=== PATIENT | female | born 1950 | race Caucasian/White ===

== ENCOUNTER 2023-05-10 21:22 | Emergency (ER) | payer MEDICARE, OTHER, SELFPAY ==
[2023-05-10 21:34] VITALS: BP 192/86; PULSE 61; RESP 18; TEMP 36.7; O2SAT 97; BMI 39.1
[2023-05-10 21:42] VITALS: BP 170/86; PULSE 61; RESP 16; TEMP 36.8; O2SAT 97; BMI 39.1
--- NOTE | 2023-05-10 21:54 | ED.WOUNDLAC1 ---
HPI - Wound/Laceration General Chief Complaint: Wound/Laceration Stated Complaint: Upper extremity injury Time Seen by Provider: 05/10/23 21:51 Source: patient Mode of arrival: walk-in History of Present Illness HPI narrative: trying to open a wine bottle and cut the web space of the right hand. Injury Just [employer]. No hand or finger weakness or numbness. States she was using a knife and it slipped and cut her hand. Onset (ago): minute(s) Related Data Allergies Allergy/AdvReac Type Severity Reaction Status Date / Time No Known Drug Allergies Allergy Verified 05/10/23 21:52 Review of Systems ROS Status of ROS 10 or more systems reviewed and unremarkable except as noted in history and below [facility] Social History Smoking status: Never smoker Exam Constitutional Vital Signs, click to edit/add: Last Vital Signs Temp 98.2 F 05/10/23 21:42 Pulse 61 05/10/23 21:42 Resp 16 05/10/23 21:42 BP 170/86 H 05/10/23 21:42 Pulse Ox 97 05/10/23 21:42 O2 Del Method Room Air 05/10/23 21:42 Common normals: no apparent distress, average body habitus, oriented x3, no limitations, healthy appearing and alert Eye Common normals: EOMs intact bilaterally and conjunctivae normal Respiratory Common normals: normal respiratory effort, no retractions and no use of accessory muscles Cardio Common normals: regular rate, regular rhythm, S1 normal heart sound and S2 normal heart sound Extremity Other: laceration dorsal web space right hand btw thumb and index FROM of her fingers Neuro Common normals: oriented x3, CN's II-XII intact bilaterally, moves all extremities, no focal motor deficits and no sensory deficits noted Psych Appearance: grossly normal Course Vital Signs Vital signs: Vital Signs Temperature 98.0 F 05/10/23 21:34 Pulse Rate 61 05/10/23 21:34 Respiratory Rate 18 05/10/23 21:34 Blood Pressure 192/86 H 05/10/23 21:34 Pulse Oximetry 97 05/10/23 21:34 Oxygen Delivery Method Room Air 05/10/23 21:34 Temperature 98.2 F 05/10/23 21:42 Pulse Rate 61 05/10/23 21:42 Respiratory Rate 16 05/10/23 21:42 Blood Pressure 170/86 H 05/10/23 21:42 Pulse Oximetry 97 05/10/23 21:42 Oxygen Delivery Method Room Air 05/10/23 21:42 MDM - Wound/Laceration Medical Records Medical records narrative: patient presents after accidental cut with knife right hand. Repaired without incident. Patient also given a tetanus. Discharged home to follow up with her doctor Discharge Plan Discharge Chief Complaint: Wound/Laceration Clinical Impression: Laceration Patient Disposition: Home, Self-Care Instructions: Laceration (ED) Additional Instructions: have wound rechecked in 3 days and stitches removed in 10 Stand Alone Forms: Portal Instructions Referrals: YVONNE QUINTANA [Primary Care Provider] - 1 week Procedures ED Procedure Instructions Procedures Procedures: right hand lac. 2cm lac . lac into SQ space. No FB seen. 1% lido without epi. betadine and saline. closed with # 33.0 nylon stitches. Tolerated well. no complication
--- NOTE | 2023-05-10 21:57 | PC.NURSE ---
PATIENT WITH LACERATION TO LEFT HAND BETWEEN THUMB AND FIRST FINGER. CUT WITH KITCHEN KNIFE WHILE ATTEMPTING TO CUT THE FOIL OFF OF A WINE BOTTLE NECK. SHE INITIALLY CUT HERSELF AROUND 3PM THIS AFTERNOON, SAYS SHE WAS ABLE TO GET THE BLEEDING CONTROLLED AT THAT TIME. SHE WENT TO CHANGE THE BANDAGE THIS EVENING AND IT STARTED BLEEDING AGAIN AND SHE WAS NOT ABLE TO GET IT TO STOP THIS TIME. IT WAS WRAPPED WITH COTTON BALLS AND TAPE AND A KITCHEN TOWEL WHEN SHE ARRIVED.
[2023-05-10] MEDS: ADACEL DIPH,PERTUSS(ACELL),TET VAC/PF 0.5 ML ADULT SYRINGE IM (22:13)
[2023-05-10] MEDS: LIDOCAINE HCL 1% 100 MG/10 ML MDV INJ (22:15)
[2023-05-10] MEDS: BACITRACIN OINTMENT 28.4 GM TUBE 1 APPLIC TOPICAL (23:11)
== END 2023-05-10 23:13 | disposition home or self-care (01) ==
PROVIDERS: Emergency Provider Internal Medicine; PCP Internal Medicine
DX: S61.411A Laceration without foreign body of right hand, initial encounter (principal); W26.0XXA Contact with knife, initial encounter; Z23 Encounter for immunization
CPT/HCPCS: 12001; 90471; 90715; 99283

== ENCOUNTER 2023-10-29 09:11 | Outpatient (OUT) | payer MEDICARE, OTHER, SELFPAY ==
[2023-10-29 09:30] LABS: Basophils Absolute Auto 0.1 10^3/uL (0.0-0.1); Basophils Percent Auto 0.8 % (0.2-2.0); Eosinophils Absolute Auto 0.1 10^3/uL (0.0-0.7); Eosinophils Percent Auto 1.6 % (0.9-7.0); Hematocrit 40.1 % (36.0-48.0); Hemoglobin 12.8 g/dL (12.0-16.0); Immature Granulocytes Abs Auto 0.04 10^3/uL (0.00-0.03); Immature Granulocytes Pct Auto 0.6 % (0.0-0.5); Lymphocytes Absolute Auto 1.7 10^3/uL (1.2-3.8); Lymphocytes Percent Auto 26.4 % (20.5-60.0); Mean Corpuscular HGB Conc 31.9 g/dL (29.9-35.2); Mean Corpuscular Volume 87.7 fL (81.0-99.0); Monocytes Absolute Auto 0.5 10^3/uL (0.3-0.8); Monocytes Percent Auto 7.8 % (1.7-12.0); Neutrophils Percent Auto 62.8 % (43.0-75.0); Platelet Count 183 10^3/uL (150-450); Red Blood Count 4.57 10^6/uL (4.20-5.40); Red Cell Distribution Width 12.8 % (11.0-15.0); White Blood Count 6.3 10^3/uL (4.0-11.0)
--- NOTE | 2023-10-29 10:00 | CA_ITS ---
Patient Name: JASIEL BLAKE MR#: [id number] : 1950 Exam Date: 10/29/2023 Ordering Doctor: MANJINDER SEHFFIELD ECHOCARDIOGRAM REPORT PROCEDURE: CA ECHO DOPPLER COMPLETE INDICATIONS: Paroxysmal atrial fibrillation, Mitral valve disease, hypertension COMPARISON: None. DESCRIPTION: COMPLETE ECHOCARDIOGRAM Real-time transthoracic echocardiography with 2D, M-mode, spectral and color flow Doppler performed. QUALITY: Technical quality was good. LEFT VENTRICLE: Normal chamber size. Borderline left ventricular hypertrophy. Systolic function is normal. LV EF: Normal left ventricular ejection fraction, (55%). DIASTOLIC: Grade II diastolic dysfunction. ATRIAL SEPTUM: Visually appears intact. LEFT ATRIUM: Severe dilatation. RIGHT ATRIUM: Mild chamber dilatation. RIGHT VENTRICLE: Normal chamber size. Normal right ventricular systolic function. TRICUSPID VALVE: Normal mobility and thickness. No stenosis with trivial regurgitation. Doppler studies reveal moderately (45-60) elevated right sided pressures. RSVP 49 mmHg MITRAL VALVE: Mildly thickened with normal mobility. No evidence of mitral valve stenosis. Mild mitral regurgitation. AORTIC VALVE: Normal trileaflet appearance. No visible sclerosis. Normal leaflet mobility. No evidence of aortic valve stenosis. No aortic regurgitation. AORTIC ROOT: Normal diameter and appearance. PULMONIC VALVE: Normal thickness and mobility. No stenosis. Trivial regurgitation. PERICARDIUM: Moderate circumferential pericardial effusion. No echocardiographic evidence of tamponade physiology. IVC: Collapses with inspirations. IVC is normal in size. PLEURA: CONCLUSION: 1. Left ventricle is normal in size and exhibits normal systolic function. LVEF is estimated at 55%. 2. Normal right ventricular size and systolic function. 3. Severe left atrial dilatation. 4. Grade 2, moderate diastolic dysfunction. 5. Mild mitral regurgitation. 6. Moderately elevated right-sided pressures. RVSP is 49 mmHg. 7. Moderate circumferential pericardial effusion with no echocardiographic evidence of tamponade physiology. Adult Echocardiography Procedure Report Left Ventricle LVEDD (3.7 - 5.6 cm): 5.05 cm LVESD (2.2 - 4.0 cm): 2.96 cm LVIVS thickness (0.6 - 1.2 cm): 1.07 cm LVPW thickness (0.5 - 1.0 cm): 1.00 cm e': 0.07 m/s E - e': 12.22 LVOT Max Gradient: 4.29 mm[Hg] LVOT Area (cm2): 1.04 m/s Peak Velocity (LVOT): 1.04 m/s Mean Velocity (LVOT): 0.62 m/s LVOT Diameter 1.99 cm Left Atrium LA Volume Index (2D A2C): 56.41 ml/m2 Left Atrium Systolic Dimension: 4.84 cm Mitral Valve MV E to A Ratio: 1.82 Mitral Valve A-Wave Peak Velocity: 0.45 m/s Mitral Valve E-Wave Peak Velocity: 0.82 m/s Right Ventricle Aorta AO Root Diam: 2.50 cm Ascending Ao Diam: 2.94 cm Aortic Valve AoV Area (Peak Teo): 2.78 cm2, 2.78 cm2 AoV Area (VTI): 2.79 cm2, 2.79 cm2 Peak Velocity(Antegrade Flow): 1.15 m/s Peak Gradient(Antegrade Flow): 5.30 mm[Hg] Mean Velocity(Antegrade Flow): 0.72 m/s Mean Gradient(Antegrade Flow): 2.50 mm[Hg] Velocity Time Integral: 28.75 cm Tricuspid Valve Peak Velocity (Regurgitant Flow): 3.37 m/s Pulmonic Valve Peak Velocity: 0.77 m/s Peak Gradient: 1.82 mm[Hg], 3.06 mm[Hg] Right Atrium Right Atrium Systolic Pressure: 34.84 ml, 34.84 ml Dictated by: Kin Curry M.D. on 10/29/2023 at 15:52 Approved by: Kin Curry M.D. on 10/29/2023 at 15:55
[2023-10-29 10:35] LABS: Estimated Average Glucose 126 mg/dL
[2023-10-29 18:31] LABS: Sodium 140 mmol/L (136-145)
[2023-10-29 18:32] LABS: Alanine Aminotransferase 14 U/L (14-59); Albumin Globulin Ratio 1.1; Albumin Level 3.7 g/dL (3.4-5.0); Alkaline Phosphatase 88 U/L (46-116); Anion Gap 13.9; Aspartate Amino Transferase 15 U/L (15-37); BUN Creatinine Ratio 22.7; Bilirubin Total 0.4 mg/dL (0.2-1.0); Calcium 9.3 mg/dL (8.5-10.1); Carbon Dioxide 26.6 mmol/L (21.0-32.0); Chloride 104 mmol/L (98-107); Estimated GFR (African America 59 (>=60); Estimated GFR (Non-African Ame 49 (>=60); Globulin 3.4 g/dL; Glucose 125 mg/dL (74-106); Potassium 4.5 mmol/L (3.5-5.1); Total Protein 7.1 g/dL (6.4-8.2); Triglycerides 90 mg/dL (<=150)
[2023-10-29 18:33] LABS: Cholesterol 179 mg/dL (<=200); HDL Cholesterol 48 mg/dL (40-60); TSH W/ REFLEX FT4 3.718 uIU/mL (0.358-3.740)
== END 2023-10-29 09:12 | disposition home or self-care (01) ==
LOC: CARD 09:12
PROVIDERS: PCP Internal Medicine; Visit Provider Nurse Practitioner
DX: I48.0 Paroxysmal atrial fibrillation (principal); I05.9 Rheumatic mitral valve disease, unspecified; E78.2 Mixed hyperlipidemia; E11.9 Type 2 diabetes mellitus without complications; I10 Essential (primary) hypertension; E03.9 Hypothyroidism, unspecified
CPT/HCPCS: 36415; 80053; 80061; 83036; 84443; 85025; 93306

== ENCOUNTER 2024-01-14 10:49 | Outpatient (OUT) | payer MEDICARE, OTHER, SELFPAY ==
--- NOTE | 2024-01-14 10:52 | MM_ITS ---
Patient Name: JASIEL BLAKE MR#: [id number] : 1950 Exam Date: 01/14/2024 Ordering Doctor: DR YVONNE QUINTANA M.D. RADIOLOGY REPORT PROCEDURE: MM TOMOSYNTHESIS SCREENING BI COMPARISON: MG MAMM SCREEN 3D RONY CAD, 12/30/2021. MG MAMM SCREEN 3D RONY CAD, 01/02/2023. INDICATIONS: Screening Calculator Name NCI Breast Cancer Risk Assessment Tool 5 Year Breast Cancer Risk 1.30% Lifetime Breast Cancer Risk 3.30% Personal Breast Cancer No Personal Ovarian Cancer No Treatments None Family Cancers Aunt-maternal with breast cancer at age 50; Grandfather-paternal with oral cancer cancer at age ~60. LOCATION: [facility] BREAST COMPOSITION: There are scattered areas of fibroglandular density. FINDINGS: DIAGNOSTIC CATEGORY 2--BENIGN FINDING. NO CHANGE FROM COMPARISON. Scattered benign-appearing calcifications are present. Scattered benign-appearing lymph nodes are present. RIGHT BREAST: No significant suspicious finding. LEFT BREAST: No significant suspicious finding. RECOMMENDATIONS: ROUTINE MAMMOGRAM AND CLINICAL EVALUATION IN 12 MONTHS. PLEASE NOTE: A NORMAL MAMMOGRAM DOES NOT EXCLUDE THE POSSIBILITY OF BREAST CANCER. A CLINICALLY SUSPICIOUS PALPABLE LUMP SHOULD BE BIOPSIED. Dictated by: Raul Bernard MD on 01/14/2024 at 13:17 Approved by: Raul Bernard MD on 01/14/2024 at 13:34
== END 2024-01-14 10:50 | disposition home or self-care (01) ==
LOC: MAMMO 10:50
PROVIDERS: PCP Internal Medicine; Visit Provider Internal Medicine
DX: Z12.31 Encounter for screening mammogram for malignant neoplasm of breast (principal); Z80.3 Family history of malignant neoplasm of breast; Z80.8 Family history of malignant neoplasm of other organs or systems
CPT/HCPCS: 77063; 77067

== ENCOUNTER 2024-02-28 09:51 | Outpatient (OUT) | payer MEDICARE, OTHER, SELFPAY ==
--- OUTSIDE RECORDS SUMMARY | 2024-02-28 09:54 | XMS_ITS | CCD ---
Author Organization [facility] Care Team Providers Care Dish Machine Operator Name Role Phone DR YVONNE QUINTANA Admitting Unavailable MARIANO, DR RUSSELL Primary Care Unavailable MARIANO, DR RUSSELL Consulting Unavailable MARIANO, DR RUSSELL Attending Unavailable WEST, DR GREGORIO Cabral Consulting Unavailable MARIANO, DR RUSSELL Primary Care Unavailable ALGHOTHANI, MOHAMAFrancesco Admitting Unavailable ALGHOTHANI, MOHAMAD Consulting Unavailable ALGHOTHANI, MOHAMAD Attending Unavailable YOHANNES, MANJINDER Attending Unavailable YOHANNES, MANJINDER Attending Unavailable YOHANNES, MANJINDER Attending Unavailable JERICHO, ANA Attending Unavailable Problems Active Problems Problem Classification Problem Date Documented Da te Episodic/Chronic Cardiac dysrhythmias (2 sources) Paroxysmal atrial fibrillation; Translations: [Paroxysmal atrial fibrillation] Onset: 07-25-2022 Chronic Diabetes mellitus without complication (2 sources) Type 2 diabetes mellitus without complications; Translations: [Type 2 diabetes mellitus without complications] Onset: 10-17-2023 Chronic Disorders of lipid metabolism (3 sources) Hyperlipidemia, unspecified; Translations: [Mixed hyperlipidemia] Onset: 07-25-2022 Chronic Essential hypertension (6 sources) Essential (primary) hypertension; Translations: [ESSENTIAL PRIMARY HYPERTENSION] Onset: 07-25-2022 Chronic Heart valve disorders (2 sources) Rheumatic mitral valve disease, unspecified; Translations: [Rheumatic mitral valve disease, unspecified] Onset: 07-25-2022 Chronic Menopausal disorders (1 source) Other primary ovarian failure; Translations: [OTHER PRIMARY OVARIAN FAILURE] Onset: 01-03-2023 Chronic Other and ill-defined heart disease (2 sources) Other ill-defined heart diseases; Translations: [Other ill-defined heart diseases] Onset: 07-25-2022 Chronic Other and ill-defined heart disease (2 sources) Cardiomegaly; Translations: [Cardiomegaly] Onset: 07-25-2022 Chronic Other and ill-defined heart disease (2 sources) Heart disease, unspecified; Translations: [Heart disease, unspecified] Onset: 02-02-2023 Chronic Other screening for suspected conditions (not mental disorders or infectious disease) (4 sources) Encounter for screening mammogram for malignant neoplasm of breast; Translations: [ENC SCR MAMMO MALIG NEOPLASM BREAST] Onset: 01-02-2023 Episodic Residual codes; unclassified (1 source) Family history of malignant neoplasm of breast; Translations: [FAMILY HX MALIG NEOPLASM OF BREAST] Onset: 01-03-2023 Episodic Residual codes; unclassified (1 source) Family history of malignant neoplasm of other organs or systems; Translations: [FAM HX MALIG NEOPLASM OTH ORGN/SYS] Onset: 01-03-2023 Episodic Thyroid disorders (2 sources) Hypothyroidism, unspecified; Translations: [Hypothyroidism, unspecified] Onset: 07-25-2022 Chronic Unclassified (1 source) Other pericardial effusion (noninflammatory); Translations: [Other pericardial effusion (noninflammatory)] Onset: 11-16-2023 Past or Other Problems Problem Classification Problem Date Documented Da te Episodic/Chronic Unclassified (1 source) Other pericardial effusion (noninflammatory); Translations: [Other pericardial effusion (noninflammatory)] Onset: 11-16-2023 Results Test Name Value Interpretation Reference Range Facil ity Office Visiton 11-16-2023 Follow-up visit [id number] Frances Macdonald 1950 F Date Provider Department Center 11/16/2023 MANJINDER ARAUJO CARD [facility] Family History Problem Relation Age of Onset Heart failure Father Family Status - Relation Status Age at Father Level of Service:23360 [place] OFFICE/OUTPATIENT ESTABLISHED MOD MDM 30 MIN Normal [facility] 36on 10-31-2023 36 Regarding labs and echo performed on 10/29/2023: ANAI Marcelino MA Sarah- see if her leg swelling is better after starting aldactone. Did she have repeat BMP done? Has she needed lasix more often? Hows her B/P at home Overall echo is ok, normal LVSF 55%, still grade 2 DD, rigth sided pressures elevated- hoping aldactone helped dry her out a bit. Make sure she has a f/U to check B/P- and labs please ANAI Marcelino MA Kidney function normal, Potassium level normal, liver function normal, lA1c- good at 6.0 Cholesterol is a touch higher- with LDL 110- ask her to watch diet a little better or we can increase her statin Spoke with patient. BP has been running very good. She has not needed lasix. Scheduled her follow up with Gabriela (per patient's request) on 11/16/2023. Normal [facility] Office Visiton 10-17-2023 Follow-up visit [id number] Frances Macdonald 1950 F Date Provider Department Center 10/17/2023 MANJINDER ARAUJO Family History Problem Relation Age of Onset Heart failure Father Family Status - Relation Status Age at Father Level of Service:89983 [place] OFFICE/OUTPATIENT ESTABLISHED MOD MDM [address] [facility] Office Visiton 02-02-2023 Follow-up visit [id number] Frances Macdonald 1950 F Date Provider Department Center 02/02/2023 MANJINDER ARAUJO Family History Problem Relation Age of Onset Heart failure Father Family Status - Relation Status Age at Father Level of Service:38165 [place] OFFICE/OUTPATIENT ESTABLISHED MOD MDM 30-[address] [facility] MG MAMM SCREEN 3D RONY CADon 01-02-2023 MG MAMM SCREEN 3D RONY CAD Patient: FRANCES MACDONALD Exam Date: 01/02/2023 : 1950 Gender:F Ordering : DR YVONNE QUINTANA M.D. Admission #: [id number] Family : Order #: [id number] CLICK HERE TO VIEW EXAM RADIOLOGY REPORT PROCEDURE: MAMMOGRAM SCREENING 3D BILATERAL CAD COMPARISON: MG MAMM SCREEN 3D RONY CAD, 12/28/2020. MG MAMM SCREEN 3D RONY CAD, 12/30/2021. INDICATIONS: Screening mammography Calculator Name NCI Breast Cancer Risk Assessment Tool 5 Year Breast Cancer Risk 1.30% Lifetime Breast Cancer Risk 3.50% Personal Breast Cancer No Personal Ovarian Cancer No Treatments None Family Cancers Aunt-maternal with breast cancer at age 50; Grandfather-paternal with oral cancer cancer at age 60. LOCATION: [facility] BREAST COMPOSITION: Scattered areas fibroglandular density. FINDINGS: DIAGNOSTIC CATEGORY 2--BENIGN FINDING. NO CHANGE FROM COMPARISON. Scattered benign-appearing calcifications are present. Scattered benign-appearing lymph nodes are present. RIGHT BREAST: No significant suspicious finding. LEFT BREAST: No significant suspicious finding. RECOMMENDATIONS: ROUTINE MAMMOGRAM AND CLINICAL EVALUATION IN 12 MONTHS. PLEASE NOTE: A NORMAL MAMMOGRAM DOES NOT EXCLUDE THE POSSIBILITY OF BREAST CANCER. A CLINICALLY SUSPICIOUS PALPABLE LUMP SHOULD BE BIOPSIED. Dictated by: Gregorio Dominique MD on 01/02/2023 at 11:04 Approved by: Gregorio Dominique MD on 01/02/2023 at 11:05 Normal [facility] XR DEXA BONE DENSITYon 01-02 XR DEXA BONE DENSITY EXAMINATION: XR DEXA BONE DENSITY, 01/02/2023 9:29 AM EDT HISTORY: Primary ovarian failure COMPARISON: 2013. TECHNIQUE: Dual-energy X-ray absorptiometry (DEXA) bone density study performed for the axial skeleton. HISTORY: Primary ovarian failure FINDINGS: Bone mineral density AP spine L1-L4 measures 1.301 g/sq cm. T score 1.0. WHO classification: Normal. Lowest bone mineral density right femoral neck measures 1.074 g/sq cm. T score 0.3. WHO classification: Normal IMPRESSION: Normal bone mineral density. Low fracture risk Electronically authenticated by: GREGORIO DOMINIQUE Date: 2023-01-02 12:02 Normal [facility] LIPID PROFILEon 08-01-2022 CHOL-HDL RATIO NORM SEE BELOW Normal [facility] Comment on above: Result Comment: 3.3 - 4.4 LOW RISK 4.4 - 7.1 AVERAGE RISK 7.1 - 11.0 MODERATE RISK >11.0 HIGH RISK Performed By: #### L KAROL BMP #### [facility] [address] [address] [address] Elias Le Cholesterol [Mass/Vol] 175 mg/dL Normal <=200 [facility] Comment on above: Performed By: #### L KAROL BMP #### [facility] [address] [address] [address] Elias Le Cholesterol in HDL [Mass/Vol] 52 mg/dL Normal 40-60 [facility] Comment on above: Performed By: #### L KAMILAH ROBERSON #### [facility] [address] [place] [address] Dr. Elias Le Cholesterol in LDL [Mass/Vol] 101.0 mg/dL Normal [facility] Comment on above: Performed By: #### L IPID, BMP #### [facility] [address] [place] [address] Dr. Elias Le Cholesterol.total/ Cholesterol in HDL [Mass ratio] 3.4 {ratio} Normal [facility] Comment on above: Performed By: #### L IPID, BMP #### [facility] [address] [place] [address] Dr. Elias Le HDL NORMAL > or = 60 mg/dl - LOW CARDIOVASCULAR RISK <40 mg/dl - HIGH CARDIOVASCULAR RISK Normal [facility] Comment on above: Performed By: #### L IPID, BMP #### [facility] [address] [place] [address] Dr. Elias Le LDL CALC NORMAL SEE BELOW Normal [facility] Comment on above: Result Comment: <100 mg/dl OPTIMAL 100 - 129 mg/dl NEAR OR ABOVE OPTIMAL 130 - 159 mg/dl BORDERLINE HIGH 160 - 189 mg/dl HIGH >190 mg/dl VERY HIGH Performed By: #### L IPID, BMP #### [facility] [address] [place] [address] Dr. Elias Le Triglyceride [Mass/Vol] 110 mg/dL Normal <=150 [facility] Comment on above: Performed By: #### L IPID, BMP #### [facility] [address] [place] [address] Dr. Elias Le VLDL CALC 22.0 mg/dL Normal [facility] Comment on above: Performed By: #### L IPID, BMP #### [facility] [address] [place] [address] Dr. Elias Le PROF CHEM 8 (BAS METB)on Anion gap [Moles/Vol] 10.1 mmol/L Normal [facility] Comment on above: Performed By: #### L IPID, BMP #### [facility] [address] [place] [address] Dr. Elias Le Calcium [Mass/Vol] 8.8 mg/dL Normal 8.5-10.1 [facility] Comment on above: Performed By: #### L IPID, BMP #### [facility] [address] [address] [address] Elias Le Chloride [Moles/Vol] 102 mmol/L Normal 98-107 [facility] Comment on above: Performed By: #### L IPID, BMP #### [facility] [address] [address] [address] Elias Le CO2 [Moles/Vol] 29.0 mmol/L Normal 21.0-32.0 [facility] Comment on above: Performed By: #### L IPID, BMP #### [facility] [address] [place] [address] Dr. Elias Le Creatinine [Mass/Vol] 0.99 mg/dL Normal 0.55-1.02 [facility] Comment on above: Performed By: #### L IPID, BMP #### [facility] [address] [place] [address] Dr. Elias Le EGFR-AF LEBANESE >60 Normal >=60 [facility] Comment on above: Performed By: #### L IPID, BMP #### [facility] [address] [address] [address] Elias Le EGFR-NON AF LEBANESE 55 mL/min/1.73m2 Critically low >=60 [facility] Comment on above: Performed By: #### L IPID, BMP #### [facility] [address] [place] [address] Dr. Elias Le Glucose [Mass/Vol] 117 mg/dL Critically high 74-106 [facility] Comment on above: Performed By: #### L IPID, BMP #### [facility] [address] [address] [address] Elias Le Potassium [Moles/Vol] 4.1 mmol/L Normal 3.5-5.1 [facility] Comment on above: Performed By: #### L IPID, BMP #### [facility] [address] [address] [address] Elias Le Sodium [Moles/Vol] 137 mmol/L Normal 136-145 [facility] Comment on above: Performed By: #### L IPID, BMP #### [facility] [address] [address] [address] Elias Le Urea nitrogen [Mass/Vol] 25.0 mg/dL Critically high 7.0-18.0 [facility] Comment on above: Performed By: #### L IPID, BMP #### [facility] [address] [address] [address] Elias Le Urea nitrogen/Creatinin e [Mass ratio] 25.3 mg/mg Normal [facility] Comment on above: Performed By: #### L IPID, BMP #### [facility] [address] [address] [address] Elias Le Encounters Encounter Date Encounter Type Care Provider Facility Start: 01-01-2024 End: 01-01-2024 ambulatory ANA ECHAVARRIA Not Available Start: 11-16-2023 End: 11-16-2023 ambulatory [facility] Start: 10-17-2023 End: 10-17-2023 ambulatory [facility] Start: 02-02-2023 End: 02-02-2023 ambulatory [facility] Start: 01-02-2023 End: 01-03-[address] YVONNE QUINTANA Facility:[facility] Start: 08-01-2022 End: 08-02-[address] YVONNE QUINTANA Facility:[facility] Payers Date Payer Category Payer Medicare [id number] 1958 Private Health Insurance [id number] 1950 Unknown [id number] 1950 Unknown [id number] 1950 Unknown [id number] Clinical Notes 02-02-2023 to 11-16-2023 Note Date & Type Note Facility 11-16-2023 Note Hypertension is stab le, well controlled 130/80 Continue all meds [facility] 11-16-2023 Note Will monitor with bennie gonzalez echocardiogram [facility] 11-16-2023 Note Lipid abnormalities are stable continue simvastatin- she does not want to increase dose of statin- she will continue heart healthy diet [facility] 11-16-2023 Note [facility] CARDIOLOGY PROGR ESS NOTE HPI: Frances Macdonald is a 73 y.o. female here for f/U and review of Echocardiogram and labs HPI Known PMH: HTN, paroxysmal atrial fibrillation, and heart failure with preserved EF. Patient here for follow up labs and echo. She was started on spironolactone at visit last month, renal function stable and K+ stable. Denies chest pain and bleeding on Eliquis. Says her SOB is no different, and she's taking lasix about 3 times a week. Denied chest pain, SOB, Orthopnea, syncope Review of Systems Cardiovascular: Positive for dyspnea on exertion and leg swelling. Respiratory: Positive for shortness of breath (asthma). Gastrointestinal: Positive for heartburn. All other systems reviewed and are negative. Visit Vitals BP 130/80 (BP Location: Left arm, Patient Position: Sitting) Pulse (!) 47 Ht 1.651 m (5' 5 ) Wt 110 kg (243 lb) SpO2 96% BMI 40.44 kg/m??? Smoking Status Never BSA 2.25 m??? No Known Allergies Medications: Current Outpatient Medications on File Prior to Visit Medication Sig Dispense Refill albuterol 90 mcg/actuation inhaler albuterol sulfate HFA 90 mcg/actuation aerosol inhaler INHALE 2 PUFFS BY MOUTH EVERY 4 HOURS NEEDED FOR WHEEZING WITH SPACER apixaban (Eliquis) 5 mg tablet Take 5 mg by mouth in the morning and at bedtime. fluticasone propion-salmeteroL (Advair Diskus) 250-50 mcg/dose diskus inhaler Advair Diskus 250 mcg-50 mcg/dose powder for inhalation furosemide (Lasix) 20 mg tablet Take 20 mg by mouth 3 (three) times a week. levothyroxine (Synthroid, Levoxyl) 25 mcg tablet levothyroxine 25 mcg tablet losartan (Cozaar) 50 mg tablet Take 1 tablet (50 mg) by mouth in the morning. 90 tablet 3 metFORMIN (Glucophage) 500 mg tablet Take 500 mg by mouth with breakfast and with evening meal. metoprolol succinate XL (Toprol-XL) 50 mg 24 hr tablet Take 50 mg by mouth in the morning. montelukast (Singulair) 10 mg tablet montelukast 10 mg tablet simvastatin (Zocor) 20 mg tablet Take 20 mg by mouth at bedtime. spironolactone (Aldactone) 25 mg tablet Take 1 tablet (25 mg) by mouth in the morning. 30 tablet 5 No current facility-administered medications on file prior to visit. Physical Exam: Constitutional: Appearance: Normal appearance. Without apparent distress HENT: Head: Normocephalic and atraumatic. Nose: Nose normal. Mouth/Throat: Mouth: Mucous membranes are moist. Eyes: Extraocular Movements: Extraocular movements intact. Conjunctiva/sclera: Conjunctivae normal. Neck: Vascular: No JVD. Cardiovascular: Rate and Rhythm: Normal rate and regular rhythm. Pulses: Dorsalis pedis pulses are 3 on the right side and 3on the left side. Posterior tibial pulses are 3 on the right side and 3 on the left side. Heart sounds: Normal heart sounds, S1 normal and S2 normal. Pulmonary: Effort: Pulmonary effort is normal. Breath sounds: Normal breath sounds. Abdominal: General: Bowel sounds are normal. Palpations: Abdomen is soft. Musculoskeletal: General: Normal range of motion. Cervical back: Normal range of motion. Right lower leg: Non pitting edema. Left lower leg: Non pitting edema. Skin: General: Skin is warm and dry. Capillary Refill: Capillary refill takes less than 2 seconds. Neurological: General: No focal deficit present. Mental Status: She is alert and oriented to person, place, and time. Psychiatric: Mood and Affect: Mood normal. Behavior: Behavior normal. Thought Content: Thought content normal. Judgment: Judgment normal. Labs: 10/29/23 CBC normal Renal function stable BUN 25, CR 1.10, GFR 49 K+ 4.5 normal NA 140- normal LFT normal Chol 179, Trig 90, HDL 48, LDL 113 A1c 6.0- stable Last lab values have been reviewed CV Testin10/29/23 TTE 05/2019 Echo- reviewed with pt- diastolic dysfunction and Mitral regurg Global left ventricular systolic function is normal (Visually estimated EF 65-70%). No regional wall motion abnormality. Grade 2, moderate diastolic dysfunction (pseudonormalized LV filling pattern). Normal right ventricular systolic function. The left atrium is severely enlarged. The right atrium is moderately enlarged. Mild mitral regurgitation. Trivial tricuspid regurgitation. Doppler studies suggest mildly elevated right sided pressures. There is a minimal pericardial effusion. Assessment/Plan: Pericardial effusion Will monitor with repeat Limitied echo in 3 months, she is currently asymptomatic Continue all medications Paroxysmal atrial fibrillation (CMS/HCC) [id number]= 5- Age, Female, CHF, DM Remains on anticoagulation- eliquis Rate control with toprol 50 mg Mixed hyperlipidemia Lipid abnormalities are stable continue simvastatin- she does not want to increase dose of statin- she will continue heart healthy diet Mitral valve disorder Will monitor with routine echocardiogram Hypertensive disorder Hypertension is stab (more content not included)... [facility] 11-16-2023 Note Patient here for fol low up labs and echo. She was started on spironolactone at visit last month. Denies chest pain and bleeding on Eliquis. Says her SOB is no different, and she's taking lasix about 3 times a week. Review of Systems Cardiovascular: Positive for dyspnea on exertion and leg swelling. Respiratory: Positive for shortness of breath (asthma). Gastrointestinal: Positive for heartburn. All other systems reviewed and are negative. [facility] 11-16-2023 Note [id number]= 5- Age , Female, CHF, DM Remains on anticoagulation- eliquis Rate control with toprol 50 mg [facility] 11-16-2023 Note Will monitor with re peat Limitied echo in 3 months, she is currently asymptomatic Continue all medications [facility] 10-17-2023 Note [id number]=6- age, female, HTN, DM Continue toprol and eliquis anticoagulation Denied any bleeding tendencies ECG today Sinus bradycardia [facility] 10-17-2023 Note Lipid abnormalities are stable continue simvastatin and heart healthy diet Script to pt for annual labs [facility] 03-13-2024 Note MV regurg- repeat ec ho to assess degree of MR [facility] 10-17-2023 Note Hypertension is unco ntrolled, add aldactone to regime, continue losartan and toprol Repeat CMP in 1-2 weeks after starting aldactone to assess renal function and electrolytes. Pt voiced understanding [facility] 10-17-2023 Note Repeat echo [facility] 10-17-2023 Note F/U with PCP [facility] 10-17-2023 Note Continue lasix and s tart aldactone for HTN and fluid management [facility] 10-17-2023 Note Repeat echocardiogra m to assess cardiac function, DD, valvular function Continue lasix 2 times/week and start aldactone [facility] 10-17-2023 Note F/U with PCP and michelle hutchins check routine annual labs, A1C [facility] 10-17-2023 Note [facility] CARDIOLOGY PROGR ESS NOTE HPI: 73 yo female presents today for routine F/U for HTN, paroxysmal atrial fibrillation, and heart failure with preserved EF. She presents to cardiology clinic for routine follow-up. HPI Pleasant 72-year-old female presents to clinic for routine follow-up of diastolic dysfunction/Chronic diastolic heart failure, Paroxysmal A-fib on Eliquis anticoagulation denies any bleeding tendencies, and hypertension Chest pain, orthopnea, palpitations. States at home b/p is typically about 150/80's. Denied any lightheadedness/dizziness, syncope. Does admit occasional fatigue. She has just returned from being in [place] over the winter. Patient here for 9 mo follow up diastolic dysfunction, hypertension, PAF, and mitral valve disorder. No recent labs or imaging. Says her SOB is very intermittent and no more than usual for her. Says she doesn't think she has chest pain. She believes it's heartburn, and is relieved with Tums and a glass of water. Denies palpitations, lightheadedness/syncope, and bleeding on Eliquis. Says her BP at home averages about the same as it is in the office today (150/78). Review of Systems Cardiovascular: Positive for dyspnea on exertion and leg swelling. Respiratory: Positive for shortness of breath (asthma). Gastrointestinal: Positive for heartburn. All other systems reviewed and are negative Visit Vitals BP 150/78 (BP Location: Left arm, Patient Position: Sitting) Pulse 50 Ht 1.651 m (5' 5 ) Wt 109 kg (241 lb) SpO2 97% BMI 40.10 kg/m??? Smoking Status Never BSA 2.24 m??? No Known Allergies Medications: Current Outpatient Medications on File Prior to Visit Medication Sig Dispense Refill albuterol 90 mcg/actuation inhaler albuterol sulfate HFA 90 mcg/actuation aerosol inhaler INHALE 2 PUFFS BY MOUTH EVERY 4 HOURS NEEDED FOR WHEEZING WITH SPACER apixaban (Eliquis) 5 mg tablet Take 5 mg by mouth in the morning and at bedtime. fluticasone propion-salmeteroL (Advair Diskus) 250-50 mcg/dose diskus inhaler Advair Diskus 250 mcg-50 mcg/dose powder for inhalation furosemide (Lasix) 20 mg tablet Take 20 mg by mouth 2 (two) times a week. levothyroxine (Synthroid, Levoxyl) 25 mcg tablet levothyroxine 25 mcg tablet losartan (Cozaar) 50 mg tablet Take 1 tablet (50 mg) by mouth in the morning. 90 tablet 3 metFORMIN (Glucophage) 500 mg tablet Take 500 mg by mouth with breakfast and with evening meal. metoprolol succinate XL (Toprol-XL) 50 mg 24 hr tablet Take 50 mg by mouth in the morning. montelukast (Singulair) 10 mg tablet montelukast 10 mg tablet simvastatin (Zocor) 20 mg tablet Take 20 mg by mouth at bedtime. No current facility-administered medications on file prior to visit. Physical Exam: Constitutional: Appearance: Normal appearance. Without apparent distress, obese HENT: Head: Normocephalic and atraumatic. Nose: Nose normal. Mouth/Throat: Mouth: Mucous membranes are moist. Eyes: Extraocular Movements: Extraocular movements intact. Conjunctiva/sclera: Conjunctivae normal. Neck: Vascular: No JVD. Cardiovascular: Rate and Rhythm: Bradycardia and regular rhythm. Pulses: Dorsalis pedis pulses are 3 on the right side and 3on the left side. Posterior tibial pulses are 3 on the right side and 3 on the left side. Heart sounds: Normal heart sounds, S1 normal and S2 normal. Pulmonary: Effort: Pulmonary effort is normal. Breath sounds: Normal breath sounds. Abdominal: General: Bowel sounds are normal. Palpations: Abdomen is soft. Musculoskeletal: General: Normal range of motion. Cervical back: Normal range of motion. Right lower le+ pitting edema. Left lower le+ pitting edema. Skin: General: Skin is warm and dry. Capillary Refill: Capillary refill takes less than 2 seconds. Neurological: General: No focal deficit present. Mental Status: She is alert and oriented to person, place, and time. Psychiatric: Mood and Affect: Mood normal. Behavior: Behavior normal. Thought Content: Thought content normal. Judgment: Judgment normal. Labs: Renal function normal, Chol stable 08/01/22 Last lab values have been reviewed CV Testin05/2019 Echo- reviewed with pt- diastolic dysfunction and Mitral regurg Global left ventricular systolic function is normal (Visually estimated EF 65-70%). No regional wall motion abnormality. Grade 2, moderate diastolic dysfunction (pseudonormalized LV filling pattern). Normal right ventricular systolic function. The left atrium is severely enlarged. The right atrium is moderately enlarged. Mild mitral regurgitation. Trivial tricuspid regurgitation. Doppler studies suggest mildly elevated right sided pressures. There is a minimal pericardial effusion. Assessment/Plan: Type 2 diabetes mellitus without complication, without long-term current use of insulin ([facility]) F/U with PCP and will check routine annual labs, A1C Diastolic dysf (more content not included)... [facility] 10-17-2023 Note Patient here for 9 m o follow up diastolic dysfunction, hypertension, PAF, and mitral valve disorder. No recent labs or imaging. Says her SOB is very intermittent and no more than usual for her. Says she doesn't think she has chest pain. She believes it's heartburn, and is relieved with Tums and a glass of water. Denies palpitations, lightheadedness/syncope, and bleeding on Eliquis. Says her BP at home averages about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
--- NOTE | 2024-02-28 10:00 | CA_ITS ---
Patient Name: JASIEL BLAEK MR#: [id number] : 1950 Exam Date: 02/28/2024 Ordering Doctor: MANJINDER SHFEFIELD ECHOCARDIOGRAM REPORT PROCEDURE: CA ECHO LIMITED INDICATIONS: Pericardial effusion COMPARISON: None. DESCRIPTION: Limited ECHOCARDIOGRAM Real-time transthoracic echocardiography with 2D and M-mode performed. QUALITY: Technical quality was good. Limited echocardiogram per physician order. LEFT VENTRICLE: Normal chamber size. left ventricular hypertrophy. LV EF: Global left ventricular systolic function is normal; visually estimated ejection fraction is 60%. No significant wall motion abnormalities. LEFT ATRIUM: Moderate dilatation. RIGHT ATRIUM: Mild dilatation. RIGHT VENTRICLE: Normal chamber size. Normal systolic function TRICUSPID VALVE: Normal mobility and thickness. MITRAL VALVE: Normal mobility and thickness. There is no mitral annular calcification. AORTIC VALVE: Normal trileaflet appearance. Normal leaflet mobility. AORTIC ROOT: Normal diameter and appearance. PULMONIC VALVE: Normal thickness and mobility. PERICARDIUM: There is a trivial anterior and moderate posterior pericardial effusion. No convincing signs of tamponade physiology are seen. IVC: Collapses with inspirations. IVC is dilated (2.4 cm) CONCLUSION: Global left ventricular systolic function is normal; visually estimated ejection fraction is 60%. Mild left ventricular hypertrophy. Biatrial enlargement. There is a trivial anterior and moderate posterior pericardial effusion. A limited echocardiogram was performed. Adult Echocardiography Procedure Report Left Ventricle LVEDD (3.7 - 5.6 cm): 4.47 cm LVESD (2.2 - 4.0 cm): 3.38 cm LVIVS thickness (0.6 - 1.2 cm): 1.30 cm LVPW thickness (0.5 - 1.0 cm): 1.27 cm LVOT Diameter 1.82 cm Left Atrium LA Volume Index (2D A2C): 40.25 ml/m2 Left Atrium Systolic Dimension: 4.20 cm Mitral Valve Right Atrium Right Atrium Systolic Pressure: 40.05 ml, 40.05 ml Dictated by: Corry Smalls M.D. on 02/28/2024 at 13:30 Approved by: Corry Smalls M.D. on 02/28/2024 at 13:34
== END 2024-02-28 09:52 | disposition home or self-care (01) ==
LOC: CARD 09:51
PROVIDERS: PCP Internal Medicine; Visit Provider Nurse Practitioner
DX: I31.39 Other pericardial effusion (noninflammatory) (principal)
CPT/HCPCS: 93308

== ENCOUNTER 2024-05-09 10:07 | Outpatient (OUT) | payer MEDICARE, OTHER, SELFPAY ==
--- NOTE | 2024-05-09 10:00 | CA_ITS ---
Patient Name: JASIEL BLAKE MR#: [id number] : 1950 Exam Date: 05/09/2024 Ordering Doctor: MANJINDER SHEFFIELD ECHOCARDIOGRAM REPORT PROCEDURE: CA ECHO LIMITED INDICATIONS: Pericardial effusion COMPARISON: None. DESCRIPTION: Limited ECHOCARDIOGRAM Real-time transthoracic echocardiography with 2D and M-mode performed. QUALITY: Technical quality was good. LEFT VENTRICLE: Normal chamber size. Normal left ventricular wall thickness. Systolic function is normal. LV EF: Normal left ventricular ejection fraction, (55%). DIASTOLIC: ATRIAL SEPTUM: LEFT ATRIUM: Moderate dilatation. RIGHT ATRIUM: Moderate dilatation. RIGHT VENTRICLE: Normal chamber size. Normal systolic function. TRICUSPID VALVE: Normal mobility and thickness. MITRAL VALVE: Normal mobility and thickness. There is no mitral annular calcification. AORTIC VALVE: Normal trileaflet appearance. No visible sclerosis. Normal leaflet mobility. AORTIC ROOT: Normal diameter and appearance. Ascending aorta is normal in size. PULMONIC VALVE: Normal thickness and mobility. PERICARDIUM: Small anterior pericardial effusion. Moderate posterior effusion. IVC: IVC is dilated (2.6 cm) with partial collapse. PLEURA: CONCLUSION: 1. Normal ventricular size and systolic function. 2. Moderate biatrial dilatation. 3. Small anterior and moderate posterior pericardial effusion. No echocardiographic evidence of tamponade physiology. Adult Echocardiography Procedure Report Left Ventricle LVEDD (3.7 - 5.6 cm): 4.74 cm LVESD (2.2 - 4.0 cm): 3.41 cm LVIVS thickness (0.6 - 1.2 cm): 0.94 cm LVPW thickness (0.5 - 1.0 cm): 0.97 cm LVOT Diameter 1.86 cm Left Atrium LA Volume Index (2D A2C): 55.23 ml/m2 Left Atrium Systolic Dimension: 4.11 cm Mitral Valve Right Ventricle Aorta AO Root Diam: 3.02 cm Ascending Ao Diam: 2.92 cm Aortic Valve Tricuspid Valve Pulmonic Valve Right Atrium Right Atrium Systolic Pressure: 61.42 ml, 61.42 ml Dictated by: Kin Curry M.D. on 05/09/2024 at 16:16 Approved by: Kin Curry M.D. on 05/09/2024 at 16:19
--- OUTSIDE RECORDS SUMMARY | 2024-05-09 10:12 | XMS_ITS | CCD ---
Author Organization [facility] Care Team Providers Care [employer] Instrument Repairer Name Role Phone DR YVONNE QUINTANA Admitting [...] Facil ity Office Visiton 11-16-2023 Follow-up visit [id number] Frances Macdonald 1950 F Date Provider Department Center 11/16/2023 MANJINDER ARAUJO CARD [facility] Family History Problem Relation Age of Onset Heart failure Father Family Status - Relation Status Age at Father Level of Service:43399 MO OFFICE/OUTPATIENT ESTABLISHED MOD MDM 30 MIN Normal [facility] 36on 10-31-2023 36 Regarding labs and [...] Gabriela (per patient's request) on 11/16/2023. Normal [facility] Office Visiton 10-17-2023 Follow-up visit [id number] Frances Macdonald 1950 F Date Provider Department Center 10/17/2023 MANJINDER ARAUJO Family History Problem Relation Age of Onset Heart failure Father Family Status - Relation Status Age at Father Level of Service:64958 MO OFFICE/OUTPATIENT ESTABLISHED MOD MDM 30 MIN [facility] Office Visiton 02-02-2023 Follow-up visit [id number] Frances Macdonald 1950 F Date Provider Department Center 02/02/2023 MANJINDER ARAUJO Family History Problem Relation Age of Onset Heart failure Father Family Status - Relation Status Age at Father Level of Service:28329 MO OFFICE/OUTPATIENT ESTABLISHED MOD MDM 30-39 MIN [facility] MG MAMM SCREEN 3D RONY CADon 01-02-2023 MG MAMM SCREEN 3D RONY CAD Patient: FRANCES MACDONALD Exam Date: 01/02/2023 : 1950 Gender:F Ordering : DR YVONNE QUINTANA M.D. Admission #: [id number] Family : Order #: [id number] CLICK HERE TO VIEW EXAM RADIOLOGY REPORT [...] cancer cancer at age 61. LOCATION: [facility] BREAST COMPOSITION: Scattered areas fibroglandular density. FINDINGS: [...] on 01/02/2023 at 11:05 Normal [facility] XR DEXA BONE DENSITYon 01-02 [...] DOMINIQUE Date: 2023-01-02 12:02 Normal [facility] LIPID PROFILEon 08-01-2022 CHOL-HDL RATIO NORM SEE BELOW Normal [facility] Comment on above: Result Comment: 3.3 - 4.4 LOW RISK 4.4 - 7.1 AVERAGE RISK 7.1 - 11.0 MODERATE RISK >11.0 HIGH RISK Performed By: #### L KAROL BMP #### [facility] [address] [address] [address] Elias Le Cholesterol [Mass/Vol] 175 mg/dL Normal <=200 [facility] Comment on above: Performed By: #### L KAROL BMP #### [facility] [address] [address] [address] Elias Le Cholesterol in HDL [Mass/Vol] 52 mg/dL Normal 40-60 [facility] Comment on above: Performed By: #### L KAMILAH ROBERSON #### [facility] [address] [place] [address] Dr. Elias Le Cholesterol in LDL [Mass/Vol] 101.0 mg/dL Normal [facility] Comment on above: Performed By: #### L IPID, BMP #### [facility] [address] [place] [address] Dr. Elias Le Cholesterol.total/ Cholesterol in HDL [Mass ratio] 3.4 {ratio} Normal [facility] Comment on above: Performed By: #### L IPID, BMP #### [facility] [address] [place] [address] Dr. Elias Le HDL NORMAL > or = 60 mg/dl - LOW CARDIOVASCULAR RISK <40 mg/dl - HIGH CARDIOVASCULAR RISK Normal [facility] Comment on above: Performed By: #### L IPID, BMP #### [facility] [address] [place] [address] Dr. Elias Le LDL CALC NORMAL SEE BELOW Normal [facility] Comment on above: Result Comment: <100 mg/dl OPTIMAL 100 - 129 mg/dl NEAR OR ABOVE OPTIMAL 130 - 159 mg/dl BORDERLINE HIGH 160 - 189 mg/dl HIGH >190 mg/dl VERY HIGH Performed By: #### L IPID, BMP #### [facility] [address] [place] [address] Dr. Elias Le Triglyceride [Mass/Vol] 110 mg/dL Normal <=150 [facility] Comment on above: Performed By: #### L IPID, BMP #### [facility] [address] [place] [address] Dr. Elias Le VLDL CALC 22.0 mg/dL Normal [facility] Comment on above: Performed By: #### L IPID, BMP #### [facility] [address] [place] [address] Dr. Elias Le PROF CHEM 8 (BAS METB)on Anion gap [Moles/Vol] 10.1 mmol/L Normal [facility] Comment on above: Performed By: #### L IPID, BMP #### [facility] [address] [place] [address] Dr. Elias Le Calcium [Mass/Vol] 8.8 mg/dL Normal 8.5-10.1 [facility] Comment on above: Performed By: #### L IPID, BMP #### [facility] [address] [address] [address] Elias Le Chloride [Moles/Vol] 102 mmol/L Normal 98-107 [facility] Comment on above: Performed By: #### L IPID, BMP #### [facility] [address] [address] [address] Elias Le CO2 [Moles/Vol] 29.0 mmol/L Normal 21.0-32.0 [facility] Comment on above: Performed By: #### L IPID, BMP #### [facility] [address] [place] [address] Dr. Elias Le Creatinine [Mass/Vol] 0.99 mg/dL Normal 0.55-1.02 [facility] Comment on above: Performed By: #### L IPID, BMP #### [facility] [address] [place] [address] Dr. Elias Le EGFR-AF NEW ZEALANDER >60 Normal >=60 [facility] Comment on above: Performed By: #### L IPID, BMP #### [facility] [address] [address] [address] Elias Le EGFR-NON AF [place]EALANDER 55 mL/min/1.73m2 Critically low >=60 [facility] Comment on above: Performed By: #### L IPID, BMP #### [facility] [address] [place] [address] Dr. Elias Le Glucose [Mass/Vol] 117 mg/dL Critically high 74-106 T [facility] Comment on above: Performed By: #### L IPID, BMP #### [facility] [address] [address] [address] Elias Le Potassium [Moles/Vol] 4.1 mmol/L Normal 3.5-5.1 [facility] Comment on above: Performed By: #### L IPID, BMP #### [facility] [address] [address] [address] Elias Le Sodium [Moles/Vol] 137 mmol/L Normal 136-145 [facility] Comment on above: Performed By: #### L IPID, BMP #### [facility] [address] [address] [address] Elias Le Urea nitrogen [Mass/Vol] 25.0 mg/dL Critically high 7.0-18.0 [facility] Comment on above: Performed By: #### L IPID, BMP #### [facility] [address] [address] [address] Elias Le Urea nitrogen/Creatinin e [Mass ratio] 25.3 mg/mg Normal [facility] Comment on above: Performed By: #### L IPID, BMP #### [facility] [address] [address] [address] Elias Le Encounters Encounter Date Encounter Type Care Provider Facility Start: 01-01-2024 End: 01-01-2024 ambulatory [facility] ECHAVARRIA Not Available Start: 11-16-2023 End: 11-16-2023 ambulatory [facility] Start: 10-17-2023 End: 10-17-2023 ambulatory [facility] Start: 02-02-2023 End: 02-02-2023 ambulatory [facility] Start: 01-02-2023 End: 01-03-[address] YVONNE QUINTANA Facility:[facility] Start: 08-01-2022 End: 08-02-[address] YVONNE QUINTANA Facility:[facility] Payers Date Payer Category Payer Medicare [id number] 1958 Private Health Insurance [id number] 1950 Unknown [id number] 1950 Unknown [id number] 1950 Unknown [id number] Clinical Notes 02-02-2023 to 11-16-2023 Note Date & Type Note Facility 11-16-2023 Note Hypertension is stab le, well controlled 130/80 Continue all meds [facility] 11-16-2023 Note Will monitor with bennie gonzalez echocardiogram [facility] 11-16-2023 Note Lipid abnormalities are stable continue simvastatin- she does not want to increase dose of statin- she will continue heart healthy diet [facility] 11-16-2023 Note UTP CARDIOLOGY PROGR ESS [...] Continue all medications Paroxysmal atrial fibrillation (CMS/HCC) [id number]= 5- Age, Female, CHF, DM Remains on anticoagulation- eliquis Rate control with toprol 50 mg Mixed hyperlipidemia Lipid abnormalities are stable continue simvastatin- she does not want to increase dose of statin- she will continue heart healthy diet Mitral valve disorder Will monitor with routine echocardiogram Hypertensive disorder Hypertension is stab (more content not included)... [facility] 11-16-2023 Note Patient here for fol [...] All other systems reviewed and are negative. [facility] 11-16-2023 Note [id number]= 5- Age , Female, CHF, DM Remains on anticoagulation- eliquis Rate control with toprol 50 mg [facility] 11-16-2023 Note Will monitor with re peat Limitied echo in 3 months, she is currently asymptomatic Continue all medications [facility] 10-17-2023 Note [id number]=2- age, female, HTN, DM Continue toprol and eliquis anticoagulation Denied any bleeding tendencies ECG today Sinus bradycardia [facility] 10-17-2023 Note Lipid abnormalities are stable continue simvastatin and heart healthy diet Script to pt for annual labs [facility] 03-13-2024 Note MV regurg- repeat ec ho to assess degree of MR [facility] 10-17-2023 Note Hypertension is unco ntrolled, add aldactone to regime, continue losartan and toprol Repeat CMP in 1-2 weeks after starting aldactone to assess renal function and electrolytes. Pt voiced understanding [facility] 10-17-2023 Note Repeat echo [facility] 10-17-2023 Note F/U with PCP [facility] 10-17-2023 Note Continue lasix and s tart aldactone for HTN and fluid management [facility] 10-17-2023 Note Repeat echocardiogra m to assess cardiac function, DD, valvular function Continue lasix 2 times/week and start aldactone [facility] 10-17-2023 Note F/U with PCP and michelle hutchins check routine annual labs, A1C [facility] 10-17-2023 Note UTP CARDIOLOGY PROGR ESS [...] She has just returned from being in [place] over the winter. Patient here for 9 [...] complication, without long-term current use of insulin ([facility]) F/U with PCP and will check routine annual labs, A1C Diastolic dysf (more content not included)... [facility] 10-17-2023 Note Patient here for 9 [...] All other systems reviewed and are negative. [facility] 02-02-2023 Note Lipid abnormalities are Well-controlled with simvastatin 20 mg daily [facility] 02-02-2023 Note Currently stable audrey wolf concerning symptom [facility] 02-02-2023 Note UTP CARDIOLOGY PROGR ESS [...] Continue meds-Continue all (more content not included)... [facility] 02-02-2023 Note Patient here for 6 [...] All other systems reviewed and are negative. [facility] 02-02-2023 Note [id number]= Continue eliquis anticoagulation Metoprolol for rate control [facility] 02-02-2023 Note Mild MR 2019 No worsening symptoms or concerns Yara with patient if she has increased water retention or shortness of breath she is to call office and we will repeat echocardiogram to assess diastolic function and mitral valve [facility] 02-02-2023 Note Hypertension is Cont rolled 136/60 Continue meds-Continue all medications [facility] 02-02-2023 Note Stable- Overall fair ly [...] she needs to let notify the office [facility] Summary Purpose Family History No Family History Records FoundNo Family History Records FoundNo Family History Records Found Advance Directives No Advanced Directives Records FoundNo Advanced Directives Records FoundNo Advanced Directives Records Found Additional Source Comments INFORMATION SOURCE (unrecogn ized section and content) DATE CREATED AUTHOR 01/12/2023 [facility] DATE CREATED AUTHOR AUTHOR'S ORGANIZ ATION 11/17/2023 [facility] DATE CREATED AUTHOR AUTHOR'S ORGANIZ ATION 01/02/2024 [facility] EPIC FOR RECORDS PERTAINING [...] BE BASED ON THE PRIMARY CLINICAL RECORDS. [employer] provides no warranty or guarantee of the accuracy or completeness of information in this document.
== END 2024-05-09 10:08 | disposition home or self-care (01) ==
LOC: CARD 10:08
PROVIDERS: PCP Internal Medicine; Visit Provider Nurse Practitioner
DX: I31.39 Other pericardial effusion (noninflammatory) (principal)
CPT/HCPCS: 93308

== ENCOUNTER 2024-06-06 08:13 | Outpatient (OUT) | payer MEDICARE, OTHER, SELFPAY ==
--- OUTSIDE RECORDS SUMMARY | 2024-06-06 08:18 | XMS_ITS | CCD ---
Author Organization [facility] Care Team Providers Care Forming Department Supervisor Name Role Phone DR YVONNE QUINTANA Admitting Unavailable MARIANO, DR RUSSELL Primary Care Unavailable MARIANO, DR RUSSELL Consulting Unavailable MARIANO, DR RUSSELL Attending Unavailable WEST, DR GREGORIO Cabral Consulting Unavailable MARIANO, DR RUSSELL Primary Care Unavailable ALGHOTHISAI MOHAMAFrancesco Admitting Unavailable ALGHOTHANI, MOHAMAD Consulting Unavailable ALGHOTHANI, MOHAMAD Attending Unavailable ANA ECHAVARRIA Attending Unavailable YOHANNES, MANJINDER Attending Unavailable ALGHOTHANI, MOHAMAD Attending Unavailable YOHANNES, MANJINDER Attending Unavailable Problems Active Problems Problem Classification [...] mitral valve disease, unspecified] Onset: 07-25-2022 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 Hopefully she is still feeling well. Patient was informed about this message. [facility] Office Visiton 11-16-2023 Follow-up visit [id number] Frances Macdonald 1950 F Date Provider Department Center 11/16/2023 Ania-MANJINDER LARSON Family History Problem Relation Age of Onset Heart failure Father Family Status - Relation Status Age at Father Level of Service:28793 MT OFFICE/OUTPATIENT ESTABLISHED MOD MDM 30 MIN [facility] 36on 10-31-2023 36 Regarding labs and [...] Gabriela (per patient's request) on 11/16/2023. Normal [facility] Office Visiton 10-17-2023 Follow-up visit [id number] Frances Macdonald 1950 F Date Provider Department Center 10/17/2023 Ania-MANJINDER LARSON [facility] Family History Problem Relation Age of Onset Heart failure Father Family Status - Relation Status Age at Father Level of Service:88483 MT OFFICE/OUTPATIENT ESTABLISHED MOD MDM 30 MIN Normal [facility] MG MAMM SCREEN 3D RONY CADon 01-02-2023 MG MAMM SCREEN 3D RONY CAD Patient: FRANCES MACDONALD Exam Date: 01/02/2023 : 1950 Gender:F Ordering : DR YVONNE QUINTANA M.D. Admission #: [id number] Family : Order #: [id number] CLICK HERE TO VIEW EXAM RADIOLOGY REPORT [...] cancer cancer at age 61. LOCATION: [facility] BREAST COMPOSITION: Scattered areas fibroglandular density. FINDINGS: [...] Dominique MD on 01/02/2023 at 11:05 Normal [facility] XR DEXA BONE DENSITYon 01-02 XR DEXA [...] by: GREGORIO DOMINIQUE Date: 2023-01-02 12:02 Normal [facility] LIPID PROFILEon 08-01-2022 CHOL-HDL RATIO NORM SEE BELOW Normal [facility] Comment on above: Result Comment: 3.3 - 4.4 LOW RISK 4.4 - 7.1 AVERAGE RISK 7.1 - 11.0 MODERATE RISK >11.0 HIGH RISK Performed By: #### L IPID, BMP #### [facility] [address] [address] [address] Elias Le Cholesterol [Mass/Vol] 175 mg/dL Normal <=200 [facility] Comment on above: Performed By: #### L KAROL BMP #### [facility] [address] [address] [address] Elias Le Cholesterol in HDL [Mass/Vol] 52 mg/dL Normal 40-60 [facility] Comment on above: Performed By: #### L KAROL BMP #### [facility] [address] [address] [address] Elias Le Cholesterol in LDL [Mass/Vol] 101.0 mg/dL Normal [facility] Comment on above: Performed By: #### L IPID, BMP #### [facility] [address] [address] [address] Elias Le Cholesterol.total/ Cholesterol in HDL [Mass ratio] 3.4 {ratio} Normal [facility] Comment on above: Performed By: #### L IPID, BMP #### [facility] [address] [address] [address] Elias Le HDL NORMAL > or = 60 mg/dl - LOW CARDIOVASCULAR RISK <40 mg/dl - HIGH CARDIOVASCULAR RISK Normal [facility] Comment on above: Performed By: #### L IPID, BMP #### [facility] [address] [place] [address] Dr. Elias Le LDL CALC NORMAL SEE BELOW Normal [facility] Comment on above: Result Comment: <100 mg/dl OPTIMAL 100 - 129 mg/dl NEAR OR ABOVE OPTIMAL 130 - 159 mg/dl BORDERLINE HIGH 160 - 189 mg/dl HIGH >190 mg/dl VERY HIGH Performed By: #### L IPID, BMP #### [facility] [address] [place] [address] Dr. Elias Le Triglyceride [Mass/Vol] 110 mg/dL Normal <=150 [facility] Comment on above: Performed By: #### L IPID, BMP #### [facility] [address] [address] [address] Elias Le VLDL CALC 22.0 mg/dL Normal [facility] Comment on above: Performed By: #### L IPID, BMP #### [facility] [address] [address] [address] Elias Le PROF CHEM 8 (BAS METB)on Anion gap [Moles/Vol] 10.1 mmol/L Normal [facility] Comment on above: Performed By: #### L IPID, BMP #### [facility] [address] [place] [address] Dr. Elias Le Calcium [Mass/Vol] 8.8 mg/dL Normal 8.5-10.1 [facility] Comment on above: Performed By: #### L IPID, BMP #### [facility] [address] [address] [address] Elias Le Chloride [Moles/Vol] 102 mmol/L Normal 98-107 [facility] Comment on above: Performed By: #### L IPID, BMP #### [facility] [address] [place] [address] Dr. Elias Le CO2 [Moles/Vol] 29.0 mmol/L Normal 21.0-32.0 [facility] Comment on above: Performed By: #### L IPID, BMP #### [facility] [address] [place] [address] Dr. Elias Le Creatinine [Mass/Vol] 0.99 mg/dL Normal 0.55-1.02 [facility] Comment on above: Performed By: #### L IPID, BMP #### [facility] [address] [place] [address] Dr. Elias Le EGFR-AF TUVALUAN >60 Normal >=60 [facility] Comment on above: Performed By: #### L IPID, BMP #### [facility] [address] [place] [address] Dr. Elias Le EGFR-NON AF TUVALUAN 55 mL/min/1.73m2 Critically low >=60 [facility] Comment on above: Performed By: #### L IPID, BMP #### [facility] [address] [place] [address] Dr. Elias Le Glucose [Mass/Vol] 117 mg/dL Critically high 74-106 [facility] Comment on above: Performed By: #### L IPID, BMP #### [facility] [address] [place] [address] Dr. Elias Le Potassium [Moles/Vol] 4.1 mmol/L Normal 3.5-5.1 [facility] Comment on above: Performed By: #### L IPID, BMP #### [facility] [address] [address] [address] Elias Le Sodium [Moles/Vol] 137 mmol/L Normal 136-145 [facility] Comment on above: Performed By: #### L IPID, BMP #### [facility] [address] [address] [address] Elias Le Urea nitrogen [Mass/Vol] 25.0 mg/dL Critically high 7.0-18.0 [facility] Comment on above: Performed By: #### L IPID, BMP #### [facility] [address] [address] [address] Elias Le Urea nitrogen/Creatinin e [Mass ratio] 25.3 mg/mg Normal [facility] Comment on above: Performed By: #### L IPID, BMP #### [facility] [address] [address] [address] Elias Le Encounters Encounter Date Encounter Type Care Provider Facility Start: 05-30-2024 End: 05-30-2024 ambulatory [facility] Start: 01-01-2024 End: 01-01-2024 ambulatory ANA ECHAVARRIA Not Available Start: 11-16-2023 End: 11-16-2023 ambulatory [facility] Start: 10-17-2023 End: 10-17-2023 ambulatory [facility] Start: 01-02-2023 End: 01-03-[address] YVONNE QUINTANA Facility:[facility] Start: 08-01-2022 End: 08-02-[address] YVONNE QUINTANA Facility:[facility] Payers Date Payer Category Payer Medicare [id number] 1958 Private Health Insurance [id number] 1950 Unknown [id number] 1950 Unknown [id number] 1950 Unknown [id number] Clinical Notes 10-17-2023 to 11-16-2023 Note Date & Type Note Facility 11-16-2023 Note Hypertension is stab le, well controlled 130/80 Continue all meds [facility] 11-16-2023 Note Will monitor with bennie gonzalez echocardiogram [facility] 11-16-2023 Note Lipid abnormalities are stable continue simvastatin- she does not want to increase dose of statin- she will continue heart healthy diet [facility] 11-16-2023 Note Patient here for [...] All other systems reviewed and are negative. [facility] 11-16-2023 Note [facility] CARDIOLOGY PROGR [...] Continue all medications Paroxysmal atrial fibrillation (CMS/HCC) [id number]= 5- Age, Female, CHF, DM Remains on anticoagulation- eliquis Rate control with toprol 50 mg Mixed hyperlipidemia Lipid abnormalities are stable continue simvastatin- she does not want to increase dose of statin- she will continue heart healthy diet Mitral valve disorder Will monitor with routine echocardiogram Hypertensive disorder Hypertension is stab (more content not included)... [facility] 11-16-2023 Note [id number]= 5- Age , Female, CHF, DM Remains on anticoagulation- eliquis Rate control with toprol 50 mg [facility] 11-16-2023 Note Will monitor with re peat Limitied echo in 3 months, she is currently asymptomatic Continue all medications [facility] 10-17-2023 Note [id number]=6- age, female, HTN, DM Continue toprol and eliquis anticoagulation Denied any bleeding tendencies ECG today Sinus bradycardia [facility] 10-17-2023 Note Lipid abnormalities are stable continue simvastatin and heart healthy diet Script to pt for annual labs [facility] 10-17-2023 Note MV regurg- repeat ec ho to assess degree of MR [facility] 10-17-2023 Note Hypertension is unco ntrolled, add aldactone to regime, continue losartan and toprol Repeat CMP in 1-2 weeks after starting aldactone to assess renal function and electrolytes. Pt voiced understanding [facility] 10-17-2023 Note Repeat echo [facility] 10-17-2023 Note F/U with PCP [facility] 10-17-2023 Note Continue lasix and s tart aldactone for HTN and fluid management [facility] 10-17-2023 Note Repeat echocardiogra m to assess cardiac function, DD, valvular function Continue lasix 2 times/week and start aldactone [facility] 10-17-2023 Note F/U with PCP and michelle hutchins check routine annual labs, A1C [facility] 10-17-2023 Note [facility]TP CARDIOLOGY PROGR [...] She has just returned from being in [place] over the winter. Patient here for 9 [...] complication, without long-term current use of insulin ([facility] [address]) F/U with PCP and will check routine annual labs, A1C Diastolic dysf (more content not included)... [facility] 10-17-2023 Note Patient here for [...] All other systems reviewed and are negative. [facility] Summary Purpose Family History No Family History Records FoundNo Family History Records FoundNo Family History Records Found Advance Directives No Advanced Directives Records FoundNo Advanced Directives Records FoundNo Advanced Directives Records Found Additional Source Comments INFORMATION SOURCE (unrecogn ized section and content) DATE CREATED AUTHOR 01/12/2023 [facility] DATE CREATED AUTHOR AUTHOR'S ORGANIZ ATION 01/02/2024 [facility] EPIC DATE CREATED AUTHOR AUTHOR'S ORGANIZ ATION 06/01/2024 [facility] FOR RECORDS PERTAINING TO PATIENTS WHO ARE [...] BE BASED ON THE PRIMARY CLINICAL RECORDS. [facility] [employer] [facility]. provides no warranty or guarantee of the accuracy or completeness of information in this document.
[2024-06-06 09:01] LABS: Anion Gap 12.8; BUN Creatinine Ratio 14.7; Calcium 9.3 mg/dL (8.5-10.1); Carbon Dioxide 28.8 mmol/L (21.0-32.0); Chloride 103 mmol/L (98-107); Estimated GFR (African America 34 (>=60 mL/min/1.73m^2); Estimated GFR (Non-African Ame 28 (>=60 mL/min/1.73m^2); Glucose 126 mg/dL (74-106); Potassium 4.6 mmol/L (3.5-5.1); Sodium 140 mmol/L (136-145)
== END 2024-06-06 08:14 | disposition home or self-care (01) ==
LOC: LAB 08:15
PROVIDERS: PCP Internal Medicine; Visit Provider Internal Medicine Cardiovascular Disease
DX: I11.0 Hypertensive heart disease with heart failure (principal)
CPT/HCPCS: 36415; 80048

== ENCOUNTER 2024-10-14 12:35 | Outpatient (OUT) | payer MEDICARE, OTHER, SELFPAY ==
--- OUTSIDE RECORDS SUMMARY | 2024-10-14 12:55 | XMS_ITS | CCD ---
Author Organization [facility] Care Team Providers Care Service Loss Control Consultant Name Role Phone DR ISRRAEL BROWN Admitting Unavailable MARIANO, DR RUSSELL Primary Care Unavailable MARIANO, DR RUSSELL Consulting Unavailable MARIANO, DR RUSSELL Attending Unavailable TRIP, DR GREGORIO Cabral Consulting Unavailable DR ISRRAEL BROWN Primary Care Unavailable AWILDA MONREAL Admitting Unavailable AWILDA MONREAL Consulting Unavailable AWILDA MONREAL Attending Unavailable Isrrael Brown MD Primary Care Provider [phone] Susan DIRECTOR OF GUIDANCE, Aaron Wright Unavailable ANA ECHAVARRIA Attending Unavailable AARON DAVIS Attending Unavailable MANJINDER SHEFFIELD Attending Unavailable MANJINDER SHEFFIELD Attending Unavailable AWILDA MONREAL Attending Unavailable Medications Current Medications Medication Drug Class(es) Dates Sig (Normalized) Sig (Original) [id number] 200 actuat albuterol 0.09 mg/actuat metered dose inhaler (4 sources) beta2-Adrenergic Agonist take 2 puff(s) by inhalation every four hours for wheezing albuterol HFA 90 mcg/act inhaler Inhale 2 puffs every 4 (four) hours if needed for wheezing or shortness of breath. Active apixaban 5 mg oral tablet (4 sources) Factor Xa Inhibitor Start: 05-22-2024 apixaban (Eliquis) 5 MG tablet Indications: Paroxysmal atrial fibrillation (CMS/HCC) TAKE 1 TABLET TWICE A DAY 180 tablet 05/22/2024 Active dexamethasone 0.1 mg/ml oral solution (4 sources) Corticosteroid Start: 04-02-2023 dexAMETHasone 0.5 MG/5ML elixir Indications: Pharyngitis, unspecified etiology Take 10 mL (1 mg) by mouth every 12 (twelve) hours for 10 days. 200 mL 04/02/2023 Active diphenhydrAMINE 12.5 MG/5ML elixir 50 mg, aluminum-magnesium hydroxide-simethicon e 400-400-40 MG/5ML suspension 20 mL, lidocaine 2 % solution 20 mL (4 sources) Start: 04-02-2023 diphenhydrAMINE 12.5 MG/5ML elixir 50 mg, aluminum-magnesium hydroxide-simethico ne 400-400-40 MG/5ML suspension 20 mL, lidocaine 2 % solution 20 mL Indications: Pharyngitis, unspecified etiology Swish and spit 15 mL every 4 (four) hours if needed for mucositis. Disp 300ml 300 each 2 04/02/2023 Active 60 actuat fluticasone propionate 0.25 mg/actuat / salmeterol 0.05 mg/actuat dry powder inhaler (4 sources) Corticosteroid, beta2-Adrenergic Agonist Start: 05-02-2024 End: 07-31-2024 take 1 dose by inhalation in the morning Fluticasone-Salmete rol (Wixela Inhub) 250-50 MCG/ACT aerosol powder Indications: Mild intermittent asthma without complication (CMS/HCC) Inhale 1 each in the morning and 1 each before bedtime. 3 each 3 05/02/2024 07/31/2024 Active furosemide 20 mg oral tablet (2 sources) Loop Diuretic Start: 11-14-2023 furosemide (Lasix) 20 MG tablet 11/14/2023 Active levothyroxine sodium 0.025 mg oral tablet (4 sources) l-Thyroxine Start: 05-22-2024 levothyroxine (Synthroid, Levoxyl) 25 MCG tablet Indications: Abnormal TSH TAKE 1 TABLET DAILY 90 tablet 05/22/2024 Active losartan potassium 50 mg oral tablet (8 sources) Angiotensin 2 Receptor Christian Start: 06-11-2024 End: 06-11-2025 take 1 tablet by mouth once daily losartan (Cozaar) 50 MG tablet Indications: Secondary hypertension (CMS/HCC) Take 1 tablet (50 mg) by mouth Daily 100 tablet 3 06/11/2024 06/11/2025 Active Start: 05-30-2024 End: 06-11-2024 take 1 tablet by mouth in the morning losartan (Cozaar) 100 MG tablet Take 100 mg by mouth in the morning. 05/30/2024 06/11/2024 Discontinued metFORMIN hydrochloride 500 mg oral tablet (4 sources) Biguanide Start: 03-10-2024 metFORMIN (Glucophage) 500 MG tablet Indications: Impaired fasting glucose TAKE 1 TABLET TWICE A DAY WITH MEALS 180 tablet 2 03/10/2024 Active 24 hr metoprolol succinate 50 mg extended release oral tablet (4 sources) beta-Adrenergic Christian Start: 05-22-2024 metoprolol succinate XL (Toprol-XL) 50 MG 24 hr tablet Indications: Paroxysmal atrial fibrillation (CMS/HCC) TAKE 1 TABLET ONCE DAILY 90 tablet 05/22/2024 Active montelukast 10 mg oral tablet (4 sources) Leukotriene Receptor Antagonist Start: 05-02-2024 montelukast (Singulair) 10 MG tablet Indications: Allergy, sequela TAKE 1 TABLET ONCE DAILY 90 tablet 05/02/2024 Active simvastatin 20 mg oral tablet (4 sources) HMG-CoA Reductase Inhibitor Start: 05-02-2024 simvastatin (Zocor) 20 MG tablet Indications: Mixed hyperlipidemia (CMS/HCC) TAKE 1 TABLET DAILY 90 tablet 05/02/2024 Active spironolactone 25 mg oral tablet (2 sources) Aldosterone Antagonist Start: 05-09-2024 End: 05-09-2025 take 1 tablet by mouth in the morning spironolactone (Aldactone) 25 MG tablet Take 25 mg by mouth in the morning. 05/09/2024 05/09/2025 Active Problems Active Problems Problem Classification Problem Date Documented Date Episodic/Chronic Asthma (6 sources) Mild intermittent asthma; Translations: [Mild intermittent asthma, uncomplicated] Onset: 04-02-2023 04-02-2023 Chronic Cardiac dysrhythmias (8 sources) Paroxysmal atrial fibrillation; Translations: [Paroxysmal atrial fibrillation] Onset: 07-25-2022 04-02-2023 Chronic Diabetes mellitus without complication (6 sources) Type 2 diabetes mellitus without complication; Translations: [Type 2 diabetes mellitus without complications] Onset: 10-17-2023 06-11-2024 Chronic Disorders of lipid metabolism (9 sources) Hyperlipidemia, unspecified; Translations: [Mixed hyperlipidemia] Onset: 07-25-2022 04-02-2023 Chronic Essential hypertension (8 sources) Essential (primary) hypertension; Translations: [Hypertensive disorder] Onset: 11-28-2019 Chronic Genitourinary congenital anomalies (4 sources) Congenital anomaly of ovary; 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] Onset: 04-02-2023 04-02-2023 Chronic Heart valve disorders (14 sources) Mitral valve regurgitation; Translations: [Nonrheumatic mitral (valve) insufficiency] Onset: 07-25-2022 04-02-2023 Chronic Hypertension with complications and secondary hypertension (4 sources) Secondary hypertension; Translations: [Secondary hypertension, unspecified] Onset: 05-30-2024 06-11-2024 Chronic Menopausal disorders (7 sources) Other primary ovarian failure; Translations: [Decreased estrogen level] Onset: 01-03-2023 04-02-2023 Chronic Other and ill-defined heart disease (6 sources) Diastolic dysfunction; Translations: [Other ill-defined heart diseases] Onset: 04-02-2023 04-02-2023 Chronic Other and ill-defined heart disease (6 sources) Atrial hypertrophy; Translations: [Cardiomegaly] Onset: 04-02-2023 04-02-2023 Chronic Other and ill-defined heart disease (4 sources) Left ventricular diastolic dysfunction ; Translations: [Heart disease, unspecified] Onset: 02-02-2023 06-11-2024 Chronic Other and ill-defined heart disease (2 sources) Other ill-defined heart diseases; Translations: [Other ill-defined heart diseases] Onset: 07-25-2022 Chronic Other and ill-defined heart disease (2 sources) Heart disease, unspecified; Translations: [Heart disease, unspecified] Onset: 02-02-2023 Chronic Other nutritional; endocrine; and metabolic disorders (2 sources) Obesity caused by energy imbalance; Translations: [Morbid (severe) obesity due to excess calories] 06-11-2024 Chronic Other nutritional; endocrine; and metabolic disorders (2 sources) Body mass index 40+ - severely obese; Translations: [Body mass index (BMI) 40.0-44.9, adult] 06-11-2024 Chronic Other screening for suspected conditions (not mental disorders or infectious disease) (10 sources) Encounter for screening mammogram for malignant neoplasm of breast; Translations: [Thyroid hormone tests abnormal] Onset: 01-02-2023 Episodic Residual codes; unclassified (6 sources) Obstructive sleep apnea syndrome; Translations: [Obstructive sleep apnea (adult) (pediatric)] Onset: 04-02-2023 04-02-2023 Chronic Residual codes; unclassified (1 source) Family history of malignant neoplasm of breast; Translations: [FAMILY HX MALLIZETH NEOPLASM OF BREAST] Onset: 01-03-2023 Episodic Residual codes; unclassified (1 source) Family history of malignant neoplasm of other organs or systems; Translations: [FAM HX MALIG NEOPLASM OTH ORGN/SYS] Onset: 01-03-2023 Episodic Spondylosis; intervertebral disc disorders; other back problems (6 sources) Displacement of lumbar intervertebral disc without myelopathy; Translations: [Other intervertebral disc displacement, lumbar region] Onset: 04-02-2023 04-02-2023 Chronic Thyroid disorders (6 sources) Hypothyroidism; Translations: [Hypothyroidism, unspecified] Onset: 11-27-2019 06-11-2024 Chronic Unclassified (1 source) Other pericardial effusion (noninflammatory); Translations: [Other pericardial effusion (noninflammatory)] Onset: 11-16-2023 Past or Other Problems Problem Classification Problem Date Documented Da te Episodic/Chronic Jaqueline-; endo-; and myocarditis; cardiomyopathy (except that caused by tuberculosis or sexually transmitted disease) (2 sources) Pericardial effusion; Translations: [Pericardial effusion] Onset: 11-16-2023 06-11-2024 Episodic Residual codes; unclassified (2 sources) Edema of lower extremity; Translations: [Localized edema] Onset: 11-28-2019 06-11-2024 Episodic Unclassified (1 source) Other pericardial effusion (noninflammatory); Translations: [Other pericardial effusion (noninflammatory)] Onset: 11-16-2023 Results Test Name Value Interpretation Reference Range Facility ALBUMIN, RANDOM URINE W/CREA [place] 06-12-2024 ALBUMIN, URINE 2.2 mg/dL Normal See Note: [facility] Comment on above: Result Comment: Refe rence Range: Reference Range Not established Performed By: #### 6 772, [id number] #### [facility] [address], [address] [place] [id number] Design Assistant: Wil Fraga MD ALBUMIN/CREATININE RATIO, RANDOM URINE 58 mg/g creat High <30 [facility] Comment on above: Result Comment: The ADA defines abnormalities in albumin excretion as follows: Albuminuria Category Result (mg/g creatinine) Normal to Mildly increased <30 Moderately increased 30-299 Severely increased > OR = 300 The ADA recommends that at least two of three specimens collected within a 3-6 month period be abnormal before considering a patient to be within a diagnostic category. Performed By: #### 6 517, 61189 #### [facility] [place] [address] Design Assistant: Wil Fraga MD Creatinine (U) [Mass/Vol] 38 mg/dL Normal 20-275 [facility] Comment on above: Performed By: #### 6 517, 52832 #### [facility] [place] [address] Design Assistant: Wil Fraga MD [facility] 06-12-2024 Albumin [Mass/Vol] 4.4 g/dL Normal 3.6-5.1 [facility] Comment on above: Performed By: #### 6 517, 34965 #### [facility] [place] [address] Design Assistant: Wil Fraga MD Albumin/Globulin [Mass ratio] 1.7 {ratio} Normal 1.0-2.5 [facility] Comment on above: Performed By: #### 6 517, 27406 #### [facility] [place] [address] Design Assistant: Wil Fraga MD ALP [Catalytic activity/Vol] 77 U/L Normal 37-153 [facility] Comment on above: Performed By: #### 6 517, 42005 #### [facility] [place] [address] Design Assistant: Wil Fraga MD ALT [Catalytic activity/Vol] 6 U/L Normal 6-29 [facility] Comment on above: Performed By: #### 6 517, 69141 #### [facility] [place] [address] Design Assistant: Wil Fraga MD AST [Catalytic activity/Vol] 16 U/L Normal 10-35 [facility] Comment on above: Performed By: #### 6 517, 53068 #### [facility] of [address], [address] [place] [address] Design Assistant: Wil Fraga MD Bilirubin [Mass/Vol] 0.4 mg/dL Normal 0.2-1.2 [facility] Comment on above: Performed By: #### 6 517, 38103 #### [facility] of [address], [address] [place] [address] Design Assistant: Wil Fraga MD Calcium [Mass/Vol] 9.6 mg/dL Normal 8.6-10.4 [facility] Comment on above: Performed By: #### 6 517, 19205 #### [facility] of [place] [address] Design Assistant: Wil Fraga MD Chloride [Moles/Vol] 103 mmol/L Normal 98-110 [facility] Comment on above: Performed By: #### 6 517, 76221 #### [facility] of [place] [address] Design Assistant: Wil Fraga MD CO2 [Moles/Vol] 26 mmol/L Normal 20-32 [facility] Comment on above: Performed By: #### 6 517, 93061 #### [facility] of [place] [address] Design Assistant: Wil Fraga MD Creatinine [Mass/Vol] 1.44 mg/dL High 0.60-1.00 [facility] Comment on above: Performed By: #### 6 517, 79669 #### [facility] of [place] [address] Design Assistant: Wil Fraga MD GFR/1.73 sq M.predicted among non-blacks MDRD (S/P/Bld) [Vol rate/Area] 38 mL/min/{1.73_m2} Low > OR = 60 [facility] Comment on above: Performed By: #### 6 517, 90390 #### [facility] of [place] [address] Design Assistant: Wil Fraga MD Globulin (S) [Mass/Vol] 2.6 g/dL Normal 1.9-3.7 [facility] Comment on above: Performed By: #### 6 517, 11320 #### [facility] [place] [address] Design Assistant: Wil Fraga MD Glucose [Mass/Vol] 108 mg/dL High 65-99 [facility] Comment on above: Result Comment: Fasting reference interval For someone without known diabetes, a glucose value between 100 and 125 mg/dL is consistent with prediabetes and should be confirmed with a follow-up test. Performed By: #### 6 517, 50750 #### [facility] [place] [address] Design Assistant: Wil Fraga MD Potassium [Moles/Vol] 4.5 mmol/L Normal 3.5-5.3 [facility] Comment on above: Performed By: #### 6 517, 51358 #### [facility] [place] [address] Design Assistant: Wil Fraga MD Protein [Mass/Vol] 7.0 g/dL Normal 6.1-8.1 [facility] Comment on above: Performed By: #### 6 517, 65792 #### [facility] [place] [address] Design Assistant: Wil Fraga MD Sodium [Moles/Vol] 138 mmol/L Normal 135-146 [facility] Comment on above: Performed By: #### 6 517, 79481 #### [facility] [place] [address] Design Assistant: Wil Fraga MD Urea nitrogen [Mass/Vol] 28 mg/dL High 7-25 [facility] Comment on above: Performed By: #### 6 517, 16811 #### [facility] [place] [address] Design Assistant: Wil Fraga MD Urea nitrogen/Creatinine [Mass ratio] 19 mg/mg Normal 6-22 [facility] Comment on above: Performed By: #### 6 517, 87751 #### [facility] [address], [address] [place] [address] Design Assistant: Wil Fraga MD Laboratory - Hematology and Cell countson 06-11-2024 HbA1c (Bld) [Mass fraction] 6 % [facility] No Panel Informationon 06-11 Interpretation and review of laboratory results Normal [facility] ALL BASIC METABOLIC PANELon 06-06-2024 Anion gap [Moles/Vol] 12.8 mmol/L [facility] Calcium [Mass/Vol] 9.3 mg/dL 8.5 - 10. 1 mg/dL [facility] Chloride [Moles/Vol] 103 mmol/L 98 - 10 7 mmol/L [facility] CO2 [Moles/Vol] 28.8 mmol/L 21.0 - 32.0 mmol/L [facility] Creatinine [Mass/Vol] 1.77 mg/dL High 0.55 - 1.02 mg/dL [facility] GFR/1.73 sq M.predicted CKD-EPI (S/P/Bld) [Vol rate/Area] 34 Low >=60 mL/min/1.73m 2 [facility] Glucose [Mass/Vol] 126 mg/dL High 74 - 106 mg/dL NO [facility] Interpretation and review of laboratory results Abnormal [facility] Potassium [Moles/Vol] 4.6 mmol/L 3.5 - 5.1 mmol/L [facility] Sodium [Moles/Vol] 140 mmol/L 136 - 145 mmol/L [facility]H EGFR-NON AF [place] ZEALANDER 28 Low >=60 mL/min/1.73m 2 [facility] Urea nitrogen [Mass/Vol] 26 mg/dL High 7.0 - 18.0 mg/dL [facility] Urea nitrogen/Creatinine [Mass ratio] 14.7 mg/mg [facility] Orders Onlyon 06-06-2024 Orders Only [id number] Frances Macdonald 1950 F Date Provider Department Center 06/06/2024 [facility] Family History Problem Relation Age of Onset Heart failure Father Family Status - Relation Status Age at Father Normal [facility] Office Visiton 05-30-2024 Follow-up visit [id number] Frances Macdonald 1950 Date Provider Department Center 05/30/2024 [id number]-AWILDA MONREAL [facility] Family History Problem Relation Age of Onset Heart failure Father Family Status - Relation Status Age at Father Level of Service:21335 NM OFFICE/OUTPATIENT ESTABLISHED MOD [facility] 30 MIN [place] 36on 05-12-2024 36 From: Manjinder Sheffield NP Sent: 05/12/2024 10:43 AM EDT To: Marisela Arellano MA Subject: RE: Scan Well there is still a pericardial effusion- no worse than before, maybe slightly better on the anterior side. Hopefully she is still feeling well. Patient was informed about this message. [place] Telephoneon 05-12-2024 Telephone [id number] Frances Macdonald 1950 Provider Department Center 05/12/2024 [id number], TANA [facility] Family History Problem Relation Age of Onset Heart failure Father Family Status - Relation Status Age at Father [place] Office Visiton 11-16-2023 Follow-up visit [id number] Frances Macdonald 1950 [facility] Department Center 11/16/2023 120-MANJINDER SHEFFIELD [facility] Family History Problem Relation Age of Onset Heart failure Father Family Status - Relation Status Age at Father Level of Service:66812 NM OFFICE/OUTPATIENT ESTABLISHED MOD [facility] 30 MIN [place] 36on 10-31-2023 36 Regarding labs and echo [...] to check B/P- and labs please ANAI Marcelino, MA Kidney function normal, Potassium level normal, liver function normal, lA1c- good at 6.0 Cholesterol is a touch higher- with LDL 110- ask her to watch diet a little better or we can increase her statin Spoke with patient. BP has been running very good. She has not needed lasix. Scheduled her follow up with Gabriela (per patient's request) on 11/16/2023. Normal [facility] Office Visiton 10-17-2023 Follow-up visit [id number] Frances Macdonald 1950 F Date Provider Department Center 10/17/2023 Ania-MANJINDER SHEFFIELD [facility] Family History Problem Relation Age of Onset Heart failure Father Family Status - Relation Status Age at Father Level of Service:78438 NM OFFICE/OUTPATIENT ESTABLISHED MOD MDM 30 MIN Normal [facility] MG MAMM SCREEN 3D RONY CADon 01-02-2023 MG MAMM SCREEN 3D RONY CAD Patient: FRANCES MACDONALD. Exam Date: 01/02/2023 : 1950 Gender:F Ordering : DR ISRRAEL BROWN M.D. Admission #: [id number] Family : Order #: [id number] CLICK HERE TO VIEW EXAM RADIOLOGY REPORT [...] Aunt-maternal with breast cancer at age 50; Grandfather-paterna l with oral cancer cancer at age 60. LOCATION: [facility] BREAST COMPOSITION: Scattered areas fibroglandular density. [...] Dominique MD on 01/02/2023 at 11:05 Normal [facility] XR DEXA BONE DENSITYon 01-02 XR DEXA [...] by: GREGORIO DOMINIQUE Date: 2023-01-02 12:02 Normal [facility] LIPID PROFILEon 08-01-2022 CHOL-HDL RATIO NORM SEE BELOW Normal [facility] Comment on above: Result Comment: 3.3 - 4.4 LOW RISK 4.4 - 7.1 AVERAGE RISK 7.1 - 11.0 MODERATE RISK >11.0 HIGH RISK Performed By: #### L IPID, BMP #### [facility] [address] [place] [address] Dr. Elias Le Cholesterol [Mass/Vol] 175 mg/dL Normal <=200 [facility] Comment on above: Performed By: #### L IPID, BMP #### [facility] [address] [place] [address] Dr. Elias Le Cholesterol in HDL [Mass/Vol] 52 mg/dL Normal 40-60 [facility] Comment on above: Performed By: #### L IPID, BMP #### [facility] [address] [place] [address] [address] Elias Le Cholesterol in LDL [Mass/Vol] 101.0 mg/dL Normal [facility] Comment on above: Performed By: #### L IPID, BMP #### [facility] [address] [place] [address] Dr. Elias Le Cholesterol.total/Ch olesterol in HDL [Mass ratio] 3.4 {ratio} Normal [facility] Comment on above: Performed By: #### L IPID, BMP #### [facility] [address] [place] [address] [address] Elias Le HDL NORMAL > or = 60 mg/dl - LOW CARDIOVASCULAR RISK <40 mg/dl - HIGH CARDIOVASCULAR RISK Normal [facility] Comment on above: Performed By: #### L IPID, BMP #### [facility] [address] [place] [address] [address] Elias Le LDL CALC NORMAL SEE BELOW Normal [facility] Comment on above: Result Comment: <100 mg/dl OPTIMAL 100 - 129 mg/dl NEAR OR ABOVE OPTIMAL 130 - 159 mg/dl BORDERLINE HIGH 160 - 189 mg/dl HIGH >190 mg/dl VERY HIGH Performed By: #### L IPID, BMP #### [facility] [address] [place] [address] Dr. Elias Le Triglyceride [Mass/Vol] 110 mg/dL Normal <=150 [facility] Comment on above: Performed By: #### L IPID, BMP #### [facility] [address] [place] [address] [address] Elias Le VLDL CALC 22.0 mg/dL Normal [facility] Comment on above: Performed By: #### L IPID, BMP #### [facility] [address] [place] [address] Dr. Elias Le PROF CHEM 8 (BAS METB)on Anion gap [Moles/Vol] 10.1 mmol/L Normal [facility] Comment on above: Performed By: #### L IPID, BMP #### [facility] [address] [place] [address] [address] Elias Le Calcium [Mass/Vol] 8.8 mg/dL Normal 8.5-10.1 [facility] Comment on above: Performed By: #### L IPID, BMP #### [facility] [address] [place] [address] [address] Elias Le Chloride [Moles/Vol] 102 mmol/L Normal 98-107 [facility] Comment on above: Performed By: #### L IPID, BMP #### [facility] [address] [place] [address] [address] Elias Le CO2 [Moles/Vol] 29.0 mmol/L Normal 21.0-32.0 [facility] Comment on above: Performed By: #### L IPID, BMP #### [facility] [address] [place] [address] [address] Elias Le Creatinine [Mass/Vol] 0.99 mg/dL Normal 0.55-1.02 [facility] Comment on above: Performed By: #### L IPID, BMP #### [facility] [address] [place] [address] [address] Elias Le EGFR-AF NEW ZEALANDER >60 Normal >=60 [facility] Comment on above: Performed By: #### L IPID, BMP #### [facility] [address] [place] [address] [address] Elias Le EGFR-NON AF NEW ZEALANDER 55 mL/min/1.73m2 Critically low >=60 [facility] Comment on above: Performed By: #### L IPID, BMP #### [facility] [address] [place] [address] [address] Elias Le Glucose [Mass/Vol] 117 mg/dL Critically high 74-106 [facility] Comment on above: Performed By: #### L IPID, BMP #### [facility] [address] [place] [address] [address] Elias Le Potassium [Moles/Vol] 4.1 mmol/L Normal 3.5-5.1 [facility] Comment on above: Performed By: #### L IPID, BMP #### [facility] [address] [place] [address] [address] Elias Le Sodium [Moles/Vol] 137 mmol/L Normal 136-145 [facility] Comment on above: Performed By: #### L IPID, BMP #### [facility] [address] [place] [address] [address] Elias Le Urea nitrogen [Mass/Vol] 25.0 mg/dL Critically high 7.0-18.0 [facility] Comment on above: Performed By: #### L IPID, BMP #### [facility] [address] [place] [address] [address] Elias Le Urea nitrogen/Creatinine [Mass ratio] 25.3 mg/mg Normal [facility] Comment on above: Performed By: #### L IPID, BMP #### [facility] [address] [place] [address] [address] Elias Le Vital Signs Date Time Vital Sign Value Performing Clinician Faci lity 06-11-2024 10:41-0500 Body height 165.1 cm Aaron Davis DIRECTOR OF GUIDANCE Work Phone: [facility] 06-11-2024 10:41-0500 Body mass index (BMI) [Ratio] 40.27 kg/m2 Aaron Davis DIRECTOR OF GUIDANCE Work Phone: [facility] 06-11-2024 10:41-0500 Body weight 109.77 kg Aaron Davis DIRECTOR OF GUIDANCE Work Phone: [facility] 06-11-2024 10:41-0500 Diastolic blood pressure 88 mm[Hg] Aaron Davis DIRECTOR OF GUIDANCE Work Phone: [facility] 06-11-2024 10:41-0500 Heart rate 58 /min Aaron Davis DIRECTOR OF GUIDANCE Work Phone: [facility] 06-11-2024 10:41-0500 SaO2% (BldA) [Mass fraction] 97 % Aaron Davis DIRECTOR OF GUIDANCE Work Phone: [facility] 06-11-2024 10:41-0500 Systolic blood pressure 138 mm[Hg] Aaron Davis DIRECTOR OF GUIDANCE Work Phone: [facility] Encounters Encounter Date Encounter Type Care Provider Facility Start: 06-11-2024 End: 06-11-2024 Bamboo flowsheet Aaron Davis DIRECTOR OF GUIDANCE Work Phone: [facility] Start: 06-11-2024 End: 06-11-2024 Bamboo flowsheet Aaron Davis DIRECTOR OF GUIDANCE Work Phone: [facility] Start: 06-11-2024 End: 06-11-2024 Assay of hemosiderin, quant Aaron Davis DIRECTOR OF GUIDANCE Work Phone: [facility] Start: 06-11-2024 End: 06-11-2024 Patient encounter procedure Aaron Davis DIRECTOR OF GUIDANCE Work Phone: [facility] Comment on above: Obstructive sleep ap anupama syndrome (Primary Dx); Mild intermittent asthma without complication (CMS/HCC); Diastolic dysfunction; Diastolic dysfunction, left ventricle; Enlarged atria; Secondary hypertension (CMS/HCC); Mitral valve insufficiency, unspecified etiology; Paroxysmal atrial fibrillation (CMS/HCC); Tricuspid valve insufficiency, unspecified etiology; Displacement of lumbar intervertebral disc without myelopathy; Hypothyroidism, unspecified type ([facility]/HCC); Type 2 diabetes mellitus without complication, without long-term current use of insulin ([facility]/HCC); Abnormal TSH; Estrogen deficiency; Mixed hyperlipidemia ([facility]/HCC); Morbid (severe) obesity due to excess calories ([facility]); Body mass index (BMI) 40.0-44.9, adult ([facility]); Routine general medical examination at health care facility Start: 06-11-2024 End: 06-11-2024 ambulatory AARON DAVIS Not Available Start: 06-06-2024 End: 06-06-2024 Clinisync Result Encounter Generic External Data Provider [facility] Unsolicited Start: 06-06-2024 End: 06-06-2024 Clinisync Result Encounter Generic External Data Provider [facility] Unsolicited Start: 05-30-2024 End: 05-30-[address] [facility] Start: 01-01-2024 End: 01-01-2024 ambulatory ANA ECHAVARRIA Not Available Start: 11-16-2023 End: 11-16-2023 ambulatory [facility] Start: 10-17-2023 End: 10-17-2023 ambulatory [facility] Start: 01-02-2023 End: 01-03-[address] ISRRAEL BROWN Facility:[facility] Start: 08-01-2022 End: 08-02-[address] ISRRAEL BROWN Facility:[facility] Procedures Date Procedure Procedure Detail Performing Clinician Start: 06-11-2024 Hemoglobin glycosyla mikey a1c Aaron Davis DIRECTOR OF GUIDANCE Work Phone: Start: 06-06-2024 ALL BASIC METABOLIC PANEL Generic External Data Provider Start: 01-14-2024 Mammography Generic Pr ovider Start: 01-10-2021 Colonoscopy Generic Pr ovider Plan of Treatment Date Care Activity Detail Author Start: 01-10-2031 Screening for malign ant neoplasm of colon [facility] Start: 01-13-2025 Screening for malign ant neoplasm of breast Mammogram [facility] Start: 12-30-2024 End: 12-30-2024 Patient encounter procedure 12/30/2024 10:45 AM EDT Office Visit [facility] [address] [place] [id number] Ana Echavarria [address] [place] [address] [facility] Start: 09-11-2024 Hemoglobin A1c measurement Diabetes: Hemoglobin A1C [facility] Start: 06-11-2024 End: 06-11-2025 Comprehensive metabolic 2000 panel - Serum or Plasma Comprehensive metabolic panel Lab Routine Diastolic dysfunction Diastolic dysfunction, left ventricle Secondary hypertension (CMS/HCC) Mitral valve insufficiency, unspecified etiology Tricuspid valve insufficiency, unspecified etiology Expected: 06/11/2024 (Approximate), Expires: 06/11/2025 [facility] Comment on above: Expected: 06/11/2024 (Approximate), Expires: 06/11/2025 Start: 06-11-2024 End: 06-11-2025 Microalbumin/Creatinine panel in random Urine Microalbumin / creatinine, urine ratio Lab Routine Type 2 diabetes mellitus without complication, without long-term current use of insulin (CMS/HCC) Expected: 06/11/2024 (Approximate), Expires: 06/11/2025 [facility] Work Phone: Comment on above: Expected: 06/11/2024 (Approximate), Expires: 06/11/2025 Start: 06-11-2024 End: 06-11-2024 Patient encounter procedure [facility] Comment on above: Arrived Start: 04-06-2024 Influenza vaccination Influenza Vacc ine (#1) [facility] Start: 08-01-2023 Urine screening for protein Diabetes: Urine Protein Screening [facility] Start: 06-30-2022 Screening for malign ant neoplasm of colon FIT-DNA [facility] Start: 1960 Glaucoma screening Diabetes: R etinopathy Screening [facility] Start: 1950 Screening for malign ant neoplasm of colon [facility] Immunizations Immunization Date Immunization Notes Care Provider Fa jaysonty 11-17-2020 pneumococcal polysac charide vaccine, 23 valent Generic Provider [facility] 06-13-2017 influenza, high dose seasonal, preservative-free Generic Provider [facility] 06-13-2017 influenza virus vacc ine, unspecified formulation Generic Provider [facility] 08-30-2016 pneumococcal conjuga te vaccine, 13 valent Generic Provider [facility] 05-30-2010 seasonal influenza, intradermal, preservative free Generic Provider [facility] Payers Date Payer Category Payer Private Health Insurance BHUMI Wright ember [id number] 2016 Medicare MEDICARE [id number] 1959 Medicare [id number] 1958 Private Health Insurance [id number] 1950 Unknown [id number] 1950 Unknown [id number] 1950 Unknown [id number] 1950 Unknown [id number] Social History Date Type Detail Facility Start: 04-02-2023 Tobacco smoking stat [facility] Never smoked tobacco [facility] Start: 04-02-2023 Tobacco use and exposure Smoke less tobacco non-user [facility] Start: 01-01-2024 End: 06-11-2024 Alcoholic beverage intake Current drinker of alcohol (finding) [facility] Start: 01-01-2024 End: 06-11-2024 Alcoholic beverage intake [facility] Start: 01-01-2024 End: 06-11-2024 Tobacco use panel [facility] Start: 12-28-2022 Alcohol Comment 1-2 drinks per occas roscoe [facility] Start: 1950 Sex assigned at Not on file N [facility] Clinical Notes 10-17-2023 to 06-11-2024 aAron Davis, ANAI - 06/11/2024 10:30 AM EST Note Date & Type Note Facility 06-11-2024 History of Present illness Narrative Subjective : Chief Complaint: Frances Macdonald is an 74 y.o. female here for an annual wellness visit. I have reviewed and reconciled the history and medication list with the patient today. Current Outpatient Medications Medication Sig Dispense Refill furosemide (Lasix) 20 MG tablet spironolactone (Aldactone) 25 MG tablet Take 25 mg by mouth in the morning. albuterol HFA 90 mcg/act inhaler Inhale 2 puffs every 4 (four) hours if needed for wheezing or shortness of breath. apixaban (Eliquis) 5 MG tablet TAKE 1 TABLET TWICE A DAY 180 tablet 0 dexAMETHasone 0.5 MG/5ML elixir Take 10 mL (1 mg) by mouth every 12 (twelve) hours for 10 days. 200 mL 0 diphenhydrAMINE 12.5 MG/5ML elixir 50 mg, aluminum-magnesium hydroxide-simethicone 400-400-40 MG/5ML suspension 20 mL, lidocaine 2 % solution 20 mL Swish and spit 15 mL every 4 (four) hours if needed for mucositis. Disp 300ml 300 each 2 Fluticasone-Salmeterol (Wixela Inhub) 250-50 MCG/ACT aerosol powder Inhale 1 each in the morning and 1 each before bedtime. 3 each 3 levothyroxine (Synthroid, Levoxyl) 25 MCG tablet TAKE 1 TABLET DAILY 90 tablet 0 losartan (Cozaar) 50 MG tablet Take 1 tablet (50 mg) by mouth Daily 100 tablet 3 metFORMIN (Glucophage) 500 MG tablet TAKE 1 TABLET TWICE A DAY WITH MEALS 180 tablet 2 metoprolol succinate XL (Toprol-XL) 50 MG 24 hr tablet TAKE 1 TABLET ONCE DAILY 90 tablet 0 montelukast (Singulair) 10 MG tablet TAKE 1 TABLET ONCE DAILY 90 tablet 0 simvastatin (Zocor) 20 MG tablet TAKE 1 TABLET DAILY 90 tablet 0 No current facility-administered medications for this visit. Review of Systems Constitutional: Negative. HENT: Positive for congestion. Respiratory: Positive for cough. Cardiovascular: Negative. Gastrointestinal: Negative. Genitourinary: Negative. Musculoskeletal: Positive for arthralgias, back pain, myalgias and neck pain. Skin: Negative. Neurological: Negative. Psychiatric/Behavioral: Negative. List of current healthcare providers: Patient Care Team: Isrrael Brown MD as PCP - General (Internal Medicine) Aaron Davis NP as PCP - ACO [employer] Medicare Annual Visit Over the past 2 weeks, how often have you been bothered by any of the following problems? Little interest or pleasure in doing things: Not at all Feeling down, depressed, or hopeless: Not at all Patient Health Questionnaire-2 Score: 0 Concepcion Fall Risk History of Falling, Immediate or Within 3 Months: No Health Risk Assessment Form Do you need help eating, bathing, using the toilet, dressing, or getting around your home?: No Can you prepare your own meals?: Yes Can you do your own housework without help?: Yes Can you shop for groceries or clothes without help?: Yes Do you exercise for about 20 minutes 3 or more days a week?: Yes How confident are you that you can control and manage most of your health problems?: Very confident Can you mange your money, credit cards and accounts, pay bills and taxes?: Yes Vision Screening: Yes, no gross abnormalities Hearing Screening: Yes, no gross abnormalities Cognitive Screening Self Assessment: No overt cognitive deficiency is apparent by direct observation Three Word Registration: Apple, Watch, Janie Clock Drawing: Normal Clock - 2 Three Word Recall: 1/3 words correct - 1 Total Score (0-5 Points): 3 Pain Assessment Pain Score: 0 - No pain Advance Care Planning Do you have a living will?: Yes Do you have a medical power of prosecuting attorney?: Yes Objective : BP 138/88 Pulse 58 Ht 5' 5 Wt 242 lb SpO2 97% BMI 40.27 kg/m No results found. Physical Exam Vitals reviewed. Constitutional: Appearance: Normal appearance. HENT: Head: Normocephalic. Nose: Nose normal. Mouth/Throat: Mouth: Mucous membranes are moist. Pharynx: Oropharynx is clear. Eyes: Conjunctiva/sclera: Conjunctivae normal. Pupils: Pupils are equal, round, and reactive to light. Cardiovascular: Rate and Rhythm: Normal rate and regular rhythm. Pulmonary: Effort: Pulmonary effort is normal. Breath sounds: Normal breath sounds. Abdominal: General: Bowel sounds are normal. Palpations: Abdomen is soft. Skin: General: Skin is warm and dry. Neurological: General: No focal deficit present. Mental Status: She is alert and oriented to person, place, and time. Psychiatric: Mood and Affect: Mood normal. Behavior: Behavior normal. Thought Content: Thought content normal. Judgment: Judgment normal. Assessment/Plan : The following health maintenance schedule was reviewed with the patient and provided in printed form in the after visit summary: Health Maintenance Topic Date Due Influenza Vaccine (1) 04/06/2024 Mammogram 01/13/2025 Colorectal Cancer Screening 01/10/2031 Pneumococcal Vaccine: 65+ Years Completed Advance Care Planning Has DPOA and living will Orders Placed This Encounter Procedures Microalbumin / creatinine, urine ratio Standing Status: Future Number of Occurrences: 1 Standing Expiration Date: 06/11/2025 Order Specific Question: Print requisition? Answer: No Comprehensive metabolic panel Standing Status: Future Number of Occurrences: 1 Standing Expiration Date: 06/11/2025 Order Specific Question: Print requisition? Answer: No 1. Obstructive sleep apnea syndrome (Primary) This is a chronic medical condition that is stable since last assessment. No changes in treatment are suggested at this time. 2. Mild intermittent asthma without complication (CMS/HCC) This is a chronic medical condition that is stable since last assessment. No changes in treatment are suggested at this time. 3. Diastolic dysfunction This is a chronic medical condition that is stable since last assessment. No changes in treatment are suggested at this time. - Comprehensive metabolic panel; Future - Comprehensive metabolic panel 4. Diastolic dysfunction, left ventricle This is a chronic medical condition that is stable since last assessment. No changes in treatment are suggested at this time. - Comprehensive metabolic panel; Future - Comprehensive metabolic panel 5. Enlarged atria Managed by cardiology 6. Secondary hypertension (CMS/HCC) Managed by cardiology - Comprehensive metabolic panel; Future - Comprehensive metabolic panel - losartan (Cozaar) 50 MG tablet; Take 1 tablet (50 mg) by mouth Daily Dispense: 100 tablet; Refill: 3 7. Mitral valve insufficiency, unspecified etiology Managed by cardiology - Comprehensive metabolic panel; Future - Comprehensive metabolic panel 8. Paroxysmal atrial fibrillation (CMS/HCC) Managed by cardiology 9. Tricuspid valve insufficiency, unspecified etiology Managed by cardiology - Comprehensive metabolic panel; Future - Comprehensive metabolic panel 10. Displacement of lumbar intervertebral disc without myelopathy This is a chronic medical condition that is stable since last assessment. No changes in treatment are suggested at this time. 11. Hypothyroidism, unspecified type (CMS/HCC) This is a chronic medical condition that is stable since last assessment. No changes in treatment are suggested at this time. 12. Type 2 diabetes mellitus without complication, without long-term current use of insulin (CMS/HCC) We discussed today, the importance of proper diabetic control. We discussed possible complications of diabetes, including loss of vision, renal failure, increased risk of heart attacks and strokes, blood vessel and/or nerve damage. We discussed the recommended changes to reduce your blood sugars and minimize the risk of these complications. We discussed diabetic goals, including keeping A1C <7.0% and blood pressure < 130/70. The plan for achieving these goals is adherence to medications, diet, and regular activity as discussed during today's visit. We discussed current barriers to achieving these goals. We discussed dietary goals. We discussed calorie counting, as well as decreasing carbohydrate and simple sugar intake. Reviewed portion control with the patient. If the patient still has questions on this, a referral to a Dietitian can be arranged. I reviewed medications that aid in diabetic control. We discussed proper dosing and educated the patient on possible side effects and complications. The patient verbalized understanding of these instructions. - Microalbumin / creatinine, urine ratio; Future - Microalbumin / creatinine, urine ratio 13. Abnormal TSH Stable at this time 14. Estrogen deficiency Stable at this time 15. Mixed hyperlipidemia (CMS/HCC) Stable 16. Morbid (severe) obesity due to excess calories (CMS/[facility]) Discussed goal of BMI < 30. Advised on weight loss options. Encouraged diet and exercise. Discussed with patient appropriate lifestyle modification changes necessary for weight management, heart healthy eating and overall health promotion. Discussed minimizing high carb, high sugar, high sodium, portion control, and processed foods while making healthy choice replacements. Additionally discussed recommendations of 30 minutes of aerobic exercise at least 5 days per week, that includes, walking, and chair exercises. . Instructed importance of drinking adequate water consumption (if not on fluid restriction) with minimal sugar and caffiene. 17. Body mass index (BMI) 40.0-44.9, adult (CMS/[facility]) Discussed goal of BMI < 30. Advised on weight loss options. Encouraged diet and exercise. Discussed with patient appropriate lifestyle modification changes necessary for weight management, heart healthy eating and overall health promotion. Discussed minimizing high carb, high sugar, high sodium, portion control, and processed foods while making healthy choice replacements. Additionally discussed recommendations of 30 minutes of aerobic exercise at least 5 days per week, that includes, walking, and chair exercises. . Instructed importance of drinking adequate water consumption (if not on fluid restriction) with minimal sugar and caffiene. 18. Routine general medical examination at [facility] care facility Reviewed all relevant preventative screenings with the patient in detail. Medicare Wellness form completed and will be scanned into patient's chart. All needed testing was ordered. Will continue with yearly Medicare Wellness exams. Electronically signed by Aaron Davis NP on June 11, 2024 documented in this encounter [facility] 05-30-2024 Note Cardiology Follow Up Progress Note HPI: Frances Macdonald is a 74 y.o. female with a past medical history including HTN, paroxysmal atrial fibrillation, and heart failure with preserved EF. She presents to cardiology clinic for routine follow-up. Had echo a few weeks ago. She denies chest pain and palpitations. Denies lightheadedness/syncope and bleeding on Eliquis. Doing well. Bp has been elevated at home in the 150's-160's systolic range. Patient adamantly denies any cardiac complaints or concerns. Patient denies any chest pain or shortness of breath. Patient denies any lower extremity edema, orthopnea, or proximal nocturnal dyspnea. No near-syncope or syncope. No dizziness or lightheadedness. Echo was performed. Normal LVEF. She has small anterior and moderate posterior pericardial effusion. Cardiology ROS: 10 point ROS is performed and is negative unless otherwise specified in HPI. Medications Current Outpatient Medications on File Prior to [...] mcg tablet losartan (Cozaar) 50 mg tablet TAKE 1 TABLET EVERY MORNING 90 tablet 3 metFORMIN (Glucophage) 500 mg [...] (25 mg) by mouth in the morning. 90 tablet 3 No current facility-administered medications on file prior to visit. Allergies Patient has no known allergies. Physical Exam VITAL SIGNS: Ht 1.651 m (5' 5 ) Wt 110 kg (243 lb) BMI 40.44 kg/m??? Constitutional: Well developed, Well nourished, No acute distress, Non-toxic appearance. HENT: Normocephalic, Atraumatic, Bilateral external ears have normal appearance, Bilateral TMs clear, Oropharynx moist, No oral or pharyngeal exudates, Nose appears normal, nares are patent. Eyes: PERRLA, EOMI, Conjunctiva normal, No discharge. Neck: Normal range of motion, No tenderness, Supple, No stridor. No cervical lymphadenopathy noted. Cardiovascular: Normal heart rate, Normal rhythm, No murmurs, No rubs, No gallops. Thorax & Lungs: Normal breath sounds, No respiratory distress, No wheezing, No chest tenderness to palpation. Abdomen: Bowel sounds normal, Soft, Nontender, No masses, No pulsatile masses. Skin: Warm, Dry, No erythema, No rash. Back: No tenderness, No CVA tenderness. Extremities: Intact distal pulses, No edema, No tenderness, No cyanosis, No clubbing. Musculoskeletal: Good range of motion in all major joints with 5/5 muscle strength in all muscle groups, No tenderness to palpation or major deformities noted. Neurologic: Alert & oriented x 3, Normal motor function in all major muscle groups, Normal sensory function to all major dermatomes, No focal deficits noted. Psychiatric: Affect normal, Judgment normal, Mood normal. Impression: -Paroxysmal atrial fibrillation, on Eliquis and metoprolol -Hypertension, poorly controlled -Heart failure with preserved ejection fraction: Patient is euvolemic, no signs of decompensation on exam -Pericardial effusion on echo Plan: -Continue Eliquis and metoprolol for atrial fibrillation -We will increase losartan from 50 to 100 mg daily for better blood pressure control. Patient instructed to maintain daily blood pressure log. She will contact cardiology if she has any issues with her blood pressure -Repeat echo in 1 month to ensure that pericardial effusion is not getting larger -Optimize medical management -Aggressive risk factor modification -Plan of care discussed with patient. All questions were answered. Patient voices understanding and is agreeable with current plan. -Patient was educated on red flag symptoms. Strict return precautions were provided. Patient verbalizes understanding -Follow-up in cardiology clinic in 6 months, or sooner if needed Awilda Monreal MD Interventional Cardiology [facility] 11-16-2023 Note Hypertension is stab le, well controlled 130/80 Continue all meds [facility] 11-16-2023 Note Will monitor with bennie gonzalez echocardiogram [facility] 11-16-2023 Note Lipid abnormalities are stable continue simvastatin- she does not want to increase dose of statin- she will continue heart healthy diet [facility] 11-16-2023 Note [facility] CARDIOLOGY PROGR ESS NOTE [...] Continue all medications Paroxysmal atrial fibrillation (CMS/HCC) [id number]= 5- Age, Female, CHF, DM Remains on anticoagulation- eliquis Rate control with toprol 50 mg Mixed hyperlipidemia Lipid abnormalities are stable continue simvastatin- she does not want to increase dose of statin- she will continue heart healthy diet Mitral valve disorder Will monitor with routine echocardiogram Hypertensive disorder Hypertension is stab (more content not included)... [facility] 11-16-2023 Note Patient here for fol low [...] All other systems reviewed and are negative. [facility] 11-16-2023 Note [id number]= 5- Age , Female, CHF, DM Remains on anticoagulation- eliquis Rate control with toprol [address] [facility] 11-16-2023 Note Will monitor with re peat Limitied echo in 3 months, she is currently asymptomatic Continue all medications [facility] 10-17-2023 Note [id number]=7- age, female, HTN, DM Continue toprol and eliquis anticoagulation Denied any bleeding tendencies ECG today Sinus bradycardia [facility] 10-17-2023 Note Lipid abnormalities are stable continue simvastatin and heart healthy diet Script to pt for annual labs [facility] 10-17-2023 Note MV regurg- repeat ec ho to assess degree of MR [facility] 10-17-2023 Note Hypertension is unco ntrolled, add aldactone to regime, continue losartan and toprol Repeat CMP in 1-2 weeks after starting aldactone to assess renal function and electrolytes. Pt voiced understanding [facility] 10-17-2023 Note Repeat echo [facility] 10-17-2023 Note F/U with PCP [facility] 10-17-2023 Note Continue lasix and s tart aldactone for HTN and fluid management [facility] 10-17-2023 Note Repeat echocardiogra m to assess cardiac function, DD, valvular function Continue lasix 2 times/week and start aldactone [facility] 10-17-2023 Note F/U with PCP and michelle hutchins check routine annual labs, A1C [facility] 10-17-2023 Note [facility] CARDIOLOGY PROGR ESS NOTE [...] She has just returned from being in [place] over the winter. Patient here for 9 [...] complication, without long-term current use of insulin (CMS/HCC) F/U with PCP and will check routine annual labs, A1C Diastolic dysf (more content not included)... [facility] 10-17-2023 Note Patient here for 9 m [...] All other systems reviewed and are negative. [facility] Evaluation note Diagnosis Obstructive sleep apnea syndrome- Primary Obstructive sleep apnea (adult) (pediatric) Mild intermittent asthma without complication (CMS/HCC) Diastolic dysfunction Unspecified heart disease Diastolic dysfunction, left ventricle Enlarged atria Secondary hypertension (CMS/HCC) Other secondary hypertension, unspecified Mitral valve insufficiency, unspecified etiology Paroxysmal atrial fibrillation ([facility]/HCC) Atrial fibrillation Tricuspid valve insufficiency, unspecified etiology Displacement of lumbar intervertebral disc without myelopathy Hypothyroidism, unspecified type ([facility]) Type 2 diabetes mellitus without complication, without long-term current use of insulin ([facility]/HCC) Abnormal TSH Estrogen deficiency Other ovarian failure Mixed hyperlipidemia ([facility]/HCC) Mixed hyperlipidemia Morbid (severe) obesity due to excess calories ([facility]) Body mass index (BMI) 40.0-44.9, adult ([facility]) Routine general medical examination at health care facility Routine general medical examination at a health care facility documented in this encounter [facility] Summary Purpose Family History No Family History [...] pital DATE CREATED AUTHOR AUTHOR'S ORGANIZ ATION 06/13/2024 [facility] EPIC DATE CREATED AUTHOR AUTHOR'S ORGANIZ ATION 06/14/2024 [facility] DATE CREATED AUTHOR AUTHOR'S ORGANIZ ATION 06/24/2024 [facility] Care Teams (unrecognized sec tion and content) Service Loss Control Consultant Relationship Specialty Start Date End Date Isrrael Brown MD [address] [facility] [address] [place] [address] PCP - General Internal Medicine 12/12/22 Aaron Davis, DIRECTOR OF GUIDANCE [address] [facility] [address] [place] [address] PCP - [facility] Reach 12/05/23 Service Loss Control Consultant Relationship Specialty Start Date End Date Isrrael Brown MD [address] [facility] [address] [place] [address] PCP - General Internal Medicine 12/12/22 Aaron Davis, DIRECTOR OF GUIDANCE [address] [facility] [address] [place] [address] PCP - [facility] 12/05/23 Reason for Visit (unrecogniz ed section and content) Reason Comments Medicare Annual Wellness Visit Subsequen t Losartan was changed to 25mg due to recent labs pt was on 50mgPt Bp today is 184/90 pt has had a cough for couple of weeks FOR RECORDS PERTAINING TO PATIENTS WHO ARE [...] BE BASED ON THE PRIMARY CLINICAL RECORDS. [employer] provides no warranty or guarantee of the accuracy or completeness of information in this document.
--- NOTE | 2024-10-14 13:00 | CA_ITS ---
Patient Name: JASIEL BLAKE MR#: [id number] : 1950 Exam Date: 10/14/2024 Ordering Doctor: AWILDA MARTINEZ M.D. ECHOCARDIOGRAM REPORT PROCEDURE: CA ECHO LIMITED INDICATIONS: Pericardial effusion COMPARISON: None. DESCRIPTION: Limited ECHOCARDIOGRAM Real-time transthoracic echocardiography with 2D and M-mode performed. QUALITY: Technical quality was good. Limited echocardiogram per physician order. LEFT VENTRICLE: Normal chamber size. Normal left ventricular wall thickness. Normal systolic function. LV EF: Normal left ventricular ejection fraction, (>55%). DIASTOLIC: ATRIAL SEPTUM: LEFT ATRIUM: Severe dilatation. RIGHT ATRIUM: Moderate dilatation. RIGHT VENTRICLE: Normal chamber size. Normal systolic function. TRICUSPID VALVE: Normal mobility and thickness. MITRAL VALVE: Normal mobility and thickness. There is no mitral annular calcification. AORTIC VALVE: Normal trileaflet appearance. Normal leaflet mobility. AORTIC ROOT: Normal diameter and appearance. PULMONIC VALVE: Normal thickness and mobility. PERICARDIUM: Small anterior effusion. Moderate posterior effusion, increased in size (2.2 cm) compared to previous echocardiogram (1.4 cm) done 05/09/2024. IVC: IVC is normal in size, does not collapse. PLEURA: CONCLUSION: 1. Normal ventricular size and systolic function. Estimated LVEF is 55 to 60%. 2. Moderate severe biatrial dilatation. 3. Small anterior and moderate posterior pericardial effusion, with no echocardiographic signs of tamponade physiology. Adult Echocardiography Procedure Report Left Ventricle LVEDD (3.7 - 5.6 cm): 4.74 cm LVESD (2.2 - 4.0 cm): 3.57 cm LVIVS thickness (0.6 - 1.2 cm): 0.94 cm LVPW thickness (0.5 - 1.0 cm): 1.09 cm LVOT Diameter 1.94 cm Left Atrium LA Volume Index (2D A2C): 32.35 ml/m2 Left Atrium Systolic Dimension: 4.66 cm Mitral Valve Right Ventricle Aorta AO Root Diam: 2.79 cm Aortic Valve Tricuspid Valve Pulmonic Valve Right Atrium Right Atrium Systolic Pressure: 48.37 ml, 48.37 ml Dictated by: Kin Curry M.D. on 10/14/2024 at 20:28 Approved by: Kin Curry M.D. on 10/14/2024 at 20:31
== END 2024-10-14 12:36 | disposition home or self-care (01) ==
LOC: CARD 12:36
PROVIDERS: PCP Internal Medicine; Visit Provider Internal Medicine Cardiovascular Disease
DX: I31.39 Other pericardial effusion (noninflammatory) (principal)
CPT/HCPCS: 93308

== ENCOUNTER 2024-11-11 10:37 | Outpatient (OUT) | payer MEDICARE, OTHER, SELFPAY ==
--- NOTE | 2024-11-11 10:00 | CA_ITS ---
Patient Name: JASIEL BLAKE MR#: [id number] : 1950 Exam Date: 11/11/2024 Ordering Doctor: AWILDA MARTINEZ M.D. ECHOCARDIOGRAM REPORT PROCEDURE: CA ECHO DOPPLER COMPLETE INDICATIONS: Pericardial effusion COMPARISON: None. DESCRIPTION: COMPLETE ECHOCARDIOGRAM Real-time transthoracic echocardiography with 2D, M-mode, spectral and color flow Doppler performed. QUALITY: Technical quality was good. LEFT VENTRICLE: Normal chamber size. Mild concentric left ventricular hypertrophy. Normal systolic function. LV EF: Normal left ventricular ejection fraction, (55%). DIASTOLIC: Grade II diastolic dysfunction. Doppler criteria are suggestive of elevated left-sided filling pressures. ATRIAL SEPTUM: Visually appears intact. LEFT ATRIUM: Moderate dilatation. RIGHT ATRIUM: Moderate dilatation. RIGHT VENTRICLE: Normal chamber size. Normal right ventricular systolic function. TRICUSPID VALVE: Normal mobility and thickness. No stenosis with mild regurgitation. Doppler studies reveal moderately (45-60) elevated right sided pressures. RVSP 58 mmHg MITRAL VALVE: Normal mobility and thickness. No evidence of mitral valve stenosis. Mitral annular calcification. Mild mitral regurgitation. AORTIC VALVE: Normal leaflet mobility. No evidence of aortic valve stenosis. No aortic regurgitation. AORTIC ROOT: Normal diameter and appearance, measuring 3.3 cm. Ascending aorta is normal in size, measuring 3.0 cm. PULMONIC VALVE: Normal thickness and mobility. No stenosis. Trivial regurgitation. PERICARDIUM: Small anterior effusion. Moderate posterior effusion measuring 2.1 cm [previous echocardiogram on 10/14/2024 was 2.2 cm]. IVC: IVC is normal in size, does not fully collapse. PLEURA: CONCLUSION: 1. Mild concentric left ventricular hypertrophy with normal systolic function. LVEF is estimated at 55%. 2. Normal right ventricular size and systolic function. 3. Grade 2 diastolic dysfunction. Elevated left-sided filling pressures. 4. Moderate biatrial dilatation. 5. Mild mitral and tricuspid regurgitation. 6. Moderately elevated right-sided pressures. RVSP is 58 mmHg. 7. Small anterior and moderate posterior pericardial effusion without echocardiographic evidence of tamponade physiology. Adult Echocardiography Procedure Report Left Ventricle LVEDD (3.7 - 5.6 cm): 4.64 cm LVESD (2.2 - 4.0 cm): 3.71 cm LVIVS thickness (0.6 - 1.2 cm): 1.27 cm LVPW thickness (0.5 - 1.0 cm): 1.12 cm e': 0.04 m/s E - e': 16.12 LVOT Max Gradient: 2.60 mm[Hg] LVOT Area (cm2): 0.81 m/s Peak Velocity (LVOT): 0.81 m/s Mean Velocity (LVOT): 0.51 m/s LVOT Diameter 1.95 cm Left Atrium LA Volume Index (2D A2C): 53.17 ml/m2 Left Atrium Systolic Dimension: 4.92 cm Mitral Valve MV E to A Ratio: 1.17 Mitral Valve A-Wave Peak Velocity: 0.49 m/s Mitral Valve E-Wave Peak Velocity: 0.58 m/s Right Ventricle Aorta AO Root Diam: 3.33 cm Ascending Ao Diam: 2.99 cm Aortic Valve AoV Area (Peak Teo): 2.93 cm2, 2.93 cm2 AoV Area (VTI): 3.05 cm2, 3.05 cm2 Peak Velocity(Antegrade Flow): 0.82 m/s Peak Gradient(Antegrade Flow): 2.71 mm[Hg] Mean Velocity(Antegrade Flow): 0.56 m/s Mean Gradient(Antegrade Flow): 1.44 mm[Hg] Velocity Time Integral: 18.35 cm Tricuspid Valve Peak Velocity (Regurgitant Flow): 2.94 m/s, 3.53 m/s Pulmonic Valve Mean Gradient: 1.38 mm[Hg] Mean Velocity: 0.54 m/s Peak Velocity: 0.87 m/s, 0.75 m/s Peak Gradient: 2.26 mm[Hg], 3.05 mm[Hg] Right Atrium Right Atrium Systolic Pressure: 55.33 ml, 55.33 ml Dictated by: Kin Curry M.D. on 11/11/2024 at 19:41 Approved by: Kin Curry M.D. on 11/11/2024 at 19:47
--- OUTSIDE RECORDS SUMMARY | 2024-11-11 10:50 | XMS_ITS | CCD ---
Author Organization [facility] Care Team Providers Care Family Lawyer Name Role Phone DR ISRRAEL BROWN Admitting Unavailable MARIANO, DR RUSSELL Primary Care Unavailable MARIANO, DR RUSSELL Consulting Unavailable MARIANO, DR RUSSELL Attending Unavailable TRIP, DR GREGORIO Cabral Consulting Unavailable DR ISRRAEL BROWN Primary Care Unavailable AWILDA MONREAL Admitting Unavailable AWILDA MONREAL Consulting Unavailable AWILDA MONREAL Attending Unavailable Isrrael Brown MD Primary Care Provider Susan OSPINA, Aaron Wright Unavailable ANA ECHAVARRIA Attending Unavailable AARON DAVIS Attending Unavailable Susan OSPINA, Aaron Wright Unavailable MANJINDER SHEFFIELD Attending Unavailable AWILDA MONREAL Attending Unavailable Medications Current Medications Medication Drug Class(es) Dates Sig (Normalized) Sig (Original) [id number] 200 actuat albuterol 0.09 mg/actuat metered dose inhaler (5 sources) beta2-Adrenergic Agonist take 2 puff(s) by inhalation every four hours for wheezing albuterol HFA 90 mcg/act inhaler Inhale 2 puffs every 4 (four) hours if needed for wheezing or shortness of breath. Active apixaban 5 mg oral tablet (5 sources) Factor Xa Inhibitor Start: 05-22-2024 take 1 tablet by mouth in the morning apixaban (Eliquis) 5 MG tablet Indications: Paroxysmal atrial fibrillation (CMS/HCC) Take 1 tablet (5 mg) by mouth in the morning and 1 tablet (5 mg) before bedtime. 180 tablet 2 06/11/2024 Active dexamethasone 0.1 mg/ml oral solution (5 sources) Corticosteroid Start: 04-02-2023 dexAMETHasone 0.5 MG/5ML elixir Indications: Pharyngitis, unspecified etiology Take 10 mL (1 mg) by mouth every 12 (twelve) hours for 10 days. 200 mL 04/02/2023 Active diphenhydrAMINE 12.5 MG/5ML elixir 50 mg, aluminum-magnesium hydroxide-simethicon e 400-400-40 MG/5ML suspension 20 mL, lidocaine 2 % solution 20 mL (5 sources) Start: 04-02-2023 diphenhydrAMINE 12.5 MG/5ML elixir 50 mg, aluminum-magnesium hydroxide-simethico ne 400-400-40 MG/5ML suspension 20 mL, lidocaine 2 % solution 20 mL Indications: Pharyngitis, unspecified etiology Swish and spit 15 mL every 4 (four) hours if needed for mucositis. Disp 300ml 300 each 2 04/02/2023 Active 60 actuat fluticasone propionate 0.25 mg/actuat / salmeterol 0.05 mg/actuat dry powder inhaler (5 sources) Corticosteroid, beta2-Adrenergic Agonist Start: 05-02-2024 End: 07-31-2024 take 1 dose by inhalation in the morning Fluticasone-Salmete rol (Wixela Inhub) 250-50 MCG/ACT aerosol powder Indications: Mild intermittent asthma without complication (CMS/HCC) Inhale 1 each in the morning and 1 each before bedtime. 3 each 3 05/02/2024 Active furosemide 20 mg oral tablet (3 sources) Loop Diuretic Start: 11-14-2023 take 1 tablet by mouth once daily furosemide (Lasix) 20 MG tablet Indications: Edema of lower extremity Take 1 tablet (20 mg) by mouth Daily 90 tablet 2 06/11/2024 Active levothyroxine sodium 0.025 mg oral tablet (5 sources) l-Thyroxine Start: 05-22-2024 take 1 tablet by mouth once daily levothyroxine (Synthroid, Levoxyl) 25 MCG tablet Indications: Abnormal TSH Take 1 tablet (25 mcg) by mouth Daily 90 tablet 2 06/11/2024 Active losartan potassium 50 mg oral tablet (9 sources) Angiotensin 2 Receptor Christian Start: 06-11-2024 [...] Discontinued metFORMIN hydrochloride 500 mg oral tablet (5 sources) Biguanide Start: 03-10-2024 metFORMIN (Glucophage) 500 MG tablet Indications: Impaired fasting glucose TAKE 1 TABLET TWICE A DAY WITH MEALS 180 tablet 2 03/10/2024 Active 24 hr metoprolol succinate 50 mg extended release oral tablet (5 sources) beta-Adrenergic Christian Start: 05-22-2024 take 1 tablet by mouth once daily metoprolol succinate XL (Toprol-XL) 50 MG 24 hr tablet Indications: Paroxysmal atrial fibrillation (CMS/HCC) Take 1 tablet (50 mg) by mouth Daily 90 tablet 2 06/11/2024 Active montelukast 10 mg oral tablet (5 sources) Leukotriene Receptor Antagonist Start: 05-02-2024 take 1 tablet by mouth once daily montelukast (Singulair) 10 MG tablet Indications: Allergy, sequela Take 1 tablet (10 mg) by mouth Daily 90 tablet 2 06/11/2024 Active simvastatin 20 mg oral tablet (5 sources) HMG-CoA Reductase Inhibitor Start: 05-02-2024 take 1 tablet by mouth once daily simvastatin (Zocor) 20 MG tablet Indications: Mixed hyperlipidemia (CMS/HCC) Take 1 tablet (20 mg) by mouth Daily 90 tablet 2 06/11/2024 Active spironolactone 25 mg oral tablet (3 sources) Aldosterone Antagonist Start: 05-09-2024 End: 05-09-2025 take 1 tablet by mouth in the morning spironolactone (Aldactone) 25 MG tablet Take 25 mg by mouth in the morning. 05/09/2024 05/09/2025 Active Problems Active Problems Problem Classification Problem Date Documented Date Episodic/Chronic Asthma (7 sources) Mild intermittent asthma; Translations: [Mild intermittent asthma, uncomplicated] Onset: 04-02-2023 04-02-2023 Chronic Cardiac dysrhythmias (9 sources) Paroxysmal atrial fibrillation; Translations: [Paroxysmal atrial fibrillation] Onset: 07-25-2022 04-02-2023 Chronic Diabetes mellitus without complication (5 sources) Type 2 diabetes mellitus without complication; Translations: [Type 2 diabetes mellitus without complications] Onset: 10-17-2023 06-11-2024 Chronic Disorders of lipid metabolism (10 sources) Hyperlipidemia, unspecified; Translations: [Mixed hyperlipidemia] Onset: 07-25-2022 04-02-2023 Chronic Essential hypertension (9 sources) Essential (primary) hypertension; Translations: [Hypertensive disorder] Onset: 11-28-2019 Chronic Genitourinary congenital anomalies (5 sources) Congenital anomaly of ovary; 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] Onset: 04-02-2023 04-02-2023 Chronic Heart valve disorders (16 sources) Mitral valve regurgitation; Translations: [Nonrheumatic mitral (valve) insufficiency] Onset: 07-25-2022 04-02-2023 Chronic Hypertension with complications and secondary hypertension (4 sources) Secondary hypertension; Translations: [Secondary hypertension, unspecified] Onset: 05-30-2024 06-11-2024 Chronic Menopausal disorders (8 sources) Other primary ovarian failure; Translations: [Decreased estrogen level] Onset: 01-03-2023 04-02-2023 Chronic Other and ill-defined heart disease (7 sources) Diastolic dysfunction; Translations: [Other ill-defined heart diseases] Onset: 04-02-2023 04-02-2023 Chronic Other and ill-defined heart disease (7 sources) Atrial hypertrophy; Translations: [Cardiomegaly] Onset: 04-02-2023 04-02-2023 Chronic Other and ill-defined heart disease (5 sources) Left ventricular diastolic dysfunction ; Translations: [Heart disease, unspecified] Onset: 02-02-2023 06-11-2024 Chronic Other and ill-defined heart disease (2 sources) Other ill-defined heart diseases; Translations: [Other ill-defined heart diseases] Onset: 07-25-2022 Chronic Other nutritional; endocrine; and metabolic disorders (2 sources) Obesity caused by energy imbalance; Translations: [Morbid (severe) obesity due to excess calories] 06-11-2024 Chronic Other nutritional; endocrine; and metabolic disorders (2 sources) Body mass index 40+ - severely obese; Translations: [Body mass index (BMI) 40.0-44.9, adult] 06-11-2024 Chronic Residual codes; unclassified (7 sources) Obstructive sleep apnea syndrome; Translations: [Obstructive [...] Spondylosis; intervertebral disc disorders; other back problems (7 sources) Displacement of lumbar intervertebral disc without myelopathy; Translations: [Other intervertebral disc displacement, lumbar region] Onset: 04-02-2023 04-02-2023 Chronic Thyroid disorders (5 sources) Hypothyroidism; Translations: [Hypothyroidism, unspecified] Onset: 11-27-2019 06-11-2024 Chronic Unclassified (1 source) Other pericardial effusion (noninflammatory); Translations: [Other pericardial effusion (noninflammatory)] Onset: 11-16-2023 Past or Other Problems Problem Classification Problem Date Documented Da te Episodic/Chronic Other screening for suspected conditions (not mental disorders or infectious disease) (11 sources) Encounter for screening mammogram for malignant neoplasm of breast; Translations: [Thyroid hormone tests abnormal] Onset: 01-02-2023 Episodic Jaqueline-; endo-; and myocarditis; cardiomyopathy (except that caused by tuberculosis or sexually transmitted disease) (3 sources) Pericardial effusion; Translations: [Pericardial effusion] Onset: 11-16-2023 06-11-2024 Episodic Residual codes; unclassified (3 sources) Edema of lower extremity; Translations: [Localized edema] Onset: 11-28-2019 06-11-2024 Episodic Unclassified (1 source) Other pericardial effusion (noninflammatory); Translations: [Other pericardial effusion (noninflammatory)] Onset: 11-16-2023 Results Test Name Value Interpretation Reference Range Facility Orders Onlyon 10-16-2024 Orders Only [id number] Frances Macdonald 1950 F Date Provider Department Center 10/16/2024 Alexandrea-OKSANA PASCUAL CARD [facility] Family History Problem Relation Age of Onset Heart failure Father Family Status - Relation Status Age at Father Normal [facility] [place] [address] Cardiology Report Signed Patient: FRANCES MACDONALD MR#: [id number] : 1950 Acct:[id number] Age/Sex: 74 / F ADM Date: 10/14/24 Loc: CARD Attending Dr: AWILDA MONREAL Ordering Physician: AWILDA MONREAL Date of Service: 10/14/24 Procedure(s): CA echo limited Accession Number(s): [id number] cc: AWILDA MONREAL; ISRRAEL BROWN Patient Name: FRANCES MACDONALD MR#: [id number] : 1950 Exam Date: 10/14/2024 Ordering Doctor: AWILDA MONREAL M.D. ECHOCARDIOGRAM REPORT PROCEDURE: CA ECHO LIMITED INDICATIONS: Pericardial effusion COMPARISON: None. DESCRIPTION: Limited ECHOCARDIOGRAM Real-time transthoracic echocardiography with 2D and M-mode performed. QUALITY: Technical quality was good. Limited echocardiogram per physician order. LEFT VENTRICLE: Normal chamber size. Normal left ventricular wall thickness. Normal systolic function. LV EF: Normal left ventricular ejection fraction, (>55%). DIASTOLIC: ATRIAL SEPTUM: LEFT ATRIUM: Severe dilatation. RIGHT ATRIUM: Moderate dilatation. RIGHT VENTRICLE: Normal chamber size. Normal systolic function. TRICUSPID VALVE: Normal mobility and thickness. MITRAL VALVE: Normal mobility and thickness. There is no mitral annular calcification. AORTIC VALVE: Normal trileaflet appearance. Normal leaflet mobility. AORTIC ROOT: Normal diameter and appearance. PULMONIC VALVE: Normal thickness and mobility. PERICARDIUM: Small anterior effusion. Moderate posterior effusion, increased in size (2.2 cm) compared to previous echocardiogram (1.4 cm) done 05/09/2024. IVC: IVC is normal in size, does not collapse. PLEURA: CONCLUSION: 1. Normal ventricular size and systolic function. Estimated LVEF is 55 to 60%. 2. Moderate severe biatrial dilatation. 3. Small anterior and moderate posterior pericardial effusion, with no echocardiographic signs of tamponade physiology. Adult Echocardiography Procedure Report Left Ventricle LVEDD (3.7 - 5.6 cm): 4.74 cm LVESD (2.2 - 4.0 cm): 3.57 cm LVIVS thickness (0.6 - 1.2 cm): 0.94 cm LVPW thickness (0.5 - 1.0 cm): 1.09 cm LVOT Diameter 1.94 cm Left Atrium LA Volume Index (2D A2C): 32.35 ml/m2 Left Atrium Systolic Dimension: 4.66 cm Mitral Valve Right Ventricle Aorta AO Root Diam: 2.79 cm Aortic Valve Tricuspid Valve Pulmonic Valve Right Atrium Right Atrium Systolic Pressure: 48.37 ml, 48.37 ml Dictated by: July Corrigan M.D. on 10/14/2024 at 20:28 Approved by: July Corrigan M.D. on 10/14/2024 at 20:31 Dictated By: JULY CORRIGAN Signed By: 10/14/242031 DD/ 30 TD/TT: Raw Products Director: [facility] Radiology, Radiologist, MD - 10/14/2024 [place] [address] Cardiology Report Signed Patient: FRANCES MACDONALD MR#: [id number] : 1950 Acct:[id number] Age/Sex: 74 / F ADM Date: 10/14/24 Loc: CARD Attending Dr: AWILDA MONREAL Ordering Physician: AWILDA MONREAL Date of Service: 10/14/24 Procedure(s): CA echo limited Accession Number(s): [id number] cc: AWILDA MONREAL; ISRRAEL BROWN Patient Name: FRANCES MACDONALD MR#: [id number] : 1950 Exam Date: 10/14/2024 Ordering Doctor: AWILDA MONREAL M.D. ECHOCARDIOGRAM REPORT PROCEDURE: CA ECHO LIMITED INDICATIONS: Pericardial effusion COMPARISON: None. DESCRIPTION: Limited ECHOCARDIOGRAM Real-time transthoracic echocardiography with 2D and M-mode performed. QUALITY: Technical quality was good. Limited echocardiogram per physician order. LEFT VENTRICLE: Normal chamber size. Normal left ventricular wall thickness. Normal systolic function. LV EF: Normal left ventricular ejection fraction, (>55%). DIASTOLIC: ATRIAL SEPTUM: LEFT ATRIUM: Severe dilatation. RIGHT ATRIUM: Moderate dilatation. RIGHT VENTRICLE: Normal chamber size. Normal systolic function. TRICUSPID VALVE: Normal mobility and thickness. MITRAL VALVE: Normal mobility and thickness. There is no mitral annular calcification. AORTIC VALVE: Normal trileaflet appearance. Normal leaflet mobility. AORTIC ROOT: Normal diameter and appearance. PULMONIC VALVE: Normal thickness and mobility. PERICARDIUM: Small anterior effusion. Moderate posterior effusion, increased in size (2.2 cm) compared to previous echocardiogram (1.4 cm) done 05/09/2024. IVC: IVC is normal in size, does not collapse. PLEURA: CONCLUSION: 1. Normal ventricular size and systolic function. Estimated LVEF is 55 to 60%. 2. Moderate severe biatrial dilatation. 3. Small anterior and moderate posterior pericardial effusion, with no echocardiographic signs of tamponade physiology. Adult Echocardiography Procedure Report Left Ventricle LVEDD (3.7 - 5.6 cm): 4.74 cm LVESD (2.2 - 4.0 cm): 3.57 cm LVIVS thickness (0.6 - 1.2 cm): 0.94 cm LVPW thickness (0.5 - 1.0 cm): 1.09 cm LVOT Diameter 1.94 cm Left Atrium LA Volume Index (2D A2C): 32.35 ml/m2 Left Atrium Systolic Dimension: 4.66 cm Mitral Valve Right Ventricle Aorta AO Root Diam: 2.79 cm Aortic Valve Tricuspid Valve Pulmonic Valve Right Atrium Right Atrium Systolic Pressure: 48.37 ml, 48.37 ml Dictated by: July Corrigan M.D. on 10/14/2024 at 20:28 Approved by: July Corrigan M.D. on 10/14/2024 at 20:31 Dictated By: JULY CORRIGAN Signed By: 10/14/242031 DD/ 30 TD/TT: Raw Products Director: [facility] [employer] Radiology Study observation (narrative) [facility] [employer] CARD ECHO LIMITED STUDYOrder ed By: Radiologist Radiology on 10-14-2024 [facility] [employer] Work Phone: ALBUMIN, RANDOM URINE W/CREA TININEon 06-12-2024 ALBUMIN, URINE 2.2 mg/dL Normal See Note: [facility] Comment on above: Result Comment: Refe rence Range: Reference Range Not established Performed By: #### 6 517, [id number] #### [facility] [address], [address] [place] [address] Gamb Cutter: Wil Fraga MD ALBUMIN/CREATININE RATIO, RANDOM URINE [...] diagnostic category. Performed By: #### 6 517, 53986 #### [facility] [place] [address] Gamb Cutter: Wil Fraga MD Creatinine (U) [Mass/Vol] 38 mg/dL Normal 20-275 [facility] Comment on above: Performed By: #### 6 517, 12156 #### [facility] [place] [address] Gamb Cutter: Wil Fraga MD [facility] METABOLIC [facility] 06-12-2024 Albumin [Mass/Vol] 4.4 g/dL Normal 3.6-5.1 [facility] Comment on above: Performed By: #### 6 517, 58753 #### [facility] [place] [address] Gamb Cutter: Wil Fraga MD Albumin/Globulin [Mass ratio] 1.7 {ratio} Normal 1.0-2.5 [facility] Comment on above: Performed By: #### 6 517, 56318 #### [facility] of [place] [address] Gamb Cutter: Wil Fraga MD ALP [Catalytic activity/Vol] 77 U/L Normal 37-153 [facility] Comment on above: Performed By: #### 6 517, 96555 #### [facility] [address], [address] [place] [address] Gamb Cutter: Wil Fraga MD ALT [Catalytic activity/Vol] 6 U/L Normal 6-29 [facility] Comment on above: Performed By: #### 6 517, 93875 #### [facility] of [place] [address] Gamb Cutter: Wil Fraga MD AST [Catalytic activity/Vol] 16 U/L Normal 10-35 [facility] Comment on above: Performed By: #### 6 517, 86785 #### [facility] [place] [address] Gamb Cutter: Wil Fraga MD Bilirubin [Mass/Vol] 0.4 mg/dL Normal 0.2-1.2 [facility] Comment on above: Performed By: #### 6 517, 66156 #### [facility] [place] [address] Gamb Cutter: Wil Fraga MD Calcium [Mass/Vol] 9.6 mg/dL Normal 8.6-10.4 [facility] Comment on above: Performed By: #### 6 517, 43262 #### [facility] [place] [address] Gamb Cutter: Wil Fraga MD Chloride [Moles/Vol] 103 mmol/L Normal 98-110 [facility] Comment on above: Performed By: #### 6 517, 29078 #### [facility] [place] [address] Gamb Cutter: Wil Fraga MD CO2 [Moles/Vol] 26 mmol/L Normal 20-32 [facility] Comment on above: Performed By: #### 6 517, 38401 #### [facility] [place] [address] Gamb Cutter: Wil Fraga MD Creatinine [Mass/Vol] 1.44 mg/dL High 0.60-1.00 [facility] Comment on above: Performed By: #### 6 517, 42106 #### [facility] [place] [address] Gamb Cutter: Wil Fraga MD GFR/1.73 sq M.predicted among non-blacks MDRD (S/P/Bld) [Vol rate/Area] 38 mL/min/{1.73_m2} Low > OR = 60 [facility] Comment on above: Performed By: #### 6 517, 23433 #### [facility] [place] [address] Gamb Cutter: Wil Fraga MD Globulin (S) [Mass/Vol] 2.6 g/dL Normal 1.9-3.7 [facility] Comment on above: Performed By: #### 6 517, 07716 #### [facility] [place] [address] Gamb Cutter: Wil Fraga MD Glucose [Mass/Vol] 108 mg/dL High 65-99 [facility] Comment on above: Result Comment: Fasting reference interval For someone without known diabetes, a glucose value between 100 and 125 mg/dL is consistent with prediabetes and should be confirmed with a follow-up test. Performed By: #### 6 517, 98732 #### [facility] [place] [address] Gamb Cutter: Wil Fraga MD Potassium [Moles/Vol] 4.5 mmol/L Normal 3.5-5.3 [facility] Comment on above: Performed By: #### 6 517, 95675 #### [facility] [place] [address] Gamb Cutter: Wil Fraga MD Protein [Mass/Vol] 7.0 g/dL Normal 6.1-8.1 [facility] Comment on above: Performed By: #### 6 517, 20388 #### [facility] [place] [address] Gamb Cutter: Wil Fraga MD Sodium [Moles/Vol] 138 mmol/L Normal 135-146 [facility] Comment on above: Performed By: #### 6 517, 84981 #### [facility] [address] [place] [address] Gamb Cutter: Wil Fraga MD Urea nitrogen [Mass/Vol] 28 mg/dL High 7-25 [facility] Comment on above: Performed By: #### 6 517, 62457 #### [facility] [address], [address] [place] [address] Gamb Cutter: Wil Fraga MD Urea nitrogen/Creatinine [Mass ratio] 19 mg/mg Normal 6-22 [facility] Comment on above: Performed By: #### 6 517, 10546 #### [facility] [address], [address] [place] [address] Gamb Cutter: Wil Fraga MD Laboratory - Hematology and Cell countson 06-11-2024 HbA1c (Bld) [Mass fraction] 6 % [facility] No Panel Informationon 06-11 Interpretation and review of laboratory results Normal [facility] ALL BASIC METABOLIC PANELon 06-06-2024 Anion gap [Moles/Vol] 12.8 mmol/L [facility] Calcium [Mass/Vol] 9.3 mg/dL 8.5 - 10. 1 mg/dL [facility] Chloride [Moles/Vol] 103 mmol/L 98 - 107 mmol/L [facility] Healthcare CO2 [Moles/Vol] 28.8 mmol/L 21.0 - 32.0 mmol/L [facility] Creatinine [Mass/Vol] 1.77 mg/dL High 0.55 - 1.02 mg/dL [facility] GFR/1.73 sq M.predicted CKD-EPI (S/P/Bld) [Vol rate/Area] 34 Low >=60 mL/min/1.73m 2 [facility] Glucose [Mass/Vol] 126 mg/dL High 74 - 106 mg/dL NO [facility] Interpretation and review of laboratory results Abnormal [facility] Potassium [Moles/Vol] 4.6 mmol/L 3.5 - 5.1 mmol/L [facility] Healthcare Sodium [Moles/Vol] 140 mmol/L 136 - 145 mmol/L [facility] TBH EGFR-NON AF GEORGIAN 28 Low >=60 mL/min/1.73m 2 [facility] Urea nitrogen [Mass/Vol] 26 mg/dL High 7.0 - 18.0 mg/dL [facility] Urea nitrogen/Creatinine [Mass ratio] 14.7 mg/mg [facility] Orders Onlyon 06-06-2024 Orders Only [id number] Frances Macdonald 1950 Provider Department Center 06/06/2024 895-OKSANA PASCUAL UHI Alfonso Family History Problem Relation Age of Onset Heart failure Father Family Status - Relation Status Age at Father Normal [facility] Office Visiton 05-30-2024 Follow-up visit [id number] Frances Macdonald 1950 Provider Department Center 05/30/2024 3848-AWILDA MONREAL HUI Alfonso Family History Problem Relation Age of Onset Heart failure Father Family Status - Relation Status Age at Father Level of Service:58228 [place] OFFICE/OUTPATIENT ESTABLISHED MOD MDM 30 MIN [facility] 36on 05-12-2024 36 From: Manjinder Sheffield NP Sent: 05/12/2024 10:43 AM EDT To: Marisela Arellano MA Subject: RE: Scan Well there is still a pericardial effusion- no worse than before, maybe slightly better on the anterior side. Hopefully she is still feeling well. Patient was informed about this message. [facility] Telephoneon 05-12-2024 Telephone [id number] Frances Macdonald 1950 Provider Department Center 05/12/2024 [id number] NUNEZ Family History Problem Relation Age of Onset Heart failure Father Family Status - Relation Status Age at Father [facility] Office Visiton 11-16-2023 Follow-up visit [id number] Frances Macdonald 1950 Provider Department Center 11/16/2023 120-MANIJNDER SHEFFIELD Family History Problem Relation Age of Onset Heart failure Father Family Status - Relation Status Age at Father Level of Service:79766 [place] OFFICE/OUTPATIENT ESTABLISHED MOD MDM 30 MIN [facility] 36on 10-31-2023 36 Regarding labs and [...] Gabriela (per patient's request) on 11/16/2023. Normal [facility] MG MAMM SCREEN 3D RONY CADon 01-02-2023 MG MAMM SCREEN 3D RONY CAD Patient: FRANCES MACDONALD Exam Date: 01/02/2023 : 1950 Gender:F Ordering : DR ISRRAEL BROWN M.D. Admission #: [id number] Family : Order #: [id number] CLICK HERE TO VIEW EXAM RADIOLOGY REPORT [...] cancer cancer at age 61. LOCATION: [facility] BREAST COMPOSITION: Scattered areas fibroglandular density. [...] Dominique MD on 01/02/2023 at 11:05 Normal [facility] XR DEXA BONE DENSITYon 01-02 XR [...] by: GREGORIO DOMINIQUE Date: 2023-01-02 12:02 Normal [facility] LIPID PROFILEon 08-01-2022 CHOL-HDL RATIO NORM SEE BELOW Normal [facility] Comment on above: Result Comment: 3.3 - 4.4 LOW RISK 4.4 - 7.1 AVERAGE RISK 7.1 - 11.0 MODERATE RISK >11.0 HIGH RISK Performed By: #### L IPID, BMP #### [facility] [address] [place] [address] Dr. Elias Le Cholesterol [Mass/Vol] 175 mg/dL Normal <=200 [facility] Comment on above: Performed By: #### L IPID, BMP #### [facility] [address] [place] [address] Dr. Elias Le Cholesterol in HDL [Mass/Vol] 52 mg/dL Normal 40-60 [facility] Comment on above: Performed By: #### L IPID, BMP #### [facility] [address] [place] [address] Dr. Elias Le Cholesterol in LDL [Mass/Vol] 101.0 mg/dL Normal [facility] Comment on above: Performed By: #### L IPID, BMP #### [facility] [address] [place] [address] Dr. Elias Le Cholesterol.total/C holesterol in HDL [Mass ratio] 3.4 {ratio} Normal [facility] Comment on above: Performed By: #### L IPID, BMP #### [facility] [address] [place] [address] [address] Elias Le HDL NORMAL > or = 60 mg/dl - LO W CARDIOVASCULAR RISK <40 mg/dl - HIGH CARDIOVASCULAR RISK Normal [facility] Comment on above: Performed By: #### L IPID, BMP #### [facility] [address] [place] [address] [address] Elias Le LDL CALC NORMAL SEE BELOW Normal [facility] Comment on above: Result Comment: <100 mg/dl OPTIMAL 100 - 129 mg/dl NEAR OR ABOVE OPTIMAL 130 - 159 mg/dl BORDERLINE HIGH 160 - 189 mg/dl HIGH >190 mg/dl VERY HIGH Performed By: #### L IPID, BMP #### [facility] [address] [address] [address] Elias Le Triglyceride [Mass/Vol] 110 mg/dL Normal <=150 [facility] Comment on above: Performed By: #### L IPID, BMP #### [facility] [address] [address] [address] Elias Le VLDL CALC 22.0 mg/dL Normal [facility] Comment on above: Performed By: #### L IPID, BMP #### [facility] [address] [address] [address] Elias Le PROF CHEM 8 (BAS METB)on Anion gap [Moles/Vol] 10.1 mmol/L Normal [facility] Comment on above: Performed By: #### L IPID, BMP #### [facility] [address] [address] [address] Elias Le Calcium [Mass/Vol] 8.8 mg/dL Normal 8.5-10.1 [facility] Comment on above: Performed By: #### L IPID, BMP #### [facility] [address] [address] [address] Elias Le Chloride [Moles/Vol] 102 mmol/L Normal 98-107 [facility] Comment on above: Performed By: #### L IPID, BMP #### [facility] [address] [address] [address] Elias Le CO2 [Moles/Vol] 29.0 mmol/L Normal 21.0-32.0 [facility] Comment on above: Performed By: #### L IPID, BMP #### [facility] [address] [address] [address] Elias Le Creatinine [Mass/Vol] 0.99 mg/dL Normal 0.55-1.02 [facility] Comment on above: Performed By: #### L IPID, BMP #### [facility] [address] [place] [address] Dr. Elias Le EGFR-AF GEORGIAN >60 Normal >=60 [facility] Comment on above: Performed By: #### L IPID, BMP #### [facility] [address] [place] [address] Dr. Elias Le EGFR-NON AF GEORGIAN 55 mL/min/1.73m2 Critically low >=60 [facility] Comment on above: Performed By: #### L IPID, BMP #### [facility] [address] [place] [address] Dr. Elias Le Glucose [Mass/Vol] 117 mg/dL Critically high 74-106 [facility] Comment on above: Performed By: #### L IPID, BMP #### [facility] [address] [place] [address] Dr. Elias Le Potassium [Moles/Vol] 4.1 mmol/L Normal 3.5-5.1 [facility] Comment on above: Performed By: #### L IPID, BMP #### [facility] [address] [place] [address] Dr. Elias Le Sodium [Moles/Vol] 137 mmol/L Normal 136-145 [facility] Comment on above: Performed By: #### L IPID, BMP #### [facility] [address] [place] [address] Dr. Elias Le Urea nitrogen [Mass/Vol] 25.0 mg/dL Critically high 7.0-18.0 [facility] Comment on above: Performed By: #### L IPID, BMP #### [facility] [address] [address] [address] Elias Le Urea nitrogen/Creatinine [Mass ratio] 25.3 mg/mg Normal [facility] Comment on above: Performed By: #### L IPID, BMP #### [facility] [address] [address] [address] Elias Le Vital Signs Date Time Vital Sign Value Performing Clinician Faci lity 06-11-2024 10:41-0500 Body height 165.1 cm Aaron Davis BOILER CONTROL TECHNICIAN Work Phone: [facility] 06-11-2024 10:41-0500 Body mass index (BMI) [Ratio] 40.27 kg/m2 Aaron Davis BOILER CONTROL TECHNICIAN Work Phone: [facility] 06-11-2024 10:41-0500 Body weight 109.77 kg Aaron Davis BOILER CONTROL TECHNICIAN Work Phone: [facility] 06-11-2024 10:41-0500 Diastolic blood pressure 88 mm[Hg] Aaron Davis BOILER CONTROL TECHNICIAN Work Phone: [facility] 06-11-2024 10:41-0500 Heart rate 58 /min Aaron Davis BOILER CONTROL TECHNICIAN Work Phone: [facility] 06-11-2024 10:41-0500 SaO2% (BldA) [Mass fraction] 97 % Aaron Davis BOILER CONTROL TECHNICIAN Work Phone: [facility] 06-11-2024 10:41-0500 Systolic blood pressure 138 mm[Hg] Aaron Davis BOILER CONTROL TECHNICIAN Work Phone: [facility] Encounters Encounter Date Encounter Type Care Provider Facility Start: 10-14-2024 End: 10-14-2024 Clinisync Result Encounter Generic External Data Provider [facility] Unsolicited Start: 10-14-2024 End: 10-14-2024 Clinisync Result Encounter Generic External Data Provider [facility] Unsolicited Start: 06-11-2024 End: 06-11-2024 Bamboo flowsheet Aaron Davis BOILER CONTROL TECHNICIAN Work Phone: [facility] Start: 06-11-2024 End: 06-11-2024 Bamboo flowsheet Aaron Davis BOILER CONTROL TECHNICIAN Work Phone: [facility] Start: 06-11-2024 End: 06-11-2024 Assay of hemosiderin, quant Aaron Davis BOILER CONTROL TECHNICIAN Work Phone: [facility] Start: 06-11-2024 End: 06-11-2024 Patient encounter procedure Aaron Davis BOILER CONTROL TECHNICIAN Work Phone: [facility] Comment on above: Obstructive sleep ap anupama syndrome (Primary Dx); Mild intermittent asthma without complication (CMS/HCC); Diastolic dysfunction; Diastolic dysfunction, left ventricle; Enlarged atria; Secondary hypertension (CMS/HCC); Mitral valve insufficiency, unspecified etiology; Paroxysmal atrial fibrillation (CMS/HCC); Tricuspid valve insufficiency, unspecified etiology; Displacement of lumbar intervertebral disc without myelopathy; Hypothyroidism, unspecified type (CMS/HCC); Type 2 diabetes mellitus without complication, without long-term current use of insulin (CMS/HCC); Abnormal TSH; Estrogen deficiency; Mixed hyperlipidemia (CMS/HCC); Morbid (severe) obesity due to excess calories (CMS/HCC); Body mass index (BMI) 40.0-44.9, adult (CMS/HCC); Routine general medical examination at health care facility Start: 06-11-2024 End: 06-11-2024 ambulatory AARON DAVIS Not Available Start: 06-06-2024 End: 06-06-2024 Clinisync Result Encounter Generic External Data Provider [facility] Unsolicited Start: 06-06-2024 End: 06-06-2024 Clinisync Result Encounter Generic External Data Provider [facility] Unsolicited Start: 05-30-2024 End: 05-30-2024 ambulatory AWILDA MONREAL [facility] Start: 01-01-2024 End: 01-01-2024 ambulatory ANA ECHAVARRIA Not Available Start: 11-16-2023 End: 11-16-2023 ambulatory MANJINDER SHEFFIELD [facility] Start: 01-02-2023 End: 01-03-[address] ISRRAEL BROWN Facility:[facility] Start: 08-01-2022 End: 08-02-[address] ISRRAEL BROWN Facility:[facility] Procedures Date Procedure Procedure Detail Performing Clinician Start: 10-14-2024 CARD ECHO LIMITED STUDY Generic External Data Provider Start: 06-11-2024 Hemoglobin glycosyla mikey a1c Aaron Davis BOILER CONTROL TECHNICIAN Work Phone: Start: 06-06-2024 ALL BASIC METABOLIC PANEL Generic External Data Provider Start: 01-14-2024 Mammography Generic Pr ovider Start: 01-10-2021 Colonoscopy Generic Pr ovider Plan of Treatment Date Care Activity Detail Author Start: 01-10-2031 Screening for malign ant neoplasm of colon [facility] Start: 06-11-2025 Urine screening for protein Diabetes: Urine Protein Screening [facility] Start: 01-20-2025 End: 01-20-2025 Patient encounter procedure 01/20/2025 2:15 PM EDT Office Visit [facility] [address] [address] [place] [phone] Ana Echavarria DO [address] [place] [address] [facility] Start: 01-13-2025 Screening for malign ant neoplasm of breast Mammogram [facility] Start: 12-30-2024 End: 12-30-2024 Patient encounter procedure 12/30/2024 10:45 AM EDT Office Visit [facility] [address] [place] [id number] Ana Echavarria DO [address] [place] [address] [facility] Start: 09-11-2024 Hemoglobin A1c measurement Diabetes: Hemoglobin A1C [facility] Start: 06-11-2024 End: 06-11-2025 Comprehensive metabolic 2000 panel - Serum or Plasma Comprehensive metabolic panel Lab Routine Diastolic dysfunction Diastolic dysfunction, left ventricle Secondary hypertension (CMS/HCC) Mitral valve insufficiency, unspecified etiology Tricuspid valve insufficiency, unspecified etiology Expected: 06/11/2024 (Approximate), Expires: 06/11/2025 [facility] Comment on above: Expected: 06/11/2024 (Approximate), Expires: 06/11/2025 Start: 06-11-2024 End: 06-11-2025 Microalbumin/Creatinine panel in random Urine Microalbumin / creatinine, urine ratio Lab Routine Type 2 diabetes mellitus without complication, without long-term current use of insulin ([facility]) Expected: 06/11/2024 (Approximate), Expires: 06/11/2025 [facility] Work Phone: Comment on above: Expected: 06/11/2024 (Approximate), Expires: 06/11/2025 Start: 06-11-2024 End: 06-11-2024 Patient encounter procedure [facility] Comment on above: Arrived Start: 04-06-2024 Influenza vaccination Influenza Vacc ine (#1) [facility] Start: 08-01-2023 Urine screening for protein Diabetes: Urine Protein Screening [facility] Start: 06-30-2022 Screening for malign ant neoplasm of colon FIT-DNA [facility] Start: 1960 Glaucoma screening Diabetes: R etinopathy Screening [facility] Start: 1950 Screening for malign ant neoplasm of colon [facility] Immunizations Immunization Date Immunization Notes Care Provider Fa jaysonty 11-17-2020 pneumococcal polysac charide vaccine, 23 valent Generic Provider [facility] 06-13-2017 influenza, high dose seasonal, preservative-free Generic Provider [facility] 06-13-2017 influenza virus vacc ine, unspecified formulation Generic Provider [facility] 08-30-2016 pneumococcal conjuga te vaccine, 13 valent Generic Provider [facility] 05-30-2010 seasonal influenza, intradermal, preservative free Generic Provider [facility] Payers Date Payer Category Payer Private Health Insurance BHUMI Wright ember [id number] 2016 Medicare MEDICARE [id number] 1958 Medicare [id number] 1958 Private Health Insurance [id number] 1950 Unknown [id number] 1950 Unknown [id number] 1950 Unknown [id number] 1950 Unknown [id number] Social History Date Type Detail Facility Start: 04-02-2023 Tobacco smoking stat [facility] Never smoked tobacco [facility] Start: 04-02-2023 Tobacco use and exposure Smoke less tobacco non-user [facility] Start: 01-01-2024 End: 06-11-2024 Alcoholic beverage intake Current drinker of alcohol (finding) [facility] Start: 01-01-2024 End: 06-11-2024 Alcoholic beverage intake [facility] Start: 01-01-2024 End: 06-11-2024 Tobacco use panel [facility] Start: 12-28-2022 Alcohol Comment 1-2 drinks per occas roscoe [facility] Start: 1950 Sex assigned at Not on file [facility] History of Present illness Narrative 06-11-2024 Aaron Davis, BOILER CONTROL TECHNICIAN - 06/11/2024 10:30 AM EST Note Date & Type Note Facility 06-11-2024 History of Presen t illness Narrative Subjective : Chief Complaint: Frances [...] Do you have a medical power of software configuration engineer?: Yes Objective : BP 138/88 Pulse 58 [...] at this time. 11. Hypothyroidism, unspecified type ([facility]) This is a chronic medical condition that is stable since last assessment. No changes in treatment are suggested at this time. 12. Type 2 diabetes mellitus without complication, without long-term current use of insulin ([facility]) We discussed today, the importance of proper [...] Stable at this time 15. Mixed hyperlipidemia ([facility]) Stable 16. Morbid (severe) obesity due to excess calories ([facility]) Discussed goal of BMI < 30. Advised [...] 17. Body mass index (BMI) 40.0-44.9, adult ([facility]) Discussed goal of BMI < 30. Advised [...] caffiene. 18. Routine general medical examination at health care facility Reviewed all relevant preventative screenings with the patient in detail. Medicare Wellness form completed and will be scanned into patient's chart. All needed testing was ordered. Will continue with yearly Medicare Wellness exams. Electronically signed by Aaron Davis NP on June 11, 2024 documented in this encounter [facility] Progress note 05-30-2024 Note Date & Type Note Facility 05-30-2024 Note Cardiology Follow Up Progress Note [...] if needed Awilda Monreal MD Interventional Cardiology [facility] Progress note 11-16-2023 Note Date & Type Note Facility 11-16-2023 Note Hypertension is stab le, well controlled 130/80 Continue all meds [facility] Progress note 11-16-2023 Note Date & Type Note Facility 11-16-2023 Note Will monitor with ro kerrine echocardiogram [facility] Progress note 11-16-2023 Note Date & Type Note Facility 11-16-2023 Note Lipid abnormalities are stable continue simvastatin- she does not want to increase dose of statin- she will continue heart healthy diet [facility] Progress note 11-16-2023 Note Date & Type Note Facility 11-16-2023 Note [facility] CARDIOLOGY PROGR ESS NOTE [...] Continue all medications Paroxysmal atrial fibrillation (CMS/HCC) [id number]= 5- Age, Female, CHF, DM Remains on anticoagulation- eliquis Rate control with toprol 50 mg Mixed hyperlipidemia Lipid abnormalities are stable continue simvastatin- she does not want to increase dose of statin- she will continue heart healthy diet Mitral valve disorder Will monitor with routine echocardiogram Hypertensive disorder Hypertension is stab (more content not included)... [facility] Progress note 11-16-2023 Note Date & Type Note Facility 11-16-2023 Note Patient here for fol low [...] All other systems reviewed and are negative. [facility] Progress note 11-16-2023 Note Date & Type Note Facility 11-16-2023 Note [id number]= 5- Age , Female, CHF, DM Remains on anticoagulation- eliquis Rate control with toprol 50 mg [facility] Progress note 11-16-2023 Note Date & Type Note Facility 11-16-2023 Note Will monitor with re peat Limitied echo in 3 months, she is currently asymptomatic Continue all medications [facility] Evaluation note Note Date & Type Note Facility Evaluation note Diagnosis Obstructive sleep apnea syndrome- Primary Obstructive sleep apnea (adult) (pediatric) Mild intermittent asthma without complication (CMS/HCC) Diastolic dysfunction Unspecified heart disease Diastolic dysfunction, left ventricle Enlarged atria Secondary hypertension (CMS/HCC) Other secondary hypertension, unspecified Mitral valve insufficiency, unspecified etiology Paroxysmal atrial fibrillation (CMS/HCC) Atrial fibrillation Tricuspid valve insufficiency, unspecified etiology Displacement of lumbar intervertebral disc without myelopathy Hypothyroidism, unspecified type (CMS/HCC) Type 2 diabetes mellitus without complication, without long-term current use of insulin ([facility]/HCC) Abnormal TSH Estrogen deficiency Other ovarian failure Mixed hyperlipidemia (CMS/HCC) Mixed hyperlipidemia Morbid (severe) obesity due to excess calories (CMS/HCC) Body mass index (BMI) 40.0-44.9, adult ([facility]) Routine general medical examination at health care [...] DATE CREATED AUTHOR AUTHOR'S ORGANIZ ATION 06/13/2024 [facility] EPIC DATE CREATED AUTHOR AUTHOR'S ORGANIZ ATION 06/14/2024 [facility] DATE CREATED AUTHOR AUTHOR'S ORGANIZ ATION 10/21/2024 [facility] Care Teams (unrecognized sec tion and content) Family Lawyer Relationship Specialty Start Date End Date Isrrael Brown MD [address] [place] [address] PCP - General Internal Medicine 12/12/22 Aaron Davis, BOILER CONTROL TECHNICIAN [address] [place] [address] PCP - ACO Reach 12/05/23 Family Lawyer Relationship Specialty Start Date End Date Isrrael Brown MD [address] [place] [address] PCP - General Internal Medicine 12/12/22 Aaron Davis, BOILER CONTROL TECHNICIAN [address] [place] [address] PCP - ACO Reach 12/05/23 Family Lawyer Relationship Specialty Start Date End Date Isrrael Brown MD [address] [place] [address] PCP - General Internal Medicine 12/12/22 Aaron Davis, BOILER CONTROL TECHNICIAN [address] [place] [address] PCP - ACO Reach 09/19/24 Reason for Visit (unrecogniz ed section and [...] BE BASED ON THE PRIMARY CLINICAL RECORDS. [facility] [employer] [facility]. provides no warranty or guarantee of the accuracy or completeness of information in this document.
== END 2024-11-11 10:38 | disposition home or self-care (01) ==
LOC: CARD 10:37
PROVIDERS: PCP Internal Medicine; Visit Provider Internal Medicine Cardiovascular Disease
DX: I31.39 Other pericardial effusion (noninflammatory) (principal)
CPT/HCPCS: 93306

== ENCOUNTER 2024-11-25 07:23 | Outpatient (OUT) | payer MEDICARE, OTHER, SELFPAY ==
[2024-11-25 08:01] LABS: Estimated Average Glucose 131 mg/dL; Glycohemoglobin A1C 6.2 % (4.5-6.2)
[2024-11-25 08:38] LABS: Alanine Aminotransferase 12 U/L (14-59); Anion Gap 12.5; Aspartate Amino Transferase 18 U/L (15-37); BUN Creatinine Ratio 16.8; Calcium 9.2 mg/dL (8.5-10.1); Carbon Dioxide 28.8 mmol/L (21.0-32.0); Chloride 104 mmol/L (98-107); Chol HDL Ratio 4.4; Cholesterol 186 mg/dL (<=200); Estimated GFR (African America 40 (>=60 mL/min/1.73m^2); Estimated GFR (Non-African Ame 33 (>=60 mL/min/1.73m^2); Glucose 112 mg/dL (74-106); HDL Cholesterol 42 mg/dL (40-60); LDL Cholesterol Calculated 125.6 mg/dL; Potassium 4.3 mmol/L (3.5-5.1); Sodium 141 mmol/L (136-145); Thyroid Stimulating Hormone 3.588 uIU/mL (0.358-3.740); Triglycerides 92 mg/dL (<=150); VLDL CHOLESTEROL 18.4 mg/dL
== END 2024-11-25 07:24 | disposition home or self-care (01) ==
PROVIDERS: PCP Internal Medicine; Visit Provider Internal Medicine Cardiovascular Disease
DX: E78.00 Pure hypercholesterolemia, unspecified (principal); E11.9 Type 2 diabetes mellitus without complications; E03.9 Hypothyroidism, unspecified; I50.32 Chronic diastolic (congestive) heart failure; I11.0 Hypertensive heart disease with heart failure
CPT/HCPCS: 36415; 80048; 80061; 83036; 83880; 84443; 84450; 84460

== ENCOUNTER 2025-01-22 11:04 | Outpatient (OUT) | payer MEDICARE, OTHER, SELFPAY ==
--- OUTSIDE RECORDS SUMMARY | 2025-01-22 11:07 | XMS_ITS | Clinical Summary ---
Author Organization [facility] Address [address] [place] [address] Care Team Providers Care Vocational Technical Education Director Name Role Phone Isrrael Brown MD Primary Care Provider [phone] Allergies No known active allergies Medications albuterol HFA 90 mcg/act inhaler Inhale 2 puffs every 4 (four) hours if needed for wheezing or shortness of breath. Active dexAMETHasone 0.5 MG/5ML elixirIndications: Pharyngitis, unspecified etiology Take 10 mL (1 mg) by mouth every 12 (twelve) hours for 10 days. 200 mL 3 Active diphenhydrAMINE 12.5 MG/5ML elixir 50 mg, aluminum-magnesium hydroxide-simethic one 400-400-40 MG/5ML suspension 20 mL, lidocaine 2 % solution 20 mLIndications:Phar yngitis, unspecified etiology Swish and spit 15 mL every 4 (four) hours if needed for mucositis. Disp 300ml 300 each 2 3 Active Fluticasone-Salmet jennifer (Wixela Inhub) 250-50 MCG/ACT aerosol powderIndications: Mild intermittent asthma without complication (HCC) Inhale 1 each in the morning and 1 each before bedtime. 3 each 3 4 Active spironolactone (Aldactone) 25 MG tablet Take 25 mg by mouth in the morning. 4 05/09/20 25 Active losartan (Cozaar) 50 MG tabletIndications: Secondary hypertension Take 1 tablet (50 mg) by mouth Daily 100 tablet 3 4 06/11/20 25 Active furosemide (Lasix) 20 MG tabletIndications: Edema of lower extremity Take 1 tablet (20 mg) by mouth Daily 90 tablet 2 4 Active levothyroxine (Synthroid, Levoxyl) 25 MCG tabletIndications: Abnormal TSH Take 1 tablet (25 mcg) by mouth Daily 90 tablet 2 4 Active metoprolol succinate XL (Toprol-XL) 50 MG 24 hr tabletIndications: Paroxysmal atrial fibrillation (HCC) Take 1 tablet (50 mg) by mouth Daily 90 tablet 2 4 Active simvastatin (Zocor) 20 MG tabletIndications: Mixed hyperlipidemia Take 1 tablet (20 mg) by mouth Daily 90 tablet 2 4 Active apixaban (Eliquis) 5 MG tabletIndications: Paroxysmal atrial fibrillation (HCC) Take 1 tablet (5 mg) by mouth in the morning and 1 tablet (5 mg) before bedtime. 180 tablet 2 4 Active montelukast (Singulair) 10 MG tabletIndications: Allergy, sequela Take 1 tablet (10 mg) by mouth Daily 90 tablet 2 4 Active metFORMIN (Glucophage) 500 MG tabletIndications: Impaired fasting glucose TAKE 1 TABLET TWICE A DAY WITH MEALS 180 tablet 2 5 Active Active Problems Problem Noted Date Diagnosed Date Pericardial effusion ([facility]) 11/16/2023 Overview (06/11/2024): Last Assessment & Plan: Will monitor with repeat Limitied echo in 3 months, she is currently asymptomatic Continue all medications Type 2 diabetes mellitus wit hout complication, without long-term current use of insulin 10/17/2023 Overview (06/11/2024): Last Assessment & Plan: F/U with PCP and will check routine annual labs, A1C Abnormal TSH 04/02/2023 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 Diastolic dysfunction 04/02/2023 Displacement of lumbar inter vertebral disc without myelopathy 04/02/2023 Enlarged atria 04/02/2023 Estrogen deficiency 04/02/2023 Mild intermittent asthma without complication Mixed hyperlipidemia 04/02/2023 Obstructive sleep apnea syndrome 04/02/2023 Paroxysmal atrial fibrillation 04/02/2023 Mitral valve insufficiency 04/02/2023 Tricuspid valve insufficiency 04/02/2023 Diastolic dysfunction, left ventricle 02/02/2023 Overview (06/11/2024): Last Assessment & Plan: Repeat echo Edema of lower extremity 11/28/2019 Overview (06/11/2024): Last Assessment & Plan: Continue lasix and start aldactone for HTN and fluid management Hypertensive disorder 11/28/2019 Overview (06/11/2024): Last Assessment & Plan: Hypertension is stable, well controlled 130/80 Continue all meds Hypothyroidism 11/27/2019 Overview (06/11/2024): Last Assessment & Plan: F/U with PCP Encounters Date Type Department Care Team Description 12/08/2024 Abstract [facility] [address] [place] [address] Isrrael Brown MD 11/25/2024 Clinisync Result Encounter [facility] External Department Unsolicited Provider, Generic External Data 11/25/2024 Refill [facility] [address] [place] [address] Isrrael Brown MD Impaired fasting glucose 11/11/2024 Clinisync Result Encounter [facility] External Department Unsolicited Provider, Generic External Data from Last 3 Months Immunizations Immunization Administration Dates Next Due Influenza, High Dose Seasonal, Preservative Free 06/13/2017 Influenza, seasonal, intradermal, preservative f ree 05/30/2010 Pneumococcal Conjugate PCV 13 08/30/2016 Pneumococcal Polysaccharide PPSV23 11/17/2020 Family History Medical History Relation Name Comments Hypertension Mother Migraines Mother Peripheral vascular disease Mother Relation Name Status Comments Mother Social History Tobacco Use Types Packs/Day Years Used Date Smoking Tobacco: Never Smokeless Tobacco: Never Tobacco Cessation:Counseling Given: Not Answered Alcohol Use Standard Drinks/Week Comments Yes 1 (1 standard drink = 0.6 oz pur e alcohol) 1-2 drinks per occassion PHQ-2 Answer Date Recorded Patient Health Questionnaire-2 Score 0 06/11/2024 Comments Unknown Sex and Gender Information Value Date Recorded Sex Assigned at Not on file Legal Sex Female 7:00 PM EDT Gender Identity Not on file Sexual Orientation Not on file Last Filed Vital Signs Vital Sign Reading Time Taken Comments Blood Pressure 138/88 06/11/2024 10:41 AM EST Pulse 58 06/11/2024 10:41 AM EST Temperature 36.6 C (97.9 F) 04/02/2023 1:01 PM EDT Respiratory Rate 16 01/01/2024 11:02 AM EDT Oxygen Saturation 97% 06/11/2024 10:41 AM EST Inhaled Oxygen Concentration - - Weight 110 kg (242 lb) 06/11/2024 10:41 AM EST Height 165.1 cm (5' 5 ) 06/11/2024 10:41 AM EST Body Mass Index 40.27 06/11/2024 10:41 AM EST Plan of Treatment Health Maintenance Due Date Last Done Comments CT Colonography 1950 FIT 1950 FOBT 1950 Sigmoidoscopy 1950 Diabetes: Retinopathy Screening 1961 FIT-DNA 06/30/2022 06/30/2019, 06/30/2019 Diabetes: Hemoglobin A1C 09/11/2024 06/11/2024, 04/1 04/2021 Mammogram 01/13/2025 01/14/2024, 12/06, 12/30/2021, Additional history exists Influenza Vaccine (Season Ended) 2025 06/13/20 17, 05/30/2010 Diabetes: Urine Protein Screening 06/11/2025 024 Colonoscopy 01/10/2031 01/10/2021 Colorectal Cancer Screening 01/10/2031 Pneumococcal Vaccine: 65+ Years Completed , 08/30/2016 Procedures Procedure Name Priority Date/Time Associated Diagnosis Comments ALL THYROID STIM HORMONE Routine 11/25/2024 7:44 AM EDT ALL LIPID PROFILE (FASTING) Routine 11/25/2024 7:44 AM EDT ALL PRO BNP Routine 11/25/2024 7:44 AM EDT [facility] ALT Routine 11/25/2024 7:44 AM EDT [facility] AST Routine 11/25/2024 7:44 AM EDT ALL BASIC METABOLIC PANEL Routine 11/25/2024 7:44 AM EDT MLR HEMOGLOBIN A1C Routine 11/25/2024 7: 44 AM EDT CA ECHO DOPPLER COMPLETE 11/11/2024 7:47 PM EDT MICROALBUMIN / CREATININE URINE RATIO Routine 06/11/2024 11:27 AM EST Type 2 diabetes mellitus without complication, without long-term current use of insulin (HCC) POCT GLYCATED HEMOGLOBIN, TOTAL Routine 06/11/2024 11:20 AM EST Type 2 diabetes mellitus without complication, without long-term current use of insulin (HCC) MM TOMOSYNTHESIS SCREENING BI 01/14/2024 1:34 PM EDT COLONOSCOPY DIAGNOSTIC Routine 01/10/2021 LAB COLOGUARD COLON CANCER SCREEN Routine 06/30/2019 from Last 3 Months or Most Recently Relevant to Health Maintenance Results * MLR HEMOGLOBIN A1C (11/25/2024 7:44 AM EDT) GLYCOHEMOGLOBIN A1C 6.2 4.5 - 6.2 % [facility] Comment: ADA RECOMMENDED LIMIT 4.0 - 6.0 ADA THERAPEUTIC TARGET < 7.0 ACTION SUGGESTED > 7.0 ESTIMATED AVERAGE GLUCOSE 131 mg/dL [facility] 11/25/2024 7:44 AM EDT 11/25/2024 7:45 AM EDT Narrative CLINIS[facility]NC - 11/25/2024 8:04 AM EDT us Generic External Data Provider [facility] F inal Result [facility] * [facility] AST (11/25/2024 7:44 AM EDT) ASPARTATE AMINO TRANSFERASE 18 15 - 37 U/L [facility] 11/25/2024 7:44 AM EDT 11/25/2024 7:45 AM EDT Narrative [facility]IN[facility] - 11/25/2024 8:41 AM EDT Generic External Data Provider CLIN[facility]YNC F inal Result Performing Organization Address [facility]/ZIP Co de Phone Number CLIN[facility]NC TB * (ABNORMAL) [facility] ALT (11/25/2024 7:44 AM EDT) ALANINE AMINOTRANSFERASE 12(L) 14 - 59 U/L [facility] 11/25/2024 7:44 AM EDT 11/25/2024 7:45 AM EDT Narrative CLINISYNC - 11/25/2024 8:41 AM EDT Generic External Data Provider CLINISYNC F inal Result Performing Organization Address [facility] de Phone Number CL[facility]NC TB * ALL THYROID STIM HORMONE (11/25/2024 7:44 AM EDT) Pathologist [facility] THYROID STIMULATING HORMONE 3.588 0.358 - 3.740 uIU/mL [facility] 11/25/2024 7:44 AM EDT 11/25/2024 7:45 AM EDT Narrative CLINISYNC - 11/25/2024 8:41 AM EDT Generic External Data Provider CLINISYNC F inal Result Performing Organization Address [facility] de Phone Number [facility] TB * (ABNORMAL) ALL PRO BNP (11/25/2024 7:44 AM EDT) NT PRO B TYPE NATRIURETIC PEPT 3,668.0(HH ) <=900.0 pg/mL [facility] Comment:RESULTS CALLED TO 11/25/2024 7:44 AM EDT 11/25/2024 7:45 AM EDT Narrative CLINISYNC - 11/25/2024 8:41 AM EDT Generic External Data Provider MICHAEL Lester henning Result Performing Organization Address [facility] Co de Phone Number [facility] * ALL LIPID PROFILE (FASTING) (11/25/2024 7:44 AM EDT) TRIGLYCERIDES 92 <=150 mg/dL [facility] CHOLESTEROL 186 <=200 mg/dL [facility] HDL CHOLESTEROL 42 40 - 60 mg/dL [facility] Comment: > or =60 mg/dl - LOW CARDIOVASCULAR RISK <40 mg/dl - HIGH CARDIOVASCULAR RISK LDL CHOLESTEROL CALCULATED 125.6 mg/dL TB Comment: <100 mg/dl OPTIMAL 100-129 mg/dl NEAR OR ABOVE OPTIMAL 130-159 mg/dl BORDERLINE HIGH 160-189 mg/dl HIGH >190 mg/dl VERY HIGH VLDL CHOLESTEROL 18.4 mg/dL TB CHOL HDL RATIO 4.4 TB Comment: 3.3 - 4.4 LOW RISK 4.4 - 7.1 AVERAGE RISK 7.1 - 11.0 MODERATE RISK >11.0 HIGH RISK 11/25/2024 7:44 AM EDT 11/25/2024 7:45 AM EDT Narrative CLINISYNC - 11/25/2024 8:41 AM EDT Generic External Data Provider MICHAEL henning Result Performing Organization Address [facility] de Phone Number CLIN[facility]NC TB * (ABNORMAL) ALL BASIC METABOLIC PANEL (11/25/2024 7:44 AM EDT) SODIUM 141 136 - 145 mmol/L [facility] POTASSIUM 4.3 3.5 - 5.1 mmol/L [facility] CHLORIDE 104 98 - 107 mmol/L [facility] CARBON DIOXIDE 28.8 21.0 - 32.0 mmol/L [facility] ANION GAP 12.5 [facility] GLUCOSE 112(H) 74 - 106 mg/dL [facility] BLOOD UREA NITROGEN 26.0(H) 7.0 - 18.0 mg/dL [facility] CREATININE 1.55(H) 0.55 - 1.02 mg/dL [facility] EGFR-AF [place] 40(L) >=60 mL/min/1.7 3m 2 TBH TBH EGFR-NON AF [place] 33(L) >=60 mL/min/1.7 3m 2 [facility] BUN CREATININE RATIO 16.8 [facility] CALCIUM 9.2 8.5 - 10.1 mg/dL [facility] 11/25/2024 7:44 AM EDT 11/25/2024 7:45 AM EDT Narrative CLINISYNC - 11/25/2024 8:41 AM EDT us Generic External Data Provider CLINISYNC F inal Result [facility] TB * CA ECHO DOPPLER COMPLETE (11/11/2024 7:47 PM EDT) Anatomical Region Laterality Modality Other 11/11/2024 7:47 PM EDT Narrative 11/11/2024 7:48 [place] [address] Cardiology Report Signed Patient: FRANCES MACDONALD MR#: [id number] : 1950 Acct:[id number] Age/Sex: 74 / F ADM Date: 11/11/24 Loc: CARD Attending Dr: AWILDA MARTINEZ Ordering Physician: AWILDA MARTINEZ Date of Service: 11/11/24 Procedure(s): CA echo doppler complete Accession Number(s): [id number] cc: AWILDA MARTINEZ; ISRRAEL BROWN Patient Name: FRANCES MACDONALD MR#: [id number] : 1950 Exam Date: 11/11/2024 Ordering Doctor: AWILAD MARTINEZ M.D. ECHOCARDIOGRAM REPORT PROCEDURE: CA ECHO DOPPLER COMPLETE INDICATIONS: Pericardial effusion COMPARISON: None. DESCRIPTION: COMPLETE ECHOCARDIOGRAM Real-time transthoracic echocardiography with 2D, M-mode, spectral and color flow Doppler performed. QUALITY: Technical quality was good. LEFT VENTRICLE: Normal chamber size. Mild concentric left ventricular hypertrophy. Normal systolic function. LV EF: Normal left ventricular ejection fraction, (55%). DIASTOLIC: Grade II diastolic dysfunction. Doppler criteria are suggestive of elevated left-sided filling pressures. ATRIAL SEPTUM: Visually appears intact. LEFT ATRIUM: Moderate dilatation. RIGHT ATRIUM: Moderate dilatation. RIGHT VENTRICLE: Normal chamber size. Normal right ventricular systolic function. TRICUSPID VALVE: Normal mobility and thickness. No stenosis with mild regurgitation. Doppler studies reveal moderately (45-60) elevated right sided pressures. RVSP 58 mmHg MITRAL VALVE: Normal mobility and thickness. No evidence of mitral valve stenosis. Mitral annular calcification. Mild mitral regurgitation. AORTIC VALVE: Normal leaflet mobility. No evidence of aortic valve stenosis. No aortic regurgitation. AORTIC ROOT: Normal diameter and appearance, measuring 3.3 cm. Ascending aorta is normal in size, measuring 3.0 cm. PULMONIC VALVE: Normal thickness and mobility. No stenosis. Trivial regurgitation. PERICARDIUM: Small anterior effusion. Moderate posterior effusion measuring 2.1 cm [previous echocardiogram on 10/14/2024 was 2.2 cm]. IVC: IVC is normal in size, does not fully collapse. PLEURA: CONCLUSION: 1. Mild concentric left ventricular hypertrophy with normal systolic function. LVEF is estimated at 55%. 2. Normal right ventricular size and systolic function. 3. Grade 2 diastolic dysfunction. Elevated left-sided filling pressures. 4. Moderate biatrial dilatation. 5. Mild mitral and tricuspid regurgitation. 6. Moderately elevated right-sided pressures. RVSP is 58 mmHg. 7. Small anterior and moderate posterior pericardial effusion without echocardiographic evidence of tamponade physiology. Adult Echocardiography Procedure Report Left Ventricle LVEDD (3.7 - 5.6 cm): 4.64 cm LVESD (2.2 - 4.0 cm): 3.71 cm LVIVS thickness (0.6 - 1.2 cm): 1.27 cm LVPW thickness (0.5 - 1.0 cm): 1.12 cm e': 0.04 m/s E - e': 16.12 LVOT Max Gradient: 2.60 mm[Hg] LVOT Area (cm2): 0.81 m/s Peak Velocity (LVOT): 0.81 m/s Mean Velocity (LVOT): 0.51 m/s LVOT Diameter 1.95 cm Left Atrium LA Volume Index (2D A2C): 53.17 ml/m2 Left Atrium Systolic Dimension: 4.92 cm Mitral Valve MV E to A Ratio: 1.17 Mitral Valve A-Wave Peak Velocity: 0.49 m/s Mitral Valve E-Wave Peak Velocity: 0.58 m/s Right Ventricle Aorta AO Root Diam: 3.33 cm Ascending Ao Diam: 2.99 cm Aortic Valve AoV Area (Peak Teo): 2.93 cm2, 2.93 cm2 AoV Area (VTI): 3.05 cm2, 3.05 cm2 Peak Velocity(Antegrade Flow): 0.82 m/s Peak Gradient(Antegrade Flow): 2.71 mm[Hg] Mean Velocity(Antegrade Flow): 0.56 m/s Mean Gradient(Antegrade Flow): 1.44 mm[Hg] Velocity Time Integral: 18.35 cm Tricuspid Valve Peak Velocity (Regurgitant Flow): 2.94 m/s, 3.53 m/s Pulmonic Valve Mean Gradient: 1.38 mm[Hg] Mean Velocity: 0.54 m/s Peak Velocity: 0.87 m/s, 0.75 m/s Peak Gradient: 2.26 mm[Hg], 3.05 mm[Hg] Right Atrium Right Atrium Systolic Pressure: 55.33 ml, 55.33 ml Dictated by: July Curry M.D. on 11/11/2024 at 19:41 Approved by: July Curry M.D. on 11/11/2024 at 19:47 Dictated By: JULY CURRY Signed By: 11/11/241947 DD/ 46 TD/TT: Production Repairer: Procedure Note Radiology, Radiologist, MD - 11/11/2024 [place] [address] Cardiology Report Signed Patient: FRANCES MACDONALD MMR#: [id number] : 1950cct:[id number] Age/Sex: 74 / FADM Date: 11/11/24 Loc: CARD Attending Dr: AWILDA MARTINEZ Ordering Physician: AWILDA MARTINEZ Date of Service: 11/11/24 Procedure(s): CA echo doppler complete Accession Number(s): [id number] cc: AWILDA MARTINEZ; ISRRAEL BROWN Patient Name: FRANCES MACDONALD MR#: [id number] : 1950 Exam Date: 11/11/2024 Ordering Doctor: AWILDA MARTINEZ M.D. ECHOCARDIOGRAM REPORT PROCEDURE: CA ECHO DOPPLER COMPLETE INDICATIONS: Pericardial effusion COMPARISON: None. DESCRIPTION: COMPLETE ECHOCARDIOGRAM Real-time transthoracic echocardiography with 2D, M-mode, spectral and color flow Dopplerperformed. QUALITY: Technical quality was good. LEFT VENTRICLE: Normal chamber size. Mild concentric left ventricular hypertrophy. Normal systolic function. LV EF: Normal left ventricular ejection fraction, (55%). DIASTOLIC: Grade II diastolic dysfunction. Doppler criteria are suggestive of elevated left-sided filling pressures. ATRIAL SEPTUM: Visually appears intact. LEFT ATRIUM: Moderate dilatation. RIGHT ATRIUM: Moderate dilatation. RIGHT VENTRICLE: Normal chamber size. Normal right ventricularsystolic function. TRICUSPID VALVE: Normal mobility and thickness. No stenosis with mild regurgitation. Doppler studies reveal moderately (45-60) elevated rightsided pressures. RVSP 58 mmHg MITRAL VALVE: Normal mobility and thickness. No evidence of mitralvalve stenosis. Mitral annular calcification. Mild mitral regurgitation. AORTIC VALVE: Normal leaflet mobility. No evidence of aortic valve stenosis. No aortic regurgitation. AORTIC ROOT: Normal diameter and appearance, measuring 3.3 cm.Ascending aorta is normal in size, measuring 3.0 cm. PULMONIC VALVE: Normal thickness and mobility. No stenosis. Trivial regurgitation. PERICARDIUM: Small anterior effusion. Moderate posterior effusion measuring 2.1 cm [previous echocardiogram on 10/14/2024 was 2.2 cm]. IVC: IVC is normal in size, does not fully collapse. PLEURA: CONCLUSION: 1. Mild concentric left ventricular hypertrophy with normal systolicfunction. LVEF is estimated at 55%. 2. Normal right ventricular size and systolic function. 3. Grade 2 diastolic dysfunction. Elevated left-sided filling pressures. 4. Moderate biatrial dilatation. 5. Mild mitral and tricuspid regurgitation. 6. Moderately elevated right-sided pressures. RVSP is 58 mmHg. 7. Small anterior and moderate posterior pericardial effusion without echocardiographic evidence of tamponade physiology. Adult Echocardiography Procedure Report Left Ventricle LVEDD (3.7 - 5.6 cm): 4.64 cm LVESD (2.2 - 4.0 cm): 3.71 cm LVIVS thickness (0.6 - 1.2 cm): 1.27 cm LVPW thickness (0.5 - 1.0 cm): 1.12 cm e': 0.04 m/s E - e': 16.12 LVOT Max Gradient: 2.60 mm[Hg] LVOT Area (cm2): 0.81 m/s Peak Velocity (LVOT): 0.81 m/s Mean Velocity (LVOT): 0.51 m/s LVOT Diameter 1.95 cm Left Atrium LA Volume Index (2D A2C): 53.17 ml/m2 Left Atrium Systolic Dimension: 4.92 cm Mitral Valve MV E to A Ratio: 1.17 Mitral Valve A-Wave Peak Velocity: 0.49 m/s Mitral Valve E-Wave Peak Velocity: 0.58 m/s Right Ventricle Aorta AO Root Diam: 3.33 cm Ascending Ao Diam: 2.99 cm Aortic Valve AoV Area (Peak Teo): 2.93 cm2, 2.93 cm2 AoV Area (VTI): 3.05 cm2, 3.05 cm2 Peak Velocity(Antegrade Flow): 0.82 m/s Peak Gradient(Antegrade Flow): 2.71 mm[Hg] Mean Velocity(Antegrade Flow): 0.56 m/s Mean Gradient(Antegrade Flow): 1.44 mm[Hg] Velocity Time Integral: 18.35 cm Tricuspid Valve Peak Velocity (Regurgitant Flow): 2.94 m/s, 3.53 m/s Pulmonic Valve Mean Gradient: 1.38 mm[Hg] Mean Velocity: 0.54 m/s Peak Velocity: 0.87 m/s, 0.75 m/s Peak Gradient: 2.26 mm[Hg], 3.05 mm[Hg] Right Atrium Right Atrium Systolic Pressure: 55.33 ml, 55.33 ml Dictated by: July Curry M.D. on 11/11/2024 at 19:41 Approved by: July Curry M.D. on 11/11/2024 at 19:47 Dictated By: JULY CURRY Signed By:11/11/241947 DD/ 46 TD/TT: Production Repairer: Generic External Data Provider [facility] IMAG[facility] Final Result * (ABNORMAL) Microalbumin / creatinine, urine ratio (06/11/2024 11:27 AM EST) CREATININE, RANDOM URINE 38 20 - 275 mg/dL [facility] ALBUMIN, URINE 2.2 See Note: mg/dL [facility] Comment: Reference Range: Reference Range Not established ALBUMIN/CREATININE RATIO, RANDOM URINE 58(H) <30 mg/g creat [facility] Comment: The ADA defines abnormalities in albumin excretion as follows: Albuminuria Category Result (mg/g creatinine) Normal to Mildly increased <30 Moderately increased 30-299 Severely increased > OR = 300 The ADA recommends that at least two of three specimens collected within a 3-6 month period be abnormal before considering a patient to be within a diagnostic category. Urine Urine specimen obtained by clean catch procedure / Unknown 06/11/2024 11:27 AM EST 06/11/2024 11:27 AM EST Narrative Resulting Agency Comment Performing Organization Information Site ID: [id number] Name: [employer] [facility] Address: [address] [place] [address], [address] [place] [phone] Director: Wil Fraga MD Shanika Davis NP LAB URINE ORDERABLES Final R esult Performing Organization Address City/State/[facility] Co de Phone Number [facility] * POCT Glycated hemoglobin, total (06/11/2024 11:20 AM EST) Hemoglobin A1C 6.0 Blood 06/11/2024 11:2 0 AM EST Shanika Davis NP POINT OF CARE TEST ENTER/CARLOS ALBERTO T ORDERABLES Final Result * MM TOMOSYNTHESIS SCREENING BI (01/14/2024 1:34 PM EDT) Anatomical Region Laterality Modality Other 01/14/2024 1:34 PM EDT Narrative 01/14/2024 1:35 PM EDT The [address] [address] Mammography Report Signed Patient: FRANCES MACDONALD MR#: [id number] : 1950 Acct:[id number] Age/Sex: 73 / F ADM Date: 01/14/24 Loc: MAMMO Attending Dr: ISRRAEL BROWN Ordering Physician: ISRRAEL BROWN Results: Date of Service: 01/14/24 Follow Up: Procedure(s): MM tomosynthesis screening BI Accession Number(s): [id number] cc: ISRRAEL BROWN Patient Name: FRANCES MACDONALD MR#: [id number] : 1950 Exam Date: 01/14/2024 Ordering Doctor: DR ISRRAEL BROWN M.D. RADIOLOGY REPORT PROCEDURE: MM TOMOSYNTHESIS SCREENING BI COMPARISON: MG MAMM SCREEN 3D RONY CAD, 12/30/2021. MG MAMM SCREEN 3D RONY CAD, 01/02/2023. INDICATIONS: Screening Calculator Name NCI Breast Cancer Risk Assessment Tool 5 Year Breast Cancer Risk 1.30% Lifetime Breast Cancer Risk 3.30% Personal Breast Cancer No Personal Ovarian Cancer No Treatments None Family Cancers Aunt-maternal with breast cancer at age 50; Grandfather-paternal with oral cancer cancer at age 60. LOCATION: [facility] BREAST COMPOSITION: There are scattered areas of fibroglandular density. FINDINGS: DIAGNOSTIC CATEGORY 2--BENIGN FINDING. [...] PALPABLE LUMP SHOULD BE BIOPSIED. Dictated by: Raul Bernard MD on 01/14/2024 at 13:17 Approved by: Raul Bernard MD on 01/14/2024 at 13:34 Dictated By: Raul Bernard M.D. Signed By: 01/14/24 1335 DD/ 1334 TD/TT: Production Repairer: Procedure Note Radiology, Radiologist, MD - 01/14/2024 [place] [address] Mammography Report Signed Patient: FRANCES MACDONALD MMR#: [id number] : 1950cct:[id number] Age/Sex: 73 / FADM Date: 01/14/24 Loc: MAMMO Attending Dr: ISRRAEL BROWN Ordering Physician: ISRRAEL BROWNResults: Date of Service: 01/14/24Follow Up: Procedure(s): MM tomosynthesis screening BI Accession Number(s): [id number] cc: MARIANOJOAQUÍNISRRAEL Patient Name: FRANCES MACDONALD MR#: [id number] : 1950 Exam Date: 01/14/2024 Ordering Doctor: DR ISRRAEL BROWN M.D. RADIOLOGY REPORT PROCEDURE: MM TOMOSYNTHESIS SCREENING BI COMPARISON: MG MAMM SCREEN 3D RONY CAD, 12/30/2021. MG MAMM SCREEN 3DBIL CAD, 01/02/2023. INDICATIONS: Screening Calculator Name NCI Breast Cancer Risk Assessment Tool 5 Year Breast Cancer Risk 1.30% Lifetime Breast Cancer Risk 3.30% Personal Breast Cancer No Personal Ovarian Cancer No Treatments None Family Cancers Aunt-maternal with breast cancer at age 50; Grandfather-paternal with oral cancer cancer at age 60. LOCATION: [facility] BREAST COMPOSITION: There are scattered areas of fibroglandulardensity. FINDINGS: DIAGNOSTIC CATEGORY 2--BENIGN FINDING. NO CHANGE FROM COMPARISON.Scattered benign-appearing calcifications are present. Scattered benign-appearinglymph nodes are present. RIGHT BREAST: No significant suspicious finding. LEFT BREAST: No significant suspicious finding. RECOMMENDATIONS: ROUTINE MAMMOGRAM AND CLINICAL EVALUATION IN 12 MONTHS. PLEASE NOTE: A NORMAL MAMMOGRAM DOES NOT EXCLUDE THE POSSIBILITY OFBREAST CANCER. A CLINICALLY SUSPICIOUS PALPABLE LUMP SHOULD BE BIOPSIED. Dictated by: Raul Bernard MD on 01/14/2024 at 13:17 Approved by: Raul Bernard MD on 01/14/2024 at 13:34 Dictated By: Raul Bernard M.D. Signed By:01/14/24 1335 DD/ 1334 TD/TT: Production Repairer: Isrrael Brown MD [facility] Final Result * COLONOSCOPY DIAGNOSTIC (01/10/2021) Anatomical Region Laterality Modality Radiographic Talisha ging 01/10/2021 Narrative 01/10/2021 7:36 PM EDT Polyp- tub adenoma repeat 5 years us Isrrael Brown MD IMG XR PROCEDURES Final Result * (ABNORMAL) Cologuard?? colon cancer screening (06/30/2019) COLOGUARD RESULT REPORTABLE Positive( A) Not Applicable [facility] Comment: It is recommended that a positive Cologuard screen be clinically correlated and followed-up with a structural examination of the colon such as diagnostic colonoscopy. Colonoscopies performed for a positive Cologuard may find as the most clinically significant lesion: colorectal cancer [4.0%], advanced adenoma (including sessile serrated polyps greater than or equal to 1cm diameter) [20%] or non- advanced adenoma [31%]; or no colorectal neoplasia [45%]. These estimates are derived from a prospective cross-sectional screening study of 10,000 individuals at average risk for colorectal cancer who were screened with both Cologuard and colonoscopy. (Table 3, Rebecca Matias al, N Engl J Med 2014;370(14):9128-2079.) Test Type: Composite algorithmic analysis of stool DNA-biomarkers with hemoglobin immunoassay. Quantitative values of individual biomarkers are not reportable and are not associated with individual biomarker result reference ranges. Precautions and Limitations: Cologuard is intended for colorectal cancer screening of adults of either sex, 50 years or older, who are at typical average-risk for colorectal cancer. A negative Cologuard test result does not guarantee the absence of colorectal cancer or advanced adenoma (pre-cancer). Patients with a negative Cologuard test result should be advised to continue participating in a colorectal cancer screening program. Cologuard may produce a positive result, even though a colonoscopy may not find colorectal cancer or precancerous polyps. The performance of Cologuard has been established in a cross sectional study (i.e., single point in time). Performance has not been evaluated in adults who have been previously tested with Cologuard or in patients less than 50 years of age. Cologuard has been approved for use by the U.S. FDA. Cologuard performance data in a 10,000 patient pivotal study using colonoscopy as the reference method can be accessed at the following location: [email or web address]/results. Additional description of the Cologuard test process, warnings and precautions can be found at www.cologuardtest.com. Rx Only. 06/30/2019 Isrrael Brown MD LAB MOLECULAR DIAGNOSTICS NAOMI PAZ Final Result [facility] from Last 3 Months or Most Recently Relevant to Health Maintenance Insurance MEDICARE [facility] Care Teams Vocational Technical Education Director Relationship Specialty Start Date End Date Isrrael Brown MD 112 [facility] 110 [place], [place] [id number] PCP - General Internal Medicine 12/12/22
--- OUTSIDE RECORDS SUMMARY | 2025-01-22 11:07 | XMS_ITS | Encounter Summary ---
Author Organization [facility] Address [address] [place] [address] Care Team Providers Care Title Curator Name Role Phone Isrrael Brown MD Primary Care Provider [phone] Encounter Details Date Type Department Care Team (Late st Contact Info) Description 01/09/2025 Orders Only [facility] [address] [place] [address] Ivon Oswald MA Essential hypertension Social History Tobacco Use Types Packs/Day Years Used Date Smoking Tobacco: Never Smokeless Tobacco: Never Alcohol Use Standard Drinks/Week Comments Yes 0 (1 standard drink = 0.6 oz pur e alcohol) occasional [place] Safety & Environment Answer Date Rec orded Fear of Current or Ex-Partner Not on file Emotionally Abused Not on file 09/27/2023 Physically Abused Not on file 09/27/2023 Sexually Abused Not on file 09/27/2023 Physically or Sexually Abused Not on file Comments Unknown Sex and Gender Information Value Date Recorded Sex Assigned at Not on file Legal Sex Female 12:18 AM EDT Gender Identity Not on file Sexual Orientation Not on file documented as of this encounter Plan of Treatment Scheduled Orders Name Type Priority Associated Diagnoses Orde r Schedule Basic metabolic panel Lab Routine Essential hypertension Expected: 01/09/2025 (Approximate), Expires: 01/09/2026 documented as of this encounter Visit Diagnoses Diagnosis Essential hypertension Unspecified essential hypertension documented in this encounter Care Teams Title Curator Relationship Specialty Start Date End Date Isrrael Brown MD 112 [facility] 110 [place], [place] [id number] PCP - General 07/25/22 documented as of this encounter
--- OUTSIDE RECORDS SUMMARY | 2025-01-22 11:07 | XMS_ITS | Encounter Summary ---
Author Organization [facility] Address [address] [place] [address] Care Team Providers Care Director Of Restaurant Operations Name Role Phone Isrrael Brown MD Primary Care Provider [phone] Shanika Davis SCRAP PREPARATION SUPERVISOR Unavailable [phone] Shanika Davis SCRAP PREPARATION SUPERVISOR Unavailable [phone] Encounter Details Date Type Department Care Team (Late st Contact Info) Description 06/11/2024 Abstract [facility] [address] [facility] 110 [place] [id number] Isrrael Brown MD [address] [place] [facility] 110 [place] [address] Social History Tobacco Use Types Packs/Day Years Used Date Smoking Tobacco: Never Smokeless Tobacco: Never Alcohol Use Standard Drinks/Week Comments Yes 1 [...] on file documented as of this encounter Functional Status * Over the past 2 weeks, how often have you been bothered by any of the following problems? Question Answer Date of Assessment Author Little interest or pleasure in doing things Not at all 06/11/2024 10:00 AM EST Fatemeh Kinsey MA Feeling down, depressed, or hopeless Not at all 06/11/2024 10:00 AM EST Fatemeh Kinsey MA Patient Health Questionnaire -2 Score 0 06/11/2024 10:00 AM EST Fatemeh Kinsey MA documented as of this encounter Plan of Treatment Not on file documented as of this encounter Visit Diagnoses Not on filedocumented in this encounter Care Teams Director Of Restaurant Operations Relationship Specialty Start Date End Date Isrrael Brown MD [address] [place] [facility] 110 [place] [address] PCP - General Internal Medicine 12/12/22 Shanika Davis SCRAP PREPARATION SUPERVISOR [address] [place] [facility] [address] [place] [address] PCP - ACO Reach 12/05/23 09/11/24 Shanika Davis SCRAP PREPARATION SUPERVISOR [address] [place] [address] [address] PCP - ACO Reach 09/19/24 11/06/24 documented as of this encounter
--- OUTSIDE RECORDS SUMMARY | 2025-01-22 11:07 | XMS_ITS | Encounter Summary ---
Author Organization [facility] Address [address] [place] [address] Care Team Providers Care Performance Test Consultant Name Role Phone Isrrael Brown MD Primary Care Provider [phone] Shanika Davis PRODUCT PICKER Unavailable [phone] Shanika Davis PRODUCT PICKER Unavailable [phone] Encounter Details Date Type Department Care Team (Late st Contact Info) Description 01/14/2024 Clinisync Result Encounter [facility] External Department Unsolicited Isrrael Brown MD [address] [facility] [address] [place], [place] [id number] Social History Tobacco Use Types Packs/Day Years Used Date Smoking Tobacco: Never Smokeless Tobacco: Never Alcohol Use Standard Drinks/Week Comments Yes 1 (1 standard drink = 0.6 oz pur e alcohol) 1-2 drinks per occassion Comments Unknown Sex and Gender Information Value Date Recorded Sex Assigned at Not on file Legal Sex Female 7:00 PM EDT Gender Identity Not on file Sexual Orientation Not on file documented as of this encounter Plan of Treatment Not on file documented as of this encounter Procedures Procedure Name Priority Date/Time Associated Diagnosis Comments MM TOMOSYNTHESIS SCREENING BI 01/14/2024 1:34 PM EDT documented in this encounter Results * MM TOMOSYNTHESIS SCREENING BI (01/14/2024 1:34 PM EDT) Anatomical Region Laterality Modality Other 01/14/2024 1:34 PM EDT Narrative 01/14/2024 1:35 PM EDT The [address] [address] Mammography Report Signed Patient: FRANCES MACDONALD MR#: [id number] : 1950 Acct:[id number] Age/Sex: 73 / F ADM Date: 01/14/24 Loc: MAMMO Attending Dr: ISRRAEL BROWN Ordering Physician: ISRRAEL BROWN Results: Date of Service: 01/14/24 Follow Up: Procedure(s): MM tomosynthesis screening BI Accession Number(s): [id number] cc: BROWNJOAQUÍNISRRAEL Patient Name: FRANCES MACDONALD MR#: [id number] : 1950 Exam Date: 01/14/2024 Ordering Doctor: [...] cancer cancer at age 61. LOCATION: The [facility] BREAST COMPOSITION: There are scattered areas of [...] on 01/14/2024 at 13:17 Approved by: Raul Benrard MD on 01/14/2024 at 13:34 Dictated By: Raul Bernard M.D. Signed By: 01/14/24 1335 DD/ 33 TD/TT: Director Of Planning: Procedure Note Radiology, Radiologist, - 01/14/2024 The [place] [id number] Mammography Report Signed Patient: FRANCES MACDONALD MMR#: [id number] : 1950cct:[id number] Age/Sex: 73 / FADM Date: 01/14/24 Loc: MAMMO Attending Dr: ISRRAEL BROWN Ordering Physician: ISRRAEL BROWNResults: Date of Service: 01/14/24Follow Up: Procedure(s): MM tomosynthesis screening BI Accession Number(s): [id number] cc: JOAQUÍN BROWNEL Patient Name: FRANCES MACDONALD MR#: [id number] : 1950 Exam Date: 01/14/2024 Ordering Doctor: [...] cancer cancer at age 61. LOCATION: The [facility] BREAST COMPOSITION: There are scattered areas of [...] Raul Bernard M.D. Signed By:01/14/24 1335 DD/ 33 TD/TT: Director Of Planning: Isrrael Brown MD [facility] Final Result documented in this encounter Visit Diagnoses Not on filedocumented in this encounter Care Teams Performance Test Consultant Relationship Specialty Start Date End Date Isrrael Brown MD [address] [facility] [address] [place] [address] PCP - General Internal Medicine 12/12/22 Shanika Davis, PRODUCT PICKER [address] [facility] [address] [place] [address] PCP - ACO Reach 12/05/23 09/11/24 Shanika Davis PRODUCT PICKER [address] [facility] [address] [place] [address] PCP - ACO Reach 09/19/24 11/06/24 documented as of this encounter
--- OUTSIDE RECORDS SUMMARY | 2025-01-22 11:07 | XMS_ITS | Encounter Summary ---
Author Organization [facility] Address [address] [place] [place] [address] Care Team Providers Care Owner Professional Engineer Name Role Phone Shanika Davis RETAIL MORTGAGE BANKER Unavailable [phone] Isrrael Brown MD Primary Care Provider [phone] Shanika Davis RETAIL MORTGAGE BANKER Unavailable Shanika Davis RETAIL MORTGAGE BANKER Unavailable [phone] Encounter Details Date Type Department Care Team (Late st Contact Info) Description 12/28/2022 Abstract [facility] [address] [place] [facility] 110 [place] [address] Isrrael Brown MD 112 [facility] 110 [place], [place] [phone] Social History Tobacco Use Types Packs/Day Years Used Date Smoking Tobacco: Never Tobacco Cessation:Counseling Given: Not Answered Alcohol Use Standard Drinks/Week Comments Yes 0 [...] on filedocumented in this encounter Care Teams Owner Professional Engineer Relationship Specialty Start Date End Date Shanika Davis NP [address] [place] [facility] 110 [place], [place] [phone] PCP - ACO Reach 12/28/22 10/04/23 Isrrael Brown MD [address] [facility] 110 [place] [address] PCP - General Internal Medicine 12/12/22 Shanika Davis NP [address] [place] [facility] 110 [place] [address] PCP - ACO Reach 12/05/23 09/11/24 Shanika Davis NP [address] [address] PCP - ACO Reach 09/19/24 11/06/24 documented as of this encounter
--- OUTSIDE RECORDS SUMMARY | 2025-01-22 11:07 | XMS_ITS | Encounter Summary ---
Author Organization [facility] Address [address] [place] [address] Care Team Providers Care Chancellor Name Role Phone Shanika Davis ATTIC FANS MECHANIC Unavailable [phone] Isrrael Brown MD Primary Care Provider Shanika Davis ATTIC FANS MECHANIC Unavailable Shanika Davis ATTIC FANS MECHANIC Unavailable Encounter Details Date Type Department Care Team (Late st Contact Info) Description 01/02/2023 Clinisync Result Encounter [facility] External Department Unsolicited Isrrael Brown MD 112 [facility] 110 [place] [address] Social History Tobacco Use Types Packs/Day Years Used Date Smoking Tobacco: Never Alcohol Use Standard Drinks/Week Comments [...] Procedure Name Priority Date/Time Associated Diagnosis Comments MG MAMM SCREEN 3D RONY CAD 01/02/2023 9:20 AM EDT documented in this encounter Results * MG MAMM SCREEN 3D RONY CAD (01/02/2023 9:20 AM EDT) Anatomical Region Laterality Modality Other 01/02/2023 9:20 AM EDT Narrative 01/02/2023 9:20 AM EDT Patient: FRANCES MACDONALD. Exam Date: 01/02/2023 : 1950 Gender:F Ordering : DR ISRRAEL BROWN M.D. Admission #: [id number] Family : Order #: [id number] CLICK HERE TO VIEW EXAM RADIOLOGY REPORT [...] LOCATION: The [facility] BREAST COMPOSITION: Scattered areas fibroglandular density. FINDINGS: [...] BIOPSIED. Dictated by: Raul Bernard MD on 01/02/2023 at 11:04 Approved by: Raul Bernard MD on 01/02/2023 at 11:05 Procedure Note Radiology, Radiologist, - 01/02/2023 Patient: FRANCES MACDONALD Exam Date: 01/02/2023 : 1950 Gender:F Ordering : DR ISRRAEL BROWN M.D. Admission #: [id number] Family : Order #: [id number] CLICK HERE TO VIEW EXAM RADIOLOGY REPORT PROCEDURE: MAMMOGRAM SCREENING 3D BILATERAL CAD COMPARISON: MG MAMM SCREEN 3D RONY CAD, 12/28/2020. MG MAMM SCREEN 3DBIL CAD, 12/30/2021. INDICATIONS: Screening mammography Calculator Name NCI Breast Cancer Risk Assessment Tool 5 Year Breast Cancer Risk 1.30% Lifetime Breast Cancer Risk 3.50% Personal Breast Cancer No Personal Ovarian Cancer No Treatments None Family Cancers Aunt-maternal with breast cancer at age 50; Grandfather-paternal with oral cancer cancer at age 60. LOCATION: The [facility] BREAST COMPOSITION: Scattered areas fibroglandular density. FINDINGS: [...] BIOPSIED. Dictated by: Raul Bernard MD on 01/02/2023 at 11:04 Approved by: Raul Bernard MD on 01/02/2023 at 11:05 Isrrael Brown MD [facility] Final Result documented in this encounter Visit Diagnoses Not on filedocumented in this encounter Care Teams Chancellor Relationship Specialty Start Date End Date Shanika Davis NP [address] [facility] [address] [place] [address] PCP - ACO Reach 12/28/22 10/04/23 Isrrael Brown MD [address] [facility] [address] [place] [address] PCP - General Internal Medicine 12/12/22 Shanika Davis NP [address] [place] [address] PCP - ACO Reach 12/05/23 09/11/24 Shanika Davis NP [address] [place] [address] PCP - ACO Reach 09/19/24 11/06/24 documented as of this encounter
--- OUTSIDE RECORDS SUMMARY | 2025-01-22 11:07 | XMS_ITS | Referral Summary ---
Author Organization [facility] Address [address] [place] [address] Care Team Providers Care Partition Making Machine Operator Name Role Phone Isrrael Brown MD Primary Care Provider [phone] Encounters Date Type Department Care Team Description 01/09/2025 Telephone [facility] [address] [place] [address] Ivon Oswald MA 01/09/2025 Orders Only [facility] [address] [facility] [place] [address] Ivon Oswald MA Essential hypertension 12/16/2024 Telephone [facility] [address] [facility] [place] [address] Marisela Arellano MA 11/25/2024 Telephone [facility] [address] [facility] [place] [address] Ivon Oswald MA 11/24/2024 3:00 PM EDT Office Visit [facility] [address] [place] [address] Joselyn López MD Chronic diastolic heart failure (CMS/HCC) (Primary Dx); Paroxysmal atrial fibrillation (CMS/HCC); Pericardial effusion; Edema of both legs; Essential hypertension; Pure hypercholesterolemia; Diabetes mellitus type II, non insulin dependent (CMS/HCC); Hypothyroidism (acquired); Obstructive sleep apnea syndrome from Last 3 Months Allergies No known active allergies Medications albuterol 90 mcg/actuation inhaler albuterol sulfate HFA 90 mcg/actuation aerosol inhaler INHALE 2 PUFFS BY MOUTH EVERY 4 HOURS NEEDED FOR WHEEZING WITH SPACER Active apixaban (Eliquis) 5 mg tablet Take 5 mg by mouth in the morning and at bedtime. Active fluticasone propion-salmeteroL (Advair Diskus) 250-50 mcg/dose diskus inhaler Advair Diskus 250 mcg-50 mcg/dose powder for inhalation Active levothyroxine (Synthroid, Levoxyl) 25 mcg tablet levothyroxine 25 mcg tablet Active metFORMIN (Glucophage) 500 mg tablet Take 500 mg by mouth with breakfast and with evening meal. Active metoprolol succinate XL (Toprol-XL) 50 mg 24 hr tablet Take 50 mg by mouth in the morning. Active montelukast (Singulair) 10 mg tablet montelukast 10 mg tablet Active furosemide (Lasix) 20 mg tablet Take 20 mg by mouth 3 (three) times a week. 11/24/19 23 Active losartan (Cozaar) 50 mg tabletIndications: Essential hypertension TAKE 1 TABLET EVERY MORNING 90 tablet 3 04/01/20 24 Active spironolactone (Aldactone) 25 mg tabletIndications: Hypertension, unspecified type,Type 2 diabetes mellitus without complication, without long-term current use of insulin ([facility]) Take 1 tablet (25 mg) by mouth in the morning. 90 tablet 3 05/09/20 24 025 Active amLODIPine (Norvasc) 10 mg tablet Take 1 tablet by mouth in the morning. 09/06/19 25 Active simvastatin (Zocor) 40 mg tabletIndications: Mixed hyperlipidemia Take 1 tablet (40 mg) by mouth at bedtime. 90 tablet 3 12/17/19 25 026 Active losartan (Cozaar) 100 mg tabletIndications: Essential hypertension Take 1 tablet (100 mg) by mouth in the morning. 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 Pt voiced understanding Assessment & Plan (02/02/2023 10:12 AM EDT): Hypertension is Controlled 136/60 Continue meds-Continue all medications Hypothyroidism (acquired) 11/27/2019 Assessment & Plan (10/17/2023 11:37 AM EDT): F/U with PCP Obstructive sleep apnea syndrome 06/05/2019 Paroxysmal atrial fibrillation 04/11/2019 Assessment & Plan (11/16/2023 6:46 AM EDT): [id number]= 5- Age, Female, CHF, DM Remains on anticoagulation- eliquis Rate control with toprol 50 mg Assessment & Plan (10/17/2023 11:41 AM EDT): [id number]=3- age, female, HTN, DM Continue toprol and eliquis anticoagulation Denied any bleeding tendencies ECG today Sinus bradycardia Assessment & Plan (02/02/2023 8:43 AM EDT): [id number]= Continue eliquis anticoagulation Metoprolol for rate control Abnormal serum thyroid stimulating hormone (TSH) level 06/13/2017 Displacement of lumbar inter vertebral disc without myelopathy 10/20/2015 Mild intermittent asthma 10/20/2015 Mixed hyperlipidemia 10/20/2015 Assessment & Plan (11/16/2023 11:37 AM EDT): Lipid abnormalities are stable continue simvastatin- she does not want to increase dose of statin- she will continue heart healthy diet Assessment & Plan (10/17/2023 11:40 AM EDT): Lipid abnormalities are stable continue simvastatin and heart healthy diet Script to pt for annual labs Assessment & Plan (02/02/2023 10:13 AM EDT): Lipid abnormalities are Well-controlled with simvastatin 20 mg daily Resolved Problems Problem Noted Date Diagnosed Date Resolved Date Diastolic dysfunction, left ventricle 02/02/2023 11/24/2024 Assessment & Plan (10/17/2023 11:38 AM EDT): Repeat echo Assessment & Plan (02/02/2023 10:17 AM EDT): Stable- Overall fairly well controlled and fairly [...] she needs to let notify the office Cardiomegaly 05/09/2019 11/24/2024 Assessment & Plan (02/02/2023 10:11 AM EDT): Currently stable without concerning symptom Diastolic dysfunction 05/09/20192024 Assessment & Plan (10/17/2023 11:37 AM EDT): Repeat echocardiogram to assess cardiac function, DD, valvular function Continue lasix 2 times/week and start aldactone Mitral valve disorder 05/09/20192024 Assessment & Plan (11/16/2023 11:37 AM EDT): Will monitor with routine echocardiogram Assessment & Plan (10/17/2023 11:39 AM EDT): MV regurg- repeat echo to assess degree of MR Assessment & Plan (02/02/2023 10:13 AM EDT): Mild MR 2018 No worsening symptoms or concerns Yara with patient if she has increased water retention or shortness of breath she is to call office and we will repeat echocardiogram to assess diastolic function and mitral valve Social History Tobacco Use Types Packs/Day Years [...] Sign Reading Time Taken Comments Blood Pressure 184/87 11/24/2024 2:41 PM EDT Pulse 50 11/24/2024 2:41 PM EDT Temperature - - Respiratory Rate - - Oxygen Saturation 95% 11/24/2024 2:41 PM EDT Inhaled Oxygen Concentration - - Weight 105 kg (231 lb) 11/24/2024 2:41 PM EDT Height 165.1 cm (5' 5 ) 11/24/2024 2:41 PM EDT Body Mass Index 38.44 11/24/2024 2:41 PM EDT Plan of Treatment Not on file Insurance MEDICARE Member Subscriber Plan / Payer (Ef fective 2016-Present) Name:Frances Macdonald Member ID:[id number] Relation to Subscriber:Self Name:Frances Macdonald Subscriber ID:[id number] Payer ID:[id number] Group ID:Not on file Type:Medicare Address: [facility] [id number] [facility] Care Teams Partition Making Machine Operator Relationship Specialty Start Date End Date Isrrael Brown MD [address] [facility] [address] [place] [address] PCP - General 07/25/22
--- OUTSIDE RECORDS SUMMARY | 2025-01-22 11:07 | XMS_ITS | Encounter Summary ---
Author Organization [facility] Address [address] [place] [address] Care Team Providers Care Deck Engine Operator Name Role Phone Shanika Davis MOBILE APPLICATION DEVELOPMENT LEAD Unavailable [phone] Isrrael Brown MD Primary Care Provider Shanika Davis MOBILE APPLICATION DEVELOPMENT LEAD Unavailable Shanika Davis MOBILE APPLICATION DEVELOPMENT LEAD Unavailable Encounter Details Date Type Department Care Team (Late st Contact Info) Description 01/02/2023 Clinisync Result Encounter [facility] External Department Unsolicited Isrrael Brown MD 112 [facility] 110 [place] [address] Social History Tobacco Use Types [...] Procedure Name Priority Date/Time Associated Diagnosis Comments XR DEXA BONE DENSITY 01/02/2023 9:29 AM EDT documented in this encounter Results * XR DEXA BONE DENSITY (01/02/2023 9:29 AM EDT) Anatomical Region Laterality Modality Other 01/02/2023 9:29 AM EDT Narrative 01/02/2023 12:02 PM EDT EXAMINATION: XR DEXA BONE DENSITY, 01/02/2023 9:29 [...] authenticated by: GREGORIO DOMINIQUE Date: 2023-01-02 12:02 Procedure Note Radiology, Radiologist, MD - 01/02/2023 EXAMINATION: XR DEXA BONE DENSITY, 01/02/2023 9:29 AM EDT HISTORY: Primary ovarian failure COMPARISON: 2013. TECHNIQUE: Dual-energy X-ray absorptiometry (DEXA) bone density studyperformed for the axial skeleton. HISTORY: Primary ovarian failure FINDINGS: Bone mineral density AP spine L1-L4 measures 1.301 g/sq cm. T score 1.0.WHO classification: Normal. Lowest bone mineral density right femoral neck measures 1.074 g/sq cm. Tscore 0.3. WHO classification: Normal IMPRESSION: Normal bone mineral density. Low fracture risk Electronically authenticated by: GREGORIO DOMINIQUE Date: 2023-01-02 12:02 Isrrael Brown MD [facility] Final Result documented in this encounter Visit Diagnoses Not on filedocumented in this encounter Care Teams Deck Engine Operator Relationship Specialty Start Date End Date Shanika Davis NP 112 [facility] 110 [place] [address] PCP - ACO Reach 12/28/22 10/04/23 Isrrael Brown MD 112 [facility] [address] [place] [address] PCP - General Internal Medicine 12/12/22 Shanika Davis NP 112 [facility] [address] [place] [address] PCP - ACO Reach 12/05/23 09/11/24 Shanika Davis MOBILE APPLICATION DEVELOPMENT LEAD 112 [facility] [address] [place], [place] [id number] PCP - ACO Reach 09/19/24 11/06/24 documented as of this encounter
--- OUTSIDE RECORDS SUMMARY | 2025-01-22 11:07 | XMS_ITS | Encounter Summary ---
Author Organization [facility] Address [address] [facility] [place] [address] Care Team Providers Care Bookkeeping Clerks Supervisor Name Role Phone Isrrael Brown MD Primary Care Provider [phone] Encounter Details Date Type Department Care Team (Late st Contact Info) Description 12/08/2024 Abstract [facility] [address] [facility] 110 [place] [id number] Isrrael Brown MD [address] [facility] 110 [place], [place] [id number] Social History Tobacco Use Types Packs/Day Years [...] on filedocumented in this encounter Care Teams Bookkeeping Clerks Supervisor Relationship Specialty Start Date End Date Isrrael Brown MD [address] [facility] 110 [place] [address] PCP - General Internal Medicine 12/12/22 documented as of this encounter
--- OUTSIDE RECORDS SUMMARY | 2025-01-22 11:07 | XMS_ITS | Encounter Summary ---
Author Organization [facility] Address [address] [place] [address] Care Team Providers Care Slitter Scorer Cut Off Operator Name Role Phone Isrrael Brown MD Primary Care Provider [phone] Encounter Details Date Type Department Care Team (Late st Contact Info) Description 01/09/2025 Telephone [facility] [address] [place] [address] Ivon Oswald MA Social History Tobacco Use Types Packs/Day Years [...] on filedocumented in this encounter Care Teams Slitter Scorer Cut Off Operator Relationship Specialty Start Date End Date Isrrael Brown MD [address] [facility] 110 [place] [address] PCP - General 07/25/22 documented as of this encounter
--- OUTSIDE RECORDS SUMMARY | 2025-01-22 11:07 | XMS_ITS | Encounter Summary ---
Author Organization [facility] Address [address] [place] [address] Care Team Providers Care Tester/Lift Trucker Name Role Phone Isrrael Brown MD Primary Care Provider [phone] Shanika Davis DEHYDRATION PLANT OPERATOR Unavailable [phone] Shanika Daivs DEHYDRATION PLANT OPERATOR Unavailable Encounter Details Date Type Department Care Team (Late st Contact Info) Description 10/29/2023 Clinisync Result Encounter [facility] External Department Unsolicited Provider, Generic External Data Social History Tobacco Use Types Packs/Day Years [...] Procedure Name Priority Date/Time Associated Diagnosis Comments CA ECHO DOPPLER COMPLETE 10/29/2023 3:55 PM EDT TSH W/REFLEX T4 Routine 10/29/2023 9:20 AM EDT [facility] CMP (CMP) (FOR REMOTE FORMERLY [facility] USE) Routine 10/29/2023 9:20 AM EDT ALL LIPID PROFILE (FASTING) Routine 10/29/2023 9:20 AM EDT documented in this encounter Results * CA ECHO DOPPLER COMPLETE (10/29/2023 3:55 PM EDT) Anatomical Region Laterality Modality Other 10/29/2023 3:55 PM EDT Narrative 10/29/2023 3:56 PM EDT [address] [address] Cardiology Report Signed Patient: FRANCES MACDONALD MR#: [id number] : 1950 Acct:[id number] Age/Sex: 73 / F ADM Date: 10/29/23 Loc: CARD Attending Dr: MANJINDER SHEFFIELD Ordering Physician: MANJINDER SHEFFIELD Date of Service: 10/29/23 Procedure(s): CA echo doppler complete Accession Number(s): [id number] cc: ISRRAEL BROWN ; MANJINDER SHEFFIELD Patient Name: FRANCES MACDONALD MR#: [id number] : 1950 Exam Date: 10/29/2023 Ordering Doctor: MANJINDER SHEFFIELD ECHOCARDIOGRAM REPORT PROCEDURE: CA ECHO DOPPLER COMPLETE INDICATIONS: Paroxysmal atrial fibrillation, Mitral valve disease, hypertension COMPARISON: None. DESCRIPTION: COMPLETE ECHOCARDIOGRAM Real-time transthoracic echocardiography with 2D, M-mode, spectral and color flow Doppler performed. QUALITY: Technical quality was good. LEFT VENTRICLE: Normal chamber size. Borderline left ventricular hypertrophy. Systolic function is normal. LV EF: Normal left ventricular ejection fraction, (55%). DIASTOLIC: Grade II diastolic dysfunction. ATRIAL SEPTUM: Visually appears intact. LEFT ATRIUM: Severe dilatation. RIGHT ATRIUM: Mild chamber dilatation. RIGHT VENTRICLE: Normal chamber size. Normal right ventricular systolic function. TRICUSPID VALVE: Normal mobility and thickness. No stenosis with trivial regurgitation. Doppler studies reveal moderately (45-60) elevated right sided pressures. RSVP 49 mmHg MITRAL VALVE: Mildly thickened with normal mobility. No evidence of mitral valve stenosis. Mild mitral regurgitation. AORTIC VALVE: Normal trileaflet appearance. No visible sclerosis. Normal leaflet mobility. No evidence of aortic valve stenosis. No aortic regurgitation. AORTIC ROOT: Normal diameter and appearance. PULMONIC VALVE: Normal thickness and mobility. No stenosis. Trivial regurgitation. PERICARDIUM: Moderate circumferential pericardial effusion. No echocardiographic evidence of tamponade physiology. IVC: Collapses with inspirations. IVC is normal in size. PLEURA: CONCLUSION: 1. Left ventricle is normal in size and exhibits normal systolic function. LVEF is estimated at 55%. 2. Normal right ventricular size and systolic function. 3. Severe left atrial dilatation. 4. Grade 2, moderate diastolic dysfunction. 5. Mild mitral regurgitation. 6. Moderately elevated right-sided pressures. RVSP is 49 mmHg. 7. Moderate circumferential pericardial effusion with no echocardiographic evidence of tamponade physiology. Adult Echocardiography Procedure Report Left Ventricle LVEDD (3.7 - 5.6 cm): 5.05 cm LVESD (2.2 - 4.0 cm): 2.96 cm LVIVS thickness (0.6 - 1.2 cm): 1.07 cm LVPW thickness (0.5 - 1.0 cm): 1.00 cm e': 0.07 m/s E - e': 12.22 LVOT Max Gradient: 4.29 mm[Hg] LVOT Area (cm2): 1.04 m/s Peak Velocity (LVOT): 1.04 m/s Mean Velocity (LVOT): 0.62 m/s LVOT Diameter 1.99 cm Left Atrium LA Volume Index (2D A2C): 56.41 ml/m2 Left Atrium Systolic Dimension: 4.84 cm Mitral Valve MV E to A Ratio: 1.82 Mitral Valve A-Wave Peak Velocity: 0.45 m/s Mitral Valve E-Wave Peak Velocity: 0.82 m/s Right Ventricle Aorta AO Root Diam: 2.50 cm Ascending Ao Diam: 2.94 cm Aortic Valve AoV Area (Peak Teo): 2.78 cm2, 2.78 cm2 AoV Area (VTI): 2.79 cm2, 2.79 cm2 Peak Velocity(Antegrade Flow): 1.15 m/s Peak Gradient(Antegrade Flow): 5.30 mm[Hg] Mean Velocity(Antegrade Flow): 0.72 m/s Mean Gradient(Antegrade Flow): 2.50 mm[Hg] Velocity Time Integral: 28.75 cm Tricuspid Valve Peak Velocity (Regurgitant Flow): 3.37 m/s Pulmonic Valve Peak Velocity: 0.77 m/s Peak Gradient: 1.82 mm[Hg], 3.06 mm[Hg] Right Atrium Right Atrium Systolic Pressure: 34.84 ml, 34.84 ml Dictated by: July Curry M.D. on 10/29/2023 at 15:52 Approved by: July Curry M.D. on 10/29/2023 at 15:55 Dictated By: JULY CURRY Signed By: 10/29/23 1556 DD/ 1555 TD/TT: Large Engine Assembler: Procedure Note Radiology, Radiologist, - 10/29/2023 [facility] [place] [id number] Cardiology Report Signed Patient: FRANCES MACDONALD MMR#: [id number] : 1950cct:[id number] Age/Sex: 73 / FADM Date: 10/29/23 Loc: CARD Attending Dr: MANJINDER SHEFFIELD Ordering Physician: MANJINDER SHEFFIELD Date of Service: 10/29/23 Procedure(s): CA echo doppler complete Accession Number(s): [id number] cc: ISRRAEL BROWN ; MANJINDER SHEFFIELD Patient Name: FRANCES MACDONALD MR#: [id number] : 1950 Exam Date: 10/29/2023 Ordering Doctor: MANJINDER SHEFFIELD ECHOCARDIOGRAM REPORT PROCEDURE: CA ECHO DOPPLER COMPLETE INDICATIONS: Paroxysmal atrial fibrillation, Mitral valve disease, hypertension COMPARISON: None. DESCRIPTION: COMPLETE ECHOCARDIOGRAM Real-time transthoracic echocardiography with 2D, M-mode, spectral and color flow Dopplerperformed. QUALITY: Technical quality was good. LEFT VENTRICLE: Normal chamber size. Borderline left ventricular hypertrophy. Systolic function is normal. LV EF: Normal left ventricular ejection fraction, (55%). DIASTOLIC: Grade II diastolic dysfunction. ATRIAL SEPTUM: Visually appears intact. LEFT ATRIUM: Severe dilatation. RIGHT ATRIUM: Mild chamber dilatation. RIGHT VENTRICLE: Normal chamber size. Normal right ventricularsystolic function. TRICUSPID VALVE: Normal mobility and thickness. No stenosis withtrivial regurgitation. Doppler studies reveal moderately (45-60) elevated rightsided pressures. RSVP 49 mmHg MITRAL VALVE: Mildly thickened with normal mobility. No evidence of mitral valve stenosis. Mild mitral regurgitation. AORTIC VALVE: Normal trileaflet appearance. No visible sclerosis.Normal leaflet mobility. No evidence of aortic valve stenosis. No aortic regurgitation. AORTIC ROOT: Normal diameter and appearance. PULMONIC VALVE: Normal thickness and mobility. No stenosis. Trivial regurgitation. PERICARDIUM: Moderate circumferential pericardial effusion. No echocardiographic evidence of tamponade physiology. IVC: Collapses with inspirations. IVC is normal in size. PLEURA: CONCLUSION: 1. Left ventricle is normal in size and exhibits normal systolic function. LVEF is estimated at 55%. 2. Normal right ventricular size and systolic function. 3. Severe left atrial dilatation. 4. Grade 2, moderate diastolic dysfunction. 5. Mild mitral regurgitation. 6. Moderately elevated right-sided pressures. RVSP is 49 mmHg. 7. Moderate circumferential pericardial effusion with no echocardiographic evidence of tamponade physiology. Adult Echocardiography Procedure Report Left Ventricle LVEDD (3.7 - 5.6 cm): 5.05 cm LVESD (2.2 - 4.0 cm): 2.96 cm LVIVS thickness (0.6 - 1.2 cm): 1.07 cm LVPW thickness (0.5 - 1.0 cm): 1.00 cm e': 0.07 m/s E - e': 12.22 LVOT Max Gradient: 4.29 mm[Hg] LVOT Area (cm2): 1.04 m/s Peak Velocity (LVOT): 1.04 m/s Mean Velocity (LVOT): 0.62 m/s LVOT Diameter 1.99 cm Left Atrium LA Volume Index (2D A2C): 56.41 ml/m2 Left Atrium Systolic Dimension: 4.84 cm Mitral Valve MV E to A Ratio: 1.82 Mitral Valve A-Wave Peak Velocity: 0.45 m/s Mitral Valve E-Wave Peak Velocity: 0.82 m/s Right Ventricle Aorta AO Root Diam: 2.50 cm Ascending Ao Diam: 2.94 cm Aortic Valve AoV Area (Peak Teo): 2.78 cm2, 2.78 cm2 AoV Area (VTI): 2.79 cm2, 2.79 cm2 Peak Velocity(Antegrade Flow): 1.15 m/s Peak Gradient(Antegrade Flow): 5.30 mm[Hg] Mean Velocity(Antegrade Flow): 0.72 m/s Mean Gradient(Antegrade Flow): 2.50 mm[Hg] Velocity Time Integral: 28.75 cm Tricuspid Valve Peak Velocity (Regurgitant Flow): 3.37 m/s Pulmonic Valve Peak Velocity: 0.77 m/s Peak Gradient: 1.82 mm[Hg], 3.06 mm[Hg] Right Atrium Right Atrium Systolic Pressure: 34.84 ml, 34.84 ml Dictated by: July Curry M.D. on 10/29/2023 at 15:52 Approved by: July Curry M.D. on 10/29/2023 at 15:55 Dictated By: JULY CURRY Signed By:10/29/23 1556 DD/ 1555 TD/TT: Large Engine Assembler: Generic External Data Provider [facility] Final Result * TSH W/REFLEX T4 (10/29/2023 9:20 AM EDT) TSH 3.718 0.358 - 3.740 uIU/mL TB 10/29/2023 9:20 AM EDT 10/29/2023 9:25 AM EDT Narrative [facility] - 10/29/2023 6:33 PM EDT Generic External Data Provider LAB BLOOD ORDERAB LES Final Result Performing Organization Address [facility] Co de Phone Number [facility] TB * ALL LIPID PROFILE (FASTING) (10/29/2023 9:20 AM EDT) TRIGLYCERIDES 90 <=150 mg/dL TBH CHOLESTEROL 179 <=200 mg/dL TB HDL CHOLESTEROL 48 40 - 60 mg/dL TB Comment: > or =60 mg/dl - LOW CARDIOVASCULAR RISK <40 mg/dl - HIGH CARDIOVASCULAR RISK LDL CHOLESTEROL CALCULATED 113.0 mg/dL TB Comment: <100 mg/dl OPTIMAL 100-129 mg/dl NEAR OR ABOVE OPTIMAL 130-159 mg/dl BORDERLINE HIGH 160-189 mg/dl HIGH >190 mg/dl VERY HIGH VLDL CHOLESTEROL 18.0 mg/dL TB 10/29/2023 9:20 AM EDT 10/29/2023 9:25 AM EDT Narrative [facility] - 10/29/2023 6:33 PM EDT Generic External Data Provider [facility] F inal Result Performing Organization Address City/[facility]/ZIP Co de Phone Number [facility] * (ABNORMAL) [facility] CMP (CMP) (FOR REMOTE [facility]MERLY [facility] USE) (10/29/2023 9:20 AM EDT) SODIUM 140 136 - 145 mmol/L TBH POTASSIUM 4.5 3.5 - 5.1 mmol/L TBH CHLORIDE 104 98 - 107 mmol/L TBH CARBON DIOXIDE 26.6 21.0 - 32.0 mmol/L TBH ANION GAP 13.9 TBH GLUCOSE 125(H) 74 - 106 mg/dL TBH BLOOD UREA NITROGEN 25.0(H) 7.0 - 18.0 mg/dL TBH CREATININE 1.10(H) 0.55 - 1.02 mg/dL TBH TBH EGFR-AF KITTITIAN 59(L) >=60 TBH TBH EGFR-NON AF KITTITIAN 49(L) >=60 TBH BUN CREATININE RATIO 22.7 TBH CALCIUM 9.3 8.5 - 10.1 mg/dL TBH BILIRUBIN TOTAL 0.4 0.2 - 1.0 mg/dL TBH ASPARTATE AMINO TRANSFERASE 15 15 - 37 U/L TBH ALANINE AMINOTRANSFERASE 14 14 - 59 U/L TBH ALKALINE PHOSPHATASE 88 46 - 116 U/L TBH TOTAL PROTEIN 7.1 6.4 - 8.2 g/dL TBH ALBUMIN LEVEL 3.7 3.4 - 5.0 g/dL TBH GLOBULIN 3.4 g/dL TBH ALBUMIN GLOBULIN RATIO 1.1 TBH 10/29/2023 9:20 AM EDT 10/29/2023 9:25 AM EDT Narrative [facility] - 10/29/2023 6:33 PM EDT us Generic External Data Provider [facility] F inal Result [facility] TBH documented in this encounter Visit Diagnoses Not on filedocumented in this encounter Care Teams Tester/Lift Trucker Relationship Specialty Start Date End Date Isrrael Brown MD [address] [facility] 110 [place] [address] PCP - General Internal Medicine 12/12/22 Shanika Davis NP [address] [facility] [address] [place] [address] PCP - ACO Reach 12/05/23 09/11/24 Shanika Davis NP [address] [facility] [address] [place] [address] PCP - ACO Reach 09/19/24 11/06/24 documented as of this encounter
--- OUTSIDE RECORDS SUMMARY | 2025-01-22 11:08 | XMS_ITS | Encounter Summary ---
Author Organization [facility] Address [address] [facility] [place] [address] Care Team Providers Care Inspector And Clerk Name Role Phone Isrrael Brown MD Primary Care Provider [phone] Shanika Davis UROLOGY PHYSICIAN Unavailable [phone] Shanika Davis UROLOGY PHYSICIAN Unavailable [phone] Encounter Details Date Type Department Care Team (Late st Contact Info) Description 01/21/2024 Abstract [facility] 112 [facility] 110 [place] [id number] Isrrael Brown MD 112 [facility] 110 [place], [place] [address] Social History Tobacco Use Types Packs/Day Years [...] on filedocumented in this encounter Care Teams Inspector And Clerk Relationship Specialty Start Date End Date Isrrael Brown MD 112 [facility] 110 [place] [address] PCP - General Internal Medicine 12/12/22 Shanika Davis NP 112 [facility] [address] [place] [address] PCP - ACO Reach 12/05/23 09/11/24 Shanika Davis, UROLOGY PHYSICIAN 112 [facility] [address] [place] [address] PCP - ACO Reach 09/19/24 11/06/24 documented as of this encounter
--- OUTSIDE RECORDS SUMMARY | 2025-01-22 11:08 | XMS_ITS | Encounter Summary ---
Author Organization [facility] Address [address] [place] [address] Care Team Providers Care Principal Security Architect Name Role Phone Isrrael Brown MD Primary Care Provider [phone] Shanika Davis ELECTRICAL LINE MECHANIC Unavailable [phone] Shanika Davis ELECTRICAL LINE MECHANIC Unavailable [phone] Encounter Details Date Type Department Care Team (Late st Contact Info) Description 02/28/2024 Clinisync Result Encounter NOMS External Department Unsolicited [...] Procedure Name Priority Date/Time Associated Diagnosis Comments CARD ECHO LIMITED STUDY 02/28/2024 1:34 PM EDT documented in this encounter Results * CARD ECHO LIMITED STUDY (02/28/2024 1:34 PM EDT) Anatomical Region Laterality Modality Radiographic Talisha ging 02/28/2024 1:34 PM EDT Narrative 02/28/2024 1:35 PM EDT The [address] [address] Cardiology Report Signed Patient: FRANCES MACDONALD MR#: [id number] : 1950 Acct:[id number] Age/Sex: 73 / F ADM Date: 02/28/24 Loc: CARD Attending Dr: MANJINDER SHEFFIELD Ordering Physician: MANJINDER SHEFFIELD Date of Service: 02/28/24 Procedure(s): CA echo limited Accession Number(s): [id number] cc: ISRRAEL BROWN ; MANJINDER SHEFFIELD Patient Name: FRANCES MACDONALD MR#: [id number] : 1950 Exam Date: 02/28/2024 Ordering Doctor: MANJINDER SHEFFIELD ECHOCARDIOGRAM REPORT PROCEDURE: CA ECHO LIMITED INDICATIONS: Pericardial effusion COMPARISON: None. DESCRIPTION: Limited ECHOCARDIOGRAM Real-time transthoracic echocardiography with 2D and M-mode performed. QUALITY: Technical quality was good. Limited echocardiogram per physician order. LEFT VENTRICLE: Normal chamber size. left ventricular hypertrophy. LV EF: Global left ventricular systolic function is normal; visually estimated ejection fraction is 60%. No significant wall motion abnormalities. LEFT ATRIUM: Moderate dilatation. RIGHT ATRIUM: Mild dilatation. RIGHT VENTRICLE: Normal chamber size. Normal systolic function TRICUSPID VALVE: Normal mobility and thickness. MITRAL VALVE: Normal mobility and thickness. There is no mitral annular calcification. AORTIC VALVE: Normal trileaflet appearance. Normal leaflet mobility. AORTIC ROOT: Normal diameter and appearance. PULMONIC VALVE: Normal thickness and mobility. PERICARDIUM: There is a trivial anterior and moderate posterior pericardial effusion. No convincing signs of tamponade physiology are seen. IVC: Collapses with inspirations. IVC is dilated (2.4 cm) CONCLUSION: Global left ventricular systolic function is normal; visually estimated ejection fraction is 60%. Mild left ventricular hypertrophy. Biatrial enlargement. There is a trivial anterior and moderate posterior pericardial effusion. A limited echocardiogram was performed. Adult Echocardiography Procedure Report Left Ventricle LVEDD (3.7 - 5.6 cm): 4.47 cm LVESD (2.2 - 4.0 cm): 3.38 cm LVIVS thickness (0.6 - 1.2 cm): 1.30 cm LVPW thickness (0.5 - 1.0 cm): 1.27 cm LVOT Diameter 1.82 cm Left Atrium LA Volume Index (2D A2C): 40.25 ml/m2 Left Atrium Systolic Dimension: 4.20 cm Mitral Valve Right Atrium Right Atrium Systolic Pressure: 40.05 ml, 40.05 ml Dictated by: Corry Smalls M.D. on 02/28/2024 at 13:30 Approved by: Corry Smalls M.D. on 02/28/2024 at 13:34 Dictated By: Corry Smalls M.D. Signed By: 02/28/24 1335 DD/ 1334 TD/TT: Roller Operator: Procedure Note Radiology, Radiologist, MD - 02/28/2024 [place] [address] Cardiology Report Signed Patient: FRANCES MACDONALD MMR#: [id number] : 1950cct:[id number] Age/Sex: 73 / FADM Date: 02/28/24 Loc: CARD Attending Dr: MANJINDER SHEFFIELD Ordering Physician: MANJINDER SHEFFIELD Date of Service: 02/28/24 Procedure(s): CA echo limited Accession Number(s): [id number] cc: ISRRAEL BROWN ; MANJINDER SHEFFIELD Patient Name: FRANCES MACDONALD MR#: [id number] : 1950 Exam Date: 02/28/2024 Ordering Doctor: MANJINDER SHEFFIELD ECHOCARDIOGRAM REPORT PROCEDURE: CA ECHO LIMITED INDICATIONS: Pericardial effusion COMPARISON: None. DESCRIPTION: Limited ECHOCARDIOGRAM Real-time transthoracic echocardiography with 2D and M-mode performed. QUALITY: Technical quality was good. Limited echocardiogram perphysician order. LEFT VENTRICLE: Normal chamber size. left ventricular hypertrophy. LV EF: Global left ventricular systolic function is normal; visually estimated ejection fraction is 60%. No significant wall motionabnormalities. LEFT ATRIUM: Moderate dilatation. RIGHT ATRIUM: Mild dilatation. RIGHT VENTRICLE: Normal chamber size. Normal systolic function TRICUSPID VALVE: Normal mobility and thickness. MITRAL VALVE: Normal mobility and thickness. There is no mitralannular calcification. AORTIC VALVE: Normal trileaflet appearance. Normal leaflet mobility. AORTIC ROOT: Normal diameter and appearance. PULMONIC VALVE: Normal thickness and mobility. PERICARDIUM: There is a trivial anterior and moderate posterior pericardial effusion. No convincing signs of tamponade physiology areseen. IVC: Collapses with inspirations. IVC is dilated (2.4 cm) CONCLUSION: Global left ventricular systolic function is normal; visually estimated ejection fraction is 60%. Mild left ventricular hypertrophy. Biatrial enlargement. There is a trivial anterior andmoderate posterior pericardial effusion. A limited echocardiogram was performed. Adult Echocardiography Procedure Report Left Ventricle LVEDD (3.7 - 5.6 cm): 4.47 cm LVESD (2.2 - 4.0 cm): 3.38 cm LVIVS thickness (0.6 - 1.2 cm): 1.30 cm LVPW thickness (0.5 - 1.0 cm): 1.27 cm LVOT Diameter 1.82 cm Left Atrium LA Volume Index (2D A2C): 40.25 ml/m2 Left Atrium Systolic Dimension: 4.20 cm Mitral Valve Right Atrium Right Atrium Systolic Pressure: 40.05 ml, 40.05 ml Dictated by: Corry Smalls M.D. on 02/28/2024 at 13:30 Approved by: Corry Smalls M.D. on 02/28/2024 at 13:34 Dictated By: Corry Smalls M.D. Signed By:02/28/24 1335 DD/ 1334 TD/TT: Roller Operator: us Generic External Data Provider IMG XR PROCEDURES Final Result documented in this encounter Visit Diagnoses Not on filedocumented in this encounter Care Teams Principal Security Architect Relationship Specialty Start Date End Date Isrrael Brown MD [address] [facility] [address] [place] [address] PCP - General Internal Medicine 12/12/22 Shanika Davis ELECTRICAL LINE MECHANIC [address] [facility] [address] [place] [address] PCP - ACO Reach 12/05/23 09/11/24 Shanika Davis NP [address] [facility] [address] [place] [address] PCP - ACO Reach 09/19/24 11/06/24 documented as of this encounter
--- OUTSIDE RECORDS SUMMARY | 2025-01-22 11:08 | XMS_ITS | Encounter Summary ---
Author Organization [facility] Address [address] [facility] [place] [address] Care Team Providers Care Bridge Manager Name Role Phone Isrrael Brown MD Primary Care Provider [phone] Shanika Davis CHEMICAL PATHOLOGIST Unavailable [phone] Shanika Davis CHEMICAL PATHOLOGIST Unavailable [phone] Reason for Visit * Reason Comments Med Refill Encounter Details Date Type Department Care Team (Late st Contact Info) Description 05/22/2024 Refill [facility] [address] [place] [id number] Isrrael Brown MD [address] [place] [address] Paroxysmal atrial fibrillation (HCC); Abnormal TSH Social History Tobacco Use Types Packs/Day Years [...] on file documented as of this encounter Miscellaneous Notes * Telephone Encounter - Emeli Krishna - 05/27/2024 1:31 PM EDT LVM * Telephone Encounter - MARGOT Batista - 05/22/2024 8:14 AM EDT Patient has not been seen in over a year. Please help her get set up with Dr. Brown for a wellness within the next few weeks. Last refill until seen. documented in this encounter Plan of Treatment Not on file documented as of this encounter Visit Diagnoses Diagnosis Paroxysmal atrial fibrillation (HCC) Atrial fibrillation Abnormal TSH documented in this encounter Care Teams Bridge Manager Relationship Specialty Start Date End Date Isrrael Brown MD [address] [facility] [address] [place] [address] PCP - General Internal Medicine 12/12/22 Shanika Davis CHEMICAL PATHOLOGIST [address] [facility] [address] [place] [address] PCP - ACO Reach 12/05/23 09/11/24 Shanika Davis CHEMICAL PATHOLOGIST [address] [facility] [address] [place] [address] PCP - ACO Reach 09/19/24 11/06/24 documented as of this encounter
--- OUTSIDE RECORDS SUMMARY | 2025-01-22 11:08 | XMS_ITS | Encounter Summary ---
Author Organization [facility] Address [address] [place] [address] Care Team Providers Care Cloth Laminating Supervisor Name Role Phone Isrrael Brown MD Primary Care Provider Shanika Davis DIRECTOR HRIS Unavailable [phone] Shanika Davis DIRECTOR HRIS Unavailable [phone] Encounter Details Date Type Department Care Team (Late st Contact Info) Description 05/09/2024 Clinisync Result Encounter [facility] Unsolicited [...] Associated Diagnosis Comments CARD ECHO LIMITED STUDY 05/09/2024 4:19 PM EDT documented in this encounter Results * CARD ECHO LIMITED STUDY (05/09/2024 4:19 PM EDT) Anatomical Region Laterality Modality Radiographic Talisha ging 05/09/2024 4:19 PM EDT Narrative 05/09/2024 4:20 PM EDT The [address] [address] Cardiology Report Signed Patient: FRANCES MACDONALD MR#: [id number] : 1950 Acct:[id number] Age/Sex: 74 / F ADM Date: 05/09/24 Loc: CARD Attending Dr: MANJINDER SHEFFIELD Ordering Physician: MANJINDER SHEFFIELD Date of Service: 05/09/24 Procedure(s): CA echo limited Accession Number(s): [id number] cc: ISRRAEL BROWN ; MANJINDER SHEFFIELD Patient Name: FRANCES MACDONALD MR#: [id number] : 1950 Exam Date: 05/09/2024 Ordering Doctor: MANJINDER SHEFFIELD ECHOCARDIOGRAM REPORT PROCEDURE: CA ECHO LIMITED INDICATIONS: Pericardial effusion COMPARISON: None. DESCRIPTION: Limited ECHOCARDIOGRAM Real-time transthoracic echocardiography with 2D and M-mode performed. QUALITY: Technical quality was good. LEFT VENTRICLE: Normal chamber size. Normal left ventricular wall thickness. Systolic function is normal. LV EF: Normal left ventricular ejection fraction, (55%). DIASTOLIC: ATRIAL SEPTUM: LEFT ATRIUM: Moderate dilatation. RIGHT ATRIUM: Moderate dilatation. RIGHT VENTRICLE: Normal chamber size. Normal systolic function. TRICUSPID VALVE: Normal mobility and thickness. MITRAL VALVE: Normal mobility and thickness. There is no mitral annular calcification. AORTIC VALVE: Normal trileaflet appearance. No visible sclerosis. Normal leaflet mobility. AORTIC ROOT: Normal diameter and appearance. Ascending aorta is normal in size. PULMONIC VALVE: Normal thickness and mobility. PERICARDIUM: Small anterior pericardial effusion. Moderate posterior effusion. IVC: IVC is dilated (2.6 cm) with partial collapse. PLEURA: CONCLUSION: 1. Normal ventricular size and systolic function. 2. Moderate biatrial dilatation. 3. Small anterior and moderate posterior pericardial effusion. No echocardiographic evidence of tamponade physiology. Adult Echocardiography Procedure Report Left Ventricle LVEDD (3.7 - 5.6 cm): 4.74 cm LVESD (2.2 - 4.0 cm): 3.41 cm LVIVS thickness (0.6 - 1.2 cm): 0.94 cm LVPW thickness (0.5 - 1.0 cm): 0.97 cm LVOT Diameter 1.86 cm Left Atrium LA Volume Index (2D A2C): 55.23 ml/m2 Left Atrium Systolic Dimension: 4.11 cm Mitral Valve Right Ventricle Aorta AO Root Diam: 3.02 cm Ascending Ao Diam: 2.92 cm Aortic Valve Tricuspid Valve Pulmonic Valve Right Atrium Right Atrium Systolic Pressure: 61.42 ml, 61.42 ml Dictated by: July Curry M.D. on 05/09/2024 at 16:16 Approved by: July Curry M.D. on 05/09/2024 at 16:19 Dictated By: JULY CURRY Signed By: 05/09/24 1620 DD/ 1619 TD/TT: Block Hacker: Procedure Note Radiology, Radiologist, MD - 05/09/2024 [place] [address] Cardiology Report Signed Patient: FRANCES MACDONALD MMR#: [id number] : 1950cct:[id number] Age/Sex: 74 / FADM Date: 05/09/24 Loc: CARD Attending Dr: MANJINDER SHEFFIELD Ordering Physician: MANJINDER SHEFFIELD Date of Service: 05/09/24 Procedure(s): CA echo limited Accession Number(s): [id number] cc: ISRRAEL BROWN ; MANJINDER SHEFFIELD Patient Name: FRANCES MACDONALD MR#: [id number] : 1950 Exam Date: 05/09/2024 Ordering Doctor: MANJINDER SHEFFIELD ECHOCARDIOGRAM REPORT PROCEDURE: CA ECHO LIMITED INDICATIONS: Pericardial effusion COMPARISON: None. DESCRIPTION: Limited ECHOCARDIOGRAM Real-time transthoracic echocardiography with 2D and M-mode performed. QUALITY: Technical quality was good. LEFT VENTRICLE: Normal chamber size. Normal left ventricular wall thickness. Systolic function is normal. LV EF: Normal left ventricular ejection fraction, (55%). DIASTOLIC: ATRIAL SEPTUM: LEFT ATRIUM: Moderate dilatation. RIGHT ATRIUM: Moderate dilatation. RIGHT VENTRICLE: Normal chamber size. Normal systolic function. TRICUSPID VALVE: Normal mobility and thickness. MITRAL VALVE: Normal mobility and thickness. There is no mitralannular calcification. AORTIC VALVE: Normal trileaflet appearance. No visible sclerosis.Normal leaflet mobility. AORTIC ROOT: Normal diameter and appearance. Ascending aorta is normalin size. PULMONIC VALVE: Normal thickness and mobility. PERICARDIUM: Small anterior pericardial effusion. Moderate posterior effusion. IVC: IVC is dilated (2.6 cm) with partial collapse. PLEURA: CONCLUSION: 1. Normal ventricular size and systolic function. 2. Moderate biatrial dilatation. 3. Small anterior and moderate posterior pericardial effusion. No echocardiographic evidence of tamponade physiology. Adult Echocardiography Procedure Report Left Ventricle LVEDD (3.7 - 5.6 cm): 4.74 cm LVESD (2.2 - 4.0 cm): 3.41 cm LVIVS thickness (0.6 - 1.2 cm): 0.94 cm LVPW thickness (0.5 - 1.0 cm): 0.97 cm LVOT Diameter 1.86 cm Left Atrium LA Volume Index (2D A2C): 55.23 ml/m2 Left Atrium Systolic Dimension: 4.11 cm Mitral Valve Right Ventricle Aorta AO Root Diam: 3.02 cm Ascending Ao Diam: 2.92 cm Aortic Valve Tricuspid Valve Pulmonic Valve Right Atrium Right Atrium Systolic Pressure: 61.42 ml, 61.42 ml Dictated by: July Curry M.D. on 05/09/2024 at 16:16 Approved by: July Curry M.D. on 05/09/2024 at 16:19 Dictated By: JULY CURRY Signed By:05/09/24 1620 DD/ 1619 TD/TT: Block Hacker: Generic External Data Provider IMG XR PROCEDURES Final Result documented in this encounter Visit Diagnoses Not on filedocumented in this encounter Care Teams Cloth Laminating Supervisor Relationship Specialty Start Date End Date Isrrael Brown MD [address] [place] [address] PCP - General Internal Medicine 12/12/22 Shanika Davis NP [address] [place] [address] PCP - ACO Reach 12/05/23 09/11/24 Shanika Davis NP [address] [place] [address] PCP - ACO Reach 09/19/24 11/06/24 documented as of this encounter
--- OUTSIDE RECORDS SUMMARY | 2025-01-22 11:08 | XMS_ITS | Clinical Summary ---
Author Organization [facility] Address [address] [place] [address] Care Team Providers Care Criminal Court Judge Name Role Phone Isrrael Brown MD Primary Care Provider [phone] Allergies No known active allergies Medications albuterol [...] without long-term current use of insulin (CMS/HCC) Take 1 tablet (25 mg) by mouth [...] Assessment & Plan (11/16/2023 6:46 AM EDT): [id number]= 5- Age, Female, CHF, DM Remains on anticoagulation- eliquis Rate control with toprol 50 mg Assessment & Plan (10/17/2023 11:41 AM EDT): [id number]=0- age, female, HTN, DM Continue toprol and eliquis anticoagulation Denied any bleeding tendencies ECG today Sinus bradycardia Assessment & Plan (02/02/2023 8:43 AM EDT): [id number]= Continue eliquis anticoagulation Metoprolol for rate control [...] to assess diastolic function and mitral valve Encounters Date Type Department Care Team Description 01/09/2025 Telephone [facility] [address] [place] [address] Ivon Oswald MA 01/09/2025 Orders Only [facility] [address] [place] [address] Ivon Oswald MA Essential hypertension 12/16/2024 Telephone [facility] [address] [place] [address] Marisela Arellano MA 11/25/2024 Telephone [facility] [address] [place] [facility] [place] [address] Ivon Oswald MA 11/24/2024 3:00 PM EDT Office Visit [facility] [address] [place] [facility] [place] [address] Joselyn López MD Chronic diastolic heart failure (CMS/HCC) (Primary Dx); Paroxysmal atrial fibrillation (CMS/HCC); Pericardial effusion; Edema of both legs; Essential hypertension; Pure hypercholesterolemia; Diabetes mellitus type II, non insulin dependent (CMS/HCC); Hypothyroidism (acquired); Obstructive sleep apnea syndrome from Last 3 Months Family History Medical History Relation Name Comments Heart failure Father Relation Name Status Comments Brother Alive Father Mother Social History Tobacco Use Types Packs/Day [...] 11/24/2024 2:41 PM EDT Plan of Treatment Health Maintenance Due Date Last Done Comments CT Colonography 1950 Colonoscopy 1950 Diabetes: Hemoglobin A1C 1950 FIT-DNA 1950 FOBT 1950 Medicare Annual Wellness (AWV) 1950 Sigmoidoscopy 1950 Diabetes: Retinopathy Screening 1961 Depression Screening 1963 Adult Tetanus 1973 Mammogram 1991 Zoster Vaccines (1 of 2) 2001 Fall Risk Screening 2016 Colorectal Cancer Screening 06/30/2020 FIT 06/30/2020 06/30/2019 COVID-19 Vaccine (2023-2 5 season) 2024 Influenza Vaccine (Season Ended) 2025 06/13/2017, 05/30/2010 Diabetes: Urine Protein Screening 06/11/2025 06/11/2024 Pneumococcal Vaccine: 50+ Years Completed 11/17/2020, 08/30/2016 HIB Vaccines Aged Out No longer eligi ble based on patient's age to complete this topic HPV Vaccines Aged Out No longer eligi ble based on patient's age to complete this topic IPV Vaccines Aged Out No longer eligi ble based on patient's age to complete this topic Meningococcal B Vaccine Aged Out No l onger eligible based on patient's age to complete this topic Meningococcal Vaccine Aged Out No dotty ash eligible based on patient's age to complete this topic Rotavirus Vaccines Aged Out No longer eligible based on patient's age to complete this topic Insurance MEDICARE Member Subscriber Plan / Payer (Ef fective 2016-Present) Name:Frances Macdonald Member ID:[id number] Relation to Subscriber:Self Name:Frances Macdonald Subscriber ID:[id number] Payer ID:[id number] Group ID:Not on file Type:Medicare Address: [facility] [address] Care Teams Criminal Court Judge Relationship Specialty Start Date End Date Isrrael Brown MD [address] [address] PCP - General 07/25/22
--- NOTE | 2025-01-22 11:14 | MM_ITS ---
Patient Name: JASIEL BLAKE MR#: [id number] : 1950 Exam Date: 01/22/2025 Ordering Doctor: DR YVONNE QUINTANA M.D. RADIOLOGY REPORT PROCEDURE: MM TOMOSYNTHESIS SCREENING BI COMPARISON: MM TOMOSYNTHESIS SCREENING BI, 01/14/2024. MG MAMM SCREEN 3D RONY CAD, 01/02/2023. MG MAMM SCREEN 3D RONY CAD, 12/30/2021. MG MAMM RONY SCRN W CAD DIG, 07/01/2013. INDICATIONS: screening for malignant neoplasm of breast Calculator Name [facility] Breast Cancer Risk Assessment Tool 5 Year Breast Cancer Risk 1.30% Lifetime Breast Cancer Risk 3.10% Personal Breast Cancer No Personal Ovarian Cancer No Treatments None Family Cancers Aunt-maternal with breast cancer at age 50; Grandfather-paternal with oral cancer cancer at age ~60. LOCATION: [facility] BREAST COMPOSITION: There are scattered areas of fibroglandular density. FINDINGS: RIGHT BREAST: No significant suspicious finding. LEFT BREAST: 8 mm region of asymmetry identified in the central portion of the left breast at a middle depth at. This is 7 cm from the nipple. DIAGNOSTIC CATEGORY 0--INCOMPLETE: NEED ADDITIONAL IMAGING EVALUATION. RECOMMENDATIONS: ADDITIONAL MAMMOGRAPHIC VIEWS REQUIRED: LEFT BREAST - spot compression imaging recommended. ULTRASOUND: LEFT BREAST PLEASE NOTE: A NORMAL MAMMOGRAM DOES NOT EXCLUDE THE POSSIBILITY OF BREAST CANCER. A CLINICALLY SUSPICIOUS PALPABLE LUMP SHOULD BE BIOPSIED. Dictated by: Masood Laurent DO on 01/22/2025 at 13:34 Approved by: Masood Laurent DO on 01/22/2025 at 14:10
--- OUTSIDE RECORDS SUMMARY | 2025-01-22 11:27 | XMS_ITS | CCD ---
Author Organization [facility] Care Team Providers Care Piggyback Clerk Name Role Phone DR ISRRAEL BROWN Admitting Unavailable MARIANO, DR RUSSELL Primary Care Unavailable MARIANO, DR RUSSELL Consulting Unavailable MARIANO, DR RUSSELL Attending Unavailable TRIP, DR GREGORIO Cabral Consulting Unavailable DR ISRRAEL BROWN Primary Care Unavailable AWILDA MONREAL Admitting Unavailable AWILDA MONREAL Consulting Unavailable AWILDA MONREAL Attending Unavailable Isrrael Brown MD Primary Care Provider Aaron Davis NP Unavailable [phone] ANA ECHAVARRIA Attending Unavailable AARON DAVIS Attending Unavailable Aaron Davis NP Unavailable [phone] JEM LÓPEZ Attending Unavailable AWILDA MONREAL Attending Unavailable Medications Current Medications Medication Drug Class(es) Dates Sig (Normalized) Sig (Original) [id number] 200 actuat albuterol 0.09 mg/actuat metered dose inhaler (7 sources) beta2-Adrenergic Agonist take 2 puff(s) by inhalation every four hours for wheezing albuterol HFA 90 mcg/act inhaler Inhale 2 puffs every 4 (four) hours if needed for wheezing or shortness of breath. Active apixaban 5 mg oral tablet (8 sources) Factor Xa Inhibitor Start: 12-05-2024 take 1 tablet by mouth twice daily Apixaban (Eliquis) 5 mg tablet Active 5 MG PO Twice daily December 05, 2024 12:00am Start: 05-22-2024 take 1 tablet by narinder th in the morning apixaban (Eliquis) 5 MG tablet Indications: Paroxysmal atrial fibrillation (CMS/HCC) Take 1 tablet (5 mg) by mouth in the morning and 1 tablet (5 mg) before bedtime. 180 tablet 2 06/11/2024 Active dexamethasone 0.1 mg/ml oral solution (7 sources) Corticosteroid Start: 04-02-2023 dexAMETHasone 0.5 MG/5ML elixir Indications: Pharyngitis, unspecified etiology Take 10 mL (1 mg) by mouth every 12 (twelve) hours for 10 days. 200 mL 04/02/2023 Active diphenhydrAMINE 12.5 MG/5ML elixir 50 mg, aluminum-magnesium hydroxide-simethicon e 400-400-40 MG/5ML suspension 20 mL, lidocaine 2 % solution 20 mL (7 sources) Start: 04-02-2023 diphenhydrAMINE 12.5 MG/5ML elixir 50 mg, aluminum-magnesium hydroxide-simethico ne 400-400-40 MG/5ML suspension 20 mL, lidocaine 2 % solution 20 mL Indications: Pharyngitis, unspecified etiology Swish and spit 15 mL every 4 (four) hours if needed for mucositis. Disp 300ml 300 each 2 04/02/2023 Active doxycycline hyclate 100 mg oral capsule (1 source) Tetracycline-class Drug Start: 12-05-2024 take 1 capsule by mouth twice daily Doxycycline Hyclate 100 mg capsule Active 100 MG PO Twice daily 20 December 05, 2024 12:00am Fluticasone Propion-Salmeterol (8 sources) Corticosteroid, beta2-Adrenergic Agonist Start: 12-05-2024 Fluticasone Propion-Salmeterol (Wixela Inhub) 250-50 mcg/dose blister with device Active 1 INH INHALATION Twice daily December 05, 2024 12:00am Start: 05-02-2024 End: 07-31-2024 take 1 dose by inhalation in the morning Fluticasone-Salmeterol (Wixela Inhub) 250-50 MCG/ACT aerosol powder Indications: Mild intermittent asthma without complication (CMS/HCC) Inhale 1 each in the morning and 1 each before bedtime. 3 each 3 05/02/2024 Active furosemide 20 mg oral tablet (5 sources) Loop Diuretic Start: 11-14-2023 take 1 tablet by mouth once daily furosemide (Lasix) 20 MG tablet Indications: Edema of lower extremity Take 1 tablet (20 mg) by mouth Daily 90 tablet 2 06/11/2024 Active levothyroxine sodium 0.025 mg oral tablet (8 sources) l-Thyroxine Start: 12-05-2024 take 1 tablet by mouth once daily Levothyroxine 25 mcg tablet Active 25 MCG PO Daily December 05, 2024 12:00am Start: 05-22-2024 take 1 tablet by narinder th once daily levothyroxine (Synthroid, Levoxyl) 25 MCG tablet Indications: Abnormal TSH Take 1 tablet (25 mcg) by mouth Daily 90 tablet 2 06/11/2024 Active losartan potassium 50 mg oral tablet (12 sources) Angiotensin 2 Receptor Christian Start: 06-11-2024 End: 06-11-2025 take 1 tablet by mouth once daily Losartan 50 mg tablet Active 50 MG PO Daily December 05, 2024 12:00am Start: 05-30-2024 End: 06-11-2024 take 1 tablet by mouth in the morning losartan (Cozaar) 100 MG tablet Take 100 mg by mouth in the morning. 05/30/2024 06/11/2024 Discontinued metFORMIN hydrochloride 500 mg oral tablet (8 sources) Biguanide Start: 12-05-2024 take 1 tablet by mouth twice daily at mealtime Metformin 500 mg tablet Active 500 MG PO Twice daily with meals December 05, 2024 12:00am Start: 11-25-2024 metFORMIN (Glu cophage) 500 MG tablet Indications: Impaired fasting glucose TAKE 1 TABLET TWICE A DAY WITH MEALS 180 tablet 2 11/25/2024 Active Start: 03-10-2024 metFORMIN (Glu cophage) 500 MG tablet Indications: Impaired fasting glucose TAKE 1 TABLET TWICE A DAY WITH MEALS 180 tablet 2 03/10/2024 Active 24 hr metoprolol succinate 50 mg extended release oral tablet (8 sources) beta-Adrenergic Christian Start: 12-05-2024 take 1 tablet by mouth once daily Metoprolol Succinate 50 mg tablet extended release 24 hr Active 50 MG PO daily December 05, 2024 12:00am Start: 05-22-2024 take 1 tablet by narinder th once daily metoprolol succinate XL (Toprol-XL) 50 MG 24 hr tablet Indications: Paroxysmal atrial fibrillation (CMS/HCC) Take 1 tablet (50 mg) by mouth Daily 90 tablet 2 06/11/2024 Active montelukast 10 mg oral tablet (8 sources) Leukotriene Receptor Antagonist Start: 12-05-2024 take 1 tablet by mouth once daily Montelukast 10 mg tablet Active 10 MG PO Daily December 05, 2024 12:00am Start: 05-02-2024 take 1 tablet by narinder th once daily montelukast (Singulair) 10 MG tablet Indications: Allergy, sequela Take 1 tablet (10 mg) by mouth Daily 90 tablet 2 06/11/2024 Active simvastatin 20 mg oral tablet (8 sources) HMG-CoA Reductase Inhibitor Start: 12-05-2024 take 1 tablet by mouth once daily Simvastatin 20 mg tablet Active 20 MG PO Daily December 05, 2024 12:00am Start: 05-02-2024 take 1 tablet by narinder th once daily simvastatin (Zocor) 20 MG tablet Indications: Mixed hyperlipidemia (CMS/HCC) Take 1 tablet (20 mg) by mouth Daily 90 tablet 2 06/11/2024 Active spironolactone 25 mg oral tablet (6 sources) Aldosterone Antagonist Start: 05-09-2024 End: 05-09-2025 take 1 tablet by mouth once daily Spironolactone 25 mg tablet Active 25 MG PO Daily December 05, 2024 12:00am Problems Active Problems Problem Classification Problem Date Documented Da te Episodic/Chronic Asthma (9 sources) Mild intermittent asthma; Translations: [Mild intermittent asthma, uncomplicated] Onset: 04-02-2023 04-02-2023 Chronic Cardiac dysrhythmias (11 sources) Paroxysmal atrial fibrillation; Translations: [Paroxysmal atrial fibrillation] Onset: 07-25-2022 04-02-2023 Chronic Congestive heart failure; nonhypertensive (2 sources) Chronic diastolic (congestive) heart failure; Translations: [Chronic diastolic (congestive) heart failure] Onset: 11-24-2024 Chronic Diabetes mellitus without complication (9 sources) Type 2 diabetes mellitus without complication; Translations: [Type 2 diabetes mellitus without complications] Onset: 10-17-2023 06-11-2024 Chronic Disorders of lipid metabolism (12 sources) Hyperlipidemia, unspecified; Translations: [Mixed hyperlipidemia] Onset: 08-04-2022 04-02-2023 Chronic Essential hypertension (11 sources) Essential (primary) hypertension; Translations: [Hypertensive disorder] Onset: 11-28-2019 Chronic Genitourinary congenital anomalies (7 sources) Congenital anomaly of ovary; 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] Onset: 04-02-2023 04-02-2023 Chronic Heart valve disorders (18 sources) Mitral valve regurgitation; Translations: [Nonrheumatic mitral (valve) insufficiency] Onset: 04-02-2023 04-02-2023 Chronic Hypertension with complications and secondary hypertension (4 sources) Secondary hypertension; Translations: [Secondary hypertension, unspecified] Onset: 05-30-2024 06-11-2024 Chronic Menopausal disorders (10 sources) Other primary ovarian failure; Translations: [Decreased estrogen level] Onset: 01-03-2023 04-02-2023 Chronic Other and ill-defined heart disease (9 sources) Diastolic dysfunction; Translations: [Other ill-defined heart diseases] Onset: 04-02-2023 04-02-2023 Chronic Other and ill-defined heart disease (9 sources) Atrial hypertrophy; Translations: [Cardiomegaly] Onset: 04-02-2023 04-02-2023 Chronic Other and ill-defined heart disease (7 sources) Left ventricular diastolic dysfunction ; Translations: [Heart disease, unspecified] Onset: 02-02-2023 06-11-2024 Chronic Other nutritional; endocrine; and metabolic disorders (2 sources) Obesity caused by energy imbalance; Translations: [Morbid (severe) obesity due to excess calories] 06-11-2024 Chronic Other nutritional; endocrine; and metabolic disorders (2 sources) Body mass index 40+ - severely obese; Translations: [Body mass index (BMI) 40.0-44.9, adult] 06-11-2024 Chronic Residual codes; unclassified (9 sources) Obstructive sleep apnea syndrome; Translations: [Obstructive sleep apnea (adult) (pediatric)] Onset: 04-02-2023 04-02-2023 Chronic Residual codes; unclassified (2 sources) Obstructive sleep apnea (adult) (pediatric); Translations: [Obstructive sleep apnea (adult) (pediatric)] Onset: 07-25-2022 Chronic Residual codes; unclassified (1 source) Family history of malignant neoplasm of breast; Translations: [FAMILY HX MALIG NEOPLASM OF BREAST] Onset: 01-03-2023 Episodic Residual codes; unclassified (1 source) Family history of malignant neoplasm of other organs or systems; Translations: [FAM HX MALIG NEOPLASM OTH ORGN/SYS] Onset: 01-03-2023 Episodic Residual codes; unclassified (2 sources) Localized edema; Translations: [Localized edema] Onset: 11-24-2024 Episodic Spondylosis; intervertebral disc disorders; other back problems (9 sources) Displacement of lumbar intervertebral disc without myelopathy; Translations: [Other intervertebral disc displacement, lumbar region] Onset: 04-02-2023 04-02-2023 Chronic Thyroid disorders (9 sources) Hypothyroidism; Translations: [Hypothyroidism, unspecified] Onset: 11-27-2019 06-11-2024 Chronic Unclassified (1 source) Other pericardial effusion (noninflammatory); Translations: [Other pericardial effusion (noninflammatory)] Onset: 11-16-2023 Past or Other Problems Problem Classification Problem Date Documented Da te Episodic/Chronic Other screening for suspected conditions (not mental disorders or infectious disease) (13 sources) Encounter for screening mammogram for malignant neoplasm of breast; Translations: [Thyroid hormone tests abnormal] Onset: 01-02-2023 Episodic Jaqueline-; endo-; and myocarditis; cardiomyopathy (except that caused by tuberculosis or sexually transmitted disease) (5 sources) Pericardial effusion; Translations: [Pericardial effusion] Onset: 11-16-2023 06-11-2024 Episodic Residual codes; unclassified (5 sources) Edema of lower extremity; Translations: [Localized edema] Onset: 11-28-2019 06-11-2024 Episodic Unclassified (1 source) Other pericardial effusion (noninflammatory); Translations: [Other pericardial effusion (noninflammatory)] Onset: 11-24-2024 Results Test Name Value Interpretation Reference Range Facility 36on 12-16-2024 36 Regarding lab result s from 11/25/2024: MD Marisela Wisdom MA BN P is elevated which is expected with fluid overload and underlying chronic kidney disease. She was instructed to take the Lasix daily. Lets recheck BMP and BN P in 1 week. Also advised her to follow strict low-salt diet and to weigh herself every day.Her lipids showed elevated LDL therefore increase simvastatin to 40 mg daily and recheck lipids and ALT AST in 2 months. TSH is good. Her creatinine appears to be better than last blood test Spoke with patient. She is taking lasix 3 times a week. She was taking it daily for awhile after she saw Dr. López last. She denied SOB and LE edema. She will increase simvastatin to 40 mg daily and have repeats lipids,AST,ALT in 2 months. She will have BMP,BNP in 1 week. Patient verbalized understanding. Normal [facility] MLR HEMOGLOBIN A1Con 025 Glucose [Mass/Vol] 131 mg/dL [facility] HbA1c (Bld) [Mass fraction] 6.2 % 4.5 - 6.2 % [facility] Comment on above: ADA RECOMMENDED LIMI T 4.0 - 6.0 ADA THERAPEUTIC TARGET < 7.0 ACTION SUGGESTED > 7.0 [facility] Office Visiton 11-24-2024 Follow-up visit [id number] Frances Macdonald 1950 F Date Provider Department Center 11/24/2024 JEM MIDDLETON [facility] Family History Problem Relation Age of Onset Heart failure Father Family Status - Relation Status Age at Mother Father Brother Alive Level of Service:87500 [place] OFFICE/OUTPATIENT ESTABLISHED MOD MDM 30 MIN Reason for Visit and Comments: 6 month follow up with ECHO [Other] Normal [facility] CA ECHO DOPPLER COMPLETEon 0 11-11-2024 [place] [address] Cardiology Report Signed Patient: FRANCES MACDONALD MR#: [id number] : 1950 Acct:[id number] Age/Sex: 74 / F ADM Date: 11/11/24 Loc: CARD Attending Dr: AWILDA MONREAL Ordering Physician: AWILDA MONREAL Date of Service: 11/11/24 Procedure(s): CA echo doppler complete Accession Number(s): [id number] cc: AWILDA MONREAL; ISRRAEL BROWN Patient Name: FRANCES MACDONALD MR#: [id number] : 1950 Exam Date: 11/11/2024 Ordering Doctor: AWILDA MONREAL M.D. ECHOCARDIOGRAM REPORT PROCEDURE: CA ECHO DOPPLER [...] m/s Peak Velocity: 0.87 m/s, 0.75 m/s Pea (more content not included)... [facility] Radiology, Radiologist, MD - 11/11/2024 [place] [address] Cardiology Report Signed Patient: FRANCES MACDONALD MR#: [id number] : 1950 Acct:[id number] Age/Sex: 74 / F ADM Date: 11/11/24 Loc: CARD Attending Dr: AWILDA MONREAL Ordering Physician: AWILDA MONREAL Date of Service: 11/11/24 Procedure(s): CA echo doppler complete Accession Number(s): [id number] cc: AWILDA MONREAL; ISRRAEL BROWN Patient Name: FRANCES MACDONALD MR#: [id number] : 1950 Exam Date: 11/11/2024 Ordering Doctor: AWILDA MONREAL M.D. ECHOCARDIOGRAM REPORT PROCEDURE: CA ECHO DOPPLER [...] 55.33 ml, 55.33 ml Dictated by: July Corrigan M.D. on 11/11/2024 at 19:41 Approved by: July Corrigan M.D. on 11/11/2024 at 19:47 Dictated By: JULY CORRIGAN Signed By: 11/11/241947 DD/ 46 TD/TT: Monogram And Letter Paster: [facility] Radiology Study observation (narrative) [facility] CA ECHO DOPPLER COMPLETEOrde red By: Radiologist Radiology on 11-11-2024 [email or web address] [employer] Work Phone: Orders Onlyon 10-16-2024 Orders Only [id number] Frances Macdonald 1950 F Date Provider Department Center 10/16/2024 OKSANA CARDENAS CARD [facility] Family History Problem Relation Age of Onset Heart failure Father Family Status - Relation Status Age at Father Normal [facility] CARD ECHO [place] [address] Cardiology Report Signed Patient: FRANCES MACDONALD MR#: [id number] : 1950 Acct:[id number] Age/Sex: 74 / F ADM Date: 10/14/24 Loc: CARD Attending Dr: AWILDA MONREAL Ordering Physician: AWILDA MONREAL Date of Service: 10/14/24 Procedure(s): CA echo limited Accession Number(s): [id number] cc: AWILDA MONREAL; ISRRAEL BROWN Patient Name: FRANCES MACDONALD MR#: [id number] : 1950 Exam Date: 10/14/2024 Ordering Doctor: [...] CORRIGAN Signed By: 10/14/242031 DD/ 30 TD/TT: Monogram And Letter Paster: [facility] Radiology, Radiologist, MD - 10/14/2024 [place] [address] Cardiology Report Signed Patient: FRANCES MACDONALD MR#: [id number] : 1950 Acct:[id number] Age/Sex: 74 / F ADM Date: 10/14/24 Loc: CARD Attending Dr: AWILDA MONREAL Ordering Physician: AWILDA MONREAL Date of Service: 10/14/24 Procedure(s): CA echo limited Accession Number(s): [id number] cc: AWILDA MONREAL; ISRRAEL BROWN Patient Name: FRANCES MACDONALD MR#: [id number] : 1950 Exam Date: 10/14/2024 Ordering Doctor: [...] CORRIGAN Signed By: 10/14/242031 DD/ 30 TD/TT: Monogram And Letter Paster: [facility] [employer] Radiology Study observation (narrative) [facility] [employer] CARD ECHO LIMITED STUDYOrder ed By: Radiologist Radiology on 10-14-2024 [employer] Work Phone: ALBUMIN, RANDOM URINE W/CREA TINBYRONon 06-12-2024 ALBUMIN, URINE 2.2 mg/dL Normal See Note: [email or web address] Comment on above: Result Comment: Refe rence Range: Reference Range Not established Performed By: #### 6 517, 01070 #### [facility] of [address], [address] [place] [address] Database Report Writer: Wil Fraga MD ALBUMIN/CREATININE RATIO, RANDOM URINE [...] diagnostic category. Performed By: #### 6 517, 87619 #### [facility] [place] [address] Database Report Writer: Wil Fraga MD Creatinine (U) [Mass/Vol] 38 mg/dL Normal 20-275 [facility] Comment on above: Performed By: #### 6 , 58738 #### [facility] [address], [address] [place] [address] Database Report Writer: Wil Fraga MD [facility] 06-12-2024 Albumin [Mass/Vol] 4.4 g/dL Normal 3.6-5.1 [facility] Comment on above: Performed By: #### 6 517, 59810 #### [facility] of [place] [address] Database Report Writer: Wil Fraga MD Albumin/Globulin [Mass ratio] 1.7 {ratio} Normal 1.0-2.5 [facility] Comment on above: Performed By: #### 6 517, 06238 #### [facility] [place] [address] Database Report Writer: Wil Fraga MD ALP [Catalytic activity/Vol] 77 U/L Normal 37-153 [facility] Comment on above: Performed By: #### 6 517, 55729 #### [facility] [address], [address] [place] [address] Database Report Writer: Wil Fraga MD ALT [Catalytic activity/Vol] 6 U/L Normal 6-29 [facility] Comment on above: Performed By: #### 6 517, 77411 #### [facility] [place] [address] Database Report Writer: Wil Fraga MD AST [Catalytic activity/Vol] 16 U/L Normal 10-35 [facility] Comment on above: Performed By: #### 6 517, 17791 #### [facility] [place] [address] Database Report Writer: Wil Fraga MD Bilirubin [Mass/Vol] 0.4 mg/dL Normal 0.2-1.2 [facility] Comment on above: Performed By: #### 6 517, 41541 #### [facility] [place] [address] Database Report Writer: Wil Fraga MD Calcium [Mass/Vol] 9.6 mg/dL Normal 8.6-10.4 [facility] Comment on above: Performed By: #### 6 517, 27317 #### [facility] [place] [address] Database Report Writer: Wil Fraga MD Chloride [Moles/Vol] 103 mmol/L Normal 98-110 [facility] Comment on above: Performed By: #### 6 517, 27902 #### [facility] [place] [address] Database Report Writer: Wil Fraga MD CO2 [Moles/Vol] 26 mmol/L Normal 20-32 [facility] Comment on above: Performed By: #### 6 517, 52957 #### [facility] [place] [address] Database Report Writer: Wil Fraga MD Creatinine [Mass/Vol] 1.44 mg/dL High 0.60-1.00 [facility] Comment on above: Performed By: #### 6 517, 45755 #### [facility] [place] [address] Database Report Writer: Wil Fraga MD GFR/1.73 sq M.predicted among non-blacks MDRD (S/P/Bld) [Vol rate/Area] 38 mL/min/{1.73_m2} Low > OR = 60 [facility] Comment on above: Performed By: #### 6 517, 44593 #### [facility] [address], [address] [place] [address] Database Report Writer: Wil Fraga MD Globulin (S) [Mass/Vol] 2.6 g/dL Normal 1.9-3.7 [facility] Comment on above: Performed By: #### 6 517, 25274 #### [facility] [place] [address] Database Report Writer: Wil Fraga MD Glucose [Mass/Vol] 108 mg/dL High 65-99 [facility] Comment on above: Result Comment: Fasting reference interval For someone without known diabetes, a glucose value between 100 and 125 mg/dL is consistent with prediabetes and should be confirmed with a follow-up test. Performed By: #### 6 517, 66100 #### [facility] [address], [address] [place] [address] Database Report Writer: Wil Fraga MD Potassium [Moles/Vol] 4.5 mmol/L Normal 3.5-5.3 [facility] Comment on above: Performed By: #### 6 517, 79845 #### [facility] [place] [address] Database Report Writer: Wil Fraga MD Protein [Mass/Vol] 7.0 g/dL Normal 6.1-8.1 [facility] Comment on above: Performed By: #### 6 517, 07918 #### [facility] [place] [address] Database Report Writer: Wil Fraga MD Sodium [Moles/Vol] 138 mmol/L Normal 135-146 [facility] Comment on above: Performed By: #### 6 517, 86189 #### [facility] [place] [address] Database Report Writer: Wil Fraga MD Urea nitrogen [Mass/Vol] 28 mg/dL High 7-25 [facility] Comment on above: Performed By: #### 6 517, 74518 #### [facility] [address] [facility], [address] [place] [address] Database Report Writer: Wil Fraga MD Urea nitrogen/Creatinine [Mass ratio] 19 mg/mg Normal 6-22 [facility] Comment on above: Performed By: #### 6 517, 39170 #### [facility] [address] [place] [address], [address] [place] [address] Database Report Writer: Wil Fraga MD Laboratory - Hematology and Cell countson 06-11-2024 HbA1c (Bld) [Mass fraction] 6 % [facility] No Panel Informationon 06-11 Interpretation and review of laboratory results Normal [facility] ALL BASIC METABOLIC PANELon 06-06-2024 Anion gap [Moles/Vol] 12.8 mmol/L [facility] Calcium [Mass/Vol] 9.3 mg/dL 8.5 - 10. 1 mg/dL [facility] Chloride [Moles/Vol] 103 mmol/L 98 - 10 7 mmol/L [facility] CO2 [Moles/Vol] 28.8 mmol/L 21.0 - 32.0 mmol/L [facility] Creatinine [Mass/Vol] 1.77 mg/dL High 0.55 - 1.02 mg/dL [facility] GFR/1.73 sq M.predicted CKD-EPI (S/P/Bld) [Vol rate/Area] 34 Low >=60 mL/min/1.73m 2 [facility] Glucose [Mass/Vol] 126 mg/dL High 74 - 106 mg/dL [facility] Interpretation and review of laboratory results Abnormal [facility] Potassium [Moles/Vol] 4.6 mmol/L 3.5 - 5.1 mmol/L [facility] Sodium [Moles/Vol] 140 mmol/L 136 - 145 mmol/L [facility] TBH EGFR-NON AF CYPRIOT 28 Low >=60 mL/min/1.73m 2 [facility] Urea nitrogen [Mass/Vol] 26 mg/dL High 7.0 - 18.0 mg/dL [facility] Urea nitrogen/Creatinine [Mass ratio] 14.7 mg/mg [facility] Orders Onlyon 06-06-2024 Orders Only [id number] Frances Macdonald 1950 Provider Department Center 06/06/2024 [id number] PASCUAL HUI [facility] Family History Problem Relation Age of Onset Heart failure Father Family Status - Relation Status Age at Father Normal [facility] Office Visiton 05-30-2024 Follow-up visit [id number] Frances Macdonald 1950 Provider Department Center 05/30/2024 3848-AWILDA MONREAL HUI [facility] Family History Problem Relation Age of Onset Heart failure Father Family Status - Relation Status Age at Father Level of Service:12973 [place] OFFICE/OUTPATIENT ESTABLISHED MOD MDM 30 MIN [facility] 36on 05-12-2024 36 From: Lucy Larson NP Sent: 05/12/2024 10:43 AM EDT To: Marisela Arellano MA Subject: RE: Scan Well there is still a pericardial effusion- no worse than before, maybe slightly better on the anterior side. Hopefully she is still feeling well. Patient was informed about this message. [facility] Telephoneon 05-12-2024 Telephone [id number] Frnaces Macdonald 1950 Provider Department Center 05/12/2024 [id number]-SHLWGEID, TANA HUI [facility] Family History Problem Relation Age of Onset Heart failure Father Family Status - Relation Status Age at Father Normal [facility] MG MAMM SCREEN 3D RONY CADon 01-02-2023 MG MAMM SCREEN 3D RONY CAD Patient: FRANCES MACDONALD Exam Date: 01/02/2023 : 1950 Gender:F Ordering : DR ISRRAEL BROWN M.D. Admission #: [id number] Family : Order #: [id number] CLICK HERE TO VIEW EXAM RADIOLOGY REPORT [...] cancer cancer at age 61. LOCATION: [facility] BREAST COMPOSITION: Scattered areas fibroglandular density. [...] Dominique MD on 01/02/2023 at 11:05 Normal [facility] XR DEXA BONE DENSITYon 01-02 XR DEXA BONE DENSITY EXAMINATION: XR DEX A BONE DENSITY, 01/02/2023 9:29 AM EDT HISTORY: [...] by: GREGORIO DOMINIQUE Date: 2023-01-02 12:02 Normal [facility] LIPID PROFILEon 08-01-2022 CHOL-HDL RATIO NORM SEE BELOW Normal [facility] Comment on above: Result Comment: 3.3 - 4.4 LOW RISK 4.4 - 7.1 AVERAGE RISK 7.1 - 11.0 MODERATE RISK >11.0 HIGH RISK Performed By: #### L IPID, BMP #### [facility] [address] [address] [address] Elias Le Cholesterol [Mass/Vol] 175 mg/dL Normal <=200 [facility] Comment on above: Performed By: #### L IPID, BMP #### [facility] [address] [address] [address] Elias Le Cholesterol in HDL [Mass/Vol] 52 mg/dL Normal 40-60 [facility] Comment on above: Performed By: #### L IPID, BMP #### [facility] [address] [address] [address] Elias Le Cholesterol in LDL [Mass/Vol] 101.0 mg/dL Normal [facility] Comment on above: Performed By: #### L IPID, BMP #### [facility] [address] [address] [address] Elias Le Cholesterol.total/Ch olesterol in HDL [Mass ratio] 3.4 {ratio} Normal [facility] Comment on above: Performed By: #### L IPID, BMP #### [facility] [address] [address] [address] Elias Le HDL NORMAL > or = 60 mg/dl - LO W CARDIOVASCULAR RISK <40 mg/dl - HIGH CARDIOVASCULAR RISK Normal [facility] Comment on above: Performed By: #### L IPID, BMP #### [facility] [address] [place] [address] Dr. Elias Le LDL CALC NORMAL SEE BELOW Normal [facility] Comment on above: Result Comment: <100 mg/dl OPTIMAL 100 - 129 mg/dl NEAR OR ABOVE OPTIMAL 130 - 159 mg/dl BORDERLINE HIGH 160 - 189 mg/dl HIGH >190 mg/dl VERY HIGH Performed By: #### L IPID, BMP #### [facility] [address] [place] [address] Dr. Elias Le Triglyceride [Mass/Vol] 110 mg/dL Normal <=150 [facility] Comment on above: Performed By: #### L IPID, BMP #### [facility] [address] [place] [address] Dr. Elias Le VLDL CALC 22.0 mg/dL Normal [facility] Comment on above: Performed By: #### L IPID, BMP #### [facility] [address] [place] [address] Dr. Elias Le PROF CHEM 8 (BAS METB)on Anion gap [Moles/Vol] 10.1 mmol/L Normal [facility] Comment on above: Performed By: #### L IPID, BMP #### [facility] [address] [place] [address] Dr. Elias Le Calcium [Mass/Vol] 8.8 mg/dL Normal 8.5-10.1 [facility] Comment on above: Performed By: #### L IPID, BMP #### [facility] [address] [address] [address] Elias Le Chloride [Moles/Vol] 102 mmol/L Normal 98-107 [facility] Comment on above: Performed By: #### L IPID, BMP #### [facility] [address] [place] [address] Dr. Elias Le CO2 [Moles/Vol] 29.0 mmol/L Normal 21.0-32.0 [facility] Comment on above: Performed By: #### L IPID, BMP #### [facility] [address] [place] [address] Dr. Elias Le Creatinine [Mass/Vol] 0.99 mg/dL Normal 0.55-1.02 [facility] Comment on above: Performed By: #### L IPID, BMP #### [facility] [address] [place] [address] Dr. Elias Le EGFR-AF CYPRIOT >60 Normal >=60 [facility] Comment on above: Performed By: #### L IPID, BMP #### [facility] [address] [place] [address] Dr. Elias Le EGFR-NON AF CYPRIOT 55 mL/min/1.73m2 Critically low >=60 [facility] Comment on above: Performed By: #### L IPID, BMP #### [facility] [address] [place] [address] Dr. Elias Le Glucose [Mass/Vol] 117 mg/dL Critically high 74-106 [facility] Comment on above: Performed By: #### L IPID, BMP #### [facility] [address] [address] [address] Elias Le Potassium [Moles/Vol] 4.1 mmol/L Normal 3.5-5.1 [facility] Comment on above: Performed By: #### L IPID, BMP #### [facility] [address] [address] [address] Elias Le Sodium [Moles/Vol] 137 mmol/L Normal 136-145 [facility] Comment on above: Performed By: #### L IPID, BMP #### [facility] [address] [address] [address] Elias eL Urea nitrogen [Mass/Vol] 25.0 mg/dL Critically high 7.0-18.0 [facility] Comment on above: Performed By: #### L IPID, BMP #### [facility] [address] [address] [address] Elias Le Urea nitrogen/Creatinine [Mass ratio] 25.3 mg/mg Normal [facility] Comment on above: Performed By: #### L IPID, BMP #### [facility] [address] [address] [address] Elias Le Vital Signs Date Time Vital Sign Value Performing Clinician Facility 12-05-2024 11: Body height 165.1 cm [facility] 12-05-2024 11:29040 Body mass index (BMI) [Ratio] 37.8 kg/m2 [facility] 12-05-2024 11:29040 Body temperature 97.4 [degF] [facility] 12-05-2024 11:29040 Body weight 103.13 kg [facility] 12-05-2024 11:29040 Diastolic blood pressure 84 mm[Hg] [facility] 12-05-2024 11:29040 Heart rate 55 /min [facility] 12-05-2024 11:29040 Respiratory rate 18 /min [facility] 12-05-2024 11:29040 SaO2% (BldA) [Mass fraction] 96 % [facility] 12-05-2024 11:29-0400 Systolic blood pressure 180 mm[Hg] [facility] 06-11-2024 10:41-0500 Body height 165.1 cm Aaron Davis APARTMENT LOCATOR Work Phone: [facility] 06-11-2024 10:41-0500 Body mass index (BMI) [Ratio] 40.27 kg/m2 Aaron Davis APARTMENT LOCATOR Work Phone: [facility] 06-11-2024 10:41-0500 Body weight 109.77 kg Aaron Davis APARTMENT LOCATOR Work Phone: [facility] 06-11-2024 10:41-0500 Diastolic blood pressure 88 mm[Hg] Aaron Davis APARTMENT LOCATOR Work Phone: [facility] 06-11-2024 10:41-0500 Heart rate 58 /min Aaron Davis APARTMENT LOCATOR Work Phone: [facility] 06-11-2024 10:41-0500 SaO2% (BldA) [Mass fraction] 97 % Aaron Davis APARTMENT LOCATOR Work Phone: [facility] 06-11-2024 10:41-0500 Systolic blood pressure 138 mm[Hg] Aaron Davis APARTMENT LOCATOR Work Phone: [facility] Encounters Encounter Date Encounter Type Care Provider Facility Start: 12-05-2024 End: 12-05-2024 ambulatory [facility] Work Phone: Start: 12-05-2024 End: 12-05-2024 Patient encounter procedure [facility] [place] Work Phone: Start: 11-25-2024 End: 11-25-2024 Clinisync Result Encounter Generic External Data Provider [facility] Unsolicited Start: 11-25-2024 End: 11-25-2024 Clinisync Result Encounter Generic External Data Provider [facility] Unsolicited Start: 11-24-2024 End: 11-24-2024 ambulatory [facility] Start: 11-11-2024 End: 11-11-2024 Clinisync Result Encounter Generic External Data Provider [facility] Unsolicited Start: 11-11-2024 End: 11-11-2024 Clinisync Result Encounter Generic External Data Provider [facility] Unsolicited Start: 10-14-2024 End: 10-14-2024 Clinisync Result Encounter Generic External Data Provider [facility] Unsolicited Start: 10-14-2024 End: 10-14-2024 Clinisync Result Encounter Generic External Data Provider [facility] Unsolicited Start: 06-11-2024 End: 06-11-2024 Bamboo flowsheet Aaron Davis APARTMENT LOCATOR Work Phone: [facility] Start: 06-11-2024 End: 06-11-2024 Bamboo flowsheet Aaron Davis APARTMENT LOCATOR Work Phone: [facility] Start: 06-11-2024 End: 06-11-2024 Assay of hemosiderin, quant Aaron Davis APARTMENT LOCATOR Work Phone: [facility] Start: 06-11-2024 End: 06-11-2024 Patient encounter procedure Aaron Davis APARTMENT LOCATOR Work Phone: [facility] Comment on [...] Start: 05-30-2024 End: 05-30-2024 ambulatory AWILDA MONREAL [facility] Start: 01-01-2024 End: 01-01-2024 ambulatory ANA ECHAVARRIA Not Available Start: 01-02-2023 End: 01-03-[address] ISRRAEL BROWN Facility:[facility] Start: 08-01-2022 End: 08-02-[address] ISRRAEL BROWN Facility:[facility] Procedures Date Procedure Procedure Detail Performing Clinician Start: 11-25-2024 MLR HEMOGLOBIN A1C Gene mariam External Data Provider Start: 11-11-2024 CA ECHO DOPPLER COMPLETE Generic External Data Provider Start: 10-14-2024 CARD ECHO LIMITED STUDY Generic External Data Provider Start: 06-11-2024 Hemoglobin glycosyla mikey a1c Aaron Davis APARTMENT LOCATOR Work Phone: Start: 06-06-2024 ALL BASIC METABOLIC PANEL Generic External Data Provider Start: 01-14-2024 Mammography Generic Pr ovider Start: 01-10-2021 Colonoscopy Generic Pr ovider Plan of Treatment Date Care Activity Detail Author Start: 01-10-2031 Screening for malign ant neoplasm of colon [facility] Start: 06-11-2025 Urine screening for protein Diabetes: Urine Protein Screening [facility] Start: 04-06-2025 Influenza vaccination Influenz a Vaccine (Season Ended) [facility] Start: 01-20-2025 End: 01-20-2025 Patient encounter procedure 01/20/2025 2:15 PM EDT Office Visit [facility] [address] [address] [place] [address] Ana Echavarria, [address] [place] [address] [facility] Start: 01-13-2025 Screening for malign ant neoplasm of breast Mammogram [facility] Start: 12-30-2024 End: 12-30-2024 Patient encounter procedure 12/30/2024 10:45 AM EDT Office Visit [facility] [address] [place] [id number] Ana Echavarria, [address] [place] [address] [facility] Start: 09-11-2024 Hemoglobin A1c measurement Diabetes: Hemoglobin A1C [facility] Start: 06-11-2024 End: 06-11-2025 Comprehensive metabolic 2000 panel - Serum or Plasma Comprehensive metabolic panel Lab Routine Diastolic dysfunction Diastolic dysfunction, left ventricle Secondary hypertension (CMS/HCC) Mitral valve insufficiency, unspecified etiology Tricuspid valve insufficiency, unspecified etiology Expected: 06/11/2024 (Approximate), Expires: 06/11/2025 [facility] Comment on above: Expected: 06/11/2024 (Approximate), Expires: 06/11/2025 Start: 06-11-2024 End: 06-11-2025 Microalbumin/Creatinine panel in random Urine Microalbumin / creatinine, urine ratio Lab Routine Type 2 diabetes mellitus without complication, without long-term current use of insulin (CMS/HCC) Expected: 06/11/2024 (Approximate), Expires: 06/11/2025 [facility] Work Phone: Comment on above: Expected: 06/11/2024 (Approximate), Expires: 06/11/2025 Start: 06-11-2024 End: 06-11-2024 Patient encounter procedure [facility] Comment on above: Arrived Start: 04-06-2024 Influenza vaccination Influenza Vacc ine (#1) [facility] Start: 08-01-2023 Urine screening for protein Diabetes: Urine Protein Screening [facility] Start: 06-30-2022 Screening for malign ant neoplasm of colon FIT-DNA [facility] Start: 1961 Glaucoma screening Diabetes: R etinopathy Screening [facility] Start: 1950 Screening for malign ant neoplasm of colon [facility] Immunizations Immunization Date Immunization Notes Care Provider Nereyda graff 11-17-2020 pneumococcal polysac charide vaccine, 23 valent Generic Provider [facility] 06-13-2017 influenza, high dose seasonal, preservative-free Generic Provider [facility] 06-13-2017 influenza virus vacc ine, unspecified formulation Generic Provider [facility] 08-30-2016 pneumococcal conjuga te vaccine, 13 valent Generic Provider [facility] 05-30-2010 seasonal influenza, intradermal, preservative free Generic Provider [facility] Payers Date Payer Category Payer Private Health Insurance BHUMI Wright ember [id number] 2016 Medicare MEDICARE [id number] 1959 Medicare [id number] 1959 Private Health Insurance [id number] 1950 Unknown [id number] 1950 Unknown [id number] 1950 Unknown [id number] 1950 Unknown [id number] Unknown [id number] Social History Date Type Detail Facility Start: 04-02-2023 End: 12-05-2024 Tobacco smoking status NHIS Never smoked tobacco [facility] Start: 04-02-2023 Tobacco use and exposure Smokeless tobacco non-user [facility] Start: 01-01-2024 End: 06-11-2024 Alcoholic beverage intake Current drinker of alcohol (finding) [facility] Start: 01-01-2024 End: 06-11-2024 Alcoholic beverage intake [facility] Start: 01-01-2024 End: 06-11-2024 Tobacco use panel [facility] Start: 12-28-2022 Alcohol Comment 1-2 drinks per occassion [facility] Start: 1950 Sex assigned at Not on file N [facility] Start: 12-05-2024 Sex Female (finding) [facility] Start: 1950 Sex Assigned At Female F [facility] Progress note 11-24-2024 Note Date & Type Note Facility 11-24-2024 Note [facility] Subjective Frances Macdonald is a 74 y.o. year old female patient being seen for follow-up on atrial fibrillation, heart failure with preserved ejection fraction, hypertension, hyperlipidemia and chronic kidney disease Patient Active Problem List Diagnosis Abnormal serum thyroid stimulating hormone (TSH) level Cardiomegaly Congenital anomaly of ovary Diastolic dysfunction Displacement of lumbar intervertebral disc without myelopathy Edema of lower extremity Hypertensive disorder Hypothyroidism Mild intermittent asthma Mitral valve disorder Mixed hyperlipidemia Obstructive sleep apnea syndrome Paroxysmal atrial fibrillation (CMS/HCC) Diastolic dysfunction, left ventricle Type 2 diabetes mellitus without complication, without long-term current use of insulin (CMS/HCC) Pericardial effusion HPI Patient used to follow-up with who left the practice. She has past cardiac history of paroxysmal A-fib, heart failure with preserved ejection fraction, hypertension, hyperlipidemia, chronic kidney disease She is here today for follow-up visit with her . Her blood pressure is significantly elevated today. She does not have any symptoms. She states that she has not been checking her blood pressure. She reports that she ate ham and other salty foods yesterday for the Easter. She reports that she had legs edema yesterday and today. Otherwise she denies any chest comfort or shortness of breath at rest or with exertion. Denies orthopnea or paroxysmal nocturnal dyspnea or dizziness or palpitations. She denies any headache or vision problem. ROS All systems were reviewed and they were negative except for the positive findings noted above in the history Past Medical History: Diagnosis Date Abnormal ECG Arrhythmia Asthma Atrial fibrillation (CMS/HCC) CHF (congestive heart failure) (CMS/HCC) Diastolic dysfunction Heart valve disease Hyperlipidemia Hypertension Hypothyroidism Sleep apnea Past Surgical History: Procedure Laterality Date CATARACT EXTRACTION TUBAL LIGATION TUBAL LIGATION Family History Problem Relation Name Age of Onset Heart failure Father Social History Tobacco Use Smoking status: Never Smokeless tobacco: Never Substance Use Topics Alcohol use: Yes Comment: occasional Allergies No Known Allergies Medications Current Outpatient Medications: albuterol 90 mcg/actuation inhaler, albuterol sulfate HFA 90 mcg/actuation aerosol inhaler INHALE 2 PUFFS BY MOUTH EVERY 4 HOURS NEEDED FOR WHEEZING WITH SPACER, Disp: , Rfl: amLODIPine (Norvasc) 10 mg tablet, Take 1 tablet by mouth in the morning., Disp: , Rfl: apixaban (Eliquis) 5 mg tablet, Take 5 mg by mouth in the morning and at bedtime., Disp: , Rfl: fluticasone propion-salmeteroL (Advair Diskus) 250-50 mcg/dose diskus inhaler, Advair Diskus 250 mcg-50 mcg/dose powder for inhalation, Disp: , Rfl: furosemide (Lasix) 20 mg tablet, Take 20 mg by mouth 3 (three) times a week., Disp: , Rfl: levothyroxine (Synthroid, Levoxyl) 25 mcg tablet, levothyroxine 25 mcg tablet, Disp: , Rfl: losartan (Cozaar) 50 mg tablet, TAKE 1 TABLET EVERY MORNING, Disp: 90 tablet, Rfl: 3 metFORMIN (Glucophage) 500 mg tablet, Take 500 mg by mouth with breakfast and with evening meal., Disp: , Rfl: metoprolol succinate XL (Toprol-XL) 50 mg 24 hr tablet, Take 50 mg by mouth in the morning., Disp: , Rfl: montelukast (Singulair) 10 mg tablet, montelukast 10 mg tablet, Disp: , Rfl: simvastatin (Zocor) 20 mg tablet, Take 20 mg by mouth at bedtime., Disp: , Rfl: spironolactone (Aldactone) 25 mg tablet, Take 1 tablet (25 mg) by mouth in the morning., Disp: 90 tablet, Rfl: 3 colchicine 0.6 mg capsule, Take 1 capsule by mouth Twice daily at 6am and 6pm., Disp: , Rfl: losartan (Cozaar) 100 mg tablet, Take 1 tablet (100 mg) by mouth in the morning. (Patient not taking: Reported on 11/24/2024), Disp: 30 tablet, Rfl: 11 Objective Visit Vitals BP (!) 184/87 (BP Location: Right arm, Patient Position: Sitting) Pulse 50 Ht 1.651 m (5' 5 ) Wt 105 kg (231 lb) SpO2 95% BMI 38.44 kg/m??? Smoking Status Never BSA 2.19 m??? Repeat BP at the end of the visit 176/84 Physical exam: GENERAL: alert and oriented x3, well developed, in no acute distress. HEAD: atraumatic, normocephalic. EYES: ALICJA, EOMI. NECK: trachea midline, no JVD present, no carotid bruits present. CARDIAC: S1, S2 present. RRR. No murmur, rubs, or gallops. RESPIRATORY: CTAB, no increased effort of breathing, no rales, rhonchi, or wheezing. ABDOMEN: soft, nontender, nondistended. EXTREMITIES: +1 to +2 edema bilaterally. No rash/skin discoloration present. NEURO: strength/sensation equal and symmetric in bilateral upper and lower extremities. PSYCH: appropriate mood, affect, and judgement. Recent Labs 06/06/2024 Sodium 140, potassium 4.5, BUN 26, creatinine 1.8 (more content not included)... [facility] History of Present illness Narrative 06-11-2024 Aaron Davis NP - 06/11/2024 10:30 AM EST Note Date [...] Do you have a medical power of divorce attorney?: Yes Objective : BP 138/88 Pulse [...] Morbid (severe) obesity due to excess calories (CMS/[facility]) Discussed goal of BMI < 30. [...] 17. Body mass index (BMI) 40.0-44.9, adult (CMS/[facility]) Discussed goal of BMI < 30. [...] June 11, 2024 documented in this encounter [facility] Progress note 05-30-2024 Note Date & Type [...] if needed Awilda Monreal MD Interventional Cardiology [facility] Evaluation note Note Date & Type Note Facility Evaluation note Diagnosis Obstructive sleep apnea syndrome- Primary Obstructive sleep apnea (adult) (pediatric) Mild intermittent asthma without complication ([facility]/HCC) Diastolic dysfunction Unspecified heart disease Diastolic dysfunction, left ventricle Enlarged atria Secondary hypertension ([facility]/HCC) Other secondary hypertension, unspecified Mitral valve insufficiency, unspecified etiology Paroxysmal atrial fibrillation ([facility]/HCC) Atrial fibrillation Tricuspid valve insufficiency, unspecified etiology Displacement of lumbar intervertebral disc without myelopathy Hypothyroidism, unspecified type ([facility]) Type 2 diabetes mellitus without complication, without long-term current use of insulin ([facility]) Abnormal TSH Estrogen deficiency Other ovarian failure Mixed hyperlipidemia ([facility]) Mixed hyperlipidemia Morbid (severe) obesity due to excess calories ([facility]) Body mass index (BMI) 40.0-44.9, adult ([facility]) Routine general medical examination at health care facility Routine general medical examination at a health care facility documented in this encounter [facility] Evaluation note Note Date & Type Note Facility Evaluation note No assessment information availa [facility] Work Phone: Summary Purpose Family History No Family History Records FoundNo Family History Records FoundNo Family History Records FoundNo Family History Records Found Advance Directives No Advanced Directives Records Found Advance Directive Response Recorded Date/ Time Advance Directives No December 05, 2024 11:07am Chief Complaint and Reason for Visit Chief Complaint Admit Date congestion cough, green phlegm December 05, 2024 11:12am Additional Source Comments INFORMATION SOURCE (unrecogn ized section and content) DATE CREATED AUTHOR 01/12/2023 [facility] DATE CREATED AUTHOR AUTHOR'S ORGANIZ ATION 06/13/2024 [facility] EPIC DATE CREATED AUTHOR AUTHOR'S ORGANIZ ATION 06/14/2024 [facility] DATE CREATED AUTHOR AUTHOR'S ORGANIZ ATION 12/17/2024 [facility] Care Teams (unrecognized sec tion and content) Piggyback Clerk Relationship Specialty Start Date End Date Isrrael Brown MD [address] [place] [address] PCP - General Internal Medicine 12/12/22 Aaron Davis, APARTMENT LOCATOR [address] [place] [address] PCP - ACO Reach 12/05/23 Piggyback Clerk Relationship Specialty Start Date End Date Isrrael Brown MD [address] [place] [address] PCP - General Internal Medicine 12/12/22 Aaron Davis, APARTMENT LOCATOR [address] [place] [address] PCP - ACO Reach 12/05/23 Piggyback Clerk Relationship Specialty Start Date End Date Isrrael Brown MD [address] [place] [address] PCP - General Internal Medicine 12/12/22 Aaron Davis, APARTMENT LOCATOR [address] [place] [address] PCP - [facility]CO Re[facility] 09/19/24 Piggyback Clerk Relationship Specialty Start Date End Date Isrrael Brown MD [address] [place] [address] PCP - General Internal Medicine 12/12/22 Team Status: Active Member Role Status Dates Isrrael Brown II MD Primary Care Provider Active Team Status: Inactive Member Role Status Dates Brittany Espinosa APRN Attending Provider Active Start: December 05, 2024 End: December 05, 2024 Israrel Brown II MD Primary Care Provider Active Start: December 05, 2024 End: December 05, 2024 Reason for Visit (unrecogniz ed section and content) Reason Comments Medicare Annual Wellness Visit Subsequen t Losartan was changed to 25mg due to recent labs pt was on 50mgPt Bp today is 184/90 pt has had a cough for couple of weeks Goals (unrecognized section and content) Goals may be documented in a n alternate section FOR RECORDS PERTAINING TO PATIENTS WHO ARE [...] BE BASED ON THE PRIMARY CLINICAL RECORDS. [employer] provides no warranty or guarantee of the accuracy or completeness of information in this document.
== END 2025-01-22 11:05 | disposition home or self-care (01) ==
LOC: MAMMO 11:05
PROVIDERS: PCP Internal Medicine; Visit Provider Internal Medicine
DX: Z12.31 Encounter for screening mammogram for malignant neoplasm of breast (principal); Z80.3 Family history of malignant neoplasm of breast; Z80.8 Family history of malignant neoplasm of other organs or systems; R92.8 Other abnormal and inconclusive findings on diagnostic imaging of breast
CPT/HCPCS: 77063; 77067

== ENCOUNTER 2025-03-11 07:59 | Outpatient (OUT) | payer MEDICARE, OTHER, SELFPAY ==
--- OUTSIDE RECORDS SUMMARY | 2025-03-11 08:04 | XMS_ITS | Encounter Summary ---
Author Organization [facility] Address [address] [facility] [place] [address] Care Team Providers Care Dosimetrist Name Role Phone Isrrael Brown MD Primary Care Provider [phone] Shanika Davis HOUSE FELLOW Unavailable [phone] Shanika Davis HOUSE FELLOW Unavailable [phone] Reason for Visit * Reason Comments Med Refill Encounter Details Date Type Department Care Team (Late st Contact Info) Description 05/22/2024 [facility] [address] [facility] 110 [place] [address] Isrrael Brown MD [address] [place] [facility] 110 [place], [place] [id number] Paroxysmal atrial fibrillation (HCC); Abnormal TSH Social [...] TSH documented in this encounter Care Teams Dosimetrist Relationship Specialty Start Date End Date Isrrael Brown MD [address] [address] PCP - General Internal Medicine 12/12/22 Shanika Davis NP [address] [address] PCP - ACO Reach 12/05/23 09/11/24 Shanika Davis NP [address] [address] PCP - ACO Reach 09/19/24 11/06/24 documented as of this encounter
--- OUTSIDE RECORDS SUMMARY | 2025-03-11 08:04 | XMS_ITS | Encounter Summary ---
Author Organization [facility] Address [address] [facility] [place] [address] Care Team Providers Care Drywall Mechanic Name Role Phone Shanika Davis SENIOR INSIGHT MANAGER Unavailable [phone] Isrrael Brown MD Primary Care Provider Shanika Davis SENIOR INSIGHT MANAGER Unavailable Shanika Davis SENIOR INSIGHT MANAGER Unavailable [phone] Encounter Details Date Type Department Care Team (Late st Contact Info) Description 01/02/2023 Clinisync Result Encounter [facility] External Department Unsolicited Isrrael Brown MD [address] [place] [address] Social History Tobacco Use Types [...] : DR ISRRAEL BROWN M.D. Admission #: [id number] Family : Order #: [id number] CLICK HERE TO VIEW EXAM RADIOLOGY REPORT [...] cancer cancer at age 61. LOCATION: [facility] BREAST COMPOSITION: Scattered areas fibroglandular density. FINDINGS: [...] 01/02/2023 at 11:05 Procedure Note Radiology, Radiologist, MD - 01/02/2023 Patient: FRANCES MACDONALD. Exam Date: 01/02/2023 : 1950 Gender:F Ordering : DR ISRRAEL BROWN M.D. Admission #: [id number] Family : Order #: [id number] CLICK HERE TO VIEW EXAM RADIOLOGY REPORT [...] cancer cancer at age 61. LOCATION: [facility] BREAST COMPOSITION: Scattered areas fibroglandular density. FINDINGS: [...] MD on 01/02/2023 at 11:04 Approved by: aRul Bernard MD on 01/02/2023 at 11:05 Isrrael Brown MD [facility] Final Result documented in this encounter Visit Diagnoses Not on filedocumented in this encounter Care Teams Drywall Mechanic Relationship Specialty Start Date End Date Shanika Davis NP [address] [facility] 110 [place] [address] PCP - ACO Reach 12/28/22 10/04/23 Isrrael Brown MD [address] [facility] 110 [place] [address] PCP - General Internal Medicine 12/12/22 Shanika Davis NP [address] [facility] 110 [place] [address] PCP - ACO Reach 12/05/23 09/11/24 Shanika Davis NP [address] [facility] 110 [place] [address] PCP - ACO Reach 09/19/24 11/06/24 documented as of this encounter
--- OUTSIDE RECORDS SUMMARY | 2025-03-11 08:04 | XMS_ITS | Encounter Summary ---
Author Organization [facility] Address [address] [facility] [place] [address] Care Team Providers Care Associate Professor Of Geography Name Role Phone Isrrael Brown MD Primary Care Provider [phone] Encounter Details Date Type Department Care Team (Late st Contact Info) Description 12/08/2024 Abstract [facility] [address] [place] [id number] Isrrael Brown MD [address] [place], [place] [address] Social History Tobacco Use Types Packs/Day Years [...] on filedocumented in this encounter Care Teams Associate Professor Of Geography Relationship Specialty Start Date End Date Isrrael Brown MD [address] [place], [place] [address] PCP - General Internal Medicine 12/12/22 documented as of this encounter
--- OUTSIDE RECORDS SUMMARY | 2025-03-11 08:04 | XMS_ITS | Encounter Summary ---
Author Organization [facility] Address [address] [facility] [place] [address] Care Team Providers Care Superintendent Transmission Name Role Phone Isrrael Brown MD Primary Care Provider [phone] Shanika Davis CONSTRUCTION PROJECT ENGINEER Unavailable [phone] Shanika Davis CONSTRUCTION PROJECT ENGINEER Unavailable Encounter Details Date Type Department Care Team (Late st Contact Info) Description 01/14/2024 Clinisync Result Encounter [facility]S External Department Unsolicited Isrrael Brown MD [address] [facility] 110 [place] [address] Social History Tobacco Use Types [...] EDT Narrative 01/14/2024 1:35 PM EDT The [address] [address] Mammography Report Signed Patient: FRANCES MACDONALD MR#: [id number] : 1950 Acct:[id number] Age/Sex: 73 / F ADM Date: 01/14/24 Loc: MAMMO Attending Dr: ISRRAEL BROWN Ordering Physician: ISRRAEL BROWN Results: Date of Service: 01/14/24 Follow Up: Procedure(s): MM tomosynthesis screening BI Accession Number(s): [id number] cc: ISRRAEL BROWN Patient Name: FRANCES MACDONALD MR#: [id number] : 1950 Exam Date: 01/14/2024 Ordering Doctor: [...] cancer cancer at age 61. LOCATION: [facility] BREAST COMPOSITION: There are scattered areas [...] Signed By: 01/14/24 1335 DD/ 1334 TD/TT: Spray Dyer: Procedure Note Radiology, Radiologist, - 01/14/[address] [place] [address] Mammography Report Signed Patient: FRANCES MACDONALD MMR#: [id number] : 1950cct:[id number] Age/Sex: 73 / FADM Date: 01/14/24 Loc: MAMMO Attending Dr: ISRRAEL BROWN Ordering Physician: ISRRAEL BROWNResults: Date of Service: 01/14/24Follow Up: Procedure(s): MM tomosynthesis screening BI Accession Number(s): [id number] cc: MARIANOISRRAEL Patient Name: FRANCES MACDONALD MR#: [id number] : 1950 Exam Date: 01/14/2024 Ordering Doctor: [...] cancer cancer at age 61. LOCATION: [facility] BREAST COMPOSITION: There are scattered areas [...] M.D. Signed By:01/14/24 1335 DD/ 33 TD/TT: Spray Dyer: Isrrael Brown MD [facility] Final Result documented in this encounter Visit Diagnoses Not on filedocumented in this encounter Care Teams Superintendent Transmission Relationship Specialty Start Date End Date Isrrael Brown MD [address] [facility] 110 [place] [address] PCP - General Internal Medicine 12/12/22 Shanika Davis, CONSTRUCTION PROJECT ENGINEER [address] [facility] 110 [place], [place] [phone] PCP - ACO Reach 12/05/23 09/11/24 Shanika Davis CONSTRUCTION PROJECT ENGINEER [address] [facility] 110 [place], [place] [address] PCP - ACO Reach 09/19/24 11/06/24 documented as of this encounter
--- OUTSIDE RECORDS SUMMARY | 2025-03-11 08:04 | XMS_ITS | Encounter Summary ---
Author Organization [facility] Address [address] [facility] [place] [address] Care Team Providers Care Managed Care Provider Name Role Phone Shanika Davis HAZMAT CDL A DRIVER Unavailable Isrrael Brown MD Primary Care Provider Shanika Davis HAZMAT CDL A DRIVER Unavailable [phone] Shanika Davis HAZMAT CDL A DRIVER Unavailable Encounter Details Date Type Department Care Team (Late st Contact Info) Description 01/02/2023 Clinisync Result Encounter [facility]OMS External Department Unsolicited Isrrael Brown MD [address] [place] [address] Social History Tobacco Use Types [...] on filedocumented in this encounter Care Teams Managed Care Provider Relationship Specialty Start Date End Date Shanika Davis NP [address] [facility] 110 [place] [address] PCP - ACO Reach 12/28/22 10/04/23 Isrrael Brown MD [address] [facility] 110 [place] [address] PCP - General Internal Medicine 12/12/22 Shanika Davis NP [address] [place] [address] [place] [address] PCP - ACO Reach 12/05/23 09/11/24 Shanika Davis HAZMAT CDL A DRIVER [address] [place] [address] [place] [address] PCP - ACO Reach 09/19/24 11/06/24 documented as of this encounter
--- OUTSIDE RECORDS SUMMARY | 2025-03-11 08:04 | XMS_ITS | Clinical Summary ---
Author Organization [facility] Address [address] [place] [address] Care Team Providers Care Business And Financial Counsel Name Role Phone Isrrael Brown MD Primary Care Provider [phone] Allergies No known active allergies Medications albuterol [...] Problem Noted Date Diagnosed Date Pericardial effusion ([facility]) 11/16/2023 Overview (06/11/2024): Last Assessment & [...] Encounters Date Type Department Care Team Description 02/17/2025 Results Follow-Up [facility] [place] [facility] [address] [facility] 110 [place] [address] Jamila Crawford LPN Abnormal mammogram of left breast 02/17/2025 External Result Encounter NOMS External Department Unsolicited Isrrael Brown MD 01/27/2025 Telephone [facility] [place] [facility] [address] [place] [address] [place] [address] Isrrael Brown MD 01/27/2025 Results Follow-Up [facility] [place] [facility] [address] [facility] 110 [place] [address] Jamila Crawford LPN Abnormal mammogram of left breast 01/22/2025 Clinisync Result Encounter [facility] External Department Unsolicited Isrrael Brown MD from Last 3 Months Immunizations Immunization Administration [...] 06/30/2019, 06/30/2019 Diabetes: Hemoglobin A1C 09/11/2024 06/11/2024, 11/04 Influenza Vaccine (#1) 2025 06/13/2017, 2009 Diabetes: Urine Protein Screening 06/11/2025 024 Mammogram 01/22/2026 01/22/2025, 01/04, 01/02/2023, Additional history exists Colonoscopy 01/10/2031 01/10/2021 Colorectal Cancer Screening 01/10/2031 Pneumococcal Vaccine: 65+ Years Completed , 08/30/2016 Procedures Procedure Name Priority Date/Time Associated Diagnosis Comments BI US BREAST LIMITED LEFT 02/17/2025 10:51 AM EDT MM TOMOSYNTHESIS SCREENING BI 01/22/2025 2:10 PM EDT MICROALBUMIN / CREATININE URINE RATIO Routine 06/11/2024 11:27 AM EST Type 2 diabetes mellitus without complication, without long-term current use of insulin (HCC) POCT GLYCATED HEMOGLOBIN, TOTAL Routine 06/11/2024 11:20 AM EST Type 2 diabetes mellitus without complication, without long-term current use of insulin (HCC) COLONOSCOPY DIAGNOSTIC Routine 01/10/2021 LAB COLOGUARD COLON CANCER SCREEN Routine 06/30/2019 from Last 3 Months or Most Recently Relevant to Health Maintenance Results * Left breast US limited (02/17/2025 10:51 AM EDT) Anatomical Region Laterality Modality Breast Left Ultrasound 02/17/2025 10:5 1 AM EDT Impressions 02/17/2025 10:55 AM EDT No residual nodularity with compression. No focal abnormality with targeted left breast ultrasound. Six-month diagnostic right mammogram recommended to further assess. RESULT CODE: 3 Probably Benign Finding Short Term Follow-Up DENSITY CODE: 2 (approximately 25-50% glandular) There are scattered areas of fibroglandular density. FOLLOW UP: 6M THE FALSE-NEGATIVE RATE OF MAMMOGRAPHY IS APPROXIMATELY 10%. IMAGING OF A PALPABLE ABNORMALITY MUST BE BASED ON CLINICAL GROUNDS. PATIENT WAS ENTERED INTO A REMINDER SYSTEM WITH A TARGET DUE DATE FOR THE NEXT MAMMOGRAM. Impression dictated by: Masood Laurent M.D. 02/17/2025 10:53 AM Dictation Location: DWS01 Dictated By: Masood Laurent DO 02/17/25 1051 Signed By: <Electronically signed by Masood Laurent DO in OV> 02/17/25 1053 Narrative 02/17/2025 10:55 AM EDT [facility] [address] [place] [address] Mammography Report Signed Patient: Frances Macdonald MR#: [id number] : 1950 Acct:[id number] Age/Sex: 74 / F Adm Date: 02/17/25 Loc: ME Room: Type: REG CLI Attending Dr: Isrrael Brown II, MD Ordering Provider: Isrrael Brown II, MD Date of Service: 02/17/25 Procedure(s): MM special view LT w/CAD; US breast LT limited Accession Number(s): ([id number]) MM/MM special view LT w/CAD: R92.8 ([id number]) US/US breast LT limited: R92.8 Copies to: Isrrael Brown II, MD LEFT Diagnostic Full Field digital mammogram with 3-D imaging. Spot compression imaging with mediolateral view COMPARISON: 01/22/2025 HISTORY: A developing left breast nodularity BREAST COMPOSITION: Scattered fibroglandular densities of the breast parenchyma identified BREAST CALCIFICATIONS: Benign calcifications present. VASCULAR CALCIFICATIONS: None ARCHITECTURAL DISTORTION: None BREAST NODULE: No residual nodularity with compression imaging. AXILLARY LYMPH NODES: Normal POSTSURGICAL CHANGES: None Targeted left breast ultrasound performed. No focal abnormality identified. MM/MM special view LT w/CAD Procedure Note Radiology, Radiologist, MD - 02/17/2025 [place] [address] Mammography Report Signed Patient: Frances Macdonald MMR#: [id number] : 1950cct:[id number] Age/Sex: 74 / FAdm Date: 02/17/25 Loc: ME Room:Type: [facility] CLI Attending Dr: Isrrael Brown II, MD Ordering Provider: Isrrael Brown II, MD Date of Service: 02/17/25 Procedure(s): MM special view LT w/CAD; US breast LT limited Accession Number(s): ([id number]) MM/MM special view LT w/CAD: R92.8 ([id number]) US/US breast LT limited: R92.8 Copies to: Isrrael Brown II, MD LEFT Diagnostic Full Field digital mammogram with 3-D imaging. Spot compression imaging with mediolateral view COMPARISON: 01/22/2025 HISTORY: A developing left breast nodularity BREAST COMPOSITION: Scattered fibroglandular densities of the breastparenchyma identified BREAST CALCIFICATIONS: Benign calcifications present. VASCULAR CALCIFICATIONS: None ARCHITECTURAL DISTORTION: None BREAST NODULE: No residual nodularity with compression imaging. AXILLARY LYMPH NODES: Normal POSTSURGICAL CHANGES: None Targeted left breast ultrasound performed. No focal abnormalityidentified. MM/MM special view LT w/CAD IMPRESSION: No residual nodularity with compression. No focal abnormality withtargeted left breast ultrasound. Six-month diagnostic right mammogram recommended to furtherassess. RESULT CODE: 3 Probably Benign Finding Short Term Follow-Up DENSITY CODE: 2 (approximately 25-50% glandular) There are scattered areasof fibroglandular density. FOLLOW UP: 6M THE FALSE-NEGATIVE RATE OF MAMMOGRAPHY IS APPROXIMATELY 10%. IMAGING OF A PALPABLE ABNORMALITY MUST BE BASED ON CLINICAL GROUNDS. PATIENT WAS ENTERED INTO A REMINDER SYSTEM WITH A TARGET DUE DATE FOR THENEXT MAMMOGRAM. Impression dictated by: Masood Laurent M.D. 02/17/2025 10:53 AM Dictation Location: [facility] Dictated By: Masood Laurent DO 02/17/25 1051 Signed By: <Electronically signed by Masood Laurent DO in OV> 02/17/25 1053 us Isrrael Brown MD IM US PROCEDURES Final Result * MM TOMOSYNTHESIS SCREENING BI (01/22/2025 2:10 PM EDT) Anatomical Region Laterality Modality Other 01/22/2025 2:10 PM EDT Narrative 01/22/2025 2:11 [place] [address] Mammography Report Signed Patient: FRANCES MACDONALD MR#: [id number] : 1950 Acct:[id number] Age/Sex: 74 / F ADM Date: 01/22/25 Loc: MAMMO Attending Dr: ISRRAEL BROWN Ordering Physician: ISRRAEL BROWN Results: Date of Service: 01/22/25 Follow Up: Procedure(s): MM tomosynthesis screening BI Accession Number(s): [id number] cc: ISRRAEL BROWN Patient Name: FRANCES MACDONALD MR#: [id number] : 1950 Exam Date: 01/22/2025 Ordering Doctor: DR ISRRAEL BROWN M.D. RADIOLOGY REPORT PROCEDURE: MM TOMOSYNTHESIS SCREENING BI COMPARISON: MM TOMOSYNTHESIS SCREENING BI, 01/14/2024. MG MAMM SCREEN 3D RONY CAD, 01/02/2023. MG MAMM SCREEN 3D RONY CAD, 12/30/2021. MG MAMM RONY SCRN W CAD DIG, 07/01/2013. INDICATIONS: screening for malignant neoplasm of breast Calculator Name NCI Breast Cancer Risk Assessment Tool 5 Year Breast Cancer Risk 1.30% Lifetime Breast Cancer Risk 3.10% Personal Breast Cancer No Personal Ovarian Cancer No Treatments None Family Cancers Aunt-maternal with breast cancer at age 50; Grandfather-paternal with oral cancer cancer at age 60. LOCATION: [facility] BREAST COMPOSITION: There are scattered areas of fibroglandular density. FINDINGS: RIGHT BREAST: No significant suspicious finding. LEFT BREAST: 8 mm region of asymmetry identified in the central portion of the left breast at a middle depth at. This is 7 cm from the nipple. DIAGNOSTIC CATEGORY 0--INCOMPLETE: NEED ADDITIONAL IMAGING EVALUATION. RECOMMENDATIONS: ADDITIONAL MAMMOGRAPHIC VIEWS REQUIRED: LEFT BREAST - spot compression imaging recommended. ULTRASOUND: LEFT BREAST PLEASE NOTE: A NORMAL MAMMOGRAM DOES NOT EXCLUDE THE POSSIBILITY OF BREAST CANCER. A CLINICALLY SUSPICIOUS PALPABLE LUMP SHOULD BE BIOPSIED. Dictated by: Masood Laurent DO on 01/22/2025 at 13:34 Approved by: Masood Laurent DO on 01/22/2025 at 14:10 Dictated By: Masood Laurent D.O. Signed By: 01/22/25 1411 DD/ 1410 TD/TT: Radiation Protection Engineer: Procedure Note Radiology, Radiologist, MD - 01/22/2025 [place] [address] Mammography Report Signed Patient: FRANCES MACDONALD MMR#: [id number] : 1950cct:[id number] Age/Sex: 74 / FADM Date: 01/22/25 Loc: MAMMO Attending Dr: ISRRAEL BROWN Ordering Physician: ISRRAEL BROWNResults: Date of Service: 01/22/25Follow Up: Procedure(s): MM tomosynthesis screening BI Accession Number(s): [id number] cc: ISRRAEL BROWN Patient Name: FRANCES MACDONALD MR#: [id number] : 1950 Exam Date: 01/22/2025 Ordering Doctor: DR ISRRAEL BROWN M.D. RADIOLOGY REPORT PROCEDURE: MM TOMOSYNTHESIS SCREENING BI COMPARISON: MM TOMOSYNTHESIS SCREENING BI, 01/14/2024. MG MAMM [id number] RONY CAD, 01/02/2023. MG MAMM SCREEN 3D RONY CAD, 12/30/2021. MG MAMM BILSCRN W CAD DIG, 07/01/2013. INDICATIONS: screening for malignant neoplasm of breast Calculator Name NCI Breast Cancer Risk Assessment Tool 5 Year Breast Cancer Risk 1.30% Lifetime Breast Cancer Risk 3.10% Personal Breast Cancer No Personal Ovarian Cancer No Treatments None Family Cancers Aunt-maternal with breast cancer at age 50; Grandfather-paternal with oral cancer cancer at age 60. LOCATION: [facility] BREAST COMPOSITION: There are scattered areas of fibroglandulardensity. FINDINGS: RIGHT BREAST: No significant suspicious finding. LEFT BREAST: 8 mm region of asymmetry identified in the central portionof the left breast at a middle depth at. This is 7 cm from the nipple. DIAGNOSTIC CATEGORY 0--INCOMPLETE: NEED ADDITIONAL IMAGING EVALUATION. RECOMMENDATIONS: ADDITIONAL MAMMOGRAPHIC VIEWS REQUIRED: LEFT BREAST - spot compressionimaging recommended. ULTRASOUND: LEFT BREAST PLEASE NOTE: A NORMAL MAMMOGRAM DOES NOT EXCLUDE THE POSSIBILITY OFBREAST CANCER. A CLINICALLY SUSPICIOUS PALPABLE LUMP SHOULD BE BIOPSIED. Dictated by: Masood Laurent DO on 01/22/2025 at 13:34 Approved by: Masood Laurent DO on 01/22/2025 at 14:10 Dictated By: Masood Laurent D.O. Signed By:01/22/25 1411 DD/ 1410 TD/TT: Radiation Protection Engineer: us Isrrael Brown MD [facility] Final Result * (ABNORMAL) Microalbumin [...] Performing Organization Information Site ID: [email or web address] Name: [email or web address] Address: [address] [place] [address], [address] [place] [id number] Director: Wil Fraga MD Shanika Davis NP LAB URINE ORDERABLES Final R esult Performing Organization Address City/State/[facility] Co de Phone Number [facility] * POCT Glycated hemoglobin, total (06/11/2024 11:20 AM EST) Hemoglobin A1C 6.0 Blood 06/11/2024 11:2 0 AM EST us Shanika Davis NP POINT OF CARE TEST ENTER/CARLOS ALBERTO T ORDERABLES Final Result * COLONOSCOPY DIAGNOSTIC (01/10/2021) Anatomical Region Laterality Modality Radiographic Talisha ging 01/10/2021 Narrative 01/10/2021 7:36 PM EDT Polyp- tub adenoma repeat 5 years Isrrael Brown MD IMG XR PROCEDURES Final [...] Rebecca Matias al, N Engl J Med 2014;370(14):5663-3040.) Test Type: Composite algorithmic analysis of stool [...] can be accessed at the following location: [email or web address]. Additional description of the Cologuard test process, warnings and precautions can be found at [email or web address]. Rx Only. 06/30/2019 us Isrrael Brown MD LAB MOLECULAR DIAGNOSTICS NAOMI PAZ Final Result [facility] from Last 3 Months or Most Recently Relevant to Health Maintenance Insurance MEDICARE [facility] Care Teams Business And Financial Counsel Relationship Specialty Start Date End Date Isrrael Brown MD 112 [facility] 110 [place] [address] PCP - General Internal Medicine 12/12/22
--- OUTSIDE RECORDS SUMMARY | 2025-03-11 08:04 | XMS_ITS | Clinical Summary ---
Author Organization [facility] Address [address] [place] [address] Care Team Providers Care Health Science Writer Name Role Phone Isrrael Brown MD Primary Care Provider Allergies No known active allergies Medications albuterol [...] Assessment & Plan (11/16/2023 6:46 AM EDT): [id number]= 5- Age, Female, CHF, DM Remains on anticoagulation- eliquis Rate control with toprol 50 mg Assessment & Plan (10/17/2023 11:41 AM EDT): [id number]=5- age, female, HTN, DM Continue toprol and eliquis anticoagulation Denied any bleeding tendencies ECG today Sinus bradycardia Assessment & Plan (02/02/2023 8:43 AM EDT): [id number]= Continue eliquis anticoagulation Metoprolol for rate control [...] Type Department Care Team Description 01/09/[address] [facility] [address] [place] [address] Ivon Oswald MA 01/09/[address] [facility] [address] [place] [address] Ivon Oswald MA Essential hypertension 12/16/[address] [facility] [address] [place] [address] Marisela Arellano MA from Last 3 Months Family History Medical [...] Vaccine (2023-2 5 season) 2024 Influenza Vaccine (#1) 2025 7, 05/30/2010 Diabetes: Urine Protein Screening 06/11/2025 06/11/2024 [...] Payer (Ef fective 2016-Present) Name:Frances Macdonald Member ID:[id number] Relation to Subscriber:Self Name:Frances Macdonald Subscriber ID:[id number] Payer ID:[id number] Group ID:Not on file Type:Medicare Address: [facility] [address] Care Teams Health Science Writer Relationship Specialty Start Date End Date Isrrael Brown MD [address] [place] [address] PCP - General 07/25/22
--- OUTSIDE RECORDS SUMMARY | 2025-03-11 08:04 | XMS_ITS | Encounter Summary ---
Author Organization [facility] Address [address] [facility] [place] [address] Care Team Providers Care Shipping Weigher Name Role Phone Isrrael Brown MD Primary Care Provider [phone] Shanika Davis CASH RECONCILIATION SPECIALIST Unavailable [phone] Shanika Davis CASH RECONCILIATION SPECIALIST Unavailable [phone] Encounter Details Date Type Department Care Team (Late st Contact Info) Description 01/21/2024 Abstract [facility] [place] [facility] [address] [facility] [address] [place] [address] Isrrael Brown MD [address] [facility] 110 [place], [place] [id number] Social History Tobacco Use Types Packs/Day Years [...] on filedocumented in this encounter Care Teams Shipping Weigher Relationship Specialty Start Date End Date Isrrael Brown MD [address] [facility] [address] [place] [address] PCP - General Internal Medicine 12/12/22 Shanika Davis NP [address] [place] [address] PCP - ACO Reach 12/05/23 09/11/24 Shanika Davis NP [address] [facility] [address] [place] [address] PCP - ACO Reach 09/19/24 11/06/24 documented as of this encounter
--- OUTSIDE RECORDS SUMMARY | 2025-03-11 08:04 | XMS_ITS | Encounter Summary ---
Author Organization [facility] Address [address] [facility] [place] [address] Care Team Providers Care Investment Manager Name Role Phone Isrrael Brown MD Primary Care Provider [phone] Shanika Davis BUTTER PRODUCTION SUPERVISOR Unavailable [phone] Shanika Davis BUTTER PRODUCTION SUPERVISOR Unavailable [phone] Encounter Details Date Type Department Care Team (Late st Contact Info) Description 06/11/2024 Abstract [facility] [place] [facility] [place] [address] [facility] [address] [place] [address] Isrrael Brown MD [address] [facility] 110 [place] [address] Social History Tobacco Use Types Packs/Day Years [...] hopeless Not at all 06/11/2024 10:00 AM Fatemeh Kelly MA Patient Health Questionnaire -2 Score 0 06/11/2024 10:00 AM Fatemeh Kelly MA documented as of this encounter Plan of Treatment Not on file documented as of this encounter Visit Diagnoses Not on filedocumented in this encounter Care Teams Investment Manager Relationship Specialty Start Date End Date Isrrael Brown MD [address] [facility] 110 [place] [address] PCP - General Internal Medicine 12/12/22 Shanika Davis, BUTTER PRODUCTION SUPERVISOR [address] [facility] 110 [place] [address] PCP - ACO Reach 12/05/23 09/11/24 Shanika Davis, BUTTER PRODUCTION SUPERVISOR [address] [facility] 110 [place] [address] PCP - ACO Reach 09/19/24 11/06/24 documented as of this encounter
--- OUTSIDE RECORDS SUMMARY | 2025-03-11 08:04 | XMS_ITS | Encounter Summary ---
Author Organization [facility] Address [address] [place] [address] Care Team Providers Care Prototype Engineer Manager Name Role Phone Isrrael Brown MD Primary Care Provider [phone] Shanika Davis MANAGER ACADEMIC Unavailable [phone] Shanika Davis MANAGER ACADEMIC Unavailable [phone] Encounter Details Date Type Department Care Team [...] Narrative 02/28/2024 1:35 PM EDT The [address] [address] Cardiology Report Signed Patient: FRANCES MACDONALD MR#: [id number] : 1950 Acct:[id number] Age/Sex: 73 / F ADM Date: 02/28/24 Loc: CARD Attending Dr: MANJINDER SHEFFIELD Ordering Physician: MANJINDER SHEFFIELD Date of Service: 02/28/24 Procedure(s): CA echo limited Accession Number(s): [id number] cc: JOAQUÍN BROWNEL ; MANJINDER SHEFFIELD Patient Name: FRANCES MACDONALD MR#: [id number] : 1950 Exam Date: 02/28/2024 Ordering Doctor: [...] Smalls M.D. Signed By: 02/28/24 1335 DD/ 33 TD/TT: Cook Pie: Procedure Note Radiology, Radiologist, MD - 02/28/2024 [place] [address] Cardiology Report Signed Patient: FRANCES MACDONALD MMR#: [id number] : 1950cct:[id number] Age/Sex: 73 / FADM Date: 02/28/24 Loc: CARD Attending Dr: MANJINDER SHEFFIELD Ordering Physician: MANJINDER SHEFFIELD Date of Service: 02/28/24 Procedure(s): CA echo limited Accession Number(s): [id number] cc: ISRRAEL BROWN ; MANJINDER SHEFFIELD Patient Name: FRANCES MACDONALD MR#: [id number] : 1950 Exam Date: 02/28/2024 Ordering Doctor: [...] M.D. Signed By:02/28/24 1335 DD/ 1334 TD/TT: Cook Pie: Generic External Data Provider IMG XR PROCEDURES Final Result documented in this encounter Visit Diagnoses Not on filedocumented in this encounter Care Teams Prototype Engineer Manager Relationship Specialty Start Date End Date Isrrael Brown MD [address] [facility] 110 [place] [address] PCP - General Internal Medicine 12/12/22 Shanika Davis MANAGER ACADEMIC [address] [place] [address] PCP - ACO Reach 12/05/23 09/11/24 Shanika Davis NP [address] [place] [address] PCP - ACO Reach 09/19/24 11/06/24 documented as of this encounter
--- OUTSIDE RECORDS SUMMARY | 2025-03-11 08:04 | XMS_ITS | Encounter Summary ---
Author Organization [facility] Address [address] [facility] [place] [address] Care Team Providers Care Server Support Technician Name Role Phone Shanika Davis CORE DRILLING SUPERVISOR Unavailable Isrrael Brown MD Primary Care Provider Shanika Davis CORE DRILLING SUPERVISOR Unavailable [phone] Shanika Davis CORE DRILLING SUPERVISOR Unavailable [phone] Encounter Details Date Type Department Care Team (Late st Contact Info) Description 12/28/2022 Abstract [facility] [place] [facility] [address] [facility] 110 [place] [address] Isrrael Brown MD [address] [facility] 110 [place], [place] [id number] Social History Tobacco Use Types Packs/Day Years [...] on filedocumented in this encounter Care Teams Server Support Technician Relationship Specialty Start Date End Date Shanika Davis NP [address] [facility] 110 [place] [address] PCP - ACO Reach 12/28/22 10/04/23 Isrrael Brown MD [address] [facility] 110 [place] [address] PCP - General Internal Medicine 12/12/22 Shanika Davis NP [address] [facility] 110 [place] [address] PCP - ACO Reach 12/05/23 09/11/24 Shanika Davis NP [address] [facility] 110 [place] [address] PCP - ACO Reach 09/19/24 11/06/24 documented as of this encounter
--- OUTSIDE RECORDS SUMMARY | 2025-03-11 08:04 | XMS_ITS | Encounter Summary ---
Author Organization [facility] Address [address] [place] [address] Care Team Providers Care Lehr Attendant Name Role Phone Isrrael Brown MD Primary Care Provider [phone] Shanika Davis BUILD AND RELEASE MANAGER Unavailable [phone] Shanika Davis BUILD AND RELEASE MANAGER Unavailable [phone] Encounter Details Date Type Department Care Team [...] EDT Narrative 05/09/2024 4:20 PM EDT The [address] [address] Cardiology Report Signed Patient: FRANCES MACDONALD MR#: [id number] : 1950 Acct:[id number] Age/Sex: 74 / F ADM Date: 05/09/24 Loc: CARD Attending Dr: MANJINDER SHEFFIELD Ordering Physician: MANJINDER SHEFFIELD Date of Service: 05/09/24 Procedure(s): CA echo limited Accession Number(s): [id number] cc: ISRRAEL BROWN ; MANJINDER SHEFFIELD Patient Name: FRANCES MACDONALD MR#: [id number] : 1950 Exam Date: 05/09/2024 Ordering Doctor: [...] Signed By: 05/09/24 1620 DD/ 1619 TD/TT: Seed Cutter: Procedure Note Radiology, Radiologist, MD - 05/09/2024 [place] [address] Cardiology Report Signed Patient: FRANCES MACDONALD MMR#: [id number] : 1950cct:[id number] Age/Sex: 74 / FADM Date: 05/09/24 Loc: CARD Attending Dr: MANJINDER SHEFFIELD Ordering Physician: MANJINDER SHEFFIELD Date of Service: 05/09/24 Procedure(s): CA echo limited Accession Number(s): [id number] cc: ISRRAEL BROWN ; MANJINDER SHEFFIELD Patient Name: FRANCES MACDONALD MR#: [id number] : 1950 Exam Date: 05/09/2024 Ordering Doctor: [...] CURRY Signed By:05/09/24 1620 DD/ 1619 TD/TT: Seed Cutter: Generic External Data Provider IMG XR PROCEDURES Final Result documented in this encounter Visit Diagnoses Not on filedocumented in this encounter Care Teams Lehr Attendant Relationship Specialty Start Date End Date Isrrael Brown MD [address] [facility] 110 [place] [address] PCP - General Internal Medicine 12/12/22 Shanika Davis BUILD AND RELEASE MANAGER [address] [facility] 110 [place] [address] PCP - ACO Reach 12/05/23 09/11/24 Shanika Davis BUILD AND RELEASE MANAGER [address] [facility] [address] [place] [address] PCP - ACO Reach 09/19/24 11/06/24 documented as of this encounter
--- OUTSIDE RECORDS SUMMARY | 2025-03-11 08:05 | XMS_ITS | Encounter Summary ---
Author Organization [facility] Address [address] [facility] [place] [address] Care Team Providers Care Lens Grinder Name Role Phone Isrrael Brown MD Primary Care Provider [phone] Encounter Details Date Type Department Care Team (Late st Contact Info) Description 02/17/2025 External Result Encounter [facility] External Department Unsolicited Isrrael Brown MD [address] [place] [address] Social History Tobacco Use Types [...] BREAST LIMITED LEFT 02/17/2025 10:51 AM EDT documented in this encounter Results * Left breast US limited (02/17/2025 [...] Laurent M.D. 02/17/2025 10:53 AM Dictation Location: [facility] Dictated By: Masood Laurent DO 02/17/25 1051 Signed By: <Electronically signed by Masood Laurent DO in OV> 02/17/25 1053 Narrative 02/17/2025 10:55 AM EDT THE [facility] [address] [place] [address] Mammography Report Signed Patient: Frances Macdonald MR#: [id number] : 1950 Acct:[id number] Age/Sex: 74 / F Adm Date: 02/17/25 Loc: [place] Room: Type: [facility] Attending Dr: Isrrael Brown II, MD Ordering Provider: Isrrael Brown II, MD Date of Service: 02/17/25 Procedure(s): MM special view LT w/CAD; US breast LT limited Accession Number(s): ([id number]) MM/MM special view LT w/CAD: R92.8 ([id number]) US/US breast LT limited: R92.8 Copies to: [...] Procedure Note Radiology, Radiologist, MD - 02/17/2025 [facility] [address] [facility] [address] [place] [address] Mammography Report Signed Patient: Frances Macdonald MMR#: [id number] : 1Acct:[id number] Age/Sex: 74 / FAdm Date: 02/17/25 Loc: [place] Room:Type: [facility] Attending Dr: Isrrael Brown II, MD Ordering Provider: Isrrael Brown II, MD Date of Service: 02/17/25 Procedure(s): MM special view LT w/CAD; US breast LT limited Accession Number(s): ([id number]) MM/MM special view LT w/CAD: R92.8 ([id number]) US/US breast LT limited: R92.8 Copies to: [...] Laurent M.D. 02/17/2025 10:53 AM Dictation Location: [facility] Dictated By: Masood Laurent DO 02/17/25 1051 Signed By: <Electronically signed by Masood Laurent DO in OV> 02/17/25 1053 us Isrrael Brown MD IMG US PROCEDURES Final Result documented in this encounter Visit Diagnoses Not on filedocumented in this encounter Care Teams Lens Grinder Relationship Specialty Start Date End Date Isrrael Brown MD [address] [facility] 110 [place] [address] PCP - General Internal Medicine 12/12/22 documented as of this encounter
[2025-03-11 09:32] LABS: Alanine Aminotransferase 16 U/L (14-59); Aspartate Amino Transferase 14 U/L (15-37); Cholesterol 149 mg/dL (<=200); HDL Cholesterol 41 mg/dL (40-60); Triglycerides 62 mg/dL (<=150); VLDL CHOLESTEROL 12.4 mg/dL
== END 2025-03-11 08:00 | disposition home or self-care (01) ==
LOC: LAB 08:02
PROVIDERS: PCP Internal Medicine; Visit Provider Internal Medicine Cardiovascular Disease
DX: E78.2 Mixed hyperlipidemia (principal)
CPT/HCPCS: 36415; 80061; 84450; 84460

== ENCOUNTER 2025-05-19 08:08 | Outpatient (OUT) | payer MEDICARE, OTHER, SELFPAY ==
--- OUTSIDE RECORDS SUMMARY | 2025-05-19 08:12 | XMS_ITS | Encounter Summary ---
Author Organization [facility] Address [address] [facility] [place] [address] Care Team Providers Care Java Solutions Architect Name Role Phone Shanika Davis TAILOR APPRENTICE Unavailable [phone] Israrel Brown MD Primary Care Provider Shanika Davis TAILOR APPRENTICE Unavailable Shanika Davis TAILOR APPRENTICE Unavailable Encounter Details Date Type Department Care Team (Late st Contact Info) Description 01/02/2023 Clinisync Result Encounter [facility] External Department Unsolicited Isrrael Brown MD [address] [place] [address] Social History Tobacco Use Types [...] : DR ISRRAEL BROWN M.D. Admission #: [id number] Family : Order #: [id number] CLICK HERE TO VIEW EXAM RADIOLOGY REPORT [...] cancer cancer at age 61. LOCATION: [facility] BREAST COMPOSITION: Scattered areas fibroglandular density. FINDINGS: [...] : DR ISRRAEL BROWN M.D. Admission #: [id number] Family : Order #: [id number] CLICK HERE TO VIEW EXAM RADIOLOGY REPORT [...] cancer cancer at age 61. LOCATION: [facility] BREAST COMPOSITION: Scattered areas fibroglandular density. FINDINGS: [...] on filedocumented in this encounter Care Teams Java Solutions Architect Relationship Specialty Start Date End Date Shanika Davis NP [address] [facility] 110 [place] [address] PCP - ACO Reach 12/28/22 10/04/23 Isrrael Brown MD [address] [facility] 110 [place] [address] PCP - General Internal Medicine 12/12/22 Shanika Davis NP [address] [facility] 110 [place] [address] PCP - ACO Reach 12/05/23 09/11/24 Shanika Davis NP [address] [facility] 110 [place] [address] PCP - ACO Reach 09/19/24 11/06/24 documented as of this encounter
--- OUTSIDE RECORDS SUMMARY | 2025-05-19 08:12 | XMS_ITS | Encounter Summary ---
Author Organization [facility] Address [address] [facility] [place] [address] Care Team Providers Care Telehealth Director Name Role Phone Shanika Davis MODEL MAKER PLASTIC Unavailable [phone] Isrrael Brown MD Primary Care Provider [phone] Shanika Davis MODEL MAKER PLASTIC Unavailable Shanika Davis MODEL MAKER PLASTIC Unavailable Encounter Details Date Type Department Care Team (Late st Contact Info) Description 01/02/2023 Clinisync Result Encounter [facility] External Department Unsolicited Isrrael Brown MD [address] [place] [address] Social History Tobacco Use Types [...] on filedocumented in this encounter Care Teams Telehealth Director Relationship Specialty Start Date End Date Shanika Davis NP [address] [place] [address] PCP - ACO Reach 12/28/22 10/04/23 Isrrael Brown MD [address] [facility] [address] [place] [address] PCP - General Internal Medicine 12/12/22 Shanika Davis NP [address] [place] [address] [place] [address] PCP - ACO Reach 12/05/23 09/11/24 Shanika Davis MODEL MAKER PLASTIC [address] [place] [address] [place] [address] PCP - ACO Reach 09/19/24 11/06/24 documented as of this encounter
--- OUTSIDE RECORDS SUMMARY | 2025-05-19 08:12 | XMS_ITS | CCD ---
Author Organization [facility] [employer] Care Team Providers Care Car Rental Manager Name Role Phone DR ISRRAEL BROWN Admitting Unavailable MARIANO, DR RUSSELL Primary Care Unavailable MARIANO, DR RUSSELL Consulting Unavailable MARIANO, DR RUSSELL Attending Unavailable TRIP, DR GREGORIO Cabral Consulting Unavailable MARIANO, DR RUSSELL Primary Care Unavailable AWILDA MONREAL Admitting Unavailable AWILDA MONREAL Consulting Unavailable AWILDA MONREAL Attending Unavailable Irsrael Brown MD Primary Care Provider Aaron Davis NP Unavailable ANA ECHAVARRIA Attending Unavailable AARON DAVIS Attending Unavailable Aaron Davis NP Unavailable Brittany Espinosa APRN Attending Provider Isrrael Brown II Primary Care Provider [phone] Isrrael Brown II Attending Provider Isrrael Brown Attending Unavailable Isrrael Brown Primary Care Unavailable Isrrael Brown Admitting Unavailable Isrrael Brown II Primary Care Provider Ana Echavarria DO Attending Provider AWILDA MONREAL Attending Unavailable JEM LÓPEZ Attending Unavailable JEM LÓPEZ Attending Unavailable Medications Current Medications Medication Drug Class(es) Dates Sig (Normalized) Sig (Original) [id number] 200 actuat albuterol 0.09 mg/actuat metered dose inhaler (9 sources) beta2-Adrenergic Agonist take 2 puff(s) by inhalation every four hours for wheezing albuterol HFA 90 mcg/act inhaler Inhale 2 puffs every 4 (four) hours if needed for wheezing or shortness of breath. Active apixaban 5 mg oral tablet (12 sources) Factor Xa Inhibitor Start: 05-22-2024 take 1 tablet by mouth twice daily Apixaban (Eliquis) 5 mg tablet Active 5 MG PO Twice daily December 05, 2024 12:00am Complies with drug therapy dexamethasone 0.1 mg/ml oral solution (9 sources) Corticosteroid Start: 04-02-2023 dexAMETHasone 0.5 MG/5ML elixir Indications: Pharyngitis, unspecified etiology Take 10 mL (1 mg) by mouth every 12 (twelve) hours for 10 days. 200 mL 04/02/2023 Active diphenhydrAMINE 12.5 MG/5ML elixir 50 mg, aluminum-magnesium hydroxide-simethicon e 400-400-40 MG/5ML suspension 20 mL, lidocaine 2 % solution 20 mL (9 sources) Start: 04-02-2023 diphenhydrAMINE 12.5 MG/5ML elixir 50 mg, aluminum-magnesium hydroxide-simethico ne 400-400-40 MG/5ML suspension 20 mL, lidocaine 2 % solution 20 mL Indications: Pharyngitis, unspecified etiology Swish and spit 15 mL every 4 (four) hours if needed for mucositis. Disp 300ml 300 each 2 04/02/2023 Active Fluticasone Propion-Salmeterol (12 sources) Corticosteroid, beta2-Adrenergic Agonist Start: 12-05-2024 Fluticasone Propion-Salmeterol (Wixela Inhub) 250-50 mcg/dose blister with device Active 1 INH INHALATION Twice daily December 05, 2024 12:00am Complies with drug therapy Start: 12-05-2024 Start: 12-05-2024 Fluticasone Pr opion-Salmeterol (Wixela Inhub) 250-50 mcg/dose blister with device Active 1 INH INHALATION Twice daily December 05, 2024 12:00am Start: 05-02-2024 End: 07-31-2024 take 1 dose by inhalation in the morning Fluticasone-Salmeterol (Wixela Inhub) 250-50 MCG/ACT aerosol powder Indications: Mild intermittent asthma without complication (HCC) Inhale 1 each in the morning and 1 each before bedtime. 3 each 3 05/02/2024 Active furosemide 20 mg oral tablet (7 sources) Loop Diuretic Start: 11-14-2023 take 1 tablet by mouth once daily furosemide (Lasix) 20 MG tablet Indications: Edema of lower extremity Take 1 tablet (20 mg) by mouth Daily 90 tablet 2 06/11/2024 Active levothyroxine sodium 0.025 mg oral tablet (12 sources) l-Thyroxine Start: 05-22-2024 take 1 tablet by mouth once daily Levothyroxine 25 mcg tablet Active 25 MCG PO Daily December 05, 2024 12:00am Complies with drug therapy losartan potassium 50 mg oral tablet (16 sources) Angiotensin 2 Receptor Christian Start: 06-11-2024 End: 06-11-2025 take 1 tablet by mouth once daily Losartan 50 mg tablet Active 50 MG PO Daily December 05, 2024 12:00am Complies with drug therapy Start: 05-30-2024 End: 06-11-2024 take 1 tablet by mouth in the morning losartan (Cozaar) 100 MG tablet Take 100 mg by mouth in the morning. 05/30/2024 06/11/2024 Discontinued metFORMIN hydrochloride 500 mg oral tablet (12 sources) Biguanide Start: 11-25-2024 take 1 tablet by mouth twice daily at mealtime Metformin 500 mg tablet Active 500 MG PO Twice daily with meals December 05, 2024 12:00am Complies with drug therapy Start: 03-10-2024 metFORMIN (Glu cophage) 500 MG tablet Indications: Impaired fasting glucose TAKE 1 TABLET TWICE A DAY WITH MEALS 180 tablet 2 03/10/2024 Active 24 hr metoprolol succinate 50 mg extended release oral tablet (12 sources) beta-Adrenergic Christian Start: 05-22-2024 take 1 tablet by mouth once daily Metoprolol Succinate 50 mg tablet extended release 24 hr Active 50 MG PO daily December 05, 2024 12:00am Complies with drug therapy montelukast 10 mg oral tablet (12 sources) Leukotriene Receptor Antagonist Start: 05-02-2024 take 1 tablet by mouth once daily Montelukast 10 mg tablet Active 10 MG PO Daily December 05, 2024 12:00am Complies with drug therapy simvastatin 20 mg oral tablet (12 sources) HMG-CoA Reductase Inhibitor Start: 05-02-2024 take 1 tablet by mouth once daily Simvastatin 20 mg tablet Active 20 MG PO Daily December 05, 2024 12:00am Complies with drug therapy spironolactone 25 mg oral tablet (10 sources) Aldosterone Antagonist Start: 05-09-2024 End: 05-09-2025 take 1 tablet by mouth once daily Spironolactone 25 mg tablet Active 25 MG PO Daily December 05, 2024 12:00am Complies with drug therapy Completed/Discontinued Medications Medication Drug Class(es) Dates Sig (Normalized) Sig (Original) doxycycline hyclate 100 mg oral capsule (3 sources) Tetracycline-cla ss Drug Start: 12-05-2024 End: 03-17-2025 take 1 capsule by mouth twice daily Doxycycline Hyclate 100 mg capsule Discontinued 100 MG PO Twice daily 20 December 05, 2024 12:00am March 17, 2025 12:13pm predniSONE 20 mg oral tablet (2 sources) Start: 12-05-2024 End: 03-17-2025 take 2 tablets by mouth once daily Prednisone 20 mg tablet Discontinued 20 MG PO .COMPLEX December 05, 2024 12:00am March 17, 2025 12:14pm Take 2 tabs po daily x 5 days Problems Active Problems Problem Classification Problem Date Documented Da te Episodic/Chronic Asthma (11 sources) Mild intermittent asthma; Translations: [Mild intermittent asthma, uncomplicated] Onset: 04-02-2023 04-02-2023 Chronic Cardiac dysrhythmias (13 sources) Paroxysmal atrial fibrillation; Translations: [Paroxysmal atrial fibrillation] Onset: 07-25-2022 04-02-2023 Chronic Congestive heart failure; nonhypertensive (2 sources) Chronic diastolic (congestive) heart failure; Translations: [Chronic diastolic (congestive) heart failure] Onset: 11-24-2024 Chronic Diabetes mellitus without complication (11 sources) Type 2 diabetes mellitus without complication; Translations: [Type 2 diabetes mellitus without complications] Onset: 10-17-2023 06-11-2024 Chronic Disorders of lipid metabolism (16 sources) Hyperlipidemia, unspecified; Translations: [Mixed hyperlipidemia] Onset: 08-04-2022 04-02-2023 Chronic Essential hypertension (13 sources) Essential (primary) hypertension; Translations: [Hypertensive disorder] Onset: 11-28-2019 Chronic Genitourinary congenital anomalies (9 sources) Congenital anomaly of ovary; 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] Onset: 04-02-2023 04-02-2023 Chronic Heart valve disorders (20 sources) Mitral valve regurgitation; Translations: [Nonrheumatic mitral (valve) insufficiency] Onset: 04-02-2023 04-02-2023 Chronic Hypertension with complications and secondary hypertension (4 sources) Secondary hypertension; Translations: [Secondary hypertension, unspecified] Onset: 05-30-2024 06-11-2024 Chronic Menopausal disorders (12 sources) Other primary ovarian failure; Translations: [Decreased estrogen level] Onset: 01-03-2023 04-02-2023 Chronic Other and ill-defined heart disease (11 sources) Diastolic dysfunction; Translations: [Other ill-defined heart diseases] Onset: 04-02-2023 04-02-2023 Chronic Other and ill-defined heart disease (11 sources) Atrial hypertrophy; Translations: [Cardiomegaly] Onset: 04-02-2023 04-02-2023 Chronic Other and ill-defined heart disease (9 sources) Left ventricular diastolic dysfunction ; Translations: [Heart disease, unspecified] Onset: 02-02-2023 06-11-2024 Chronic Other lower respiratory disease (3 sources) Acute lower respiratory tract infection; Translations: [Unspecified acute lower respiratory infection] 12-05-2024 Episodic Other nutritional; endocrine; and metabolic disorders (2 sources) Obesity caused by energy imbalance; Translations: [Morbid (severe) obesity due to excess calories] 06-11-2024 Chronic Other nutritional; endocrine; and metabolic disorders (2 sources) Body mass index 40+ - severely obese; Translations: [Body mass index (BMI) 40.0-44.9, adult] 06-11-2024 Chronic Other nutritional; endocrine; and metabolic disorders (2 sources) Body mass index (BMI) 38.0-38.9, adult; Translations: [Body mass index (BMI) 38.0-38.9, adult] Onset: 05-15-2025 Chronic Residual codes; unclassified (11 sources) Obstructive sleep apnea syndrome; Translations: [Obstructive [...] Spondylosis; intervertebral disc disorders; other back problems (11 sources) Displacement of lumbar intervertebral disc without myelopathy; Translations: [Other intervertebral disc displacement, lumbar region] Onset: 04-02-2023 04-02-2023 Chronic Thyroid disorders (11 sources) Hypothyroidism; Translations: [Hypothyroidism, unspecified] Onset: 11-27-2019 06-11-2024 Chronic Unclassified (1 source) Obesity, class 2; Translations: [Obesity, class 2] Onset: 05-15-2025 Unclassified (1 source) Other pericardial effusion (noninflammatory); Translations: [Other pericardial effusion (noninflammatory)] Onset: 11-16-2023 Past or Other Problems Problem Classification Problem Date Documented Da te Episodic/Chronic Other screening for suspected conditions (not mental disorders or infectious disease) (16 sources) Encounter for screening mammogram for malignant neoplasm of breast; Translations: [Thyroid hormone tests abnormal] Onset: 01-02-2023 Episodic Jaqueline-; endo-; and myocarditis; cardiomyopathy (except that caused by tuberculosis or sexually transmitted disease) (7 sources) Pericardial effusion; Translations: [Pericardial effusion] Onset: 11-16-2023 06-11-2024 Episodic Residual codes; unclassified (7 sources) Edema of lower extremity; Translations: [Localized edema] Onset: 11-28-2019 06-11-2024 Episodic Residual codes; unclassified (2 sources) Localized edema; Translations: [Localized edema] Onset: 11-24-2024 Episodic Unclassified (1 source) Obesity, class 2; Translations: [Obesity, class 2] Onset: 05-15-2025 Unclassified (1 source) Other pericardial effusion (noninflammatory); Translations: [Other pericardial effusion (noninflammatory)] Onset: 05-30-2024 Results Test Name Value Interpretation Reference Range Facility Office Visiton 05-15-2025 Follow-up visit [id number] Frances Macdonald 1950 F Date Provider Department Center 05/15/2025 [id number], SAMAR BH [facility]ARD [facility] Family History Problem Relation Age of Onset Heart failure Father Family Status - Relation Status Age at Mother Father Brother Alive Level of Service:46009 [place] OFFICE/OUTPATIENT ESTABLISHED MOD MDM 30 MIN Reason for Visit and Comments: Hypertension [554890] Atrial Fibrillation [80] Congestive Heart Failure [127] Enlarged atria [Other] [facility] 36on 04-20-2025 36 Order faxed to [facility] 36 Jem López MD to RYLIE Munoz 04/15/25 11:08 PM Result Note Increase simvastatin to 80 mg daily, recheck lipids and AST/ALT in 2 months Lipid panel Spoke to patient to advise her of Dr López's recommendations. Patient verbalized understanding and agreed with plan of care. Patient states she will have her labs done at the end of May due to leaving for the winter to go to [facility] Telephoneon 04-20-2025 Telephone [id number] Frances Macdonald 1950 F Date Provider Department Center 04/20/2025 ANGEL VILLARREAL Family History Problem Relation Age of Onset Heart failure Father Family Status - Relation Status Age at Mother Father Brother Alive [facility] Orders Onlyon 03-20-2025 Orders Only [id number] Frances Macdonald 1950 F Date Provider Department Center 03/20/2025 ANGEL VILLARREAL Family History Problem Relation Age of Onset Heart failure Father Family Status - Relation Status Age at Mother Father Brother Alive [facility] ALL LIPID PROFILE (FASTING)o n 03-11-2025 CHOL HDL RATIO 3.6 [facility] Comment on above: 3.3 - 4.4 LOW RISK 4.4 - 7.1 AVERAGE RISK 7.1 - 11.0 MODERATE RISK >11.0 HIGH RISK Cholesterol [Mass/Vol] 149 mg/dL NINF - 200 mg/dL [facility] Cholesterol in HDL [Mass/Vol] 41 mg/dL 40 - 60 mg/dL [facility] Comment on above: > or =60 mg/dl - LOW CARDIOVASCULAR RISK <40 mg/dl - HIGH CARDIOVASCULAR RISK Magnesium [Mass/Vol] 95.6 mg/dL [facility] Comment on above: <100 mg/dl OPTIMAL 100-129 mg/dl NEAR OR ABOVE OPTIMAL 130-159 mg/dl BORDERLINE HIGH 160-189 mg/dl HIGH >190 mg/dl VERY HIGH Magnesium [Mass/Vol] 12.4 mg/dL [facility] Triglyceride [Mass/Vol] 62 mg/dL NINF - 150 mg/dL [facility] 03-11-2025 ALT [Catalytic activity/Vol] 16 U/L 14 - 59 U/L [facility] 03-11-2025 AST [Catalytic activity/Vol] 14 U/L Low 15 - 37 U/L [facility] Interpretation and review of laboratory results Abnormal [facility] No [facility] 03-11-2025 Orders Only [id number] Frances Macdonald 1950 F Date Provider Department Center 03/11/2025 [id number], HISTORICAL CARD [facility] Family History Problem Relation Age of Onset Heart failure Father Family Status - Relation Status Age at Mother Father Brother Alive Normal [facility] Mammography reportOrdered By : Masood Laurent on 02-17-2025 Diagnostic imaging study [facility] [address] [place] [address] Mammography Report Signed Patient: Frances Macdonald MR#: [id number] : 1950 Acct:[id number] Age/Sex: 74 / F Adm Date: 5 Loc: [place] Room: Type: [facility] Attending Dr: Isrrael Brown II, MD Ordering Provider: Isrrael Brown II, MD Date of Service: 02/17/25 Procedure(s): MM special view LT w/CAD; US breast LT limited Accession Number(s): ([id number]) MM/MM special view LT w/CAD: R92.8 ([id number]) US/US breast LT limited: R92.8 Copies to: Isrrael Brown II, MD~ LEFT Diagnostic Full Field digital mammogram with [...] abnormality identified. MM/MM special view LT w/CAD IMPRESSION: No [...] Laurent M.D. 02/17/2025 10:53 AM Dictation Location: [facility] Dictated By: Masood Laurent DO 02/17/25 1051 Signed By: 02/17/25 1053 [facility] US breast LT limitedon 02-[address] [facility] [address] [place] [address] Mammography Report Signed Patient: Frances Macdonald MR#: [id number] : 1950 Acct:[id number] Age/Sex: 74 / F Adm Date: 02/17/25 Loc: [place] Room: Type: [facility] Attending Dr: Isrrael Brown II, MD Ordering Provider: Isrrael Brown II, MD Date of Service: 02/17/25 Procedure(s): MM special view LT w/CAD; US breast LT limited Accession Number(s): ([id number]) MM/MM special view LT w/CAD: R92.8 ([id number]) US/US breast LT limited: R92.8 Copies to: [...] abnormality identified. MM/MM special view LT w/CAD IMPRESSION: No [...] Laurent M.D. 02/17/2025 10:53 AM Dictation Location: [facility] Dictated By: Masood Laurent DO 02/17/25 1051 Signed By: 02/17/25 1053 Normal [facility] Physician [facility] MM TOMOSYNTHESIS SCREENING B Ion 01-22-2025 [place] [address] Mammography Report Signed Patient: FRANCES MACDONALD MR#: [id number] : 1950 Acct:[id number] Age/Sex: 74 / F ADM Date: 01/22/25 Loc: MAMMO Attending Dr: ISRRAEL BROWN Ordering Physician: ISRRAEL BROWN Results: Date of Service: 01/22/25 Follow Up: Procedure(s): MM tomosynthesis screening BI Accession Number(s): [id number] cc: ISRRAEL BROWN Patient Name: FRANCES MACDONALD MR#: [id number] : 1950 Exam Date: 01/22/2025 Ordering Doctor: [...] cancer cancer at age 61. LOCATION: [facility] BREAST COMPOSITION: There are scattered areas [...] Signed By: 01/22/25 1411 DD/ 1410 TD/TT: Manager Molecular: [facility] Radiology, Radiologist, MD - 01/22/2025 [place] [address] Mammography Report Signed Patient: FRANCES MACDONALD MR#: [id number] : 1950 Acct:[id number] Age/Sex: 74 / F ADM Date: 01/22/25 Loc: MAMMO Attending Dr: ISRRAEL BROWN Ordering Physician: ISRRAEL BROWN Results: Date of Service: 01/22/25 Follow Up: Procedure(s): MM tomosynthesis screening BI Accession Number(s): [id number] cc: ISRRAEL BROWN Patient Name: FRANCES MACDONALD MR#: [id number] : 1950 Exam Date: 01/22/2025 Ordering Doctor: [...] cancer cancer at age 61. LOCATION: [facility] BREAST COMPOSITION: There are scattered areas [...] on 01/22/2025 at 14:10 Dictated By: Masood Lauernt D.O. Signed By: 01/22/25 1411 DD/ 1410 TD/TT: Manager Molecular: [facility] Radiology Study observation (narrative) [facility] MM TOMOSYNTHESIS SCREENING B IOrdered By: Radiologist Radiology on 01-22-2025 [facility] Patient Communicatorcar e Work Phone: 36on 12-16-2024 36 Regarding lab result s [...] in 1 week. Patient verbalized understanding. Normal [facility] MLR HEMOGLOBIN A1Con 025 Glucose [Mass/Vol] 131 mg/dL [facility] HbA1c (Bld) [Mass fraction] 6.2 % 4.5 - 6.2 % [facility] Comment on above: ADA RECOMMENDED LIMI T 4.0 - 6.0 ADA THERAPEUTIC TARGET < 7.0 ACTION SUGGESTED > 7.0 [facility] Office Visiton 11-24-2024 Follow-up visit [id number] Frances Macdonald 1950 F Date Provider Department Center 11/24/2024 [id number] LÓPEZ HUI [facility] Family History Problem Relation Age of Onset Heart failure Father Family Status - Relation Status Age at Mother Father Brother Alive Level of Service:57782 [place] OFFICE/OUTPATIENT ESTABLISHED MOD MDM 30 MIN Reason for Visit and Comments: 6 month follow up with ECHO [Other] Normal [facility] CA ECHO DOPPLER COMPLETEon 0 11-11-2024 [place] [address] Cardiology Report Signed Patient: FRANCES MACDONALD MR#: [id number] : 1950 Acct:[id number] Age/Sex: 74 / F ADM Date: 11/11/24 Loc: CARD Attending Dr: AWILDA MONREAL Ordering Physician: AWILDA MONREAL Date of Service: 11/11/24 Procedure(s): CA echo doppler complete Accession Number(s): [id number] cc: AWILDA MONREAL; ISRRAEL BROWN Patient Name: FRANCES MACDONALD MR#: [id number] : 1950 Exam Date: 11/11/2024 Ordering Doctor: [...] 0.75 m/s Pea (more content not included)... [facility] Radiology, Radiologist, - 11/11/2024 [place] [address] Cardiology Report Signed Patient: FRANCES MACDONALD MR#: [id number] : 1950 Acct:[id number] Age/Sex: 74 / F ADM Date: 11/11/24 Loc: CARD Attending Dr: AWILDA MONREAL Ordering Physician: AWILDA MONREAL Date of Service: 11/11/24 Procedure(s): CA echo doppler complete Accession Number(s): [id number] cc: AWILDA MONREAL; ISRRAEL BROWN Patient Name: FRANCES MACDONALD MR#: [id number] : 1950 Exam Date: 11/11/2024 Ordering Doctor: [...] CORRIGAN Signed By: 11/11/241947 DD/ 46 TD/TT: Manager Molecular: [facility] Radiology Study observation (narrative) [facility] CA ECHO DOPPLER COMPLETEOrde red By: Radiologist Radiology on 11-11-2024 [facility] Patient Communicatorcar e Work Phone: Orders Onlyon 10-16-2024 Orders Only [id number] Frances Macdonald 1950 F Date Provider Department Center 10/16/2024 OKSANA CARDENAS [facility]ARD [facility] Family History Problem Relation Age of Onset Heart failure Father Family Status - Relation Status Age at Father Normal [facility] CARD ECHO LIMITED STUDYon [facility] [address] [place] [address] Cardiology Report Signed Patient: FRANCES MACDONALD MR#: [id number] : 1950 Acct:[id number] Age/Sex: 74 / F ADM Date: 10/14/24 Loc: CARD Attending Dr: AWILDA MONREAL Ordering Physician: AWILDA MONREAL Date of Service: 10/14/24 Procedure(s): CA echo limited Accession Number(s): [id number] cc: AWILDA MONREAL; ISRRAEL BROWN Patient Name: FRANCES MACDONALD MR#: [id number] : 1950 Exam Date: 10/14/2024 Ordering Doctor: [...] CORRIGAN Signed By: 10/14/242031 DD/ 30 TD/TT: Manager Molecular: [facility] Radiology, Radiologist, MD - 10/14/2024 [place] [address] Cardiology Report Signed Patient: FRANCES MACDONALD MR#: [id number] : 1950 Acct:[id number] Age/Sex: 74 / F ADM Date: 10/14/24 Loc: CARD Attending Dr: AWILDA MONREAL Ordering Physician: AWILDA MONREAL Date of Service: 10/14/24 Procedure(s): CA echo limited Accession Number(s): [id number] cc: SAJI MONREAL DANIEL Patient Name: FRANCES MACDONALD MR#: [id number] : 1950 Exam Date: 10/14/2024 Ordering Doctor: [...] CORRIGAN Signed By: 10/14/242031 DD/ 30 TD/TT: Manager Molecular: [facility] [employer] Radiology Study observation (narrative) [facility] [employer] CARD ECHO LIMITED STUDYOrder ed By: Radiologist Radiology on 10-14-2024 [facility] Healthcar e Work Phone: ALBUMIN, RANDOM URINE W/CREA [facility] 06-12-2024 ALBUMIN, URINE 2.2 mg/dL Normal See Note: [facility] Comment on above: Result Comment: [place] masters Range: Reference Range Not established Performed By: #### 6 517, 11785 #### [facility] [address], [address] [place] [address] Senior Controls Analyst: Wil Fraga MD ALBUMIN/CREATININE RATIO, RANDOM URINE [...] diagnostic category. Performed By: #### 6 517, 64311 #### [facility] [place] [address] Senior Controls Analyst: Wil Fraga MD Creatinine (U) [Mass/Vol] 38 mg/dL Normal 20-275 [facility] Comment on above: Performed By: #### 6 517, 62038 #### [facility] [place] [address] Senior Controls Analyst: Wil Fraga MD [facility] METABOLIC [facility] 06-12-2024 Albumin [Mass/Vol] 4.4 g/dL Normal 3.6-5.1 [facility] Comment on above: Performed By: #### 6 517, 05362 #### [facility] [place] [address] Senior Controls Analyst: Wil Fraga MD Albumin/Globulin [Mass ratio] 1.7 {ratio} Normal 1.0-2.5 [facility] Comment on above: Performed By: #### 6 517, 75718 #### [facility] [place] [address] Senior Controls Analyst: Wil Fraga MD ALP [Catalytic activity/Vol] 77 U/L Normal 37-153 [facility] Comment on above: Performed By: #### 6 517, 15416 #### [facility] of [place] [address] Senior Controls Analyst: Wil Fraga MD ALT [Catalytic activity/Vol] 6 U/L Normal 6-29 [facility] Comment on above: Performed By: #### 6 517, 71548 #### [facility] of [address], [address] [place] [address] Senior Controls Analyst: Wil Fraga MD AST [Catalytic activity/Vol] 16 U/L Normal 10-35 [facility] Comment on above: Performed By: #### 6 517, 35311 #### [facility] of [place] [address] Senior Controls Analyst: Wil Fraga MD Bilirubin [Mass/Vol] 0.4 mg/dL Normal 0.2-1.2 [facility] Comment on above: Performed By: #### 6 517, 85027 #### [facility] [place] [address] Senior Controls Analyst: Wil Fraga MD Calcium [Mass/Vol] 9.6 mg/dL Normal 8.6-10.4 [facility] Comment on above: Performed By: #### 6 517, 31098 #### [facility] [place] [address] Senior Controls Analyst: Wil Fraga MD Chloride [Moles/Vol] 103 mmol/L Normal 98-110 [facility] Comment on above: Performed By: #### 6 517, 76967 #### [facility] of [address], [address] [place] [address] Senior Controls Analyst: Wil Fraga MD CO2 [Moles/Vol] 26 mmol/L Normal 20-32 [facility] Comment on above: Performed By: #### 6 517, 05360 #### [facility] of [address], [address] [place], [place] [address] Senior Controls Analyst: Wil Fraga MD Creatinine [Mass/Vol] 1.44 mg/dL High 0.60-1.00 [facility] Comment on above: Performed By: #### 6 517, [id number] #### [facility] [place] [address] Senior Controls Analyst: Wil Fraga MD GFR/1.73 sq M.predicted among non-blacks MDRD (S/P/Bld) [Vol rate/Area] 38 mL/min/{1.73_m2} Low > OR = 60 [facility] Comment on above: Performed By: #### 6 517, 11732 #### [facility] [place] [address] Senior Controls Analyst: Wil Fraga MD Globulin (S) [Mass/Vol] 2.6 g/dL Normal 1.9-3.7 [facility] Comment on above: Performed By: #### 6 517, 63470 #### [facility] [place] [address] Senior Controls Analyst: Wil Fraga MD Glucose [Mass/Vol] 108 mg/dL High 65-99 [facility] Comment on above: Result Comment: Fasting reference interval For someone without known diabetes, a glucose value between 100 and 125 mg/dL is consistent with prediabetes and should be confirmed with a follow-up test. Performed By: #### 6 517, 15249 #### [facility] [place] [address] Senior Controls Analyst: Wli Fraga MD Potassium [Moles/Vol] 4.5 mmol/L Normal 3.5-5.3 [facility] Comment on above: Performed By: #### 6 517, 99765 #### [facility] [place] [address] Senior Controls Analyst: Wil Fraga MD Protein [Mass/Vol] 7.0 g/dL Normal 6.1-8.1 [facility] Comment on above: Performed By: #### 6 517, 46924 #### [facility] [place] [id number] Senior Controls Analyst: Wil Fraga MD Sodium [Moles/Vol] 138 mmol/L Normal 135-146 [facility] Comment on above: Performed By: #### 6 517, 41966 #### [facility] [address], [address] [place] [address] Senior Controls Analyst: Wil Fraga MD Urea nitrogen [Mass/Vol] 28 mg/dL High 7-25 [facility] Comment on above: Performed By: #### 6 517, 19962 #### [facility] [address], [address] [place] [address] Senior Controls Analyst: Wil Fraga MD Urea nitrogen/Creatinine [Mass ratio] 19 mg/mg Normal 6-22 [facility] Comment on above: Performed By: #### 6 517, 15581 #### [facility] [address], [address] [place] [address] Senior Controls Analyst: Wil Fraga MD Laboratory - Hematology and Cell countson 06-11-2024 HbA1c (Bld) [Mass fraction] 6 % [facility] No Panel Informationon 06-11 Interpretation and review of laboratory results Normal [facility] ALL BASIC METABOLIC PANELon 06-06-2024 Anion gap [Moles/Vol] 12.8 mmol/L [facility] Calcium [Mass/Vol] 9.3 mg/dL 8.5 - 10. 1 mg/dL [facility] Chloride [Moles/Vol] 103 mmol/L 98 - 10 7 mmol/L [facility] CO2 [Moles/Vol] 28.8 mmol/L 21.0 - 32.0 mmol/L [facility] Creatinine [Mass/Vol] 1.77 mg/dL High 0.55 - 1.02 mg/dL [facility] GFR/1.73 sq M.predicted CKD-EPI (S/P/Bld) [Vol rate/Area] 34 Low >=60 mL/min/1.73m 2 [facility] Glucose [Mass/Vol] 126 mg/dL High 74 - 106 mg/dL [facility] Interpretation and review of laboratory results Abnormal [facility] Potassium [Moles/Vol] 4.6 mmol/L 3.5 - 5.1 mmol/L [facility] Sodium [Moles/Vol] 140 mmol/L 136 - 145 mmol/L [facility] EGFR-NON AF SLOVENIAN 28 Low >=60 mL/min/1.73m 2 [facility] Urea nitrogen [Mass/Vol] 26 mg/dL High 7.0 - 18.0 mg/dL [facility] Urea nitrogen/Creatinine [Mass ratio] 14.7 mg/mg [facility] Orders Onlyon 06-06-2024 Orders Only [id number] Frances Macdonald 1950 F Date Provider Department Center 06/06/2024 [id number] Family History Problem Relation Age of Onset Heart failure Father Family Status - Relation Status Age at Father Normal [facility] Office Visiton 05-30-2024 Follow-up visit [id number] Frances Macdonald 1950 Date Provider Department Center 05/30/2024 [id number] MONREAL [facility] Family History Problem Relation Age of Onset Heart failure Father Family Status - Relation Status Age at Father Level of Service:01033 GA OFFICE/OUTPATIENT ESTABLISHED MOD MDM 30 MIN Normal [facility] MG MAMM SCREEN 3D RONY CADon 01-02-2023 MG MAMM SCREEN 3D RONY CAD Patient: FRANCES MACDONALD Exam Date: 01/02/2023 : 1950 Gender:F Ordering : DR ISRRAEL BROWN M.D. Admission #: [id number] Family : Order #: [id number] CLICK HERE TO VIEW EXAM RADIOLOGY REPORT [...] cancer cancer at age 61. LOCATION: [facility] BREAST COMPOSITION: Scattered areas fibroglandular density. [...] Dominique MD on 01/02/2023 at 11:05 Normal [facility] XR DEXA BONE DENSITYon 01-02 XR [...] by: GREGORIO DOMINIQUE Date: 2023-01-02 12:02 Normal [facility] LIPID PROFILEon 08-01-2022 CHOL-HDL RATIO NORM SEE BELOW Normal [facility] Comment on above: Result Comment: 3.3 - 4.4 LOW RISK 4.4 - 7.1 AVERAGE RISK 7.1 - 11.0 MODERATE RISK >11.0 HIGH RISK Performed By: #### L KAROL BMP #### [facility] [address] [place] [address] Dr. Elias Le Cholesterol [Mass/Vol] 175 mg/dL Normal <=200 [facility] Comment on above: Performed By: #### L KAROL BMP #### [facility] [address] [address] [address] Elias Le Cholesterol in HDL [Mass/Vol] 52 mg/dL Normal 40-60 [facility] Comment on above: Performed By: #### L KAMILAH ROBERSON #### [facility] [address] [place] [address] Dr. Elias Le Cholesterol in LDL [Mass/Vol] 101.0 mg/dL Normal [facility] Comment on above: Performed By: #### L IPID, BMP #### [facility] [address] [place] [address] Dr. Elias Le Cholesterol.total/Ch olesterol in HDL [Mass ratio] 3.4 {ratio} Normal [facility] Comment on above: Performed By: #### L IPID, BMP #### [facility] [address] [place] [address] Dr. Elias Le HDL NORMAL > or = 60 mg/dl - LO W CARDIOVASCULAR RISK <40 mg/dl - HIGH CARDIOVASCULAR RISK Normal [facility] Comment on above: Performed By: #### L IPID, BMP #### [facility] [address] [place] [address] Dr. Elias Le LDL CALC NORMAL SEE BELOW Normal [facility] Comment on above: Result Comment: <100 mg/dl OPTIMAL 100 - 129 mg/dl NEAR OR ABOVE OPTIMAL 130 - 159 mg/dl BORDERLINE HIGH 160 - 189 mg/dl HIGH >190 mg/dl VERY HIGH Performed By: #### L IPID, BMP #### [facility] [address] [place] [address] Dr. Elias Le Triglyceride [Mass/Vol] 110 mg/dL Normal <=150 [facility] Comment on above: Performed By: #### L IPID, BMP #### [facility] [address] [place] [address] Dr. Elias Le VLDL CALC 22.0 mg/dL Normal [facility] Comment on above: Performed By: #### L IPID, BMP #### [facility] [address] [place] [address] Dr. Elias Le PROF CHEM 8 (BAS METB)on Anion gap [Moles/Vol] 10.1 mmol/L Normal [facility] Comment on above: Performed By: #### L IPID, BMP #### [facility] [address] [place] [address] Dr. Elias Le Calcium [Mass/Vol] 8.8 mg/dL Normal 8.5-10.1 [facility] Comment on above: Performed By: #### L IPID, BMP #### [facility] [address] [place] [address] [address] Elias Le Chloride [Moles/Vol] 102 mmol/L Normal 98-107 [facility] Comment on above: Performed By: #### L IPID, BMP #### [facility] [address] [place] [address] Dr. Elias Le CO2 [Moles/Vol] 29.0 mmol/L Normal 21.0-32.0 [facility] Comment on above: Performed By: #### L IPID, BMP #### [facility] [address] [place] [address] Dr. Elias Le Creatinine [Mass/Vol] 0.99 mg/dL Normal 0.55-1.02 [facility] Comment on above: Performed By: #### L IPID, BMP #### [facility] [address] [place] [address] Dr. Elias Le EGFR-AF SLOVENIAN >60 Normal >=60 [facility] Comment on above: Performed By: #### L IPID, BMP #### [facility] [address] [place] [address] Dr. Elias Le EGFR-NON AF SLOVENIAN 55 mL/min/1.73m2 Critically low >=60 [facility] Comment on above: Performed By: #### L IPID, BMP #### [facility] [address] [place] [address] Dr. Elias Le Glucose [Mass/Vol] 117 mg/dL Critically high 74-106 [facility] Comment on above: Performed By: #### L IPID, BMP #### [facility] [address] [place] [address] Dr. Elias Le Potassium [Moles/Vol] 4.1 mmol/L Normal 3.5-5.1 [facility] Comment on above: Performed By: #### L IPID, BMP #### [facility] [address] [place] [address] Dr. Elias Le Sodium [Moles/Vol] 137 mmol/L Normal 136-145 [facility] Comment on above: Performed By: #### L IPID, BMP #### [facility] [address] [place] [address] Dr. Elias Le Urea nitrogen [Mass/Vol] 25.0 mg/dL Critically high 7.0-18.0 [facility] Comment on above: Performed By: #### L IPID, BMP #### [facility] [address] [place] [address] [address] Elias Le Urea nitrogen/Creatinine [Mass ratio] 25.3 mg/mg Normal [facility] Comment on above: Performed By: #### L IPID, BMP #### [facility] [address] [place] [address] Dr. Elias Le Vital Signs Date Time Vital Sign Value Performing Clinician Facility 03-17-2025 12:08-0400 Body height 165.1 cm Isrrael Brown II Work Phone: [facility] 03-17-2025 12:08-0400 Body mass index (BMI) [Ratio] 38.2 kg/m2 Isrrael Brown II Work Phone: [facility] 03-17-2025 12:08-0400 Body weight 104.32 kg Isrrael Brown II Work Phone: [facility] 03-17-2025 12:08-0400 Diastolic blood pressure 86 mm[Hg] Isrrael Brown II Work Phone: [facility] 03-17-2025 12:08-0400 Heart rate 54 /min Isrrael Brown II Work Phone: [facility] 03-17-2025 12:08-0400 Respiratory rate 18 /min Isrrael Brown II Work Phone: [facility] 03-17-2025 12:08-0400 SaO2% (BldA) [Mass fraction] 94 % Isrrael Brown II Work Phone: [facility] 03-17-2025 12:08-0400 Systolic blood pressure 155 mm[Hg] Isrrael Brown II Work Phone: [facility] 12-05-2024 11:290400 Body height 165.1 cm [facility] 12-05-2024 11:290400 Body mass index (BMI) [Ratio] 37.8 kg/m2 [facility] 12-05-2024 11:29040 Body temperature 97.4 [degF] [facility] 12-05-2024 11:29040 Body weight 103.13 kg [facility] 12-05-2024 11:29040 Diastolic blood pressure 84 mm[Hg] [facility] 12-05-2024 11:29040 Heart rate 55 /min [facility] 12-05-2024 11:29040 Respiratory rate 18 /min [facility] 12-05-2024 11:29040 SaO2% (BldA) [Mass fraction] 96 % [facility] 12-05-2024 11:29040 Systolic blood pressure 180 mm[Hg] [facility] 06-11-2024 10:41-0500 Body height 165.1 cm Aaron Davis [employer] INSPECT[employer] TESTER Work Phone: [facility] 06-11-2024 10:41-0500 Body mass index (BMI) [Ratio] 40.27 kg/m2 Aaron Davis [employer] INSPECT[employer] TESTER Work Phone: [facility] 06-11-2024 10:41-0500 Body weight 109.77 kg Aaron Davis [employer] INSPECTOR TESTER Work Phone: [facility] 06-11-2024 10:41-0500 Diastolic blood pressure 88 mm[Hg] Aaron Davis [employer] INSPECTOR TESTER Work Phone: [facility] 06-11-2024 10:41-0500 Heart rate 58 /min Aaron Davis [employer] INSPECTOR TESTER Work Phone: [facility] 06-11-2024 10:41-0500 SaO2% (BldA) [Mass fraction] 97 % Aaron Davis [employer] INSPECTOR TESTER Work Phone: [facility] 06-11-2024 10:41-0500 Systolic blood pressure 138 mm[Hg] Aaron Davis NP Work Phone: [facility] Encounters Encounter Date Encounter Type Care Provider Facility Start: 05-15-2025 End: 05-15-2025 ambulatory [facility] Start: 03-17-2025 End: 03-17-2025 ambulatory Isrrael Brown II Work Phone: [facility] Work Phone: Start: 03-17-2025 End: 03-17-2025 Patient encounter procedure Ana Echavarria DO [facility] Work Phone: Start: 03-11-2025 End: 03-11-2025 Clinisync Result Encounter Generic External Data Provider [facility] Unsolicited Start: 03-11-2025 End: 03-11-2025 Clinisync Result Encounter Generic External Data Provider [facility] Unsolicited Start: 02-17-2025 End: 02-17-2025 Patient encounter procedure Isrrael Brown II, [facility] Work Phone: Start: 02-17-2025 End: 02-17-2025 ambulatory Isrrael Brown II Work Phone: [facility] Work Phone: Start: 01-22-2025 End: 01-22-2025 Clinisync Result Encounter Isrrael Brown MD Work Phone: [facility] Unsolicited Start: 01-22-2025 End: 01-22-2025 Clinisync Result Encounter Isrrael Brown MD Work Phone: [facility] Unsolicited Start: 12-05-2024 End: 12-05-2024 ambulatory [facility] Work Phone: Start: 12-05-2024 End: 12-05-2024 Patient encounter procedure [facility] Work Phone: Start: 11-25-2024 End: 11-25-2024 Clinisync Result Encounter Generic External Data Provider [facility] Unsolicited Start: 11-25-2024 End: 11-25-2024 Clinisync Result Encounter Generic External Data Provider [facility] Unsolicited Start: 11-24-2024 End: 11-24-2024 [facility] Start: 11-11-2024 End: 11-11-2024 Clinisync Result Encounter [...] 06-11-2024 End: 06-11-2024 Bamboo flowsheet Aaron Davis [employer] INSPECTOR TESTER Work Phone: [facility] Start: 06-11-2024 End: 06-11-2024 Bamboo flowsheet Aaron Davis [employer] INSPECTOR TESTER Work Phone: [facility] Start: 06-11-2024 End: 06-11-2024 Assay of hemosiderin, quant Aaron Davis NP Work Phone: [facility] Start: 06-11-2024 End: 06-11-2024 Patient encounter procedure Aaron Davis NP Work Phone: [facility] Comment on [...] Department Unsolicited Start: 05-30-2024 End: 05-30-2024 ambulatory [facility] Start: 01-01-2024 End: 01-01-2024 ambulatory ANA JERCIHO Not Available Start: 01-02-2023 End: 01-03-[address] ISRRAEL BROWN Facility:[facility] Start: 08-01-2022 End: 08-02-[address] ISRRAEL BROWN Facility:[facility] Procedures Date Procedure Procedure Detail Performing Clinician Start: 03-11-2025 ALL LIPID PROFILE (FASTING) Generic External Data Provider Start: 03-11-2025 [facility] ALT Generic Ex ternal Data Provider Start: 03-11-2025 [facility] AST Generic Ex ternal Data Provider Start: 02-17-2025 Mammography of left breast Isrrael Brown II Work Phone: Start: 02-17-2025 Ultrasonography of l eft breast Isrrael Brown II Work Phone: Start: 01-22-2025 MM TOMOSYNTHESIS SCR EENING BI Isrrael Brown MD Work Phone: Start: 01-22-2025 Mammography Isrrael garcia MD Work Phone: Start: 11-25-2024 MLR HEMOGLOBIN A1C Gene mariam External Data Provider Start: 11-11-2024 CA ECHO DOPPLER COMPLETE Generic External Data Provider Start: 10-14-2024 CARD ECHO LIMITED STUDY Generic External Data Provider Start: 06-11-2024 Hemoglobin glycosylated a1c Aaron Davis [employer] INSPECTOR TESTER Work Phone: Start: 06-06-2024 ALL BASIC METABOLIC PANEL Generic External Data Provider Start: 01-14-2024 Mammography Generic Pr ovider Start: 01-10-2021 Colonoscopy Generic Pr ovider Plan of Treatment Date Care Activity Detail Author Start: 01-10-2031 Screening for malign ant neoplasm of colon [facility] Start: 01-22-2026 Screening for malign ant neoplasm of breast Mammogram [facility] Start: 06-11-2025 Urine screening for protein Diabetes: Urine Protein Screening [facility] Start: 04-06-2025 Influenza vaccination [facility] Start: 01-20-2025 End: 01-20-2025 Patient encounter procedure 01/20/2025 2:15 PM EDT Office Visit [facility] [address] [address] [place] [id number] Ana Echavarria DO [address] [place], [place] [id number] [facility] Start: 01-13-2025 Screening for malign ant neoplasm of breast Mammogram [facility] Start: 12-30-2024 End: 12-30-2024 Patient encounter procedure 12/30/2024 10:45 AM EDT Office Visit [facility] [address] [place] [id number] Ana Echavarria DO [address] [place], [place] [id number] [facility] Start: 09-11-2024 Hemoglobin A1c measurement Diabetes: Hemoglobin A1C [facility] Start: 06-11-2024 End: 06-11-2025 Comprehensive metabolic 2000 panel - Serum or Plasma Comprehensive metabolic panel Lab Routine Diastolic dysfunction Diastolic dysfunction, left ventricle Secondary hypertension (CMS/HCC) Mitral valve insufficiency, unspecified etiology Tricuspid valve insufficiency, unspecified etiology Expected: 06/11/2024 (Approximate), Expires: 06/11/2025 [facility] Comment on above: Expected: 06/11/2024 (Approximate), Expires: 06/11/2025 Start: 06-11-2024 End: 06-11-2025 Microalbumin/Creatinine panel in random Urine Microalbumin / creatinine, urine ratio Lab Routine Type 2 diabetes mellitus without complication, without long-term current use of insulin (CMS/HCC) Expected: 06/11/2024 (Approximate), Expires: 06/11/2025 [facility] Work Phone: Comment on above: Expected: 06/11/2024 (Approximate), Expires: 06/11/2025 Start: 06-11-2024 End: 06-11-2024 [facility] Comment on above: Arrived Start: 04-06-2024 Influenza vaccination Influenza Vacc ine (#1) [facility] Start: 08-01-2023 Urine screening for protein Diabetes: Urine Protein Screening [facility] Start: 06-30-2022 Screening for malign ant neoplasm of colon FIT-DNA [facility] Start: 1960 Glaucoma screening Diabetes: R etinopathy Screening [facility] Start: 1950 Screening for malign ant neoplasm of colon [facility] Immunizations Immunization Date Immunization Notes Care Provider Fa cility 11-17-2020 pneumococcal polysac charide vaccine, 23 valent Generic Provider [facility] 06-13-2017 influenza, high dose seasonal, preservative-free Generic Provider [facility] are 06-13-2017 influenza virus vacc ine, unspecified formulation Generic Provider [facility] 08-30-2016 pneumococcal conjuga te vaccine, 13 valent Generic Provider [facility] 05-30-2010 seasonal influenza, intradermal, preservative free Generic Provider [facility] Payers Date Payer Category Payer Self-pay 2023 Private Health Insurance [facility] [id number] 2016 Medicare MEDICARE [id number] 1959 Medicare [id number] 1959 Private Health Insurance [id number] 1950 Unknown [id number] 1950 Unknown [id number] 1950 Unknown [id number] 1950 Unknown [id number] Unknown [id number] Unknown [id number] Social History Date Type Detail Facility Start: 04-02-2023 End: 12-05-2024 Tobacco smoking status NHIS Never smoked tobacco [facility] Start: 04-02-2023 Tobacco use and exposure Smokeless tobacco non-user [facility] Start: 01-01-2024 End: 06-11-2024 Alcoholic beverage intake Current drinker of alcohol (finding) [facility] Start: 01-01-2024 End: 06-11-2024 Alcoholic beverage intake [facility] Start: 01-01-2024 End: 06-11-2024 Tobacco use panel [facility] Start: 12-28-2022 Alcohol Comment 1-2 drinks per occassion [facility] Start: 1950 Sex assigned at Not on file [facility] Start: 12-05-2024 Sex Female (finding) [facility] Start: 1950 Sex Assigned At Female F [facility] Progress note 05-15-2025 Note Date & Type Note Facility 05-15-[address] Cardiology - [facility] Subjective Frnaces Macdonald is a 75 y.o. 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 She reports that she took Lasix on daily basis after last visit for 1 week and that helped to bring her edema down however she went back to 3 times a week because it caused her frequent and urgent urination. She reports that her blood pressure has been better after increasing losartan dose however she did not have a log of recent blood pressure measurements. She denies any chest pain or shortness of breath at rest or with exertion. She denies orthopnea or paroxysmal nocturnal dyspnea or dizziness or palpitations. She admits legs edema particularly is day does not take Lasix and particularly at the end of the day. She reports compliance with CPAP 11/24/2024 Patient used to follow-up with who left [...] and other salty foods yesterday for the . She reports that she had legs edema [...] Date Abnormal ECG Arrhythmia Asthma Atrial fibrillation ([facility]) CHF (congestive heart failure) ([facility]) Diastolic dysfunction Heart valve disease Hyperlipidemia Hypertension Hypothyroidism Sleep apnea Past Surgical History: Procedure Laterality Date CATARACT EXTRACTION TUBAL LIGATION TUBAL LIGATION Family History Problem Relation Name Age of Onset Heart failure Father Social History Tobacco Use Smoking status: Never Smokeless tobacco: Never Substance Use Topics Alcohol use: Yes Comment: occasional Drug use: Never Allergies No Known Allergies Medications Current Outpatient Medications: albuterol 90 mcg/actuation inhaler, albuterol sulfate HFA 90 mcg/actuation aerosol inhaler INHALE 2 PUFFS BY MOUTH EVERY 4 HOURS NEEDED FOR WHEEZING WITH SPACER, Disp: , Rfl: apixaban (Eliquis) 5 mg [...] mcg tablet, Disp: , Rfl: losartan (Cozaar) 100 mg tablet, Take 1 tablet (100 mg) by mouth in the morning. This is an increase, Disp: 90 tablet, Rfl: 3 metFORMIN (Glucophage) 500 mg tablet, Take 500 mg by mouth with breakfast and with evening meal., Disp: , Rfl: metoprolol succinate XL (Toprol-XL) 50 mg 24 hr tablet, Take 50 mg by mouth in the morning., Disp: , Rfl: montelukast (Singulair) 10 mg tablet, montelukast 10 mg tablet, Disp: , Rfl: simvastatin (Zocor) 40 mg tablet, Take 1 tablet (40 mg) by mouth at bedtime. (Patient taking differently: Take 80 mg by mouth at bedtime.), Disp: 90 tablet, Rfl: 3 spironolactone (Aldactone) 25 mg tablet, TAKE 1 TABLET IN THE MORNING, Disp: 90 tablet, Rfl: 3 amLODIPine (Norvasc) 10 mg tablet, Take 1 tablet by mouth in the morning. (Patient not taking: Reported on 05/15/2025), Disp: , Rfl: losartan (Cozaar) 50 mg tablet, TAKE 1 TABLET EVERY MORNING (Patient not taking: Reported on 05/15/2025), Disp: 90 tablet, Rfl: 3 Objective Visit Vitals BP 148/72 (BP Location: Left arm, Patient Position: Sitting) Pulse 51 Ht 1.651 m (5' 5 ) Wt 105 kg (232 lb) SpO2 98% BMI 38.61 kg/m??? Smoking Status Never BSA 2.19 m??? (more content not included)... [facility] Evaluation note 12-05-2024 Note Date & Type Note Facility 12-05-2024 Evaluation note Diagnosis Onset Date Resolution Acute lower respiratory infection acute December 05, 2024 11 :12am [facility] Work Phone: Progress note 11-24-2024 Note Date & Type Note Facility 11-24-2024 Note [facility] Subjective Frances Macdonald is a 74 [...] and other salty foods yesterday for the . She reports that she had legs edema [...] 26, creatinine 1.8 (more content not included)... [facility] History of Present illness Narrative 06-11-2024 Aaron [...] Do you have a medical power of health care attorney?: Yes Objective : BP 138/88 Pulse [...] Morbid (severe) obesity due to excess calories (CMS/[facility]) Discussed goal of BMI < [...] 17. Body mass index (BMI) 40.0-44.9, adult (CMS/[facility]) Discussed goal of BMI < [...] June 11, 2024 documented in this encounter [facility] Progress note 05-30-2024 Note Date & Type [...] if needed Awilda Monreal MD Interventional Cardiology [facility] Evaluation note Note Date & Type Note Facility Evaluation note Diagnosis Obstructive sleep apnea syndrome- Primary Obstructive sleep apnea (adult) (pediatric) Mild intermittent asthma without complication (CMS/HCC) Diastolic dysfunction Unspecified heart disease Diastolic dysfunction, left ventricle Enlarged atria Secondary hypertension (CMS/HCC) Other secondary hypertension, unspecified Mitral valve insufficiency, unspecified etiology Paroxysmal atrial fibrillation ([facility]/HCC) Atrial fibrillation Tricuspid valve insufficiency, unspecified etiology Displacement of lumbar intervertebral disc without myelopathy Hypothyroidism, unspecified type ([facility]/HCC) Type 2 diabetes mellitus without complication, without long-term current use of insulin ([facility]/HCC) Abnormal TSH Estrogen deficiency Other ovarian failure Mixed hyperlipidemia ([facility]/HCC) Mixed hyperlipidemia Morbid (severe) obesity due to excess calories ([facility]) Body mass index (BMI) 40.0-44.9, adult ([facility]) Routine general medical examination at health care facility Routine general medical examination at a health care facility documented in this encounter [facility] Evaluation note Note Date & Type Note Facility Evaluation note No assessment information availa [facility] Work Phone: Reason for referral (narrative) Note Date & Type Note Facility Reason for referral (narrative) No reason for referral information available [facility] Work Phone: Summary Purpose Family History No [...] cough, green phlegm December 05, 2024 11:12am Chief Complaint Admit Date congestion cough, green phlegm December 05, 2024 11:12am R92.8 February 17, 2025 8:54 am Reason for Visit Admit Date Acute lower respiratory infection December 11:12am Chief Complaint Admit Date R92.8 February 17, 2025 8:54 am Additional Source Comments INFORMATION SOURCE (unrecogn ized section and content) DATE CREATED AUTHOR 01/12/2023 [facility] DATE CREATED AUTHOR AUTHOR'S ORGANIZ ATION 06/13/2024 [facility] EPIC DATE CREATED AUTHOR AUTHOR'S ORGANIZ ATION 06/14/2024 [facility] DATE CREATED AUTHOR AUTHOR'S ORGANIZ ATION 02/25/2025 [facility] DATE CREATED AUTHOR AUTHOR'S ORGANIZ ATION 05/17/2025 [facility] Care Teams (unrecognized sec tion and content) Car Rental Manager Relationship Specialty Start Date End Date Isrrael Brown MD [address] [place] [address] PCP - General Internal Medicine 12/12/22 Aaron Davis RUBBER GOODS INSPECTOR TESTER [address] [place] [address] PCP - ACO Reach 12/05/23 Car Rental Manager Relationship Specialty Start Date End Date Isrrael Brown MD [address] [place] [address] PCP - General Internal Medicine 12/12/22 Aaron Davis RUBBER GOODS INSPECTOR TESTER [address] [place] [address] PCP - ACO Reach 12/05/23 Car Rental Manager Relationship Specialty Start Date End Date Isrrael Brown MD [address] [place] [address] PCP - General Internal Medicine 12/12/22 Aaron Davis NP [address] [place] [address] PCP - ACO Reach 09/19/24 Car Rental Manager Relationship Specialty Start Date End Date Isrrael Brown MD [address] [place] [address] PCP - General Internal Medicine 12/12/22 Team Status: Active Member Role Status Dates Isrrael Brown II MD Primary Care Provider Active Team Status: Inactive Member Role Status Dates Brittany Espinosa APRN Attending Provider Active Start: December 05, 2024 End: December 05, 2024 Isrrael Brown II MD Primary Care Provider Active Start: December 05, 2024 End: December 05, 2024 Car Rental Manager Relationship Specialty Start Date End Date Isrrael Brown MD [address] [place] [address] PCP - General Internal Medicine 12/12/22 Team Status: Inactive Member Role Status Dates Isrrael Brown II MD Primary Care Provider Active Start: February 17, 2025 End: February 17, 2025 Isrrael Brown II MD Attending Provider Active S tart: February 17, 2025 End: February 17, 2025 Car Rental Manager Relationship Specialty Start Date End Date Isrrael Brown MD [address] [place] [address] PCP - General Internal Medicine 12/12/22 Team Status: Inactive Member Role Status Dates Isrrael Brown II MD Primary Care Provider Active Start: March 17, 2025 End: March 17, 2025 Ana Echavarria DO Attending Provider Active Sta rt: March 17, 2025 End: March 17, 2025 Reason for Visit (unrecogniz ed section and content) Reason Comments Medicare Annual Wellness Visit Subsequen t Losartan was changed to 25mg due to recent labs pt was on 50mgPt Bp today is 184/90 pt has had a cough for couple of weeks Goals (unrecognized section and content) Goals may be documented in a n alternate sectionGoals may be documented in an alternate sectionGoals may be documented in an alternate section FOR RECORDS PERTAINING TO PATIENTS [...] BE BASED ON THE PRIMARY CLINICAL RECORDS. [employer] [facility]. provides no warranty or guarantee of the accuracy or completeness of information in this document.
--- OUTSIDE RECORDS SUMMARY | 2025-05-19 08:12 | XMS_ITS | Clinical Summary ---
Author Organization [facility] Address [address] [place] [address] Care Team Providers Care Sales Team Recruiter Name Role Phone Isrrael Brown MD Primary Care Provider [phone] Allergies No known active allergies Medications albuterol HFA 90 mcg/act inhaler Inhale 2 puffs every 4 (four) hours if needed for wheezing or shortness of breath. Active dexAMETHasone 0.5 MG/5ML elixirIndications :Pharyngitis, unspecified etiology Take 10 mL (1 mg) by mouth every 12 (twelve) hours for 10 days. 200 mL 04/02/20 23 Active diphenhydrAMINE 12.5 MG/5ML elixir 50 mg, aluminum-magnesiu m hydroxide-simethi cone 400-400-40 MG/5ML suspension 20 mL, lidocaine 2 % solution 20 mLIndications:Pha ryngitis, unspecified etiology Swish and spit 15 mL every 4 (four) hours if needed for mucositis. Disp 300ml 300 each 2 04/02/20 23 Active spironolactone (Aldactone) 25 MG tablet Take 25 mg by mouth in the morning. 05/09/20 24 Active losartan (Cozaar) 50 MG tabletIndications :Secondary hypertension Take 1 tablet (50 mg) by mouth Daily 100 tablet 3 06/11/20 24 2024 Active furosemide (Lasix) 20 MG tabletIndications :Edema of lower extremity Take 1 tablet (20 mg) by mouth Daily 90 tablet 2 06/11/20 24 Active metFORMIN (Glucophage) 500 MG tabletIndications :Impaired fasting glucose TAKE 1 TABLET TWICE A DAY WITH MEALS 180 tablet 2 11/26/19 25 Active montelukast (Singulair) 10 MG tabletIndications :Allergy, sequela TAKE 1 TABLET DAILY 90 tablet 2 04/21/20 25 Active Fluticasone-Salme terol (Wixela Inhub) 250-50 MCG/ACT aerosol powderIndications :Mild intermittent asthma without complication (HCC) USE 1 INHALATION ORALLY IN THE MORNING AND BEFORE BEDTIME 60 each 3 04/21/20 25 Active levothyroxine (Synthroid, Levoxyl) 25 MCG tabletIndications :Abnormal TSH TAKE 1 TABLET DAILY 90 tablet 2 04/21/20 25 Active apixaban (Eliquis) 5 MG tabletIndications :Paroxysmal atrial fibrillation (HCC) TAKE 1 TABLET EVERY MORNINGAND TAKE 1 TABLET BEFORE BEDTIME 180 tablet 2 04/21/20 25 Active simvastatin (Zocor) 20 MG tabletIndications :Mixed hyperlipidemia TAKE 1 TABLET DAILY 90 tablet 2 04/21/20 25 Active metoprolol succinate XL (Toprol-XL) 50 MG 24 hr tabletIndications :Paroxysmal atrial fibrillation (HCC) TAKE 1 TABLET DAILY 30 tablet 1 05/18/20 25 Active Fluticasone-Salme terol (Wixela Inhub) 250-50 MCG/ACT aerosol powderIndications :Mild intermittent asthma without complication (HCC) Inhale 1 each in the morning and 1 each before bedtime. 3 each 3 05/02/20 24 2024 Discontinued levothyroxine (Synthroid, Levoxyl) 25 MCG tabletIndications :Abnormal TSH Take 1 tablet (25 mcg) by mouth Daily 90 tablet 2 06/11/20 24 2024 Discontinued metoprolol succinate XL (Toprol-XL) 50 MG 24 hr tabletIndications :Paroxysmal atrial fibrillation (HCC) Take 1 tablet (50 mg) by mouth Daily 90 tablet 2 06/11/20 24 2024 Discontinued simvastatin (Zocor) 20 MG tabletIndications :Mixed hyperlipidemia Take 1 tablet (20 mg) by mouth Daily 90 tablet 2 06/11/20 24 2024 Discontinued apixaban (Eliquis) 5 MG tabletIndications :Paroxysmal atrial fibrillation (HCC) Take 1 tablet (5 mg) by mouth in the morning and 1 tablet (5 mg) before bedtime. 180 tablet 2 06/11/20 24 2024 Discontinued montelukast (Singulair) 10 MG tabletIndications :Allergy, sequela Take 1 tablet (10 mg) by mouth Daily 90 tablet 2 06/11/20 24 2024 Discontinued Active Problems Problem Noted Date Diagnosed Date Pericardial effusion ([facility]-H[facility]) 11/16/2023 Overview (06/11/2024): Last Assessment & Plan: [...] Encounters Date Type Department Care Team Description 05/17/2025 Refill [facility] [place] [facility] [address] [place] [address] Shanika Davis NP Paroxysmal atrial fibrillation (HCC) 04/21/2025 Refill [facility] [place] [facility] [address] [facility] [address] [place] [phone] Isrrael Brown MD Mild intermittent asthma without complication (HCC) 04/21/[address] [place] [facility] [address] [facility] [address] [place] [phone] Shanika Davis NP Allergy, sequela; Abnormal TSH; Paroxysmal atrial fibrillation (HCC); Mixed hyperlipidemia 03/23/2025 Abstract [facility] [place] [facility] [address] [facility] [address] [place] [address] Isrrael Brown MD 03/11/2025 Clinisync Result Encounter [facility] External Department Unsolicited Provider, Generic External Data 02/17/2025 Results Follow-Up [facility] [place] [facility] [address] [facility] [address] [place] [address] Jamila Crawford LPN Left breast US limited 02/17/2025 External Result Encounter [facility] External Department [...] Name Priority Date/Time Associated Diagnosis Comments ALL LIPID PROFILE (FASTING) Routine 03/11/2025 8:20 AM EDT [facility] ALT Routine 03/11/2025 8:20 AM EDT [facility] AST Routine 03/11/2025 8:20 AM EDT BI US BREAST LIMITED LEFT 02/17/2025 10:51 [...] Recently Relevant to Health Maintenance Results * (ABNORMAL) [facility] AST (03/11/2025 8:20 AM EDT) ASPARTATE AMINO TRANSFERASE 14(L) 15 - 37 U/L [facility] 03/11/2025 8:20 AM EDT 03/11/2025 8:22 AM EDT Narrative [facility] - 03/11/2025 10:11 AM EDT Generic External Data Provider [facility] F inal Result Performing Organization Address [facility] de Phone Number [facility] * [facility] ALT (03/11/2025 8:20 AM EDT) ALANINE AMINOTRANSFERASE 16 14 - 59 U/L TB 03/11/2025 8:20 AM EDT 03/11/2025 8:22 AM EDT Narrative [facility] - 03/11/2025 10:11 AM EDT Generic External Data Provider [facility] F inal Result Performing Organization Address [facility] de Phone Number CLINISYWI TB * ALL LIPID PROFILE (FASTING) (03/11/2025 8:20 AM EDT) TRIGLYCERIDES 62 <=150 mg/dL TBH CHOLESTEROL 149 <=200 mg/dL [facility] HDL CHOLESTEROL 41 40 - 60 mg/dL [facility] Comment: > or =60 mg/dl - LOW CARDIOVASCULAR RISK <40 mg/dl - HIGH CARDIOVASCULAR RISK LDL CHOLESTEROL CALCULATED 95.6 mg/dL TB Comment: <100 mg/dl OPTIMAL 100-129 mg/dl NEAR OR ABOVE OPTIMAL 130-159 mg/dl BORDERLINE HIGH 160-189 mg/dl HIGH >190 mg/dl VERY HIGH VLDL CHOLESTEROL 12.4 mg/dL TBH CHOL HDL RATIO 3.6 TB Comment: 3.3 - 4.4 LOW RISK 4.4 - 7.1 AVERAGE RISK 7.1 - 11.0 MODERATE RISK >11.0 HIGH RISK 03/11/2025 8:20 AM EDT 03/11/2025 8:22 AM EDT Narrative [facility] - 03/11/2025 10:11 AM EDT us Generic External Data Provider MICHAEL F inal Result MICHAEL [facility] * Left breast US limited (02/17/2025 10:51 [...] 02/17/25 1053 Narrative 02/17/2025 10:55 AM EDT [facility] [address] [place] [address] Mammography Report Signed Patient: Frances Macdonald MR#: [id number] : 1950 Acct:[id number] Age/Sex: 74 / F Adm Date: 02/17/25 Loc: [place] Room: [facility] Attending Dr: Isrrael Brown II, MD Ordering Provider: Isrrael Brown II, MD Date of Service: 02/17/25 Procedure(s): MM special view LT w/CAD; US breast LT limited Accession Number(s): ([id number]) MM/MM special view LT w/CAD: R92.8 ([id number]) US/US breast LT limited: R92.8 Copies to: [...] Procedure Note Radiology, Radiologist, MD - 02/17/2025 [place] [address] Mammography Report Signed Patient: Frances Macdonald MMR#: [id number] : 1950cct:[id number] Age/Sex: 74 / FAdm Date: 02/17/25 Loc: [place] Room:Type[facility] Attending Dr: Isrrael Brown II, MD Ordering Provider: Isrrael Brown II, MD Date of Service: 02/17/25 Procedure(s): MM special view LT w/CAD; US breast LT limited Accession Number(s): ([id number]) MM/MM special view LT w/CAD: R92.8 ([id number]) US/US breast LT limited: R92.8 Copies to: [...] Laurent M.D. 02/17/2025 10:53 AM Dictation Location: [facility] Dictated By: Masood Laurent DO 02/17/25 1051 Signed By: <Electronically signed by Masood Laurent DO in OV> 02/17/25 1053 Isrrael Brown MD IMG US PROCEDURES Final Result * MM TOMOSYNTHESIS SCREENING BI (01/22/2025 2:10 PM EDT) Anatomical Region Laterality Modality Other 01/22/2025 2:10 PM EDT Narrative 01/22/2025 2:11 [place] [address] Mammography Report Signed Patient: FRANCES MACDONALD MR#: [id number] : 1950 Acct:[id number] Age/Sex: 74 / F ADM Date: 01/22/25 Loc: MAMMO Attending Dr: ISRRAEL BROWN Ordering Physician: ISRRAEL BROWN Results: Date of Service: 01/22/25 Follow Up: Procedure(s): MM tomosynthesis screening BI Accession Number(s): [id number] cc: ISRRAEL BROWN Patient Name: FRANCES MACDONALD MR#: [id number] : 1950 Exam Date: 01/22/2025 Ordering Doctor: [...] cancer cancer at age 61. LOCATION: [facility] BREAST COMPOSITION: There are scattered areas [...] Signed By: 01/22/25 1411 DD/ 1410 TD/TT: Desk Manager: Procedure Note Radiology, Radiologist, MD - 01/22/2025 [place] [address] Mammography Report Signed Patient: FRANCES MACDONALD MMR#: [id number] : 1950cct:[id number] Age/Sex: 74 / FADM Date: 01/22/25 Loc: MAMMO Attending Dr: ISRRAEL BROWN Ordering Physician: ISRRAEL BROWNResults: Date of Service: 01/22/25Follow Up: Procedure(s): MM tomosynthesis screening BI Accession Number(s): [id number] cc: ISRRAEL BROWN Patient Name: FRANCES MACDONALD MR#: [id number] : 1950 Exam Date: 01/22/2025 Ordering Doctor: DR ISRRAEL BROWN M.D. RADIOLOGY REPORT PROCEDURE: MM TOMOSYNTHESIS SCREENING BI COMPARISON: MM TOMOSYNTHESIS SCREENING BI, 01/14/2024. MG MAMM [id number] RONY CAD, 01/02/2023. MG MAMM SCREEN 3D [...] cancer cancer at age 61. LOCATION: [facility] BREAST COMPOSITION: There are scattered areas [...] D.O. Signed By:01/22/25 1411 DD/ 1410 TD/TT: Desk Manager: us Isrrael Brown MD [facility] IMAGING Final [...] Performing Organization Information Site ID: QPT Name: [facility] Address: [address] [place] [address], [address] [place] [phone] Director: Wil Fraga MD Shanika Davis NP LAB URINE ORDERABLES Final R esult [facility] * POCT Glycated hemoglobin, total (06/11/2024 11:20 AM EST) Pathologist [facility] Hemoglobin A1C 6.0 Blood 06/11/2024 11:2 0 [...] Rebecca Matias al, N Engl J Med 2014;370(14):5464-7946.) Test Type: Composite algorithmic analysis of stool [...] can be accessed at the following location: [email or web address]/results. Additional description of the Cologuard test process, warnings and precautions can be found at [email or web address]. Rx Only. 06/30/2019 Isrrael Brown MD LAB MOLECULAR DIAGNOSTICS NAOMI PAZ Final Result [facility] from Last 3 Months or Most Recently Relevant to Health Maintenance Insurance [facility]IC[facility] Care Teams Sales Team Recruiter Relationship Specialty Start Date End Date Isrrael Brown MD [address] [facility] [address] [place] [address] PCP - General Internal Medicine 12/12/22
--- OUTSIDE RECORDS SUMMARY | 2025-05-19 08:13 | XMS_ITS | Encounter Summary ---
Author Organization [facility] Address [address] [place] [address] Care Team Providers Care Australian Rules Footballer Name Role Phone Shanika Davis SLIP COVER CUTTER Unavailable Isrrael Brown MD Primary Care Provider Shanika Davis SLIP COVER CUTTER Unavailable [phone] Shanika Davis SLIP COVER CUTTER Unavailable Encounter Details Date Type Department Care Team (Late st Contact Info) Description 12/28/2022 Abstract [facility] [place] [facility] [address] [facility] [address] [place] [phone] Isrrael Brown MD [address] [facility] [address] [place], [place] [id number] Social History Tobacco Use Types Packs/Day Years [...] on filedocumented in this encounter Care Teams Australian Rules Footballer Relationship Specialty Start Date End Date Shanika Davis NP [address] [facility] 110 [place] [address] PCP - ACO Reach 12/28/22 10/04/23 Isrrael Brown MD [address] [facility] [address] [place] [address] PCP - General Internal Medicine 12/12/22 Shanika Davis NP [address] [facility] [address] [place] [address] PCP - ACO Reach 12/05/23 09/11/24 Shanika Davis NP [address] [facility] [address] [place] [address] PCP - ACO Reach 09/19/24 11/06/24 documented as of this encounter
--- OUTSIDE RECORDS SUMMARY | 2025-05-19 08:13 | XMS_ITS | Encounter Summary ---
Author Organization [facility] Address [address] [facility] [place] [address] Care Team Providers Care Polls Or Surveys Interviewer Name Role Phone Isrrael Brown MD Primary Care Provider [phone] Encounter Details Date Type Department Care Team (Late st Contact Info) Description 03/23/2025 Abstract [facility] [place] [facility] [address] [place] [phone] Isrrael Brown MD [address] [place], [place] [id number] Social History Tobacco Use Types Packs/Day Years [...] on filedocumented in this encounter Care Teams Polls Or Surveys Interviewer Relationship Specialty Start Date End Date Isrrael Brown MD [address] [place], [place] [id number] PCP - General Internal Medicine 12/12/22 documented as of this encounter
--- OUTSIDE RECORDS SUMMARY | 2025-05-19 08:14 | XMS_ITS | Encounter Summary ---
Author Organization [facility] Address [address] [facility] [place] [address] Care Team Providers Care Visual Associate Name Role Phone Isrrael Brown MD Primary Care Provider Reason for Visit * Reason Comments Med Refill Encounter Details Date Type Department Care Team (Late st Contact Info) Description 05/17/2025 Refill [facility] [place] [facility] [address] [facility] [address] [place] [address] Shanika Davis, VENDING MECHANIC [address] [place] [address] Paroxysmal atrial fibrillation (HCC) Social History Tobacco Use Types Packs/Day Years [...] Diagnosis Paroxysmal atrial fibrillation (HCC) Atrial fibrillation documented in this encounter Care Teams Visual Associate Relationship Specialty Start Date End Date Isrrael Brown MD [address] [facility] [address] [place], [place] [phone] PCP - General Internal Medicine 12/12/22 documented as of this encounter
--- OUTSIDE RECORDS SUMMARY | 2025-05-19 08:14 | XMS_ITS | Encounter Summary ---
Author Organization [facility] Address [address] [facility] [place] [address] Care Team Providers Care Wire Saw Operator Name Role Phone Isrrael Brown MD Primary Care Provider [phone] Shanika Davis BALANCE WHEEL SCREW HOLE DRILLER Unavailable [phone] Shanika Davis BALANCE WHEEL SCREW HOLE DRILLER Unavailable [phone] Encounter Details Date Type Department Care Team (Late st Contact Info) Description 06/11/2024 Abstract [facility] [place] [facility] [address] [facility] [address] [place] [address] Isrrael Brown MD [address] [place] [facility] [address] [place] [address] Social History Tobacco Use Types Packs/Day Years [...] on filedocumented in this encounter Care Teams Wire Saw Operator Relationship Specialty Start Date End Date Isrrael Brown MD [address] [facility] 110 [place] [address] PCP - General Internal Medicine 12/12/22 Shanika Davis, BALANCE WHEEL SCREW HOLE DRILLER [address] [facility] [address] [place] [address] PCP - ACO Reach 12/05/23 09/11/24 Shanika Davis, BALANCE WHEEL SCREW HOLE DRILLER [address] [facility] 110 [place] [address] PCP - ACO Reach 09/19/24 11/06/24 documented as of this encounter
--- OUTSIDE RECORDS SUMMARY | 2025-05-19 08:14 | XMS_ITS | Encounter Summary ---
Author Organization [facility] Address [address] [place] [address] Care Team Providers Care Produce Runner Name Role Phone Isrrael Brown MD Primary Care Provider [phone] Encounter Details Date Type Department Care Team (Late st Contact Info) Description 02/17/2025 External Result Encounter [facility] External Department Unsolicited Isrrael Brown MD [address] [place] [address] Social History Tobacco Use Types [...] Laurent M.D. 02/17/2025 10:53 AM Dictation Location: [facility] Dictated By: Masood Laurent DO 02/17/25 1051 Signed By: <Electronically signed by Masood Laurent DO in OV> 02/17/25 1053 Narrative 02/17/2025 10:55 AM EDT [facility] [address] [place] [address] Mammography Report Signed Patient: Frances Macdonald MR#: [id number] : 1950 Acct:[id number] Age/Sex: 74 / F Adm Date: 02/17/25 Loc: [place] Room: Type: [facility] Attending Dr: Isrrael Brown II, MD Ordering Provider: Isrrael Brown II, MD Date of Service: 02/17/25 Procedure(s): MM special view LT w/CAD; US breast LT limited Accession Number(s): ([id number]) MM/MM special view LT w/CAD: R92.8 ([id number]) US/US breast LT limited: R92.8 Copies to: [...] Procedure Note Radiology, Radiologist, MD - 02/17/2025 [facility] [address] [facility] [address] [place] [address] Mammography Report Signed Patient: Frances Macdonald MMR#: [id number] : 1Acct:[id number] Age/Sex: 74 / FAdm Date: 02/17/25 Loc: [place] Room:Type: [facility] Attending Dr: Isrrael Brown II, MD Ordering Provider: Isrrael Brown II, MD Date of Service: 02/17/25 Procedure(s): MM special view LT w/CAD; US breast LT limited Accession Number(s): ([id number]) MM/MM special view LT w/CAD: R92.8 ([id number]) US/US breast LT limited: R92.8 Copies to: [...] Laurent M.D. 02/17/2025 10:53 AM Dictation Location: [facility] Dictated By: Masood Laurent DO 02/17/25 1051 Signed By: <Electronically signed by Masood Laurent DO in OV> 02/17/25 1053 us Isrrael Brown MD IMG US PROCEDURES Final Result documented in this encounter Visit Diagnoses Not on filedocumented in this encounter Care Teams Produce Runner Relationship Specialty Start Date End Date Isrrael Brown MD [address] [facility] [address] [place] [address] PCP - General Internal Medicine 12/12/22 documented as of this encounter
--- OUTSIDE RECORDS SUMMARY | 2025-05-19 08:14 | XMS_ITS | Encounter Summary ---
Author Organization [facility] Address [address] [place] [address] [place] [address] Care Team Providers Care Floral Designer Name Role Phone Isrrael Brown MD Primary Care Provider [phone] Shanika Davis REGULATORY COMPLIANCE MANAGER Unavailable [phone] Shanika Davis REGULATORY COMPLIANCE MANAGER Unavailable Encounter Details Date Type Department Care Team (Late st Contact Info) Description 01/14/2024 Clinisync Result Encounter [facility] External Department Unsolicited Isrrael Brown MD [address] [facility] [address] [place] [address] Social History Tobacco Use Types [...] EDT Narrative 01/14/2024 1:35 PM EDT The [address] [address] Mammography Report Signed Patient: FRANCES MACDONALD MR#: [id number] : 1950 Acct:[id number] Age/Sex: 73 / F ADM Date: 01/14/24 Loc: MAMMO Attending Dr: ISRRAEL BROWN Ordering Physician: ISRRAEL BROWN Results: Date of Service: 01/14/24 Follow Up: Procedure(s): MM tomosynthesis screening BI Accession Number(s): [id number] cc: ISRRAEL BROWN Patient Name: FRANCES MACDONALD MR#: [id number] : 1950 Exam Date: 01/14/2024 Ordering Doctor: [...] cancer cancer at age 61. LOCATION: The [facility] BREAST COMPOSITION: There are scattered [...] Signed By: 01/14/24 1335 DD/ 1334 TD/TT: Police Captain: Procedure Note Radiology, Radiologist, - 01/14/[address] [place] [address] Mammography Report Signed Patient: FRANCES MACDONALD MMR#: [id number] : 1950cct:[id number] Age/Sex: 73 / FADM Date: 01/14/24 Loc: MAMMO Attending Dr: ISRRAEL BROWN Ordering Physician: ISRRAEL BROWNResults: Date of Service: 01/14/24Follow Up: Procedure(s): MM tomosynthesis screening BI Accession Number(s): [id number] cc: MARIANOISRRAEL Patient Name: FRANCES MACDONALD MR#: [id number] : 1950 Exam Date: 01/14/2024 Ordering Doctor: [...] cancer cancer at age 61. LOCATION: The [facility] BREAST COMPOSITION: There are scattered [...] M.D. Signed By:01/14/24 1335 DD/ 33 TD/TT: Police Captain: Isrrael Brown MD [facility] Final Result documented in this encounter Visit Diagnoses Not on filedocumented in this encounter Care Teams Floral Designer Relationship Specialty Start Date End Date Isrrael Brown MD [address] [facility] [address] [place] [address] PCP - General Internal Medicine 12/12/22 Shanika Davis, REGULATORY COMPLIANCE MANAGER [address] [facility] [address] [place], [place] [address] PCP - ACO Reach 12/05/23 09/11/24 Shanika Davis REGULATORY COMPLIANCE MANAGER [address] [facility] 110 [place], [place] [address] PCP - ACO Reach 09/19/24 11/06/24 documented as of this encounter
--- OUTSIDE RECORDS SUMMARY | 2025-05-19 08:14 | XMS_ITS | Encounter Summary ---
Author Organization [facility] Address [address] [place] [address] Care Team Providers Care Asw/Asuw Tactical Air Controller Name Role Phone Isrrael Brown MD Primary Care Provider [phone] Shanika Davis SERVICE TESTER Unavailable [phone] Shanika Davis SERVICE TESTER Unavailable [phone] Encounter Details Date Type Department Care Team [...] EDT Narrative 05/09/2024 4:20 PM EDT The [address] [address] Cardiology Report Signed Patient: FRANCES MACDONALD MR#: [id number] : 1950 Acct:[id number] Age/Sex: 74 / F ADM Date: 05/09/24 Loc: CARD Attending Dr: MANJINDER SHEFFIELD Ordering Physician: MANJINDER SHEFFIELD Date of Service: 05/09/24 Procedure(s): CA echo limited Accession Number(s): [id number] cc: ISRRAEL BROWN ; MANJINDER SHEFFIELD Patient Name: FRANCES MACDONALD MR#: [id number] : 1950 Exam Date: 05/09/2024 Ordering Doctor: [...] Signed By: 05/09/24 1620 DD/ 1619 TD/TT: Radiographer Cardiac Catheterization: Procedure Note Radiology, Radiologist, MD - 05/09/2024 [place] [address] Cardiology Report Signed Patient: FRANCES MACDONALD MMR#: [id number] : 1950cct:[id number] Age/Sex: 74 / FADM Date: 05/09/24 Loc: CARD Attending Dr: MANJINDER SHEFFIELD Ordering Physician: MANJINDER SHEFFIELD Date of Service: 05/09/24 Procedure(s): CA echo limited Accession Number(s): [id number] cc: ISRRAEL BROWN ; AMNJINDER SHEFFIELD Patient Name: FRANCES MACDONALD MR#: [id number] : 1950 Exam Date: 05/09/2024 Ordering Doctor: [...] CURRY Signed By:05/09/24 1620 DD/ 1619 TD/TT: Radiographer Cardiac Catheterization: Generic External Data Provider IMG XR PROCEDURES Final Result documented in this encounter Visit Diagnoses Not on filedocumented in this encounter Care Teams Asw/Asuw Tactical Air Controller Relationship Specialty Start Date End Date Isrrael Brown MD [address] [facility] 110 [place] [address] PCP - General Internal Medicine 12/12/22 Shanika Davis SERVICE TESTER [address] [facility] [address] [place] [address] PCP - ACO Reach 12/05/23 09/11/24 Shanika Davis SERVICE TESTER [address] [facility] [address] [place] [address] PCP - ACO Reach 09/19/24 11/06/24 documented as of this encounter
--- OUTSIDE RECORDS SUMMARY | 2025-05-19 08:14 | XMS_ITS | Encounter Summary ---
Author Organization [facility] Address [address] [facility] [place] [address] Care Team Providers Care Vp Clinical Name Role Phone Isrrael Brown MD Primary Care Provider [phone] Shanika Davis CONCRETE PIPE MAKING MACHINE OPERATOR Unavailable [phone] Shanika Davis CONCRETE PIPE MAKING MACHINE OPERATOR Unavailable [phone] Reason for Visit * Reason Comments Med Refill Encounter Details Date Type Department Care Team (Late st Contact Info) Description 05/22/2024 [facility] [address] [facility] 110 [place] [address] Isrrael Brown MD [address] [facility] 110 [place] [address] Paroxysmal atrial fibrillation (HCC); Abnormal [...] TSH documented in this encounter Care Teams Vp Clinical Relationship Specialty Start Date End Date Isrrael Brown MD [address] [address] PCP - General Internal Medicine 12/12/22 Shanika Davis NP [address] [address] PCP - ACO Reach 12/05/23 09/11/24 Shanika Davis NP [address] [address] PCP - ACO Reach 09/19/24 11/06/24 documented as of this encounter
--- OUTSIDE RECORDS SUMMARY | 2025-05-19 08:14 | XMS_ITS | Encounter Summary ---
Author Organization [facility] Address [address] [place] [address] Care Team Providers Care Ornamenter Hand Name Role Phone Isrrael Brown MD Primary Care Provider [phone] Shanika Davis MENSWEAR SALESPERSON Unavailable [phone] Shanika Davis MENSWEAR SALESPERSON Unavailable [phone] Encounter Details Date Type Department Care Team (Late st Contact Info) Description 01/21/2024 Abstract [facility] [place] [facility] [address] [facility] 110 [place] [address] Isrrael Brown MD [address] [facility] 110 [place], [place] [address] Social History Tobacco Use Types Packs/Day Years [...] on filedocumented in this encounter Care Teams Ornamenter Hand Relationship Specialty Start Date End Date Isrrael Brown MD [address] [facility] 110 [place] [address] PCP - General Internal Medicine 12/12/22 Shanika Davis NP [address] [place] [address] PCP - ACO Reach 12/05/23 09/11/24 Shanika Davis NP [address] [facility] 110 [place] [address] PCP - ACO Reach 09/19/24 11/06/24 documented as of this encounter
--- OUTSIDE RECORDS SUMMARY | 2025-05-19 08:14 | XMS_ITS | Encounter Summary ---
Author Organization [facility] Address [address] [facility] [place] [address] Care Team Providers Care Back Tender Pulp Drier Name Role Phone Isrrael Brown MD Primary Care Provider [phone] Encounter Details Date Type Department Care Team (Late st Contact Info) Description 12/08/2024 Abstract [facility] [address] [place] [address] Isrrael Brown MD [address] [place], [place] [address] Social History Tobacco Use Types Packs/Day Years [...] on filedocumented in this encounter Care Teams Back Tender Pulp Drier Relationship Specialty Start Date End Date Isrrael Brown MD [address] [place], [place] [address] PCP - General Internal Medicine 12/12/22 documented as of this encounter
--- OUTSIDE RECORDS SUMMARY | 2025-05-19 08:14 | XMS_ITS | Encounter Summary ---
Author Organization [facility] Address [address] [place] [address] Care Team Providers Care Gas Torch Brazier Name Role Phone Isrrael Brown MD Primary Care Provider [phone] Shanika Davis CLINICAL NURSING COORDINATOR Unavailable [phone] Shanika Davis CLINICAL NURSING COORDINATOR Unavailable [phone] Encounter Details Date Type Department Care Team [...] EDT Narrative 02/28/2024 1:35 PM EDT The [address] [address] Cardiology Report Signed Patient: FRANCES MACDONALD MR#: [id number] : 1950 Acct:[id number] Age/Sex: 73 / F ADM Date: 02/28/24 Loc: CARD Attending Dr: MANJINDER SHEFFIELD Ordering Physician: MANJINDER SHEFFIELD Date of Service: 02/28/24 Procedure(s): CA echo limited Accession Number(s): [id number] cc: JOAQUÍN BROWNEL ; MANJINDER SHEFFIELD Patient Name: FRANCES MACDONALD MR#: [id number] : 1950 Exam Date: 02/28/2024 Ordering Doctor: [...] Signed By: 02/28/24 1335 DD/ 33 TD/TT: City Tax Auditor: Procedure Note Radiology, Radiologist, MD - 02/28/2024 [place] [address] Cardiology Report Signed Patient: FRANCES MACDONALD MMR#: [id number] : 1950cct:[id number] Age/Sex: 73 / FADM Date: 02/28/24 Loc: CARD Attending Dr: MANJINDER SHEFFIELD Ordering Physician: MANJINDER SHEFFIELD Date of Service: 02/28/24 Procedure(s): CA echo limited Accession Number(s): [id number] cc: ISRRAEL BROWN ; MANJINDER SHEFFIELD Patient Name: FRANCES MACDONALD MR#: [id number] : 1950 Exam Date: 02/28/2024 Ordering Doctor: [...] M.D. Signed By:02/28/24 1335 DD/ 1334 TD/TT: City Tax Auditor: Generic External Data Provider IMG XR PROCEDURES Final Result documented in this encounter Visit Diagnoses Not on filedocumented in this encounter Care Teams Gas Torch Brazier Relationship Specialty Start Date End Date Isrrael Brown MD [address] [facility] [address] [place] [address] PCP - General Internal Medicine 12/12/22 Shanika Davis CLINICAL NURSING COORDINATOR [address] [place] [address] PCP - ACO Reach 12/05/23 09/11/24 Shanika Davis NP [address] [place] [address] PCP - ACO Reach 09/19/24 11/06/24 documented as of this encounter
[2025-05-19 08:58] LABS: Alanine Aminotransferase 14 U/L (14-59); Aspartate Amino Transferase 14 U/L (15-37); Cholesterol 135 mg/dL (<=200); HDL Cholesterol 39 mg/dL (40-60); Triglycerides 87 mg/dL (<=150); VLDL CHOLESTEROL 17.4 mg/dL
== END 2025-05-19 08:09 | disposition home or self-care (01) ==
LOC: LAB 08:09
PROVIDERS: PCP Internal Medicine; Visit Provider Internal Medicine Cardiovascular Disease
DX: E78.5 Hyperlipidemia, unspecified (principal)
CPT/HCPCS: 36415; 80061; 84450; 84460